=== PATIENT | male | born 1960 | race Caucasian/White ===

== ENCOUNTER → 2017-02-21 | Outpatient (CLI) | payer MEDICARE, OTHER ==
--- NOTE | 2017-02-21 14:36 | XR ---
EXAMINATION TYPE: XR chest 2V DATE OF EXAM: 02/21/2017 COMPARISON: 07/21/2016 TECHNIQUE: PA and lateral views submitted. HISTORY: Cough FINDINGS: Hyperinflation lungs noted. Correlate for COPD. Degenerative change of the spine seen. Heart size sta ble. No overt failure or pneumothorax. Vague density in the right midlung likely related soft tissue overlap. IMPRESSION: 1. Small focal area of density in the right mid to lower lung field likely related to soft tissue ove rlap rather than early infiltrate correlate clinically. 2. COPD
== END ==
LOC: RAD 14:04
PROVIDERS: ATTEND Internal Medicine
DX: J44.9 Chronic obstructive pulmonary disease, unspecified (principal)
CPT/HCPCS: 71020

== ENCOUNTER 2017-07-02 06:22 | Inpatient (IN) | payer MEDICARE, OTHER ==
--- NOTE | 2017-07-02 06:33 | ED ---
General Adult HPI - General Source: patient, RN notes reviewed, old records reviewed Mode of arrival: wheelchair Limitations: no limitations <Jw Morel - Last Filed: 07/02/17 06:34> <Jw Phelps - Last Filed: 07/02/17 08:10> - General Chief complaint: Recheck/Abnormal Lab/Rx Stated complaint: Incision problems Time Seen by Provider: 07/02/17 06:31 - History of Present Illness Initial comments: This is a 57-year-old male to the ER for evaluation of postop complication. Patient does have history of high blood pressure high cholesterol, patient had surgery by Dr. Hua and was released 2 days ago. Patient of bowel resection secondary to diverticulitis. Patient went to mild abdominal pain. No fevers. Patient denies a chest pain shortness of breath patient had progressed to normal diet normal bowel movements. Patient states wound issue happened overnight (Jw Morel) - Related Data Home Medications Medication Instructions Recorded Confirmed Albuterol Sulfate [Ventolin HFA] 2 puff INHALATION RT-Q4H PRN 03/05/14 06/24/17 Gabapentin [Neurontin] 100 mg PO BID 03/05/14 06/24/17 Omeprazole 40 mg PO DAILY 03/05/14 06/24/17 Lipase/Protease/Amylase [[place] 1 cap PO TID 07/12/14 06/24/17 24,000 Units Capsule] risperiDONE [RisperDAL] 2 mg PO BID 07/12/14 06/24/17 Atorvastatin Calcium [Lipitor] 10 mg PO DAILY 06/02/17 06/24/17 Furosemide [Lasix] 40 mg PO DAILY 06/02/17 06/24/17 Ibuprofen [Motrin] 800 mg PO TID PRN 06/02/17 06/24/17 Metoprolol Succinate (ER) [Toprol 25 mg PO DAILY 06/02/17 06/24/17 XL] Roflumilast [Daliresp] 500 mg PO DAILY 06/02/17 06/24/17 busPIRone HCL [Buspar] 7.5 mg PO BID 06/02/17 06/24/17 Theophylline Anhydrous [Dionisio-24] 200 mg PO DAILY 06/24/17 06/24/17 Previous Rx's Medication Instructions Recorded Escitalopram [Lexapro] 10 mg PO DAILY #30 tab 03/11/14 Potassium Chloride [Klor-Con 10] 20 meq PO DAILY #60 tablet.er 06/30/17 Allergies Allergy/AdvReac Type Severity Reaction Status Date / Time Penicillins Allergy Rash/Hives Verified 07/02/17 06:30 Review of Systems ROS Other: All systems not noted in ROS Statement are negative. <Jw Morel - Last Filed: 07/02/17 06:34> ROS Other: All systems not noted in ROS Statement are negative. <Jw Phelps - Last Filed: 07/02/17 08:10> ROS Statement: Those systems with pertinent positive or pertinent negative responses have been documented in the HPI. Past Medical History Past Medical History: Chest Pain / Angina, COPD, GERD/Reflux, Hyperlipidemia, Hypertension, Pneumonia, Sleep Apnea/CPAP/BIPAP Additional Past Medical History / Comment(s): Currently being tx for diverticulitis with home antibiotics, O2 at 3L/NC ATC, 2 leaky heart valves, chronic pancreatitis. Last Myocardial Infarction Date:: Denies having an [place] History of Any Multi-Drug Resistant Organisms: MRSA Date of last positivie culture/infection: summer MDRO Source:: right side of buttuck and right side of chest above nipple/ Past Surgical History: Heart Catheterization, Tonsillectomy Additional Past Surgical History / Comment(s): RT WRIST-repair of two tendons, cardiac cath-normal, colonoscopy-yrs ago, current L upper arm picc line. Past Anesthesia/Blood Transfusion Reactions: No Reported Reaction, Motion Sickness Past Psychological History: Anxiety, Depression Smoking Status: Current every day smoker - Past Family History Mother Family Medical History: Cancer, COPD Additional Family Medical History / Comment(s): Pt does not know what kind of cancer mother had. She is . Father Family Medical History: COPD Additional Family Medical History / Comment(s): Father is . <Jw Morel - Last Filed: 07/02/17 06:34> General Exam Limitations: no limitations General appearance: alert, in no apparent distress Head exam: Present: atraumatic, normocephalic, normal inspection Eye exam: Present: normal appearance, PERRL, EOMI. Absent: scleral icterus, conjunctival injection, periorbital swelling ENT exam: Present: normal exam, mucous membranes moist Neck exam: Present: normal inspection. Absent: tenderness, meningismus, lymphadenopathy Respiratory exam: Present: normal lung sounds bilaterally. Absent: respiratory distress, wheezes, rales, rhonchi, stridor Cardiovascular Exam: Present: regular rate, normal rhythm, normal heart sounds. Absent: systolic murmur, diastolic murmur, rubs, gallop, clicks GI/Abdominal exam: Present: soft, normal bowel sounds. Absent: distended, tenderness, guarding, rebound, rigid Extremities exam: Present: normal inspection, full ROM, normal capillary refill. Absent: tenderness, pedal edema, joint swelling, calf tenderness Back exam: Present: normal inspection Neurological exam: Present: alert, oriented X3, CN II-XII intact Psychiatric exam: Present: normal affect, normal mood Skin exam: Present: warm, dry, intact, normal color. Absent: rash <Jw Morel - Last Filed: 07/02/17 06:34> <Jw Phelps - Last Filed: 07/02/17 08:10> - General Exam Comments Initial Comments: Incision is covered, clean, there is bowel protruding through significant wound dehiscence anterior midline (Jw Morel) Course <Jw Morel - Last Filed: 07/02/17 06:34> <Jw Phleps - Last Filed: 07/02/17 08:10> Vital Signs 07/02/17 07/02/17 07/02/17 06:26 06:30 07:25 Temperature 98.2 F Pulse Rate 121 H 100 91 Respiratory 24 20 18 Rate Blood Pressure 141/102 172/94 148/80 O2 Sat by Pulse 98 100 100 Oximetry - Reevaluation(s) Reevaluation #1: 07/02/17 06:32 Dr. Hua pagecipriano regarding significant wound dehiscence, bowel protruding ( Jw Morel) Medical Decision Making - Lab Data Result diagrams: 07/02/17 07:17 07/02/17 07:17 <Jw Phelps - Last Filed: 07/02/17 08:10> - Lab Data Lab Results 07/02/17 07/02/17 Range/Units 07:17 07:17 WBC 14.2 H (3.8-10.6) k/uL RBC 4.06 L (4.30-5.90) m/uL Hgb 11.3 L (13.0-17.5) gm/dL Hct 37.3 L (39.0-53.0) % MCV 91.9 (80.0-100.0) fL MCH 27.8 (25.0-35.0) pg MCHC 30.2 L (31.0-37.0) g/dL RDW 15.0 (11.5-15.5) % Plt Count 269 (150-450) k/uL Neutrophils % 91 % Lymphocytes % 4 % Monocytes % 3 % Eosinophils % 2 % Basophils % 0 % Neutrophils # 12.9 H (1.3-7.7) k/uL Lymphocytes # 0.6 L (1.0-4.8) k/uL Monocytes # 0.4 (0-1.0) k/uL Eosinophils # 0.3 (0-0.7) k/uL Basophils # 0.0 (0-0.2) k/uL Sodium 141 (137-145) mmol/L Potassium 3.6 (3.5-5.1) mmol/L Chloride 100 (98-107) mmol/L Carbon Dioxide 33 H (22-30) mmol/L Anion Gap 8 mmol/L BUN 13 (9-20) mg/dL Creatinine 0.49 L (0.66-1.25) mg/dL Est GFR (MDRD) Af Amer >60 (>60 ml/min/1.73 sqM) Est GFR (MDRD) Non-Af >60 (>60 ml/min/1.73 sqM) Glucose 128 H (74-99) mg/dL Calcium 8.9 (8.4-10.2) mg/dL Total Bilirubin 0.5 (0.2-1.3) mg/dL AST 16 L (17-59) U/L ALT 35 (21-72) U/L Alkaline Phosphatase 70 (38-126) U/L Total Protein 5.7 L (6.3-8.2) g/dL Albumin 3.3 L (3.5-5.0) g/dL Amylase <30 L (30-110) U/L Lipase 32 (23-300) U/L Disposition <Roskopp,Jw B - Last Filed: 07/02/17 06:34> Time of Disposition: 08:10 <Jw Phelps - Last Filed: 07/02/17 08:10> Clinical Impression: Dehiscence of surgical wound Disposition: ADMITTED IP TO THIS HOSP Referrals: Magi Kerr MD [Primary Care Provider] - 1-2 days
[2017-07-02] MEDS ORDERED: MORPHINE SULFATE 5 MG/ML SYRINGE IV STA (06:35)
[2017-07-02] MEDS ORDERED: SODIUM CHLORIDE 0.9% 1,000 ML IV STA (06:35)
[2017-07-02] MEDS ORDERED: PANTOPRAZOLE 40 MG/10 ML VIAL IVP STA (06:35)
[2017-07-02] MEDS ORDERED: ONDANSETRON 4 MG/2 ML VIAL IVP STA (06:35)
[2017-07-02] MEDS: SODIUM CHLORIDE 0.9% 1,000 ML IV STA ×2 (06:51→13:21)
[2017-07-02 07:33] LABS: Basophils % (A) 0 %; Eosinophils # (A) 0.3 k/uL (0-0.7); Eosinophils % (A) 2 %; HCT 37.3 % (39.0-53.0); HGB 11.3 gm/dL (13.0-17.5); Lymphocytes # (A) 0.6 k/uL (1.0-4.8); Lymphocytes % (A) 4 %; MCH 27.8 pg (25.0-35.0); MCHC 30.2 g/dL (31.0-37.0); MCV 91.9 fL (80.0-100.0); Mean Platelet Volume 7.5; Monocytes # (A) 0.4 k/uL (0-1.0); Monocytes % (A) 3 %; Neutrophils # (A) 12.9 k/uL (1.3-7.7); Neutrophils % (A) 91 %; Platelet Count 269 k/uL (150-450); RBC 4.06 m/uL (4.30-5.90); WBC 14.2 k/uL (3.8-10.6)
[2017-07-02] MEDS ORDERED: MORPHINE SULFATE 5 MG/ML SYRINGE IVP STA (07:44)
--- NOTE | 2017-07-02 07:44 | XR ---
EXAMINATION TYPE: XR abdomen acute w cxr , 4 VIEWS DATE OF EXAM ORDERED: 07/02/2017 HISTORY: Bowel evisceration. COMPARISON: None. FINDINGS: There is blunting of both CP angles. It would be difficult to exclude small effusions. The lungs are otherwise clear. Pleural spaces are clear. Within the abdomen, there are mildly dilated loops of small bowel throughout the upper abdomen. The c olon is relatively gasless. There are metallic skin sutures in place. No free air is seen. No unusual calcifications are identified. IMPRESSION: 1. DIFFICULT TO EXCLUDE SMALL, BILATERAL EFFUSIONS. 2. SMALL BOWEL ILEUS VERSUS EARLY OBSTRUCTION.
[2017-07-02 07:53] LABS: ALT 35 U/L (21-72); AST 16 U/L (17-59); Albumin 3.3 g/dL (3.5-5.0); Alkaline Phosphatase 70 U/L (38-126); Amylase <30 U/L (30-110); Anion Gap 8 mmol/L; Blood Urea Nitrogen 13 mg/dL (9-20); Calcium 8.9 mg/dL (8.4-10.2); Carbon Dioxide 33 mmol/L (22-30); Chloride 100 mmol/L (98-107); Glucose 128 mg/dL (74-99); Lipase 32 U/L (23-300); Potassium 3.6 mmol/L (3.5-5.1); Sodium 141 mmol/L (137-145); Total Bilirubin 0.5 mg/dL (0.2-1.3); Total Protein 5.7 g/dL (6.3-8.2)
[2017-07-02 08:57] LABS: Appearance,Urine Clear (Clear); Bacteria,Urine Rare /hpf; Bilirubin,Urine Negative (Negative); Blood,Urine Negative (Negative); Color,Urine Yellow; Glucose,Urine (UA) Negative (Negative); Ketones,Urine 1+ (Negative); Leukocyte Esterase,Urine Negative (Negative); Mucus,Urine Few /hpf; Nitrite,Urine Negative (Negative); Protein,Urine 1+ (Negative); RBC,Urine 4 /hpf (0-5); Specific Gravity,Urine 1.022 (1.001-1.035); Squamous Epithelial Cell,Urine <1 /hpf (0-4); WBC,Urine 1 /hpf (0-5)
[2017-07-02] MEDS ORDERED: CLINDAMYCIN 600 MG in DEXTROSE 5% IN WATER 50 ML IVPB STA ×2 (09:09)
--- NOTE | 2017-07-02 09:09 | P.GSHP ---
History of Present Illness H&P Date: 07/02/17 57-year-old male presents with complaint of tissue presenting from a recent surgical incision. The patient was discharged 2 days ago after having a sigmoid colectomy performed secondary to chronic diverticulitis. He states that since he has been home he was doing well. He was tolerating a diet. He states that overnight he did have a fall and had a coughing fit. He noticed that at this point tissue began to protrude from his incision site. He also complained of pain at his incision site. He denies any fevers, chills, chest pain or shortness of breath. He denies any vomiting but does complain of some nausea at this time. He has no additional complaints at this time. - Review of Systems All systems: negative Past Medical History Past Medical History: Chest Pain / Angina, COPD, GERD/Reflux, Hyperlipidemia, Hypertension, Pneumonia, Sleep Apnea/CPAP/BIPAP Additional Past Medical History / Comment(s): Currently being tx for diverticulitis with home antibiotics, O2 at 3L/NC ATC, 2 leaky heart valves, chronic pancreatitis. Last Myocardial Infarction Date:: Denies having an [place] History of Any Multi-Drug Resistant Organisms: MRSA Date of last positivie culture/infection: summer MDRO Source:: right side of buttuck and right side of chest above nipple/ Past Surgical History: Heart Catheterization, Tonsillectomy Additional Past Surgical History / Comment(s): RT WRIST-repair of two tendons, cardiac cath-normal, colonoscopy-yrs ago, current L upper arm picc line. Past Anesthesia/Blood Transfusion Reactions: No Reported Reaction, Motion Sickness Past Psychological History: Anxiety, Depression Smoking Status: Current every day smoker - Past Family History Mother Family Medical History: Cancer, COPD Additional Family Medical History / Comment(s): Pt does not know what kind of cancer mother had. She is . Father Family Medical History: COPD Additional Family Medical History / Comment(s): Father is . Medications and Allergies Home Medications Medication Instructions Recorded Confirmed Type Albuterol Sulfate [Ventolin HFA] 2 puff INHALATION RT-Q4H PRN 03/05/14 06/24/17 History Gabapentin [Neurontin] 100 mg PO BID 03/05/14 06/24/17 History Omeprazole 40 mg PO DAILY 03/05/14 06/24/17 History Escitalopram [Lexapro] 10 mg PO DAILY #30 tab 03/11/14 06/24/17 Rx Lipase/Protease/Amylase [Creon Dr 1 cap PO TID 07/12/14 06/24/17 History 24,000 Units Capsule] risperiDONE [RisperDAL] 2 mg PO BID 07/12/14 06/24/17 History Atorvastatin Calcium [Lipitor] 10 mg PO DAILY 06/02/17 06/24/17 History Furosemide [Lasix] 40 mg PO DAILY 06/02/17 06/24/17 History Ibuprofen [Motrin] 800 mg PO TID PRN 06/02/17 06/24/17 History Metoprolol Succinate (ER) [Toprol 25 mg PO DAILY 06/02/17 06/24/17 History XL] Roflumilast [Daliresp] 500 mg PO DAILY 06/02/17 06/24/17 History busPIRone HCL [Buspar] 7.5 mg PO BID 06/02/17 06/24/17 History Theophylline Anhydrous [Dionisio-24] 200 mg PO DAILY 06/24/17 06/24/17 History Potassium Chloride [Klor-Con 10] 20 meq PO DAILY #60 tablet.er 06/30/17 Rx Allergies Allergy/AdvReac Type Severity Reaction Status Date / Time Penicillins Allergy Rash/Hives Verified 07/02/17 06:30 Surgical - Exam Osteopathic Statement: *. No significant issues noted on an osteopathic structural exam other than those noted in the History and Physical/Consult. Vital Signs Temp Pulse Resp BP Pulse Ox 98.2 F 121 H 24 141/102 98 07/02/17 06:26 07/02/17 06:26 07/02/17 06:26 07/02/17 06:26 07/02/17 06:26 - General well developed, no distress - Eyes PERRL, normal ocular movement - ENT normal pinna, normal nares, normal mucosa - Neck no masses, no bruits, trachea midline, no lymphadectomy - Respiratory normal respiratory effort - Abdomen Soft, appropriate tenderness, mild distention, no rebound, no guarding, midline incision site with small bowel protruding, nadine are still in place - Psychiatric speech is normal Results - Labs 07/02/17 07:17 07/02/17 07:17 Abnormal Lab Results - Last 24 Hours (Table) 07/02/17 07/02/17 07/02/17 Range/Units 07:17 07:17 08:32 WBC 14.2 H (3.8-10.6) k/uL RBC 4.06 L (4.30-5.90) m/uL Hgb 11.3 L (13.0-17.5) gm/dL Hct 37.3 L (39.0-53.0) % MCHC 30.2 L (31.0-37.0) g/dL Neutrophils # 12.9 H (1.3-7.7) k/uL Lymphocytes # 0.6 L (1.0-4.8) k/uL Carbon Dioxide 33 H (22-30) mmol/L Creatinine 0.49 L (0.66-1.25) mg/dL Glucose 128 H (74-99) mg/dL AST 16 L (17-59) U/L Total Protein 5.7 L (6.3-8.2) g/dL Albumin 3.3 L (3.5-5.0) g/dL Amylase <30 L (30-110) U/L Urine Protein 1+ H (Negative) Urine Ketones 1+ H (Negative) Urine Bacteria Rare H (None) /hpf Urine Mucus Few H (None) /hpf Diabetes panel 07/02/17 Range/Units 07:17 Sodium 141 (137-145) mmol/L Potassium 3.6 (3.5-5.1) mmol/L Chloride 100 (98-107) mmol/L Carbon Dioxide 33 H (22-30) mmol/L BUN 13 (9-20) mg/dL Creatinine 0.49 L (0.66-1.25) mg/dL Glucose 128 H (74-99) mg/dL Calcium 8.9 (8.4-10.2) mg/dL AST 16 L (17-59) U/L ALT 35 (21-72) U/L Alkaline Phosphatase 70 (38-126) U/L Total Protein 5.7 L (6.3-8.2) g/dL Albumin 3.3 L (3.5-5.0) g/dL Calcium panel 07/02/17 Range/Units 07:17 Calcium 8.9 (8.4-10.2) mg/dL Albumin 3.3 L (3.5-5.0) g/dL Pituitary panel 07/02/17 Range/Units 07:17 Sodium 141 (137-145) mmol/L Potassium 3.6 (3.5-5.1) mmol/L Chloride 100 (98-107) mmol/L Carbon Dioxide 33 H (22-30) mmol/L BUN 13 (9-20) mg/dL Creatinine 0.49 L (0.66-1.25) mg/dL Glucose 128 H (74-99) mg/dL Calcium 8.9 (8.4-10.2) mg/dL Adrenal panel 07/02/17 Range/Units 07:17 Sodium 141 (137-145) mmol/L Potassium 3.6 (3.5-5.1) mmol/L Chloride 100 (98-107) mmol/L Carbon Dioxide 33 H (22-30) mmol/L BUN 13 (9-20) mg/dL Creatinine 0.49 L (0.66-1.25) mg/dL Glucose 128 H (74-99) mg/dL Calcium 8.9 (8.4-10.2) mg/dL Total Bilirubin 0.5 (0.2-1.3) mg/dL AST 16 L (17-59) U/L ALT 35 (21-72) U/L Alkaline Phosphatase 70 (38-126) U/L Total Protein 5.7 L (6.3-8.2) g/dL Albumin 3.3 L (3.5-5.0) g/dL Assessment and Plan (1) Dehiscence of surgical wound Current Visit: Yes Status: Acute Code(s): T81.31XA - DISRUPTION OF EXTERNAL OPERATION (SURGICAL) WOUND, NEC, INIT SNOMED Code(s): 395456840 (2) COPD (chronic obstructive pulmonary disease) Current Visit: No Status: Chronic Code(s): J44.9 - CHRONIC OBSTRUCTIVE PULMONARY DISEASE, UNSPECIFIED SNOMED Code(s): 78965302 Plan: 57-year-old male with wound dehiscence from recent laparotomy - IV fluid resuscitation - Will begin some antibiotic coverage - Plan to take to the OR for wound closure - Educated patient on smoking cessation - Further recommendations after operation
[2017-07-02] MEDS ORDERED: SODIUM CHLORIDE 0.9% 1,000 ML IV ONE (09:55)
[2017-07-02] MEDS ORDERED: CLINDAMYCIN 150 MG/ML 4 ML VIAL IVPB ONE (10:10)
[2017-07-02] MEDS ORDERED: LACTATED RINGERS 1,000 ML IV ONE ×3 (10:20→14:02)
[2017-07-02] MEDS ORDERED: NEOSTIGMINE 1 MG/ML 10 ML VIAL ONE (10:33)
[2017-07-02] MEDS ORDERED: GLYCOPYRROLATE 0.2 MG/ML 2 ML VIAL ONE (10:33)
[2017-07-02] MEDS ORDERED: MIDAZOLAM 2 MG/2 ML VIAL ONE (10:33)
[2017-07-02] MEDS ORDERED: fentaNYL (PF) 50 MCG/ML 2 ML AMP ONE (10:33)
[2017-07-02] MEDS ORDERED: PROPOFOL 10 MG/ML 20 ML VIAL IV ONE (10:33)
[2017-07-02] MEDS ORDERED: LIDOCAINE 1% INJ 10MG/ML (20 ML MDV) ONE (10:33)
[2017-07-02] MEDS ORDERED: SUCCINYLCHOLINE CHLORIDE 100 MG/5 ML SYR IV ONE (10:33)
[2017-07-02] MEDS ORDERED: HYDROmorphone (PF) 1 MG/ML ONE (10:33)
[2017-07-02] MEDS ORDERED: ROCURONIUM BROMIDE 10 MG/ML 10 ML VIAL IV ONE (10:33)
[2017-07-02] MEDS ORDERED: PHENYLEPHRINE-0.9% NACL SYG 1 MG/10 ML SYRINGE ONE (10:33)
--- NOTE | 2017-07-02 11:57 | P.OP ---
Date of Procedure: 07/02/17 Preoperative Diagnosis: Midline wound dehiscence Postoperative Diagnosis: Midline wound fascial dehiscence with small bowel herniation Procedure(s) Performed: Exploratory laparotomy Abdominal washout Abdominal wound closure Anesthesia: ALYSSA Surgeon: Maureen Sorensen Pathology: none sent Condition: stable Disposition: floor Indications for Procedure: 57-year-old gentleman presented to the emergency department 2 days after discharge. He did have a sigmoid colectomy prior to his recent discharge. He states that he had a recent fall and coughing episode in which he noticed tissue coming out of his incision site. He then presented to the emergency department. On workup the patient was found to have small bowel herniation through a wound dehiscence. The patient was taken to the operating room secondary to this. The risks, benefits and alternatives were explained to the patient prior to attending the operating suite. The patient did provide consent prior to attending the operating suite. Operative Findings: Midline fascial wound dehiscence with small bowel herniation Description of Procedure: The patient was brought into the operating suite placed in supine position on the operating table and sedation was provided by anesthesia. He then underwent endotracheal intubation. The patient was then prepped and draped in regular sterile fashion. Skin stapler remover was used to remove the skin nadine at the midline incision. Immediate small bowel herniation was noted. The previous midline fascial suture was noted to not be in place. These sutures were removed. The small bowel was examined and no obvious ischemia or viability concerns were noted. Warm irrigation was then placed within the abdomen and suctioned. The small bowel was run from the ligament of Treitz towards the cecum with no evidence of any pathologic issue. At this point an NG tube was placed by anesthesia due to some mild dilation of the small bowel. The fascial layer was then closed with a loop #1 PDS suture in running fashion. An additional V lock 2-0 suture was used to continue to reapproximate the fascia. The skin incision was then closed with skin nadine. Additional nylon sutures were placed in between skin nadine. An abdominal binder was also placed 1 sterile dressing was applied. The patient was awakened in the operating suite and taken to postanesthesia care unit in stable condition.
[2017-07-02] MEDS ORDERED: HYDROmorphone 1 MG/ML 1 ML SYRINGE IVP ONE ×2 (12:14→12:20)
[2017-07-02 13:58] VITALS: BMI 30.2
[2017-07-02] MEDS ORDERED: ONDANSETRON 4 MG/2 ML VIAL IVP PRN (14:02)
[2017-07-02] MEDS ORDERED: HYDROmorphone 1 MG/ML 1 ML SYRINGE IVP PRN (14:02)
[2017-07-02] MEDS ORDERED: NALOXONE 0.4 MG/ML 1 ML VIAL IV PRN (14:02)
[2017-07-02] MEDS: HYDROmorphone 2 MG/ML 1 ML SYRINGE IVP PRN ×2 (15:43→20:25)
[2017-07-02] MEDS: HEPARIN SODIUM,PORCINE 5,000 UNIT/ML 1 ML VIAL SQ SCH ×2 (15:44→23:51)
[2017-07-02] MEDS ORDERED: CLINDAMYCIN 600 MG in DEXTROSE 5% IN WATER 50 ML IVPB SCH ×2 (16:00)
[2017-07-02] MEDS ORDERED: LORazepam 2 MG/ML INJ IV PRN ×2 (17:06→18:23)
[2017-07-02] MEDS ORDERED: LORazepam 2 MG/ML INJ IV STA (18:24)
[2017-07-02] MEDS ORDERED: HALOPERIDOL LACTATE 5 MG/ML 1 ML VIAL IVP PRN (20:39)
--- NOTE | 2017-07-02 20:56 | XR ---
EXAMINATION TYPE: XR chest 1V DATE OF EXAM: 07/02/2017 CLINICAL HISTORY: NG tube placement TECHNIQUE: Single AP portable supine view of the chest is obtained. COMPARISON: Chest x-ray from earlier today. FINDINGS: Nasogastric tube tip projects below left hemidiaphragm. Lungs remain clear without pleural effusion or pneumothorax. Cardiac silhouette size is within normal limits. Osseous structures are in tact. IMPRESSION: New nasogastric tube satisfactory in position. No acute pulmonary process is evident curr ently.
[2017-07-02] MEDS ORDERED: VANCOMYCIN IV PER PHARMACY 1 EACH MISC MISCELLANE PRN (22:46)
[2017-07-02] MEDS ORDERED: VANCOMYCIN 1,500 MG in SODIUM CHLORIDE 0.9% 250 ML IVPB ONE (23:00)
[2017-07-02] MEDS: LORazepam 2 MG/ML INJ IV PRN (23:51)
[2017-07-03] MEDS: HYDROmorphone 2 MG/ML 1 ML SYRINGE IVP PRN ×2 (01:38→19:48)
[2017-07-03] MEDS ORDERED: SODIUM CHLORIDE 0.9% 500 ML IV ONE (01:43)
[2017-07-03] MEDS: LORazepam 2 MG/ML INJ IV PRN ×4 (03:26→19:53)
[2017-07-03] MEDS: LACTATED RINGERS 1,000 ML IV SCH ×3 (03:26→18:43)
[2017-07-03] MEDS ORDERED: HALOPERIDOL LACTATE 5 MG/ML 1 ML VIAL IM PRN (04:39)
[2017-07-03 05:06] LABS: Basophils % (A) 0 %; Eosinophils # (A) 0.2 k/uL (0-0.7); Eosinophils % (A) 1 %; HCT 33.8 % (39.0-53.0); HGB 10.2 gm/dL (13.0-17.5); Hypochromasia Marked; Lymphocytes # (A) 0.8 k/uL (1.0-4.8); Lymphocytes % (A) 5 %; MCH 28.6 pg (25.0-35.0); MCHC 30.2 g/dL (31.0-37.0); MCV 94.6 fL (80.0-100.0); Mean Platelet Volume 7.6; Monocytes # (A) 0.8 k/uL (0-1.0); Monocytes % (A) 5 %; Neutrophils # (A) 13.4 k/uL (1.3-7.7); Neutrophils % (A) 88 %; Platelet Count 315 k/uL (150-450); RBC 3.57 m/uL (4.30-5.90); RDW 15.1 % (11.5-15.5); WBC 15.3 k/uL (3.8-10.6)
[2017-07-03 05:17] LABS: ALT 38 U/L (21-72); AST 28 U/L (17-59); Albumin 2.9 g/dL (3.5-5.0); Alkaline Phosphatase 52 U/L (38-126); Anion Gap 9 mmol/L; Blood Urea Nitrogen 15 mg/dL (9-20); Calcium 8.2 mg/dL (8.4-10.2); Carbon Dioxide 26 mmol/L (22-30); Chloride 107 mmol/L (98-107); Glucose 122 mg/dL (74-99); Magnesium 1.3 mg/dL (1.6-2.3); Phosphorus 3.2 mg/dL (2.5-4.5); Sodium 142 mmol/L (137-145); Total Bilirubin 0.6 mg/dL (0.2-1.3); Total Protein 5.2 g/dL (6.3-8.2)
[2017-07-03] MEDS ORDERED: methylPREDNISolone SOD SUCCI 125 MG/2 ML VIAL IV STA (08:04)
[2017-07-03] MEDS ORDERED: HYDROmorphone 2 MG/ML 1 ML SYRINGE IVP STA (08:05)
[2017-07-03] MEDS ORDERED: IPRATROPIUM-ALBUTEROL 3 ML NEB INHALATION STA ×3 (08:07→08:12)
[2017-07-03] MEDS ORDERED: Magnesium Replacement Protocol 1 EACH MISC MISCELLANE PRN (08:11)
[2017-07-03] MEDS: MAGNESIUM SULFATE-D5W PMX 1 GM in DEXTROSE/WATER 1 100ML.BAG IVPB SCH ×3 (08:45→15:14)
[2017-07-03 09:14] LABS: Glucose,Whole Blood 167 mg/dL (75-99)
[2017-07-03] MEDS: HEPARIN SODIUM,PORCINE 5,000 UNIT/ML 1 ML VIAL SQ SCH ×2 (09:59→16:12)
[2017-07-03] MEDS: VANCOMYCIN 1,500 MG in SODIUM CHLORIDE 0.9% 250 ML IVPB SCH ×2 (10:00→16:12)
[2017-07-03] MEDS: PANTOPRAZOLE 40 MG/10 ML VIAL IV SCH (10:02)
--- NOTE | 2017-07-03 10:11 | P.PN ---
Subjective Progress Note Date: 07/03/17 Pt seen and examined at bedside. I was notified this AM that the pt was severely agitated and began breathing with raspy sounds and he began to desaturate. A rapid was called, treatment improved his saturation but his agitation remained. He is known to have a history of benzodiazepine abuse. Ativan resolved his agitation. He was then transferred to ICU. his NGT had scant output overnight. Currently, he is in ICU and not answering questions due to Ativan on board. He is on nasal cannula and saturating well in the high 90s. Objective - Vital Signs Vital signs: Vital Signs Temp 99.8 F H 07/03/17 07:00 Pulse 108 H 07/03/17 08:11 Resp 26 H 07/03/17 08:00 BP 163/87 07/03/17 07:00 Pulse Ox 99 07/03/17 08:06 Intake & Output 07/02/17 07/03/17 07/03/17 18:59 06:59 18:59 Intake Total 2300 1125 Output Total 5 350 Balance 2295 775 Weight 84.822 kg Intake: IV 2300 Sodium Chloride 0.9% 1, 400 000 ml @ 100 mls/hr IV . Q10H STA Rx#:[id number] Intake, IV Titration 1125 Amount Lactated Ringers 1,000 ml 375 @ 125 mls/hr IV .Q8H MANDA Rx#:[id number] Sodium Chloride 0.9% 500 500 ml @ 999 mls/hr IV .Q31M ONE Rx#:[id number] Vancomycin 1,500 mg In 250 Sodium Chloride 0.9% 250 ml @ 125 mls/hr IVPB Q8H MANDA Rx#:[id number] Output: Gastric Drainage 350 Urine 0 Estimated Blood Loss 5 Other: Voiding Method Urinal - Constitutional General appearance: Present: cooperative, no acute distress - EENT Eyes: Present: PERRLA ENT: Present: hearing grossly normal - Neck Neck: Present: normal ROM - Respiratory Details: no difficulty with respiration - Gastrointestinal Gastrointestinal Comment(s): soft, nontender, nondistended, no rebound, no guarding, incision site clean/dry/ intact with nadine and nylons in place, + bowel sounds - Labs CBC & Chem 7: 07/03/17 04:50 07/03/17 04:50 Labs: Abnormal Lab Results - Last 24 Hours (Table) 07/03/17 07/03/17 07/03/17 Range/Units 04:50 04:50 09:12 WBC 15.3 H (3.8-10.6) k/uL RBC 3.57 L (4.30-5.90) m/uL Hgb 10.2 L (13.0-17.5) gm/dL Hct 33.8 L (39.0-53.0) % MCHC 30.2 L (31.0-37.0) g/dL Neutrophils # 13.4 H (1.3-7.7) k/uL Lymphocytes # 0.8 L (1.0-4.8) k/uL Creatinine 0.50 L (0.66-1.25) mg/dL Glucose 122 H (74-99) mg/dL POC Glucose (mg/dL) 167 H (75-99) mg/dL Calcium 8.2 L (8.4-10.2) mg/dL Magnesium 1.3 L (1.6-2.3) mg/dL Total Protein 5.2 L (6.3-8.2) g/dL Albumin 2.9 L (3.5-5.0) g/dL Microbiology - Last 24 Hours (Table) 07/02/17 08:32 Urine Culture - Preliminary Urine,Voided Assessment and Plan (1) Dehiscence of surgical wound Current Visit: Yes Status: Acute Code(s): T81.31XA - DISRUPTION OF EXTERNAL OPERATION (SURGICAL) WOUND, NEC, INIT SNOMED Code(s): 148982872 (2) COPD (chronic obstructive pulmonary disease) Current Visit: No Status: Chronic Code(s): J44.9 - CHRONIC OBSTRUCTIVE PULMONARY DISEASE, UNSPECIFIED SNOMED Code(s): 80436789 Plan: 57-year-old male with wound dehiscence from recent laparotomy, s/p abdominal wound closure - ICU care for possible withdrawal symptoms - IV fluid resuscitation - Will begin some antibiotic coverage, await additional recommendations from ID - NGT currently in place, will discuss removal when pt more alert - Educated patient on smoking cessation
--- NOTE | 2017-07-03 10:30 | CONS ---
CONSULTATION DATE OF CONSULTATION: 07/02/2017. REASON FOR CONSULTATION: Antibiotics for the abdominal wound dehiscence. HISTORY OF PRESENT ILLNESS: The patient is a 57-year-old male who is status post recent sigmoid colectomy secondary to chronic diverticulitis. Patient discharged home in stable condition about 2 days ago. The patient apparently did have fall outside and did have a coughing fit. Subsequently he was noticed to have his incision opening up and tissue protruding from his incision. With these symptoms, the patient presented early this morning to the ER. The patient has been evaluated by the surgical team. The patient has been taken to the OR, where he was noticed to have a fascial layer dehiscence of wound with intestine protruding, but no evidence of any perforation. The patient is status post closure of the abdominal wound. The patient has been admitted to the surgical floor. Because of his antibiotic allergies to PENICILLIN, he has been started on clindamycin. ID was consulted for further recommendations regarding antibiotic therapy. At the time of my evaluation, the patient has been off of surgery and has been pleasantly confused, slightly incoherent and unable to provide any history, so hence most of the information has been obtained from thorough review of the chart. The patient since admission did not have any high-grade fever, remains to be afebrile. He did have elevated white count 14.2 with a and did have a UA checked, which was negative. Acute abdominal series difficult to exclude small bilateral pleural effusion and small bowel ileus versus early obstruction. Subsequently, chest x-ray nasogastric tube satisfactory in position. No acute pulmonary process. REVIEW OF SYSTEMS: Could not be reliably obtained. The positive points have been mentioned in the HPI. PAST MEDICAL HISTORY: Significant for recurrent sigmoid diverticulitis, COPD, hypertension, hyperlipidemia, pneumonia, sleep apnea. PAST SURGICAL HISTORY: Significant for a heart catheterization, tonsillectomy, sigmoid resection. SOCIAL HISTORY: The patient current an everyday smoker. No drinking or drug use. FAMILY HISTORY: Mother with history of cancer and COPD. Father history of COPD. ALLERGIES TO: PENICILLIN. MEDICATIONS: Include the patient currently on: 1. Clindamycin. 2. He is on [place]. 3. Haldol. 4. Heparin. 5. Dilaudid. 6. Ativan. 7. Narcan. 8. Zofran. EXAMINATION: Blood pressure is 120/69 with a pulse of 130, temperature of 98. He is 96% on 2 L nasal cannula. General description is a middle-aged male lying in bed in no distress. No tachypnea or accessory muscle for respiration use. HEENT examination is slight pallor. No scleral icterus. Oral mucosa membranes dry. Neck trachea central. No thyromegaly. Lungs unlabored breathing. Clear to auscultation anteriorly. Heart S1, S2. Regular rate and rhythm. No murmur ABDOMEN: Soft. Abdominal binder is currently on. EXTREMITIES: No edema of the feet. Skin examination: No rash or mass palpable. Neurological: Patient is awake, alert, and pleasantly confused. Orientation could not be determined. LABS: Hemoglobin is 11.8, white count 14.2, BUN of 13, creatinine 0.49. Electrolytes have been normal. Liver enzymes are normal. DIAGNOSTIC IMPRESSION AND PLAN: 1. Patient with abdomen incision dehiscence in a patient who is status post laparotomy with sigmoid resection for chronic diverticulitis. Currently with no evidence of any perforation of the small bowel. The likely organism need to cover responsible for interruption of the incision will be the gram-positive skin nury. 2. Patient does have a PENICILLIN ALLERGY that will limit number of antibiotics that could be safely used. PLAN: 1. Discontinue clindamycin. 2. We will start the patient on vancomycin pharmacy to dose target of 15. However we will need to watch his kidney function very closely to prevent any nephrotoxicity associated with vancomycin use 3. Depending upon his clinical response as well as cultures will adjust his medication further if needed. Thank you for this consultation. Will follow this patient along with you. MMODL / IJN: [id number] / [place]
--- NOTE | 2017-07-03 13:54 | P.CONS ---
History of Present Illness - Reason for Consult Consult date: 07/03/17 medical management - Chief Complaint abdominal pain - History of Present Illness this is a 57-year-old gentleman with very complex past medical history significant for recent sigmoid colectomy who was recently discharged from the hospital home and was doing fairly well but unfortunately had a fall at home and noted a protrusion of tissue from the incision sites. Who presented to the hospital and was found to have evidence of midline wound dehiscence. . Patient was seen by general surgery and was taken to the OR and underwent exploratory laparoscopy with abdominal washout and wound closure. Postoperatively, patient was getting very agitated. He was hallucinating and intended to get out of bed. He was putting on his IV. He is known to have dependence to high doses of benzodiazepine and opiates at home. He appears to have evidence of benzodiazepine withdrawal. He was also noted to have diffuse wheezing all over the chest and appeared hypoxic. Patient was treated with multiple doses of IV Ativan and haloperidol. He was transferred to the intensive care unit. He was given 1 dose of IV Solu-Medrol 125 mg. He is currently very lethargic and only responsive to painful stimuli in the intensive care unit. He remained hemodynamically stable. Review of Systems unable to review other systems given mental status change Past Medical History Past Medical History: Chest Pain / Angina, COPD, GERD/Reflux, Hyperlipidemia, Hypertension, Pneumonia, Sleep Apnea/CPAP/BIPAP Additional Past Medical History / Comment(s): O2 at 3L/NC at home, 2 leaky heart valves, chronic pancreatitis. Last Myocardial Infarction Date:: Denies having an [place] History of Any Multi-Drug Resistant Organisms: MRSA Year Discovered:: summer MDRO Source:: right side of buttuck and right side of chest above nipple Past Surgical History: Heart Catheterization, Tonsillectomy Additional Past Surgical History / Comment(s): RT WRIST-repair of two tendons, cardiac cath-normal, colonoscopy-yrs ago Past Anesthesia/Blood Transfusion Reactions: No Reported Reaction, Motion Sickness Past Psychological History: Anxiety, Depression Additional Psychological History / Comment(s): STARTED SMOKING AT AGE 5 SMOKED 2 PPD NOW 1 PPD, USED TO DRINK SOCIABLLY NONE IN LAST 10 YEARS. He lives at home with his [id number]. Smoking Status: Current every day smoker Past Alcohol Use History: None Reported Past Drug Use History: None Reported - Past Family History Mother Family Medical History: Cancer, COPD Additional Family Medical History / Comment(s): unaware of what kind of cancer Father Family Medical History: COPD Additional Family Medical History / Comment(s): Father is . Medications and Allergies Home Medications Medication Instructions Recorded Confirmed Type Albuterol Sulfate [Ventolin HFA] 2 puff INHALATION RT-Q4H PRN 03/05/14 07/02/17 History Gabapentin [Neurontin] 100 mg PO BID 03/05/14 07/02/17 History Omeprazole 40 mg PO DAILY 03/05/14 07/02/17 History Escitalopram [Lexapro] 10 mg PO DAILY #30 tab 03/11/14 07/02/17 Rx Lipase/Protease/Amylase [Creon Dr 1 cap PO TID 07/12/14 07/02/17 History 24,000 Units Capsule] risperiDONE [RisperDAL] 2 mg PO BID 07/12/14 07/02/17 History Atorvastatin Calcium [Lipitor] 10 mg PO DAILY 06/02/17 07/02/17 History Furosemide [Lasix] 40 mg PO DAILY 06/02/17 07/02/17 History Ibuprofen [Motrin] 800 mg PO TID PRN 06/02/17 07/02/17 History Metoprolol Succinate (ER) [Toprol 25 mg PO DAILY 06/02/17 07/02/17 History XL] Roflumilast [Daliresp] 500 mg PO DAILY 06/02/17 07/02/17 History busPIRone HCL [Buspar] 7.5 mg PO BID 06/02/17 07/02/17 History Theophylline Anhydrous [Dionisio-24] 200 mg PO DAILY 06/24/17 07/02/17 History Potassium Chloride [Klor-Con 10] 20 meq PO DAILY #60 tablet.er 06/30/17 Rx Allergies Allergy/AdvReac Type Severity Reaction Status Date / Time Penicillins Allergy Rash/Hives Verified 07/02/17 11:01 Physical Exam Vitals: Vital Signs Temp Pulse Pulse Pulse Resp BP BP 07/03/17 13:00 93 16 121/81 07/03/17 12:30 99.0 F 97 22 137/87 07/03/17 12:00 93 31 H 139/84 07/03/17 11:30 95 27 H 138/90 07/03/17 11:00 101 H 31 H 127/71 07/03/17 10:40 100.1 F H 106 H 24 117/76 07/03/17 10:30 106 H 24 117/76 07/03/17 10:20 109 H 21 141/82 07/03/17 10:00 109 H 34 H 150/87 07/03/17 09:30 24 07/03/17 09:24 103 F H 128 H 39 H 119/87 07/03/17 08:11 108 H 07/03/17 08:06 07/03/17 08:00 26 H 07/03/17 07:48 115 H 07/03/17 07:00 99.8 F H 132 H 26 H 163/87 07/03/17 04:17 133 H 179/89 07/03/17 02:34 98 F 131 H 24 07/02/17 23:24 97.9 F 110 H 19 07/02/17 14:45 113 H 07/02/17 14:30 113 H 07/02/17 14:15 112 H 07/02/17 14:00 114 H BP Pulse Ox 07/03/17 13:00 100 07/03/17 12:30 100 07/03/17 12:00 100 07/03/17 11:30 100 07/03/17 11:00 96 07/03/17 10:40 97 07/03/17 10:30 97 07/03/17 10:20 96 07/03/17 10:00 95 07/03/17 09:30 07/03/17 09:24 96 07/03/17 08:11 07/03/17 08:06 99 07/03/17 08:00 07/03/17 07:48 07/03/17 07:00 97 07/03/17 04:17 96 07/03/17 02:34 161/104 97 07/02/17 23:24 140/75 91 L 07/02/17 14:45 121/69 07/02/17 14:30 127/67 07/02/17 14:15 128/96 07/02/17 14:00 125/106 Intake and Output 07/02/17 07/03/17 07/03/17 22:59 06:59 14:59 Intake Total 1125 950 Output Total 0 350 225 Balance 0 775 725 Intake: IV 950 Lactated Ringers 1,000 ml 500 @ 125 mls/hr IV .Q8H [facility] Rx#:[id number] Magnesium Sulfate-D5w Pmx 200 1 gm In Dextrose/Water 1 100ml.bag @ 100 mls/hr IVPB Q1H [facility] Rx#: [id number] Vancomycin 1,500 mg In 250 Sodium Chloride 0.9% 250 ml @ 125 mls/hr IVPB Q8H [facility] Rx#:[id number] Intake, IV Titration 1125 Amount Lactated Ringers 1,000 ml 375 @ 125 mls/hr IV .Q8H [facility] Rx#:[id number] Sodium Chloride 0.9% 500 500 ml @ 999 mls/hr IV .Q31M ONE Rx#:[id number] Vancomycin 1,500 mg In 250 Sodium Chloride 0.9% 250 ml @ 125 mls/hr IVPB Q8H [facility] Rx#:[id number] Output: Gastric Drainage 350 Urine 0 225 Other: Voiding Method Urinal Urinal Indwelling Catheter General: The patient is obtunded and only responsive to pain stimuli. Eye: there is normal conjunctiva bilaterally. Neck: The neck is supple, there is no JVD. Cardiovascular: Normal S1-S2, no S3-S4, no murmurs. Respiratory: Lungs mild end expiratory wheeze Gastrointestinal: abdominal binder in place Musculoskeletal: There is no pedal edema. Skin: Skin is warm and dry Results CBC & Chem 7: 07/03/17 04:50 07/03/17 04:50 Labs: Abnormal Lab Results - Last 24 Hours (Table) 07/03/17 07/03/17 07/03/17 Range/Units 04:50 04:50 09:12 WBC 15.3 H (3.8-10.6) k/uL RBC 3.57 L (4.30-5.90) m/uL Hgb 10.2 L (13.0-17.5) gm/dL Hct 33.8 L (39.0-53.0) % MCHC 30.2 L (31.0-37.0) g/dL Neutrophils # 13.4 H (1.3-7.7) k/uL Lymphocytes # 0.8 L (1.0-4.8) k/uL Creatinine 0.50 L (0.66-1.25) mg/dL Glucose 122 H (74-99) mg/dL POC Glucose (mg/dL) 167 H (75-99) mg/dL Calcium 8.2 L (8.4-10.2) mg/dL Magnesium 1.3 L (1.6-2.3) mg/dL Total Protein 5.2 L (6.3-8.2) g/dL Albumin 2.9 L (3.5-5.0) g/dL Microbiology - Last 24 Hours (Table) 07/02/17 08:32 Urine Culture - Final Urine,Voided Assessment and Plan Assessment: 1. Midline wound dehiscence status post exploratory laparotomy with abdominal washout and abdominal wound closure. General surgery following closely. Patient has NG tube in place. 2. Recent sigmoid colectomy secondary to acute diverticulitis and abscess perforation 3. Postoperative delirium and agitation with evidence of benzodiazepine withdrawal, his condition improved with IV Ativan use. Patient is benzodiazepine dependent and take high doses of Xanax at home. 4. Acute COPD exacerbation, continue IV steroids and bronchodilators around the clock 5. Chronic hypoxic respiratory failure on home O2 6. Underlying bipolar disorder, all of his home medications were resumed. 7. Chronic pain syndrome dependent on high dose of opiates at home. Following with the pain clinic at Dr. Wilcox 8. Solitary 4 mm node of the left lung: Plan to repeat computed tomography scan within the next 3 months in September. Today, I reviewed his medication list and lab work results. Continue current regimen. Continue bronchodilators around the clock. Avoid use of IV Ativan unless really necessary. Repeat lab work in the morning. Continue postoperative care. Gen. surgery following closely. Thank you very much for the consultation. I will continue to follow up with you closely.
--- NOTE | 2017-07-03 14:23 | P.CNPUL ---
History of Present Illness Consult date: 07/03/17 Reason for consult: dyspnea, COPD History of present illness: 57-year-old male with known history of advanced COPD, chronic hypoxic respiratory failure, previous history of alcoholism and pancreatic insufficiency , hypertension and hyperlipidemia and chronic benzodiazepine and pain medication dependence, was also having complicated episodes of diverticulitis for which she was hospitalized for diverticular abscess approximately a month ago and the patient underwent a sigmoid colectomy. The patient presented yesterday to the emergency department with complaint of tissue presenting from a recent surgical incision. The patient had sigmoid colectomy performed secondary to chronic diverticulitis. He states that since he has been home he was doing well. He was tolerating a diet. He states that overnight he did have a fall and had a coughing fit. He noticed that at this point tissue began to protrude from his incision site. He also complained of pain at his incision site. He denies any fevers, chills, chest pain or shortness of breath. He denies any vomiting but does complain of some nausea at this time. He has no additional complaints at this time. Based on this, the patient was taken to the operating room and the patient underwent expiratory laparotomy, abdominal washout, abdominal wound closure and the patient had closure of the midline wound dehiscence. Postop, the patient was on the medical floor and earlier this morning he became very much agitated and confused. He also started having increased tachypnea and wheezing and he was found to be significantly shortness of breath. The A team activated. And the patient got moved to the intensive care unit. He is very much likely due to the patient was also withdrawing from opiates and benzodiazepines. The patient was given 1 mg of Ativan at around 4 AM in the morning another dose of Ativan prior to him coming to the ICU. He is currently on Dilaudid for pain control. His resting comfortably in bed. The breathing and the wheezing and shortness of breath subsided after the patient was adequately sedated with Ativan and he was given adequate pain control. The chest x-ray shows hyperinflation. There is no evidence of any airspace disease or pneumonias. The patient did have temperature of 103. Blood culture been sent and the patient was given a dose of vancomycin. No headache. No focal neurological deficit this point. No reported aspiration. He currently has an NG tube in place. Currently on 43 of oxygen by nasal cannula saturation wasn't 100% and he was weaned down to 2 L of oxygen by nasal cannula. Hemodynamically stable. Bolden catheter was inserted and the patient has an adequate urine output. Review of Systems ROS unobtainable: due to mental status Past Medical History Past Medical History: Chest Pain / Angina, COPD, GERD/Reflux, Hyperlipidemia, Hypertension, Pneumonia, Sleep Apnea/CPAP/BIPAP Additional Past Medical History / Comment(s): Severe COPD with an FEV1 of 23% of predicted with chronic hypoxic respiratory failure , 3liters per minute nasal cannula. History of alcoholism, history of chronic pancreatitis and pancreatic insufficiency, VIVEK, hypertension, hyperlipidemia, chronic diverticular disease/diverticulitis. The patient chronic pain and chronic anxiety maintained on high-dose benzodiazepines in the form of Xanax. He also has Last Myocardial Infarction Date:: Denies having an [place] History of Any Multi-Drug Resistant Organisms: MRSA Date of last positivie culture/infection: summer MDRO Source:: right side of buttuck and right side of chest above nipple Past Surgical History: Heart Catheterization, Tonsillectomy Additional Past Surgical History / Comment(s): Sigmoid colectomy, hand surgery involving the right hand and repair of tendons, cardiac catheterization that has been normal, colonoscopy, tonsillectomy Past Anesthesia/Blood Transfusion Reactions: No Reported Reaction, Motion Sickness Past Psychological History: Anxiety, Depression Additional Psychological History / Comment(s): STARTED SMOKING AT AGE 5 SMOKED 2 PPD NOW 1 PPD, USED TO DRINK SOCIABLLY NONE IN LAST 10 YEARS. He lives at home with his [id number]. Smoking Status: Current every day smoker Past Alcohol Use History: None Reported Past Drug Use History: None Reported - Past Family History Mother Family Medical History: Cancer, COPD Additional Family Medical History / Comment(s): unaware of what kind of cancer Father Family Medical History: COPD Additional Family Medical History / Comment(s): Father is . Medications and Allergies Home Medications Medication Instructions Recorded Confirmed Type Albuterol Sulfate [Ventolin HFA] 2 puff INHALATION RT-Q4H PRN 03/05/14 07/02/17 History Gabapentin [Neurontin] 100 mg PO BID 03/05/14 07/02/17 History Omeprazole 40 mg PO DAILY 03/05/14 07/02/17 History Escitalopram [Lexapro] 10 mg PO DAILY #30 tab 03/11/14 07/02/17 Rx Lipase/Protease/Amylase [Creon Dr 1 cap PO TID 07/12/14 07/02/17 History 24,000 Units Capsule] risperiDONE [RisperDAL] 2 mg PO BID 07/12/14 07/02/17 History Atorvastatin Calcium [Lipitor] 10 mg PO DAILY 06/02/17 07/02/17 History Furosemide [Lasix] 40 mg PO DAILY 06/02/17 07/02/17 History Ibuprofen [Motrin] 800 mg PO TID PRN 06/02/17 07/02/17 History Metoprolol Succinate (ER) [Toprol 25 mg PO DAILY 06/02/17 07/02/17 History XL] Roflumilast [Daliresp] 500 mg PO DAILY 06/02/17 07/02/17 History busPIRone HCL [Buspar] 7.5 mg PO BID 06/02/17 07/02/17 History Theophylline Anhydrous [Dionisio-24] 200 mg PO DAILY 06/24/17 07/02/17 History Potassium Chloride [Klor-Con 10] 20 meq PO DAILY #60 tablet.er 06/30/17 Rx Allergies Allergy/AdvReac Type Severity Reaction Status Date / Time Penicillins Allergy Rash/Hives Verified 07/02/17 11:01 Physical Exam Vitals: Vital Signs Temp Pulse Pulse Pulse Resp BP BP 07/03/17 13:00 93 16 121/81 07/03/17 12:30 99.0 F 97 22 137/87 07/03/17 12:00 93 31 H 139/84 07/03/17 11:30 95 27 H 138/90 07/03/17 11:00 101 H 31 H 127/71 07/03/17 10:40 100.1 F H 106 H 24 117/76 07/03/17 10:30 106 H 24 117/76 07/03/17 10:20 109 H 21 141/82 07/03/17 10:00 109 H 34 H 150/87 07/03/17 09:30 24 07/03/17 09:24 103 F H 128 H 39 H 119/87 07/03/17 08:11 108 H 07/03/17 08:06 07/03/17 08:00 26 H 07/03/17 07:48 115 H 07/03/17 07:00 99.8 F H 132 H 26 H 163/87 07/03/17 04:17 133 H 179/89 07/03/17 02:34 98 F 131 H 24 07/02/17 23:24 97.9 F 110 H 19 07/02/17 14:45 113 H 07/02/17 14:30 113 H 07/02/17 14:15 112 H BP Pulse Ox 07/03/17 13:00 100 07/03/17 12:30 100 07/03/17 12:00 100 07/03/17 11:30 100 07/03/17 11:00 96 07/03/17 10:40 97 07/03/17 10:30 97 07/03/17 10:20 96 07/03/17 10:00 95 07/03/17 09:30 07/03/17 09:24 96 07/03/17 08:11 07/03/17 08:06 99 07/03/17 08:00 07/03/17 07:48 07/03/17 07:00 97 07/03/17 04:17 96 07/03/17 02:34 161/104 97 07/02/17 23:24 140/75 91 L 07/02/17 14:45 121/69 07/02/17 14:30 127/67 07/02/17 14:15 128/96 Intake and Output 07/02/17 07/03/17 07/03/17 22:59 06:59 14:59 Intake Total 1125 950 Output Total 0 350 225 Balance 0 775 725 Intake: IV 950 Lactated Ringers 1,000 ml 500 @ 125 mls/hr IV .Q8H [facility] Rx#:[id number] Magnesium Sulfate-D5w Pmx 200 1 gm In Dextrose/Water 1 100ml.bag @ 100 mls/hr IVPB Q1H [facility] Rx#: [id number] Vancomycin 1,500 mg In 250 Sodium Chloride 0.9% 250 ml @ 125 mls/hr IVPB Q8H [facility] Rx#:[id number] Intake, IV Titration 1125 Amount Lactated Ringers 1,000 ml 375 @ 125 mls/hr IV .Q8H [facility] Rx#:[id number] Sodium Chloride 0.9% 500 500 ml @ 999 mls/hr IV .Q31M [facility] Rx#:[id number] Vancomycin 1,500 mg In 250 Sodium Chloride 0.9% 250 ml @ 125 mls/hr IVPB Q8H [facility] Rx#:[id number] Output: Gastric Drainage 350 Urine 0 225 Other: Voiding Method Urinal Urinal Indwelling Catheter - General well developed, no distress, the patient is was sedated at this point. NG tube is in place. - Eyes PERRL, normal ocular movement - ENT normal pinna, normal nares, normal mucosa - Neck no masses, no bruits, trachea midline, no lymphadectomy - Respiratory normal respiratory effort, diminished breath on the lung bases bilaterally along with some few scattered expiratory wheezes throughout the lung parikh. Cardiac exam revealed the PMI to be normally situated and sized. The rhythm was regular and no extrasystoles were noted during several minutes of auscultation. The first and second heart sounds were normal and physiologic splitting of the second heart sound was noted. There were no murmurs, rubs, clicks, or gallops. - Abdomen Soft, appropriate tenderness, mild distention, no rebound, no guarding, midline incision site is dry clean and intact at this point. - Psychiatric Cannot be obtained. Neurologically, the patient was moving all 4 extremities and his neurologic exam is nonfocal. Nevertheless, currently the patient under effect of Ativan. Examination of the skin revealed no evidence of significant rashes, suspicious appearing nevi or other concerning lesions. The anterior abdominal wound site is dry clean and intact at this point. Results - Laboratory Findings CBC and BMP: 07/03/17 04:50 07/03/17 04:50 Abnormal lab findings: Abnormal Labs 07/02/17 07/02/17 07/02/17 07:17 07:17 08:32 WBC 14.2 H RBC 4.06 L Hgb 11.3 L Hct 37.3 L MCHC 30.2 L Neutrophils # 12.9 H Lymphocytes # 0.6 L Carbon Dioxide 33 H Creatinine 0.49 L Glucose 128 H POC Glucose (mg/dL) Calcium Magnesium AST 16 L Total Protein 5.7 L Albumin 3.3 L Amylase <30 L Urine Protein 1+ H Urine Ketones 1+ H Urine Bacteria Rare H Urine Mucus Few H 07/03/17 07/03/17 07/03/17 04:50 04:50 09:12 WBC 15.3 H RBC 3.57 L Hgb 10.2 L Hct 33.8 L MCHC 30.2 L Neutrophils # 13.4 H Lymphocytes # 0.8 L Carbon Dioxide Creatinine 0.50 L Glucose 122 H POC Glucose (mg/dL) 167 H Calcium 8.2 L Magnesium 1.3 L AST Total Protein 5.2 L Albumin 2.9 L Amylase Urine Protein Urine Ketones Urine Bacteria Urine Mucus - Diagnostic Findings Chest x-ray: image reviewed Assessment and Plan Plan: Assessment 1 dehiscence of surgical wound. The patient underwent expiratory laparotomy and closure of the abdominal wounds. 2 altered mentation. Rule out delirium. Rule out withdrawal from benzodiazepines/narcotic agents. Neurologic exam is nonfocal 3 acute fever currently under investigation. Given empiric antibiotic coverage with vancomycin. Blood cultures of been sent. 4 chronic hypoxic respiratory failure 5 severe COPD with an FEV1 of 23% of predicted 6 chronic alcoholism and history of pancreatic insufficiency 7 chronic pain/generalized arthritis 8 chronic bipolar disorder 9 smoker Plan We'll monitor this patient's this process in the intensive care unit. Pain control with Dilaudid. Ativan for increased anxiety and agitation. Restart the patient on Risperdal and BuSpar and Lexapro which are part of his routine psychiatric medications. Empiric antibiotic coverage with vancomycin. IV fluids with normal saline at the rate of 1 25 mL an hour. Keep the NG tube in place. Monitor neuro status. Monitor abdominal wound. Surgeries on the case. We'll encourage use of incentive spirometer once the patient is more awake. We'll continue to follow and offer this patient routine postoperative care. Restart DuoNeb nebulized treatments around the clock. We'll continue to follow. Also offer this patient DVT and GI prophylaxis. The patient is on subcu heparin. The patient be also placed on IV Protonix.
[2017-07-03] MEDS: risperiDONE 2 MG TAB PO SCH ×2 (15:02→20:02)
[2017-07-03] MEDS: ESCITALOPRAM 10 MG TAB PO SCH (15:03)
[2017-07-03] MEDS: busPIRone HCl 5 MG TAB PO SCH ×2 (15:05→20:03)
[2017-07-03] MEDS: IPRATROPIUM-ALBUTEROL 3 ML NEB INHALATION SCH ×2 (15:58→19:58)
[2017-07-03] MEDS: GABAPENTIN 100 MG CAP PO SCH ×2 (18:39→20:02)
[2017-07-03] MEDS: HYDROcodone/APAP 5-325MG 1 EACH TAB PO PRN (19:53)
[2017-07-03] MEDS: methylPREDNISolone SOD SUCCI 40 MG/ML 1 ML VIAL IV SCH (20:03)
[2017-07-03] MEDS: METOPROLOL SUCCINATE (ER) 25 MG TAB.ER.24H PO SCH (23:41)
[2017-07-04] MEDS: HEPARIN SODIUM,PORCINE 5,000 UNIT/ML 1 ML VIAL SQ SCH ×4 (00:21→23:31)
[2017-07-04] MEDS: VANCOMYCIN 1,500 MG in SODIUM CHLORIDE 0.9% 250 ML IVPB SCH ×4 (00:22→23:31)
[2017-07-04] MEDS: HYDROmorphone 2 MG/ML 1 ML SYRINGE IVP PRN ×5 (01:39→23:31)
[2017-07-04] MEDS: HYDROcodone/APAP 5-325MG 1 EACH TAB PO PRN ×4 (02:18→21:38)
[2017-07-04] MEDS: LACTATED RINGERS 1,000 ML IV SCH ×2 (02:59→08:54)
[2017-07-04 05:40] LABS: Basophils % (A) 0 %; Eosinophils % (A) 0 %; HCT 30.9 % (39.0-53.0); HGB 9.6 gm/dL (13.0-17.5); Lymphocytes # (A) 0.4 k/uL (1.0-4.8); Lymphocytes % (A) 5 %; MCH 28.4 pg (25.0-35.0); MCHC 31.2 g/dL (31.0-37.0); Mean Platelet Volume 7.7; Monocytes # (A) 0.4 k/uL (0-1.0); Monocytes % (A) 5 %; Neutrophils # (A) 7.7 k/uL (1.3-7.7); Neutrophils % (A) 89 %; Platelet Count 258 k/uL (150-450); RBC 3.39 m/uL (4.30-5.90); RDW 15.3 % (11.5-15.5); WBC 8.6 k/uL (3.8-10.6)
[2017-07-04 06:02] LABS: ALT 35 U/L (21-72); AST 17 U/L (17-59); Albumin 2.6 g/dL (3.5-5.0); Alkaline Phosphatase 55 U/L (38-126); Anion Gap 7 mmol/L; Blood Urea Nitrogen 15 mg/dL (9-20); Calcium 8.5 mg/dL (8.4-10.2); Carbon Dioxide 30 mmol/L (22-30); Chloride 106 mmol/L (98-107); Glucose 115 mg/dL (74-99); Magnesium 2.4 mg/dL (1.6-2.3); Sodium 143 mmol/L (137-145); Total Bilirubin 0.3 mg/dL (0.2-1.3); Total Protein 4.8 g/dL (6.3-8.2)
[2017-07-04] MEDS: IPRATROPIUM-ALBUTEROL 3 ML NEB INHALATION SCH ×4 (06:04→19:15)
[2017-07-04] MEDS ORDERED: VANCOMYCIN TROUGH DUE 1 EACH MISC MISCELLANE ONE (07:00)
[2017-07-04] MEDS ORDERED: SODIUM CHLORIDE 0.9% 500 ML IV ONE (07:53)
[2017-07-04] MEDS: PANTOPRAZOLE 40 MG/10 ML VIAL IV SCH (08:31)
[2017-07-04] MEDS: GABAPENTIN 100 MG CAP PO SCH ×2 (08:32→20:31)
[2017-07-04] MEDS: methylPREDNISolone SOD SUCCI 40 MG/ML 1 ML VIAL IV SCH (08:32)
[2017-07-04] MEDS: ESCITALOPRAM 10 MG TAB PO SCH (08:32)
[2017-07-04] MEDS: busPIRone HCl 5 MG TAB PO SCH ×2 (08:32→20:31)
[2017-07-04] MEDS: risperiDONE 2 MG TAB PO SCH ×2 (08:33→21:38)
--- NOTE | 2017-07-04 09:43 | P.PN ---
Subjective Progress Note Date: 07/04/17 Principal diagnosis: Acute dehiscence of surgical wound 57-year-old male with known history of advanced COPD, chronic hypoxic respiratory failure, previous history of alcoholism and pancreatic insufficiency , hypertension and hyperlipidemia and chronic benzodiazepine and pain medication dependence, was also having complicated episodes of diverticulitis for which she was hospitalized for diverticular abscess approximately a month ago and the patient underwent a sigmoid colectomy. The patient presented yesterday to the emergency department with complaint of tissue presenting from a recent surgical incision. The patient had sigmoid colectomy performed secondary to chronic diverticulitis. He states that since he has been home he was doing well. He was tolerating a diet. He states that overnight he did have a fall and had a coughing fit. He noticed that at this point tissue began to protrude from his incision site. He also complained of pain at his incision site. He denies any fevers, chills, chest pain or shortness of breath. He denies any vomiting but does complain of some nausea at this time. He has no additional complaints at this time. Based on this, the patient was taken to the operating room and the patient underwent expiratory laparotomy, abdominal washout, abdominal wound closure and the patient had closure of the midline wound dehiscence. Postop, the patient was on the medical floor and earlier this morning he became very much agitated and confused. He also started having increased tachypnea and wheezing and he was found to be significantly shortness of breath. The A team activated. And the patient got moved to the intensive care unit. He is very much likely due to the patient was also withdrawing from opiates and benzodiazepines. The patient was given 1 mg of Ativan at around 4 AM in the morning another dose of Ativan prior to him coming to the ICU. He is currently on Dilaudid for pain control. His resting comfortably in bed. The breathing and the wheezing and shortness of breath subsided after the patient was adequately sedated with Ativan and he was given adequate pain control. The chest x-ray shows hyperinflation. There is no evidence of any airspace disease or pneumonias. The patient did have temperature of 103. Blood culture been sent and the patient was given a dose of vancomycin. No headache. No focal neurological deficit this point. No reported aspiration. He currently has an NG tube in place. Currently on 43 of oxygen by nasal cannula saturation wasn't 100% and he was weaned down to 2 L of oxygen by nasal cannula. Hemodynamically stable. Bolden catheter was inserted and the patient has an adequate urine output. Patient was reevaluated today on 07/04/2017, he seems to be doing better, hemodynamically stable, less agitated, back on multiple meds which she took at home, and is also on pain medication in the form of Dilaudid. He is back on his Ativan, and he remains hemodynamically stable. Patient does not seem to be in any distress, his only complaint seems to be related to some vague abdominal pain and discomfort. CBC showed improvement in his leukocytosis, his hemoglobin is 9.6 electrolytes and renal profile are normal. His last chest x- ray from 07/02/2017 showed no evidence of active disease. Objective - Vital Signs Vital signs: Vital Signs Temp 98.9 F 07/04/17 08:00 Pulse 90 07/04/17 08:00 Resp 19 07/04/17 08:00 BP 126/79 07/04/17 08:00 Pulse Ox 97 07/04/17 09:13 Intake & Output 07/03/17 07/04/17 07/04/17 18:59 06:59 18:59 Intake Total 1800 1725 975 Output Total 450 305 55 Balance 1350 1420 920 Weight 77.7 kg Intake: IV 1800 1725 975 0.9 NACL bolus 500 Lactated Ringers 1,000 ml 1000 1375 125 @ 125 mls/hr IV .Q8H MANDA Rx#:[id number] Magnesium Sulfate-D5w Pmx 200 1 gm In Dextrose/Water 1 100ml.bag @ 100 mls/hr IVPB Q1H MANDA Rx#: [id number] Vancomycin 1,500 mg In 500 250 250 Sodium Chloride 0.9% 250 ml @ 125 mls/hr IVPB Q8H MANDA Rx#:[id number] cefTAZidime 2 gm In 100 100 100 Sodium Chloride 0.9% 100 ml @ 100 mls/hr IVPB Q8HR MANDA Rx#:[id number] Output: Urine 450 305 55 Other: Voiding Method Indwelling Catheter Indwelling Catheter - Exam - General well developed, no distress, the patient is was sedated at this point. NG tube is in place. - Eyes PERRL, normal ocular movement - ENT normal pinna, normal nares, normal mucosa - Neck no masses, no bruits, trachea midline, no lymphadectomy - Respiratory normal respiratory effort, diminished breath on the lung bases bilaterally along with some few scattered expiratory wheezes throughout the lung parikh. Cardiac exam revealed the PMI to be normally situated and sized. The rhythm was regular and no extrasystoles were noted during several minutes of auscultation. The first and second heart sounds were normal and physiologic splitting of the second heart sound was noted. There were no murmurs, rubs, clicks, or gallops. - Abdomen Soft, appropriate tenderness, mild distention, no rebound, no guarding, midline incision site is dry clean and intact at this point. - Psychiatric Cannot be obtained. Neurologically, the patient was moving all 4 extremities and his neurologic exam is nonfocal. Nevertheless, currently the patient under effect of Ativan. Examination of the skin revealed no evidence of significant rashes, suspicious appearing nevi or other concerning lesions. The anterior abdominal wound site is dry clean and intact at this point. - Labs CBC & Chem 7: 07/04/17 05:29 07/04/17 05:29 Labs: Abnormal Lab Results - Last 24 Hours (Table) 07/04/17 07/04/17 Range/Units 05:29 05:29 RBC 3.39 L (4.30-5.90) m/uL Hgb 9.6 L (13.0-17.5) gm/dL Hct 30.9 L (39.0-53.0) % Lymphocytes # 0.4 L (1.0-4.8) k/uL Creatinine 0.50 L (0.66-1.25) mg/dL Glucose 115 H (74-99) mg/dL Magnesium 2.4 H (1.6-2.3) mg/dL Total Protein 4.8 L (6.3-8.2) g/dL Albumin 2.6 L (3.5-5.0) g/dL Microbiology - Last 24 Hours (Table) 07/02/17 08:32 Urine Culture - Final Urine,Voided Assessment and Plan Assessment: 1 dehiscence of surgical wound. The patient underwent expiratory laparotomy and closure of the abdominal wounds. 2 altered mentation. Rule out delirium. Rule out withdrawal from benzodiazepines/narcotic agents. Neurologic exam is nonfocal 3 acute fever currently under investigation. Given empiric antibiotic coverage with vancomycin. Blood cultures of been sent. 4 chronic hypoxic respiratory failure 5 severe COPD with an FEV1 of 23% of predicted 6 chronic alcoholism and history of pancreatic insufficiency 7 chronic pain/generalized arthritis 8 chronic bipolar disorder 9 smoker Recommendation: Continue present supportive care measures, continue pain control and anxiolytic agents, patient is back on his usual meds including Risperdal and BuSpar as well as Lexapro, patient remains on empiric antibiotics coverage, will arrange for the patient to be transferred out of the ICU to a monitor bed today. Time with Patient: Less than 30
--- NOTE | 2017-07-04 11:16 | PN ---
PROGRESS NOTE DATE OF SERVICE: 07/03/2016. REASON FOR FOLLOWUP: Abdominal wound dehiscence. INTERVAL HISTORY: The patient is afebrile. The patient did become restless with some respiratory distress, for which the patient has been transferred to the ICU. The patient remains to be restless and unable to provide any history. No nausea or vomiting has been noticed by nursing staff. He did not have any bowel movements so far. EXAMINATION: Blood pressure 158/91, pulse of 91, temperature 98.8, he is 100% on 2 L nasal cannula. GENERAL DESCRIPTION: A middle-aged male, lying in bed in no distress. RESPIRATORY: Unlabored breathing with decreased breath sounds at the base no wheeze. HEART: S1, S2 regular. ABDOMEN: Soft. Incision looks clean. EXTREMITIES: No edema of feet. LABS: Hemoglobin is 10.2, white count 15.3 with a BUN of 15, creatinine 0.50. UA has been negative. Chest x-ray with no pneumonia. DIAGNOSTIC IMPRESSION AND PLAN: Patient admitted to the hospital with abdominal wound dehiscence, status post repair of the same with no evidence of any perforation, now with mental status changes and distress, for which the patient is admitted to ICU. The patient is currently on Vanco and Fortaz will be added while waiting for the culture to finalize and condition to stabilize. Continue supportive care. MMODL / IJN: [id number] /
--- NOTE | 2017-07-04 11:20 | P.PN ---
Subjective Progress Note Date: 07/04/17 Principal diagnosis: Wound dehiscence The patient reports falling at home. He's not sure why he fell other than he was dizzy. When questioned he said he may have been overdoing it on the pain medication. He's having mainly back pain now. The incision is not bothering him much. No nausea or vomiting. He is hungry. Nurses report his confusion is improved. Objective - Vital Signs Vital signs: Vital Signs Temp 98.9 F 07/04/17 08:00 Pulse 85 07/04/17 11:07 Resp 11 L 07/04/17 10:00 BP 112/71 07/04/17 10:00 Pulse Ox 98 07/04/17 10:00 Intake & Output 07/03/17 07/04/17 07/04/17 18:59 06:59 18:59 Intake Total 1800 1725 1100 Output Total 450 305 85 Balance 1350 1420 1015 Weight 77.7 kg Intake: IV 1800 1725 1100 0.9 NACL bolus 500 Lactated Ringers 1,000 ml 1000 1375 250 @ 125 mls/hr IV .Q8H MANDA Rx#:[id number] Magnesium Sulfate-D5w Pmx 200 1 gm In Dextrose/Water 1 100ml.bag @ 100 mls/hr IVPB Q1H MANDA Rx#: [id number] Vancomycin 1,500 mg In 500 250 250 Sodium Chloride 0.9% 250 ml @ 125 mls/hr IVPB Q8H MANDA Rx#:[id number] cefTAZidime 2 gm In 100 100 100 Sodium Chloride 0.9% 100 ml @ 100 mls/hr IVPB Q8HR MANDA Rx#:[id number] Output: Urine 450 305 85 Other: Voiding Method Indwelling Catheter Indwelling Catheter Indwelling Catheter - Constitutional General appearance: Present: cooperative, no acute distress - Respiratory Respiratory: bilateral: CTA (Doing 1882-0774 mL's on his incentive spirometry) - Cardiovascular Rhythm: regular - Gastrointestinal General gastrointestinal: Present: normal bowel sounds, soft Localized gastrointestinal: surgical scar: diffuse (Healing without cellulitis or seroma) - Labs CBC & Chem 7: 07/04/17 05:29 07/04/17 05:29 Labs: Abnormal Lab Results - Last 24 Hours (Table) 07/04/17 07/04/17 Range/Units 05:29 05:29 RBC 3.39 L (4.30-5.90) m/uL Hgb 9.6 L (13.0-17.5) gm/dL Hct 30.9 L (39.0-53.0) % Lymphocytes # 0.4 L (1.0-4.8) k/uL Creatinine 0.50 L (0.66-1.25) mg/dL Glucose 115 H (74-99) mg/dL Magnesium 2.4 H (1.6-2.3) mg/dL Total Protein 4.8 L (6.3-8.2) g/dL Albumin 2.6 L (3.5-5.0) g/dL Microbiology - Last 24 Hours (Table) 07/02/17 08:32 Urine Culture - Final Urine,Voided Assessment and Plan (1) Confusion Current Visit: No Status: Acute Code(s): R41.0 - DISORIENTATION, UNSPECIFIED SNOMED Code(s): 543178528 Plan: Improving surgically. His infusion is improved from over the weekend. He saturating okay. Doing well on his incentive spirometry. In urine output. We will increase his diet. Monitor wound closely. Progressing slowly. Surgically stable for transfer to surgical floor.
--- NOTE | 2017-07-04 11:58 | P.PN ---
Subjective Progress Note Date: 07/04/17 Patient is doing a lot better today. His mentation is back to baseline. Objective - Vital Signs Vital signs: Vital Signs Temp 98.9 F 07/04/17 08:00 Pulse 93 07/04/17 11:19 Resp 11 L 07/04/17 10:00 BP 112/71 07/04/17 10:00 Pulse Ox 98 07/04/17 10:00 Intake & Output 07/03/17 07/04/17 07/04/17 18:59 06:59 18:59 Intake Total 1800 1725 1100 Output Total 450 305 85 Balance 1350 1420 1015 Weight 77.7 kg Intake: IV 1800 1725 1100 0.9 NACL bolus 500 Lactated Ringers 1,000 ml 1000 1375 250 @ 125 mls/hr IV .Q8H MANDA Rx#:[id number] Magnesium Sulfate-D5w Pmx 200 1 gm In Dextrose/Water 1 100ml.bag @ 100 mls/hr IVPB Q1H MANDA Rx#: [id number] Vancomycin 1,500 mg In 500 250 250 Sodium Chloride 0.9% 250 ml @ 125 mls/hr IVPB Q8H MANDA Rx#:[id number] cefTAZidime 2 gm In 100 100 100 Sodium Chloride 0.9% 100 ml @ 100 mls/hr IVPB Q8HR MANDA Rx#:[id number] Output: Urine 450 305 85 Other: Voiding Method Indwelling Catheter Indwelling Catheter Indwelling Catheter - Exam General: The patient is awake and alert, in no distress Eye: there is normal conjunctiva bilaterally. Neck: The neck is supple, there is no JVD. Cardiovascular: Normal S1-S2, no S3-S4, no murmurs. Respiratory: Lungs with mild end expiratory wheezing Gastrointestinal: Abdomen is soft, nontender Musculoskeletal: There is no pedal edema. Neurological:. Speech is normal. Skin: Skin is warm and dry - Labs CBC & Chem 7: 07/04/17 05:29 07/04/17 05:29 Labs: Abnormal Lab Results - Last 24 Hours (Table) 07/04/17 07/04/17 Range/Units 05:29 05:29 RBC 3.39 L (4.30-5.90) m/uL Hgb 9.6 L (13.0-17.5) gm/dL Hct 30.9 L (39.0-53.0) % Lymphocytes # 0.4 L (1.0-4.8) k/uL Creatinine 0.50 L (0.66-1.25) mg/dL Glucose 115 H (74-99) mg/dL Magnesium 2.4 H (1.6-2.3) mg/dL Total Protein 4.8 L (6.3-8.2) g/dL Albumin 2.6 L (3.5-5.0) g/dL Microbiology - Last 24 Hours (Table) 07/02/17 08:32 Urine Culture - Final Urine,Voided Assessment and Plan Assessment: 1. Midline wound dehiscence status post exploratory laparotomy with abdominal washout and abdominal wound closure. General surgery following closely. NG tube removed. Started on liquid diet. 2. Recent sigmoid colectomy secondary to acute diverticulitis and abscess perforation 3. Postoperative delirium and agitation with evidence of benzodiazepine withdrawal, his condition improved with IV Ativan use. Patient is benzodiazepine dependent and take high doses of Xanax at home. He is back to normal baseline. 4. Acute COPD exacerbation, bronchodilators around the clock. Change IV steroids to oral prednisone. 5. Chronic hypoxic respiratory failure on home O2 6. Underlying bipolar disorder, all of his home medications were resumed. 7. Chronic pain syndrome dependent on high dose of opiates at home. Following with the pain clinic at Dr. Wilcox 8. Solitary 4 mm node of the left lung: Plan to repeat computed tomography scan within the next 3 months in September. Today, I reviewed his medication list and lab work results. Continue current regimen. Continue bronchodilators around the clock. Repeat lab work in the morning. Continue postoperative care. Gen. surgery following closely. Transfer out of the intensive care unit to [facility] [place].
[2017-07-04] MEDS: METOPROLOL SUCCINATE (ER) 25 MG TAB.ER.24H PO SCH (12:12)
[2017-07-05] MEDS: ALPRAZolam 0.5 MG TAB PO PRN ×2 (00:31→12:45)
[2017-07-05] MEDS: LACTATED RINGERS 1,000 ML IV SCH ×4 (00:41→17:02)
[2017-07-05] MEDS: HYDROcodone/APAP 5-325MG 1 EACH TAB PO PRN ×2 (02:05→22:09)
--- NOTE | 2017-07-05 04:49 | PN ---
PROGRESS NOTE DATE OF SERVICE: 07/04/2017 REASON FOR FOLLOWUP: Postop fever. Patient with abdominal wound dehiscence. INTERVAL HISTORY: The patient is afebrile. He is more awake and alert today. He is breathing comfortably. Denies significant chest pain. Occasional cough. No abdominal pain , nausea or vomiting. PHYSICAL EXAMINATION: On examination, blood pressure 120/77 with a pulse of 88, temperature of 98.9. He is 97% on 3 L nasal cannula. General description is a middle-aged male lying in bed in no distress. RESPIRATORY SYSTEM: Unlabored breathing with decreased breath sounds in the bases. HEART: S1, S2. Regular rate and rhythm. ABDOMEN: Soft, no tenderness. EXTREMITIES: No edema feet. LABS: Hemoglobin 9.6, white count normalized to 8.6 with a BUN of 15, creatinine 0.50. DIAGNOSTIC IMPRESSION AND PLAN: Patient admitted to the hospital with abdominal wound dehiscence, status post operative repair of the same and no evidence of any perforation. Subsequently with mental status changes, respiratory distress and fever with question of possible aspiration pneumonitis. Repeat a chest x-ray tomorrow. His white count has responded to vancomycin and Fortaz that will be continued. Continue supportive care. MMODL / IJN: [id number] / MTDMaria De Jesus
[2017-07-05] MEDS: HYDROmorphone 2 MG/ML 1 ML SYRINGE IVP PRN ×5 (06:15→23:13)
[2017-07-05] MEDS: IPRATROPIUM-ALBUTEROL 3 ML NEB INHALATION SCH ×4 (07:27→19:09)
[2017-07-05] MEDS: predniSONE 20 MG TAB PO SCH (09:36)
[2017-07-05] MEDS: HEPARIN SODIUM,PORCINE 5,000 UNIT/ML 1 ML VIAL SQ SCH ×3 (09:36→23:08)
[2017-07-05] MEDS: ESCITALOPRAM 10 MG TAB PO SCH (09:36)
[2017-07-05] MEDS: GABAPENTIN 100 MG CAP PO SCH ×2 (09:36→22:04)
[2017-07-05] MEDS: busPIRone HCl 5 MG TAB PO SCH ×2 (09:37→22:04)
[2017-07-05] MEDS: risperiDONE 2 MG TAB PO SCH ×2 (09:38→22:04)
[2017-07-05] MEDS: METOPROLOL SUCCINATE (ER) 25 MG TAB.ER.24H PO SCH (09:38)
[2017-07-05] MEDS: PANTOPRAZOLE 40 MG/10 ML VIAL IV SCH (09:39)
--- NOTE | 2017-07-05 09:57 | CDI ---
Documentation Clarification Form Date: 07/05/1757 CDS: Alicia Hendrickson RN, CCDS Admit Date: 07/02/17 Patient Name: Mychal Kimball ATTENTION: The Clinical Documentation Specialists (CDI) and [facility] Coding Staff appreciate your assistance in clarifying documentation. Please respond to the clarification below the line at the bottom and electronically sign. The CDI & [facility] Coding staff will review the response and follow-up if needed. Please note: Queries are made part of the Legal Health Record. If you have any questions, please contact the author of this message via ITS. Dr. Kerr Post-operative delirium was documented in the Medical Consult and Progress Notes. Patient history/risk factors: Dependence on high dose opiates and benzodiazepines at home, ETOH, Home O2, COPD , chronic pancreatic insufficiency, Clinical Indicators: 07/04 Medical Progress note: "His mentation is back to baseline. Postoperative delirium and agitation with evidence of benzodiazepine withdrawal, his condition improved with IV Ativan use." Labs: WBC 14.2/15.3/8.6, Hgb 11.3/10.2/9.6, Neutrophils 12.9/13.4/7.7 Treatment: Iv Ativan and Haldol Increased O2 and monitoring with transfer to ICU In your professional opinion, please clarify the etiology of the altered mental status, if known. Encephalopathy (specify Type and Underlying Medical Illness: Toxic, Metabolic, Anoxic) Dementia (if know, specify Type and if with/without Behavioral Disturbance) Other condition (please specify) Unable to determine Please continue to document in your progress notes and discharge summary in order to capture severity of illness and risk of mortality. Include clinical findings that support your diagnosis. MTDD
[2017-07-05 09:58] LABS: ALT 27 U/L (21-72); AST 14 U/L (17-59); Albumin 2.6 g/dL (3.5-5.0); Alkaline Phosphatase 48 U/L (38-126); Anion Gap 8 mmol/L; Blood Urea Nitrogen 14 mg/dL (9-20); Calcium 8.6 mg/dL (8.4-10.2); Carbon Dioxide 27 mmol/L (22-30); Chloride 105 mmol/L (98-107); Glucose 120 mg/dL (74-99); Phosphorus 2.7 mg/dL (2.5-4.5); Sodium 140 mmol/L (137-145); Total Bilirubin 0.2 mg/dL (0.2-1.3); Total Protein 4.8 g/dL (6.3-8.2)
[2017-07-05 10:10] LABS: Basophils % (A) 0 %; Eosinophils # (A) 0.1 k/uL (0-0.7); Eosinophils % (A) 1 %; HCT 30.1 % (39.0-53.0); HGB 9.8 gm/dL (13.0-17.5); Lymphocytes # (A) 1.3 k/uL (1.0-4.8); Lymphocytes % (A) 17 %; MCH 28.8 pg (25.0-35.0); MCHC 32.6 g/dL (31.0-37.0); MCV 88.5 fL (80.0-100.0); Mean Platelet Volume 8.5; Monocytes # (A) 0.5 k/uL (0-1.0); Monocytes % (A) 7 %; Neutrophils # (A) 5.5 k/uL (1.3-7.7); Neutrophils % (A) 74 %; Platelet Count 239 k/uL (150-450); RDW 14.3 % (11.5-15.5); WBC 7.4 k/uL (3.8-10.6)
--- NOTE | 2017-07-05 10:11 | CDI ---
Last Revision, May 2017 Documentation Clarification Form Date: 07/05/2017 10:03:00 AM From: Alicia Hendrickson RN, CCDS Admit Date: 07/02/2017 8:10:00 AM Patient Name: Mychal Kimball Visit Number: [id number] ATTENTION: The Clinical Documentation Specialists (CDI) and [facility] Coding Staff appreciate your assistance in clarifying documentation. Please respond to the clarification below the line at the bottom and electronically sign. The CDI & [facility] Coding staff will review the response and follow-up if needed. Please note: Queries are made part of the Legal Health Record. If you have any questions, please contact the author of this message via ITS. Dr. Bren Hua A diagnosis of anemia lacks specificity to accurately reflect your patients severity of condition and clarification is needed. History/Risk Factors: COPD, O2 dependence, s/p sigmoid resection [employer], ETOH, Clinical indicators: 07/04 Medical Progress Note: Midline wound dehiscence status post exploratory laparotomy with abdominal washout and abdominal wound closure. General surgery following." Hemoglobin: 11.3/10.2/9.6 Hematocrit: 37.3/33.8/30.9 Treatment: Monitoring labs IVF bolus In order to capture the severity of condition, please clarify the type of anemia and etiology if known: Acute blood loss anemia Acute on chronic blood loss anemia Chronic blood loss anemia Iron deficiency anemia Drug induced anemia Anemia due to malignancy Nutritional anemia Unable to determine Other, please specify In order to accurately reflect this patients severity of illness, please clarify if the post-operative diagnosis is: An expected post-procedural or post-surgical condition; Integral to the procedure; Inherent to the procedure; An unexpected post-procedural or post-surgical condition related to surgical care; Other, please specify Unable to determine Please continue to document in your progress notes and discharge summary in order to capture severity of illness and risk of mortality. Include clinical findings that support your diagnosis. Anemia of chronic disease MTDD
[2017-07-05] MEDS: VANCOMYCIN 1,500 MG in SODIUM CHLORIDE 0.9% 250 ML IVPB SCH ×2 (10:52→17:00)
--- NOTE | 2017-07-05 12:13 | P.PN ---
Subjective Progress Note Date: 07/05/17 Principal diagnosis: Acute dehiscence of surgical wound 57-year-old male with known history of advanced COPD, chronic hypoxic respiratory failure, previous history of alcoholism and pancreatic insufficiency , hypertension and hyperlipidemia and chronic benzodiazepine and pain medication dependence, was also having complicated episodes of diverticulitis for which she was hospitalized for diverticular abscess approximately a month ago and the patient underwent a sigmoid colectomy. The patient presented yesterday to the emergency department with complaint of tissue presenting from a recent surgical incision. The patient had sigmoid colectomy performed secondary to chronic diverticulitis. He states that since he has been home he was doing well. He was tolerating a diet. He states that overnight he did have a fall and had a coughing fit. He noticed that at this point tissue began to protrude from his incision site. He also complained of pain at his incision site. He denies any fevers, chills, chest pain or shortness of breath. He denies any vomiting but does complain of some nausea at this time. He has no additional complaints at this time. Based on this, the patient was taken to the operating room and the patient underwent expiratory laparotomy, abdominal washout, abdominal wound closure and the patient had closure of the midline wound dehiscence. Postop, the patient was on the medical floor and earlier this morning he became very much agitated and confused. He also started having increased tachypnea and wheezing and he was found to be significantly shortness of breath. The A team activated. And the patient got moved to the intensive care unit. He is very much likely due to the patient was also withdrawing from opiates and benzodiazepines. The patient was given 1 mg of Ativan at around 4 AM in the morning another dose of Ativan prior to him coming to the ICU. He is currently on Dilaudid for pain control. His resting comfortably in bed. The breathing and the wheezing and shortness of breath subsided after the patient was adequately sedated with Ativan and he was given adequate pain control. The chest x-ray shows hyperinflation. There is no evidence of any airspace disease or pneumonias. The patient did have temperature of 103. Blood culture been sent and the patient was given a dose of vancomycin. No headache. No focal neurological deficit this point. No reported aspiration. He currently has an NG tube in place. Currently on 43 of oxygen by nasal cannula saturation wasn't 100% and he was weaned down to 2 L of oxygen by nasal cannula. Hemodynamically stable. Bolden catheter was inserted and the patient has an adequate urine output. Patient was reevaluated today on 07/04/2017, he seems to be doing better, hemodynamically stable, less agitated, back on multiple meds which she took at home, and is also on pain medication in the form of Dilaudid. He is back on his Ativan, and he remains hemodynamically stable. Patient does not seem to be in any distress, his only complaint seems to be related to some vague abdominal pain and discomfort. CBC showed improvement in his leukocytosis, his hemoglobin is 9.6 electrolytes and renal profile are normal. His last chest x- ray from 07/02/2017 showed no evidence of active disease. On 07/05/2017 patient seen in follow-up on medical surgical floor. Doing well from pulmonary perspective, denies any worsening dyspnea, on 3 L per nasal cannula with O2 sat 93%. Needs encouragement with his incentive spirometer, but able to achieve [phone] on the today. Lung sounds are positive for faint expiratory wheezes over left lower base, clear on the right. There is some mild swelling in the bilateral lower extremities present. Abdominal incision is clean dry and intact, well approximated, sutures and nadine are intact, incisions, with a surgical dressing. Vital signs are stable, patient is afebrile. He is alert and oriented 3. No signs of delirium noted. Urine culture showed no growth. Patient is tolerating clear liquid diet, denies any nausea or vomiting. Has not been up out of bed yet. Objective - Vital Signs Vital signs: Vital Signs Temp 96.8 F L 07/05/17 07:00 Pulse 61 07/05/17 11:36 Resp 16 07/05/17 11:36 BP 117/79 07/05/17 07:00 Pulse Ox 93 L 07/05/17 07:27 Intake & Output 07/04/17 07/05/17 07/05/17 18:59 06:59 18:59 Intake Total 2075 445 Output Total 220 850 Balance 1855 -850 445 Weight 77.7 kg Intake: IV 2074 0.9 NACL bolus 500 Lactated Ringers 1,000 ml 875 @ 125 mls/hr IV .Q8H [facility] Rx#:[id number] Vancomycin 1,500 mg In 500 Sodium Chloride 0.9% 250 ml @ 125 mls/hr IVPB Q8H [facility] Rx#:[id number] cefTAZidime 2 gm In 200 Sodium Chloride 0.9% 100 ml @ 100 mls/hr IVPB Q8HR [facility] Rx#:[id number] Oral 445 Output: Urine 220 850 Other: Voiding Method Indwelling Catheter Indwelling Catheter - Exam - General well developed, no distress, the patient is was sedated at this point. NG tube is in place. - Eyes PERRL, normal ocular movement - ENT normal pinna, normal nares, normal mucosa - Neck no masses, no bruits, trachea midline, no lymphadectomy - Respiratory normal respiratory effort, diminished breath on the lung bases bilaterally, faint expiratory wheezing noted over left lower base, clear on the right. Cardiac exam revealed the PMI to be normally situated and sized. The rhythm was regular and no extrasystoles were noted during several minutes of auscultation. The first and second heart sounds were normal and physiologic splitting of the second heart sound was noted. There were no murmurs, rubs, clicks, or gallops. - Abdomen Soft, appropriate tenderness, mild distention, no rebound, no guarding, midline incision site is dry clean and intact at this point. Nadine and sutures are intact. - Psychiatric Patient denies anxiety. Alert oriented 3, no signs of delirium Neurologically, the patient was moving all 4 extremities and his neurologic exam is nonfocal. No signs of delirium, alert oriented 3, pleasant and cooperative. Examination of the skin revealed no evidence of significant rashes, suspicious appearing nevi or other concerning lesions. The anterior abdominal wound site is dry clean and intact at this point. - Labs CBC & Chem 7: 07/05/17 08:21 07/05/17 08:21 Labs: Abnormal Lab Results - Last 24 Hours (Table) 07/05/17 07/05/17 Range/Units 08:21 08:21 RBC 3.40 L (4.30-5.90) m/uL Hgb 9.8 L (13.0-17.5) gm/dL Hct 30.1 L (39.0-53.0) % Creatinine 0.53 L (0.66-1.25) mg/dL Glucose 120 H (74-99) mg/dL AST 14 L (17-59) U/L Total Protein 4.8 L (6.3-8.2) g/dL Albumin 2.6 L (3.5-5.0) g/dL Assessment and Plan Plan: Assessment: 1 dehiscence of surgical wound. The patient underwent expiratory laparotomy and closure of the abdominal wound, postop day 3 2 altered mentation. Rule out delirium. Rule out withdrawal from benzodiazepines/narcotic agents. Recovered, patient is currently alert, oriented 3, no signs of delirium. 3 acute fever currently under investigation. Given empiric antibiotic coverage with ceftazidime, vancomycin. Blood cultures of been sent and remain pending, urine culture shows no growth. 4 chronic hypoxic respiratory failure 5 severe COPD with an FEV1 of 23% of predicted 6 chronic alcoholism and history of pancreatic insufficiency 7 chronic pain/generalized arthritis 8 chronic bipolar disorder 9 smoker Recommendation: Patient is doing well, stable from pulmonary standpoint. Continue pulmonary toileting, encourage incentive spirometry use, continue with pain control, abdominal binder. Increase activity as tolerated. No further confusion, patient's mentation is back to baseline, he is currently awake, alert, oriented 3. No signs of delirium. Patient is back on his usual meds including Risperdal and BuSpar as well as Lexapro, patient remains on empiric antibiotics coverage. Continue DuoNeb nebulized treatments. No further febrile episodes, blood cultures remain pending, urine culture shows no growth. I performed a history & physical examination of the patient and discussed their management with my nurse practitioner, [place] Monique. I reviewed the nurse practitioner's note and agree with the documented findings and plan of care. Lung sounds are positive for faint expiratory wheezes over left lower base, clear on the right. The findings and the impression was discussed with the patient. I attest to the documentation by the nurse practitioner. Time with Patient: Less than 30
--- NOTE | 2017-07-05 13:13 | P.PN ---
Subjective Progress Note Date: 07/05/17 Patient is doing well today. He is tolerating liquid diet with no difficulty. He was up with physical therapy earlier. Objective - Vital Signs Vital signs: Vital Signs Temp 96.8 F L 07/05/17 07:00 Pulse 61 07/05/17 11:36 Resp 16 07/05/17 11:36 BP 117/79 07/05/17 07:00 Pulse Ox 93 L 07/05/17 07:27 Intake & Output 07/04/17 07/05/17 07/05/17 18:59 06:59 18:59 Intake Total 2075 445 Output Total 220 850 Balance 1855 -850 445 Weight 77.7 kg Intake: IV 2075 0.9 NACL bolus 500 Lactated Ringers 1,000 ml 875 @ 125 mls/hr IV .Q8H [facility] Rx#:[id number] Vancomycin 1,500 mg In 500 Sodium Chloride 0.9% 250 ml @ 125 mls/hr IVPB Q8H [facility] Rx#:[id number] cefTAZidime 2 gm In 200 Sodium Chloride 0.9% 100 ml @ 100 mls/hr IVPB Q8HR [facility] Rx#:[id number] Oral 445 Output: Urine 220 850 Other: Voiding Method Indwelling Catheter Indwelling Catheter - Exam General: The patient is awake and alert, in no distress Eye: there is normal conjunctiva bilaterally. Neck: The neck is supple, there is no JVD. Cardiovascular: Normal S1-S2, no S3-S4, no murmurs. Respiratory: Lungs with mild end expiratory wheezing Gastrointestinal: Abdomen is soft, nontender Musculoskeletal: There is no pedal edema. Neurological:. Speech is normal. Skin: Skin is warm and dry - Labs CBC & Chem 7: 07/05/17 08:21 07/05/17 08:21 Labs: Abnormal Lab Results - Last 24 Hours (Table) 07/05/17 07/05/17 Range/Units 08:21 08:21 RBC 3.40 L (4.30-5.90) m/uL Hgb 9.8 L (13.0-17.5) gm/dL Hct 30.1 L (39.0-53.0) % Creatinine 0.53 L (0.66-1.25) mg/dL Glucose 120 H (74-99) mg/dL AST 14 L (17-59) U/L Total Protein 4.8 L (6.3-8.2) g/dL Albumin 2.6 L (3.5-5.0) g/dL Assessment and Plan Assessment: 1. Midline wound dehiscence status post exploratory laparotomy with abdominal washout and abdominal wound closure. General surgery following closely. NG tube removed. Started on liquid diet. 2. Recent sigmoid colectomy secondary to acute diverticulitis and abscess perforation 3. Postoperative delirium and agitation with evidence of benzodiazepine withdrawal, his condition improved with IV Ativan use. Patient is benzodiazepine dependent and take high doses of Xanax at home. He is back to normal baseline. 4. Acute COPD exacerbation, bronchodilators around the clock. oral prednisone. 5. Chronic hypoxic respiratory failure on home O2 6. Underlying bipolar disorder, all of his home medications were resumed. 7. Chronic pain syndrome dependent on high dose of opiates at home. Following with the pain clinic at Dr. Wilcox 8. Solitary 4 mm node of the left lung: Plan to repeat computed tomography scan within the next 3 months in September. Today, I reviewed his medication list and lab work results. Continue current regimen. Continue bronchodilators around the clock. Repeat lab work in the morning. Continue postoperative care. Gen. surgery following closely. Continue PT/OT. Consult social work for placement to [facility] for rehab. Discussed with general surgery advancing his diet.
--- NOTE | 2017-07-05 13:39 | P.PN ---
Subjective Progress Note Date: 07/05/17 Principal diagnosis: Wound dehiscence The patient was seen on rounds earlier. He was leaning physical therapy at that time. I encouraged him to get up with them as it will help him get over his pain more quickly, decreased pulmonary complications, help return of bowel function. Point he was willing to get up. No nausea. Objective - Vital Signs Vital signs: Vital Signs Temp 96.8 F L 07/05/17 07:00 Pulse 61 07/05/17 11:36 Resp 16 07/05/17 11:36 BP 117/79 07/05/17 07:00 Pulse Ox 93 L 07/05/17 07:27 Intake & Output 07/04/17 07/05/17 07/05/17 18:59 06:59 18:59 Intake Total 2075 445 Output Total 220 850 Balance 1855 -850 445 Weight 77.7 kg Intake: IV 2075 0.9 NACL bolus 500 Lactated Ringers 1,000 ml 875 @ 125 mls/hr IV .Q8H [facility] Rx#:[id number] Vancomycin 1,500 mg In 500 Sodium Chloride 0.9% 250 ml @ 125 mls/hr IVPB Q8H [facility] Rx#:[id number] cefTAZidime 2 gm In 200 Sodium Chloride 0.9% 100 ml @ 100 mls/hr IVPB Q8HR [facility] Rx#:[id number] Oral 445 Output: Urine 220 850 Other: Voiding Method Indwelling Catheter Indwelling Catheter - Constitutional General appearance: Present: cooperative, no acute distress - Respiratory Respiratory: bilateral: CTA, diminished (Mildly at the bases) - Gastrointestinal General gastrointestinal: Present: normal bowel sounds, soft Localized gastrointestinal: surgical scar: diffuse (Dressings intact and dry) - Labs CBC & Chem 7: 07/05/17 08:21 07/05/17 08:21 Labs: Abnormal Lab Results - Last 24 Hours (Table) 07/05/17 07/05/17 Range/Units 08:21 08:21 RBC 3.40 L (4.30-5.90) m/uL Hgb 9.8 L (13.0-17.5) gm/dL Hct 30.1 L (39.0-53.0) % Creatinine 0.53 L (0.66-1.25) mg/dL Glucose 120 H (74-99) mg/dL AST 14 L (17-59) U/L Total Protein 4.8 L (6.3-8.2) g/dL Albumin 2.6 L (3.5-5.0) g/dL Assessment and Plan (1) Confusion Current Visit: No Status: Acute Code(s): R41.0 - DISORIENTATION, UNSPECIFIED SNOMED Code(s): 818471061 (2) Dehiscence of surgical wound Current Visit: Yes Status: Acute Code(s): T81.31XA - DISRUPTION OF EXTERNAL OPERATION (SURGICAL) WOUND, NEC, INIT SNOMED Code(s): 960128254 Plan: Encourage activity and incentive spirometry. Slowly advance the diet. We will remove his catheter. He's progressing slowly. He is currently on antibiotics for a fever. No definitive source is identified.
--- NOTE | 2017-07-05 14:56 | PN ---
PROGRESS NOTE DATE OF SERVICE: 07/05/2017. REASON FOR FOLLOWUP: Abdominal wound dehiscence and postop fever. INTERVAL HISTORY: The patient is afebrile. He is breathing comfortably. Denies having any chest pain. No cough. No pain. No nausea, vomiting or diarrhea. EXAMINATION: Blood pressure 117/79 with a pulse of 63, temperature 96.8. He is 94% on room air. General description is a middle aged male, lying in bed in no distress. Respiratory system is unlabored breathing. Clear to auscultation anteriorly. Heart S1, S2. Regular rate and rhythm. Abdomen soft. No tenderness. Extremities no edema of feet. LABS: Hemoglobin 9.8, white count 7.4 with a BUN of 14, creatinine 0.53. Urine has been negative. DIAGNOSTIC IMPRESSION AND PLAN: Patient with abdominal wall dehiscence with no evidence of any perforated bowel and also with a component of a fever postop. fever responding to the Fortaz and vancomycin will be continued for now. Waiting for his oral intake to improve and hopefully finish therapy with oral antibiotics. Continue supportive care. MMODL / IJN: [id number] / MTDD
--- NOTE | 2017-07-05 15:06 | XR ---
EXAMINATION TYPE: XR chest 2V DATE OF EXAM: 07/05/2017 COMPARISON: Prior chest x-ray 07/02/2017 HISTORY: Pneumonia TECHNIQUE: Frontal and lateral views of the chest are obtained. FINDINGS: Prominent lung volumes are compatible with underlying COPD. There is blunting of the poste rior costophrenic angle noted on the lateral exam, right costophrenic angle on the frontal. Heart is mildly enlarged as compared to previous exam. No evident pneumothorax. There is increased density at the lung base on the right. Pulmonary vascularity and alejandrina not significant changed. NG tube has been removed. IMPRESSION: Correlate for possible pneumonia, parapneumonic effusion.
[2017-07-06] MEDS: VANCOMYCIN 1,500 MG in SODIUM CHLORIDE 0.9% 250 ML IVPB SCH ×3 (00:23→23:29)
[2017-07-06] MEDS: HYDROcodone/APAP 5-325MG 1 EACH TAB PO PRN ×2 (02:39→06:45)
[2017-07-06] MEDS: LACTATED RINGERS 1,000 ML IV SCH ×3 (03:58→15:28)
[2017-07-06] MEDS ORDERED: VANCOMYCIN TROUGH DUE 1 EACH MISC MISCELLANE ONE (07:00)
[2017-07-06] MEDS: HEPARIN SODIUM,PORCINE 5,000 UNIT/ML 1 ML VIAL SQ SCH ×3 (08:16→23:26)
[2017-07-06] MEDS: busPIRone HCl 5 MG TAB PO SCH ×2 (08:16→21:30)
[2017-07-06] MEDS: risperiDONE 2 MG TAB PO SCH ×2 (08:16→21:29)
[2017-07-06] MEDS: GABAPENTIN 100 MG CAP PO SCH ×2 (08:16→21:29)
[2017-07-06] MEDS: predniSONE 20 MG TAB PO SCH (08:17)
[2017-07-06] MEDS: IPRATROPIUM-ALBUTEROL 3 ML NEB INHALATION SCH ×4 (08:17→19:52)
[2017-07-06] MEDS: ESCITALOPRAM 10 MG TAB PO SCH (08:17)
[2017-07-06] MEDS: METOPROLOL SUCCINATE (ER) 25 MG TAB.ER.24H PO SCH (08:18)
[2017-07-06] MEDS: PANTOPRAZOLE 40 MG/10 ML VIAL IV SCH (08:18)
[2017-07-06 08:29] LABS: Basophils % (A) 0 %; Eosinophils # (A) 0.1 k/uL (0-0.7); Eosinophils % (A) 2 %; HCT 32.5 % (39.0-53.0); HGB 10.1 gm/dL (13.0-17.5); Lymphocytes # (A) 1.4 k/uL (1.0-4.8); Lymphocytes % (A) 22 %; MCH 28.6 pg (25.0-35.0); MCV 92.4 fL (80.0-100.0); Monocytes # (A) 0.5 k/uL (0-1.0); Monocytes % (A) 7 %; Neutrophils # (A) 4.3 k/uL (1.3-7.7); Neutrophils % (A) 68 %; Platelet Count 280 k/uL (150-450); RBC 3.52 m/uL (4.30-5.90); RDW 14.2 % (11.5-15.5); WBC 6.4 k/uL (3.8-10.6)
[2017-07-06] MEDS: HYDROmorphone 2 MG/ML 1 ML SYRINGE IVP PRN (08:38)
[2017-07-06 08:40] LABS: ALT 29 U/L (21-72); AST 11 U/L (17-59); Albumin 2.6 g/dL (3.5-5.0); Alkaline Phosphatase 53 U/L (38-126); Anion Gap 5 mmol/L; Blood Urea Nitrogen 7 mg/dL (9-20); Calcium 8.8 mg/dL (8.4-10.2); Carbon Dioxide 34 mmol/L (22-30); Chloride 103 mmol/L (98-107); Glucose 77 mg/dL (74-99); Potassium 3.6 mmol/L (3.5-5.1); Sodium 142 mmol/L (137-145); Total Bilirubin 0.2 mg/dL (0.2-1.3); Total Protein 4.7 g/dL (6.3-8.2)
[2017-07-06] MEDS ORDERED: MAGNESIUM HYDROXIDE 2,400 MG/10 ML CUP PO PRN (11:23)
[2017-07-06] MEDS: HYDROcodone/APAP 10-325MG 1 EACH TAB PO PRN ×2 (11:47→18:22)
--- NOTE | 2017-07-06 12:20 | P.PN ---
Subjective Progress Note Date: 07/06/17 Patient is doing fairly well. No events overnight. Objective - Vital Signs Vital signs: Vital Signs Temp 97.7 F 07/06/17 07:00 Pulse 68 07/06/17 11:39 Resp 18 07/06/17 07:00 BP 147/88 07/06/17 07:00 Pulse Ox 93 L 07/06/17 07:00 Intake & Output 07/05/17 07/06/17 07/06/17 18:59 06:59 18:59 Intake Total 925 Output Total 650 500 700 Balance 275 -500 -700 Intake: Oral 925 Output: Urine 650 500 700 Other: Voiding Method Urinal # Voids 1 1 - Exam General: The patient is awake and alert, in no distress Eye: there is normal conjunctiva bilaterally. Neck: The neck is supple, there is no JVD. Cardiovascular: Normal S1-S2, no S3-S4, no murmurs. Respiratory: Lungs with mild end expiratory wheezing Gastrointestinal: Abdomen is soft, nontender. Abdominal binder in place Musculoskeletal: There is no pedal edema. Neurological:. Speech is normal. Skin: Skin is warm and dry - Labs CBC & Chem 7: 07/06/17 07:51 07/06/17 07:51 Labs: Abnormal Lab Results - Last 24 Hours (Table) 07/06/17 07/06/17 Range/Units 07:51 07:51 RBC 3.52 L (4.30-5.90) m/uL Hgb 10.1 L (13.0-17.5) gm/dL Hct 32.5 L (39.0-53.0) % Carbon Dioxide 34 H (22-30) mmol/L BUN 7 L (9-20) mg/dL Creatinine 0.62 L (0.66-1.25) mg/dL AST 11 L (17-59) U/L Total Protein 4.7 L (6.3-8.2) g/dL Albumin 2.6 L (3.5-5.0) g/dL Assessment and Plan Assessment: 1. Midline wound dehiscence status post exploratory laparotomy with abdominal washout and abdominal wound closure. General surgery following closely. Patient tolerating diet with no difficulty 2. Recent sigmoid colectomy secondary to acute diverticulitis and abscess perforation 3. Postoperative delirium and agitation with evidence of benzodiazepine withdrawal and toxo metabolic encephalopathy, now resolved. his condition improved with IV Ativan use. Patient is benzodiazepine dependent and take high doses of Xanax at home. He is back to normal baseline. 4. Acute COPD exacerbation, bronchodilators around the clock. oral prednisone. 5. Chronic hypoxic respiratory failure on home O2 6. Underlying bipolar disorder, all of his home medications were resumed. 7. Chronic pain syndrome dependent on high dose of opiates at home. Following with the pain clinic at Dr. Wilcox 8. Solitary 4 mm node of the left lung: Plan to repeat computed tomography scan within the next 3 months in September. Today, I reviewed his medication list and lab work results. Continue current regimen. Continue bronchodilators around the clock. Repeat lab work in the morning. Continue postoperative care. Gen. surgery following closely. Continue PT/OT. Consult social work for placement to [facility] for rehab. Discussed with general surgery advancing his diet. Discharge planning
--- NOTE | 2017-07-06 13:06 | P.PN ---
Subjective Progress Note Date: 07/06/17 Principal diagnosis: Acute dehiscence of surgical wound 57-year-old male with known history of advanced COPD, chronic hypoxic respiratory failure, previous history of alcoholism and pancreatic insufficiency , hypertension and hyperlipidemia and chronic benzodiazepine and pain medication dependence, was also having complicated episodes of diverticulitis for which she was hospitalized for diverticular abscess approximately a month ago and the patient underwent a sigmoid colectomy. The patient presented yesterday to the emergency department with complaint of tissue presenting from a recent surgical incision. The patient had sigmoid colectomy performed secondary to chronic diverticulitis. He states that since he has been home he was doing well. He was tolerating a diet. He states that overnight he did have a fall and had a coughing fit. He noticed that at this point tissue began to protrude from his incision site. He also complained of pain at his incision site. He denies any fevers, chills, chest pain or shortness of breath. He denies any vomiting but does complain of some nausea at this time. He has no additional complaints at this time. Based on this, the patient was taken to the operating room and the patient underwent expiratory laparotomy, abdominal washout, abdominal wound closure and the patient had closure of the midline wound dehiscence. Postop, the patient was on the medical floor and earlier this morning he became very much agitated and confused. He also started having increased tachypnea and wheezing and he was found to be significantly shortness of breath. The A team activated. And the patient got moved to the intensive care unit. He is very much likely due to the patient was also withdrawing from opiates and benzodiazepines. The patient was given 1 mg of Ativan at around 4 AM in the morning another dose of Ativan prior to him coming to the ICU. He is currently on Dilaudid for pain control. His resting comfortably in bed. The breathing and the wheezing and shortness of breath subsided after the patient was adequately sedated with Ativan and he was given adequate pain control. The chest x-ray shows hyperinflation. There is no evidence of any airspace disease or pneumonias. The patient did have temperature of 103. Blood culture been sent and the patient was given a dose of vancomycin. No headache. No focal neurological deficit this point. No reported aspiration. He currently has an NG tube in place. Currently on 43 of oxygen by nasal cannula saturation wasn't 100% and he was weaned down to 2 L of oxygen by nasal cannula. Hemodynamically stable. Bolden catheter was inserted and the patient has an adequate urine output. Patient was reevaluated today on 07/04/2017, he seems to be doing better, hemodynamically stable, less agitated, back on multiple meds which she took at home, and is also on pain medication in the form of Dilaudid. He is back on his Ativan, and he remains hemodynamically stable. Patient does not seem to be in any distress, his only complaint seems to be related to some vague abdominal pain and discomfort. CBC showed improvement in his leukocytosis, his hemoglobin is 9.6 electrolytes and renal profile are normal. His last chest x- ray from 07/02/2017 showed no evidence of active disease. On 07/05/2017 patient seen in follow-up on medical surgical floor. Doing well from pulmonary perspective, denies any worsening dyspnea, on 3 L per nasal cannula with O2 sat 93%. Needs encouragement with his incentive spirometer, but able to achieve [phone] on the today. Lung sounds are positive for faint expiratory wheezes over left lower base, clear on the right. There is some mild swelling in the bilateral lower extremities present. Abdominal incision is clean dry and intact, well approximated, sutures and nadine are intact, incisions, with a surgical dressing. Vital signs are stable, patient is afebrile. He is alert and oriented 3. No signs of delirium noted. Urine culture showed no growth. Patient is tolerating clear liquid diet, denies any nausea or vomiting. Has not been up out of bed yet. On 07/06/2017 patient is doing well, denies any respiratory complaints, denies any worsening dyspnea, continues on 3 L per nasal cannula, with O2 sat at 93%. Compliant with his incentive spirometer, able to achieve [phone] on the today. Lung sounds are generally diminished, no rhonchi no wheezes were noted. Is complaining of some incisional pain, mid abdominal surgical incision is clean dry and intact, nadine and sutures are intact. Patient was switched to a regular diet, tolerating it well, no bm yet. Chest x-ray from 07/05/2017 has been reviewed, shows blunting of the right posterior costophrenic angle, and increased density at the right lower lobe, consistent with parapneumonic effusion. But clinically patient is afebrile, there is no evidence of leukocytosis and today's labs, WBC within normal limit of 6.4, is no worsening dyspnea, chest congestion or increased sputum production. ID service is on, patient is currently on Fortaz and Vancomycin. Objective - Vital Signs Vital signs: Vital Signs Temp 97.7 F 07/06/17 07:00 Pulse 68 07/06/17 11:39 Resp 18 07/06/17 07:00 BP 147/88 07/06/17 07:00 Pulse Ox 93 L 07/06/17 07:00 Intake & Output 07/05/17 07/06/17 07/06/17 18:59 06:59 18:59 Intake Total 925 Output Total 650 500 700 Balance 275 -500 -700 Intake: Oral 925 Output: Urine 650 500 700 Other: Voiding Method Urinal # Voids 1 1 - Exam - General well developed, no distress, the patient is awake alert, pleasant and cooperative - Eyes PERRL, normal ocular movement - ENT normal pinna, normal nares, normal mucosa - Neck no masses, no bruits, trachea midline, no lymphadectomy - Respiratory normal respiratory effort, diminished breath on the lung bases bilaterally, no rhonchi, no wheezes Cardiac exam revealed the PMI to be normally situated and sized. The rhythm was regular and no extrasystoles were noted during several minutes of auscultation. The first and second heart sounds were normal and physiologic splitting of the second heart sound was noted. There were no murmurs, rubs, clicks, or gallops. - Abdomen Soft, appropriate tenderness, mild distention, no rebound, no guarding, midline incision site is dry clean and intact at this point. Nadine and sutures are intact. - Psychiatric Patient denies anxiety. Alert oriented 3, no signs of delirium Neurologically, the patient was moving all 4 extremities and his neurologic exam is nonfocal. No signs of delirium, alert oriented 3, pleasant and cooperative. Examination of the skin revealed no evidence of significant rashes, suspicious appearing nevi or other concerning lesions. The anterior abdominal wound site is dry clean and intact at this point. - Labs CBC & Chem 7: 07/06/17 07:51 07/06/17 07:51 Labs: Abnormal Lab Results - Last 24 Hours (Table) 07/06/17 07/06/17 Range/Units 07:51 07:51 RBC 3.52 L (4.30-5.90) m/uL Hgb 10.1 L (13.0-17.5) gm/dL Hct 32.5 L (39.0-53.0) % Carbon Dioxide 34 H (22-30) mmol/L BUN 7 L (9-20) mg/dL Creatinine 0.62 L (0.66-1.25) mg/dL AST 11 L (17-59) U/L Total Protein 4.7 L (6.3-8.2) g/dL Albumin 2.6 L (3.5-5.0) g/dL Assessment and Plan Plan: Assessment: 1 dehiscence of surgical wound. The patient underwent expiratory laparotomy and closure of the abdominal wound, postop day 4 2 altered mentation. Rule out delirium. Rule out withdrawal from benzodiazepines/narcotic agents. Recovered, patient is currently alert, oriented 3, no signs of delirium. 3 acute fever currently under investigation. Given empiric antibiotic coverage with ceftazidime, vancomycin. Blood cultures of been sent and remain pending, urine culture shows no growth. 4 chronic hypoxic respiratory failure 5 severe COPD with an FEV1 of 23% of predicted 6 chronic alcoholism and history of pancreatic insufficiency 7 chronic pain/generalized arthritis 8 chronic bipolar disorder 9 smoker Recommendation: Patient is doing well, progressing along well, no further episodes of delirium, confusion or altered mentation. Lung sounds are generally diminished, no rhonchi or wheezes auscultated. Compliant with his incentive spirometer, denies any chest congestion or increased sputum production. Continue with pulmonary toileting. Chest x-ray from 07/05/2017 was reviewed, there is increased density noted in the right lower lobe, and associated pleural effusion , lab work shows no evidence of leukocytosis, clinically patient continues to improve. Denies any worsening dyspnea, ID service has patient on Fortaz and vancomycin, continue with the rest of medical treatments. Increase patient's activity as tolerated. I performed a history & physical examination of the patient and discussed their management with my nurse practitioner, [place] Monique. I reviewed the nurse practitioner's note and agree with the documented findings and plan of care. Lung sounds are generally diminished, but no rhonchi, no wheezes. The findings and the impression was discussed with the patient. I attest to the documentation by the nurse practitioner. Time with Patient: Less than 30
[2017-07-06] MEDS: ALPRAZolam 0.5 MG TAB PO PRN (14:09)
[2017-07-06] MEDS ORDERED: IBUPROFEN 800 MG TAB PO PRN (16:19)
[2017-07-06] MEDS ORDERED: ALBUTEROL NEBULIZED 2.5 MG/3 ML INHALATION PRN (16:19)
--- NOTE | 2017-07-06 16:34 | P.DS ---
Providers Date of admission: 07/02/17 08:10 Expected date of discharge: 07/07/17 Attending physician: Bren Hua Consults: 07/02/17 14:02 Consult Physician Routine Consulting Provider: Magi Kerr Consult Reason/Comments: Pt known to you Do you want consulting provider notified?: Yes Consult Physician Routine Consulting Provider: Johnnie Gan Consult Reason/Comments: Abx, s/p dehiscence of wound Do you want consulting provider notified?: Yes 07/03/17 08:06 Consult Physician Urgent Consulting Provider: Talisha Cho Consult Reason/Comments: respiratory distress, agitation Do you want consulting provider notified?: Yes Primary care physician: Magi Kerr - Discharge Diagnosis(es) (1) Confusion Current Visit: No Status: Acute (2) Dehiscence of surgical wound Current Visit: Yes Status: Acute (3) O2 dependent Current Visit: Yes Status: Acute (4) Hyperlipidemia Current Visit: No Status: Acute (5) Hypertension Current Visit: No Status: Acute (6) Pneumonia Current Visit: No Status: Acute (7) Sleep apnea Current Visit: No Status: Acute (8) COPD (chronic obstructive pulmonary disease) Current Visit: No Status: Chronic Hospital Course: The patient is status post sigmoid resection for perforation with contained abscess. He was doing well and was discharged home. He fell at home which resulted in a full thickness wound dehisence. He came into the hosptial and was taken to the OR where the dehisence was repaired. Post operatively he had a fever, with presumed pulmonary source. He was increased on his diet and activity. Due to increase fall risk, it was felt he needed short term rehab before return home. Patient Condition at Discharge: Fair Plan - Discharge Summary Discharge Rx Participant: No New Discharge Prescriptions: New HYDROcodone/APAP 10-325MG [Isabella 10-325] 1 tab PO Q6H PRN #40 tab PRN Reason: Pain No Action Gabapentin [Neurontin] 100 mg PO BID Omeprazole 40 mg PO DAILY Albuterol Sulfate [Ventolin HFA] 2 puff INHALATION RT-Q4H PRN PRN Reason: Shortness Of Breath Escitalopram [Lexapro] 10 mg PO DAILY #30 tab risperiDONE [RisperDAL] 2 mg PO BID Lipase/Protease/Amylase [Creon Dr 24,000 Units Capsule] 1 cap PO TID Atorvastatin Calcium [Lipitor] 10 mg PO DAILY busPIRone HCL [Buspar] 7.5 mg PO BID Furosemide [Lasix] 40 mg PO DAILY Ibuprofen [Motrin] 800 mg PO TID PRN PRN Reason: Pain Metoprolol Succinate (ER) [Toprol XL] 25 mg PO DAILY Roflumilast [Daliresp] 500 mg PO DAILY Theophylline Anhydrous [Dionisio-24] 200 mg PO DAILY Potassium Chloride [Klor-Con 10] 20 meq PO DAILY #60 tablet.er Discharge Medication List Albuterol Sulfate [Ventolin HFA] 2 puff INHALATION RT-Q4H PRN 03/05/14 [History] Gabapentin [Neurontin] 100 mg PO BID 03/05/14 [History] Omeprazole 40 mg PO DAILY 03/05/14 [History] Escitalopram [Lexapro] 10 mg PO DAILY #30 tab 03/11/14 [Rx] Lipase/Protease/Amylase [Creon Dr 24,000 Units Capsule] 1 cap PO TID 07/12/14 [ History] risperiDONE [RisperDAL] 2 mg PO BID 07/12/14 [History] Atorvastatin Calcium [Lipitor] 10 mg PO DAILY 06/02/17 [History] Furosemide [Lasix] 40 mg PO DAILY 06/02/17 [History] Ibuprofen [Motrin] 800 mg PO TID PRN 06/02/17 [History] Metoprolol Succinate (ER) [Toprol XL] 25 mg PO DAILY 06/02/17 [History] Roflumilast [Daliresp] 500 mg PO DAILY 06/02/17 [History] busPIRone HCL [Buspar] 7.5 mg PO BID 06/02/17 [History] Theophylline Anhydrous [Dionisio-24] 200 mg PO DAILY 06/24/17 [History] Potassium Chloride [Klor-Con 10] 20 meq PO DAILY #60 tablet.er 06/30/17 [Rx] HYDROcodone/APAP 10-325MG [Isabella 10-325] 1 tab PO Q6H PRN #40 tab 07/06/17 [Rx] Follow up Appointment(s)/Referral(s): [facility], [NON-STAFF] - As Needed Magi Kerr MD [Primary Care Provider] - 1-2 days [facility], [NON-STAFF] - As Needed Bren Hua, [Doctor of Osteopathic Medicine] - 1 Week Activity/Diet/Wound Care/Special Instructions: You may shower. [place] diet for 1 week. Call if questions or concerns with incision. Discharge Disposition: DC/[facility] INTERMEDIATE CARE FAC
[2017-07-06] MEDS: LIPASE 5,000/PROTEASE 17,000/AMYLASE 27,0000 PO SCH (21:30)
--- NOTE | 2017-07-06 22:00 | PN ---
PROGRESS NOTE DATE OF SERVICE: 07/06/2017. REASON FOR FOLLOWUP: Possible pneumonia. INTERVAL HISTORY: The patient is afebrile, has been breathing comfortably. He did have some minimal cough, but not bringing up any sputum. No chest pain. No abdominal pain. No diarrhea. EXAMINATION: Blood pressure is 121/70 with a pulse of 67, temperature is 99.4. He is 97% on room air. General description is a middle-aged male up in the room in no distress. RESPIRATORY SYSTEM: Unlabored breathing with decreased breath sounds in the bases. HEART: S1, S2. Regular rate and rhythm. ABDOMEN: Soft. No tenderness. LABS: Hemoglobin is 10.1, white count 6.4 with a BUN of 7, creatinine 0.62. DIAGNOSTIC IMPRESSION AND PLAN: Patient with abdominal wound dehiscence with a postop fever with a question of possible aspiration pneumonitis. Overall improvement on ceftazidime and vancomycin. Plan is to finish therapy with oral Avelox 400 daily for another week. Continue supportive care. MMODL / IJN: [id number] /
[2017-07-07] MEDS: HYDROcodone/APAP 10-325MG 1 EACH TAB PO PRN ×3 (00:31→12:45)
[2017-07-07] MEDS: LACTATED RINGERS 1,000 ML IV SCH ×2 (05:03→12:45)
[2017-07-07] MEDS: ALPRAZolam 0.5 MG TAB PO PRN (06:13)
[2017-07-07] MEDS: HEPARIN SODIUM,PORCINE 5,000 UNIT/ML 1 ML VIAL SQ SCH (07:40)
[2017-07-07] MEDS: GABAPENTIN 100 MG CAP PO SCH (07:41)
[2017-07-07] MEDS: LIPASE 5,000/PROTEASE 17,000/AMYLASE 27,0000 PO SCH (07:41)
[2017-07-07] MEDS: busPIRone HCl 5 MG TAB PO SCH (07:41)
[2017-07-07] MEDS: METOPROLOL SUCCINATE (ER) 25 MG TAB.ER.24H PO SCH (07:41)
[2017-07-07] MEDS: ESCITALOPRAM 10 MG TAB PO SCH (07:41)
[2017-07-07] MEDS: predniSONE 20 MG TAB PO SCH (07:42)
[2017-07-07] MEDS: risperiDONE 2 MG TAB PO SCH (07:42)
[2017-07-07] MEDS: PANTOPRAZOLE 40 MG/10 ML VIAL IV SCH (07:42)
[2017-07-07 07:50] VITALS: BP 143/91; RESP 16; TEMP 98
[2017-07-07] MEDS: IPRATROPIUM-ALBUTEROL 3 ML NEB INHALATION SCH ×2 (07:53→11:12)
[2017-07-07] MEDS ORDERED: METOPROLOL SUCCINATE (ER) 25 MG TAB.ER.24H PO SCH (09:00)
[2017-07-07] MEDS ORDERED: NON-FORMULARY DRUG (Omeprazole [Omeprazole] 40 MG) PO SCH (09:00)
[2017-07-07] MEDS ORDERED: ATORVASTATIN 10 MG TAB PO SCH (09:00)
[2017-07-07] MEDS ORDERED: POTASSIUM CHLORIDE ER 20 MEQ TAB.ER PO SCH (09:00)
[2017-07-07] MEDS ORDERED: FUROSEMIDE 40 MG TAB PO SCH (09:00)
[2017-07-07] MEDS ORDERED: ROFLUMILAST 500 MG PO SCH (09:00)
[2017-07-07] MEDS ORDERED: THEOPHYLLINE 24 HOUR 200 MG CAP.ER.24H PO SCH (09:00)
[2017-07-07 09:27] LABS: Basophils % (A) 0 %; Eosinophils # (A) 0.1 k/uL (0-0.7); Eosinophils % (A) 2 %; HCT 33.9 % (39.0-53.0); HGB 10.3 gm/dL (13.0-17.5); Lymphocytes # (A) 1.2 k/uL (1.0-4.8); Lymphocytes % (A) 19 %; MCHC 30.5 g/dL (31.0-37.0); MCV 91.6 fL (80.0-100.0); Mean Platelet Volume 7.2; Monocytes # (A) 0.3 k/uL (0-1.0); Monocytes % (A) 5 %; Neutrophils # (A) 4.5 k/uL (1.3-7.7); Neutrophils % (A) 73 %; Platelet Count 279 k/uL (150-450); RBC 3.69 m/uL (4.30-5.90); RDW 14.1 % (11.5-15.5); WBC 6.2 k/uL (3.8-10.6)
[2017-07-07 09:55] LABS: ALT 30 U/L (21-72); AST 13 U/L (17-59); Albumin 2.6 g/dL (3.5-5.0); Alkaline Phosphatase 58 U/L (38-126); Anion Gap 7 mmol/L; Blood Urea Nitrogen 5 mg/dL (9-20); Calcium 8.5 mg/dL (8.4-10.2); Carbon Dioxide 33 mmol/L (22-30); Chloride 103 mmol/L (98-107); Glucose 95 mg/dL (74-99); Phosphorus 3.2 mg/dL (2.5-4.5); Potassium 3.2 mmol/L (3.5-5.1); Sodium 143 mmol/L (137-145); Total Bilirubin 0.1 mg/dL (0.2-1.3); Total Protein 4.6 g/dL (6.3-8.2)
--- NOTE | 2017-07-07 10:20 | P.PN ---
Subjective Progress Note Date: 07/07/17 Principal diagnosis: Acute dehiscence of surgical wound 57-year-old male with known history of advanced COPD, chronic hypoxic respiratory failure, previous history of alcoholism and pancreatic insufficiency , hypertension and hyperlipidemia and chronic benzodiazepine and pain medication dependence, was also having complicated episodes of diverticulitis for which she was hospitalized for diverticular abscess approximately a month ago and the patient underwent a sigmoid colectomy. The patient presented yesterday to the emergency department with complaint of tissue presenting from a recent surgical incision. The patient had sigmoid colectomy performed secondary to chronic diverticulitis. He states that since he has been home he was doing well. He was tolerating a diet. He states that overnight he did have a fall and had a coughing fit. He noticed that at this point tissue began to protrude from his incision site. He also complained of pain at his incision site. He denies any fevers, chills, chest pain or shortness of breath. He denies any vomiting but does complain of some nausea at this time. He has no additional complaints at this time. Based on this, the patient was taken to the operating room and the patient underwent expiratory laparotomy, abdominal washout, abdominal wound closure and the patient had closure of the midline wound dehiscence. Postop, the patient was on the medical floor and earlier this morning he became very much agitated and confused. He also started having increased tachypnea and wheezing and he was found to be significantly shortness of breath. The A team activated. And the patient got moved to the intensive care unit. He is very much likely due to the patient was also withdrawing from opiates and benzodiazepines. The patient was given 1 mg of Ativan at around 4 AM in the morning another dose of Ativan prior to him coming to the ICU. He is currently on Dilaudid for pain control. His resting comfortably in bed. The breathing and the wheezing and shortness of breath subsided after the patient was adequately sedated with Ativan and he was given adequate pain control. The chest x-ray shows hyperinflation. There is no evidence of any airspace disease or pneumonias. The patient did have temperature of 103. Blood culture been sent and the patient was given a dose of vancomycin. No headache. No focal neurological deficit this point. No reported aspiration. He currently has an NG tube in place. Currently on 43 of oxygen by nasal cannula saturation wasn't 100% and he was weaned down to 2 L of oxygen by nasal cannula. Hemodynamically stable. Bolden catheter was inserted and the patient has an adequate urine output. Patient was reevaluated today on 07/04/2017, he seems to be doing better, hemodynamically stable, less agitated, back on multiple meds which she took at home, and is also on pain medication in the form of Dilaudid. He is back on his Ativan, and he remains hemodynamically stable. Patient does not seem to be in any distress, his only complaint seems to be related to some vague abdominal pain and discomfort. CBC showed improvement in his leukocytosis, his hemoglobin is 9.6 electrolytes and renal profile are normal. His last chest x- ray from 07/02/2017 showed no evidence of active disease. On 07/05/2017 patient seen in follow-up on medical surgical floor. Doing well from pulmonary perspective, denies any worsening dyspnea, on 3 L per nasal cannula with O2 sat 93%. Needs encouragement with his incentive spirometer, but able to achieve [phone] on the today. Lung sounds are positive for faint expiratory wheezes over left lower base, clear on the right. There is some mild swelling in the bilateral lower extremities present. Abdominal incision is clean dry and intact, well approximated, sutures and nadine are intact, incisions, with a surgical dressing. Vital signs are stable, patient is afebrile. He is alert and oriented 3. No signs of delirium noted. Urine culture showed no growth. Patient is tolerating clear liquid diet, denies any nausea or vomiting. Has not been up out of bed yet. On 07/06/2017 patient is doing well, denies any respiratory complaints, denies any worsening dyspnea, continues on 3 L per nasal cannula, with O2 sat at 93%. Compliant with his incentive spirometer, able to achieve [id number] on the today. Lung sounds are generally diminished, no rhonchi no wheezes were noted. Is complaining of some incisional pain, mid abdominal surgical incision is clean dry and intact, nadine and sutures are intact. Patient was switched to a regular diet, tolerating it well, no bm yet. Chest x-ray from 07/05/2017 has been reviewed, shows blunting of the right posterior costophrenic angle, and increased density at the right lower lobe, consistent with parapneumonic effusion. But clinically patient is afebrile, there is no evidence of leukocytosis and today's labs, WBC within normal limit of 6.4, is no worsening dyspnea, chest congestion or increased sputum production. ID service is on, patient is currently on Fortaz and Vancomycin. On 12/05/2017 patient is doing well, tolerating regular diet, had 2 bowel movements yesterday. Lung sounds show equal air entry bilaterally, with a few rhonchi. Patient is compliant with his incentive spirometer, his effort is improving, able to achieve 2000 on the today. Still has the congestive cough, with no sputum production. Chest x-ray from 07/05/2017 is more consistent with atelectasis and a small right pleural effusion. Abdomen is slightly tender, patient is receiving pain medications. Abdominal binder is on, mid abdominal incision is clean dry and intact, nadine and sutures are intact. Abiotic's per ID service. Anticipate discharge to [facility] rehab today,patient is cleared from pulmonary standpoint. Objective - Vital Signs Vital signs: Vital Signs Temp 98.0 F 07/07/17 07:00 Pulse 68 07/07/17 08:04 Resp 16 07/07/17 07:00 BP 143/91 07/07/17 07:00 Pulse Ox 98 07/07/17 07:00 Intake & Output 07/06/17 07/07/17 07/07/17 18:59 06:59 18:59 Output Total 700 450 600 Balance -700 -450 -600 Output: Urine 700 450 600 Other: Voiding Method Urinal # Voids 2 1 # Bowel Movements 1 2 - Exam - General well developed, no distress, the patient is awake alert, pleasant and cooperative - Eyes PERRL, normal ocular movement - ENT normal pinna, normal nares, normal mucosa - Neck no masses, no bruits, trachea midline, no lymphadectomy - Respiratory normal respiratory effort, diminished breath on the lung bases bilaterally, no rhonchi, no wheezes Cardiac exam revealed the PMI to be normally situated and sized. The rhythm was regular and no extrasystoles were noted during several minutes of auscultation. The first and second heart sounds were normal and physiologic splitting of the second heart sound was noted. There were no murmurs, rubs, clicks, or gallops. - Abdomen Soft, appropriate tenderness, mild distention, no rebound, no guarding, midline incision site is dry clean and intact at this point. Nadine and sutures are intact. - Psychiatric Patient denies anxiety. Alert oriented 3, no signs of delirium Neurologically, the patient was moving all 4 extremities and his neurologic exam is nonfocal. No signs of delirium, alert oriented 3, pleasant and cooperative. Examination of the skin revealed no evidence of significant rashes, suspicious appearing nevi or other concerning lesions. The anterior abdominal wound site is dry clean and intact at this point. - Labs CBC & Chem 7: 07/07/17 08:55 07/07/17 08:55 Labs: Abnormal Lab Results - Last 24 Hours (Table) 07/07/17 07/07/17 Range/Units 08:55 08:55 RBC 3.69 L (4.30-5.90) m/uL Hgb 10.3 L (13.0-17.5) gm/dL Hct 33.9 L (39.0-53.0) % MCHC 30.5 L (31.0-37.0) g/dL Potassium 3.2 L (3.5-5.1) mmol/L Carbon Dioxide 33 H (22-30) mmol/L BUN 5 L (9-20) mg/dL Creatinine 0.63 L (0.66-1.25) mg/dL Total Bilirubin 0.1 L (0.2-1.3) mg/dL AST 13 L (17-59) U/L Total Protein 4.6 L (6.3-8.2) g/dL Albumin 2.6 L (3.5-5.0) g/dL Assessment and Plan Plan: Assessment: 1 dehiscence of surgical wound. The patient underwent expiratory laparotomy and closure of the abdominal wound, postop day 4 2 altered mentation. Rule out delirium. Rule out withdrawal from benzodiazepines/narcotic agents. Recovered, patient is currently alert, oriented 3, no signs of delirium. 3 acute fever currently under investigation. Given empiric antibiotic coverage with ceftazidime, vancomycin. Blood cultures of been sent and remain pending, urine culture shows no growth. 4 chronic hypoxic respiratory failure 5 severe COPD with an FEV1 of 23% of predicted 6 chronic alcoholism and history of pancreatic insufficiency 7 chronic pain/generalized arthritis 8 chronic bipolar disorder 9 smoker Recommendation: Patient is doing well, compliant with his incentive spirometer, denies any worsening dyspnea, still has mildly congested cough, no sputum production. Tolerating regular diet, no other specific complaints other than some incisional tenderness. Vital signs are stable, antibiotics per ID service. From pulmonary standpoint patient is stable for discharge to [facility] rehab today. Follow-up with Dr. Cho in the office in 7-10 days. I performed a history & physical examination of the patient and discussed their management with my nurse practitioner, [place] Monique. I reviewed the nurse practitioner's note and agree with the documented findings and plan of care. Lung sounds are generally diminished, but no rhonchi, no wheezes. The findings and the impression was discussed with the patient. I attest to the documentation by the nurse practitioner. Time with Patient: Less than 30
[2017-07-07 11:14] VITALS: PULSE 70
[2017-07-07] MEDS: VANCOMYCIN 1,500 MG in SODIUM CHLORIDE 0.9% 250 ML IVPB SCH (12:47)
--- NOTE | 2017-07-07 14:49 | PN ---
PROGRESS NOTE DATE OF SERVICE: 07/07/2017. REASON FOR FOLLOWUP: Possible aspiration pneumonia. INTERVAL HISTORY: The patient is afebrile, has been breathing comfortably. Denies significant chest pain. Occasional cough. No abdominal pain. No nausea, vomiting and no diarrhea. EXAMINATION: Blood pressure 143/91 with a pulse of 72. Temperature 98. He is 98% on 2 L nasal cannula. General description is a middle-aged male lying in bed in no distress. Respiratory system: Unlabored breathing. Clear to auscultation anteriorly. HEART: S1, S2. Regular rate and rhythm. Abdomen soft. No tenderness. LABS: Hemoglobin 10.2, white count 6.2 with a BUN of 5, creatinine 0.63. DIAGNOSTIC IMPRESSION AND PLAN: Patient with a fever and elevated white count, possible aspiration pneumonia. Overall improvement on the Fortaz and vanco. Plan to finish therapy with oral Avelox 400 daily for 7 days. Continue supportive care. MMODL / IJN: [id number] /
== END 2017-07-07 15:16 | DRG 907 ==
LOC: EC 06:22 → 3SUR 08:10 → ICU 07-03 09:09 → 6ICU 07-03 09:18 → 4MS4W 07-05 00:17
PROVIDERS: ADMIT Surgery; ATTEND Surgery
PROC: 3E1M38Z Irrigation of Peritoneal Cavity using Irrigating Substance, Percutaneous Approach (ICD-10-PCS; 2017-07-02)
PROC: 0D9670Z Drainage of Stomach with Drainage Device, Via Natural or Artificial Opening (ICD-10-PCS; 2017-07-02)
PROC: 0WQF0ZZ Repair Abdominal Wall, Open Approach (ICD-10-PCS; principal; 2017-07-02 09:30)
DX: T81.32XA Disruption of internal operation (surgical) wound, not elsewhere classified, initial encounter (principal); G92 Toxic encephalopathy; J69.0 Pneumonitis due to inhalation of food and vomit; J96.11 Chronic respiratory failure with hypoxia; K86.1 Other chronic pancreatitis; J44.0 Chronic obstructive pulmonary disease with (acute) lower respiratory infection; F05 Delirium due to known physiological condition; J44.1 Chronic obstructive pulmonary disease with (acute) exacerbation; K86.89 Other specified diseases of pancreas; Z99.81 Dependence on supplemental oxygen; T42.4X5A Adverse effect of benzodiazepines, initial encounter; T40.605A Adverse effect of unspecified narcotics, initial encounter; D63.8 Anemia in other chronic diseases classified elsewhere; E78.5 Hyperlipidemia, unspecified; K21.9 Gastro-esophageal reflux disease without esophagitis; M13.0 Polyarthritis, unspecified; F10.21 Alcohol dependence, in remission; E78.00 Pure hypercholesterolemia, unspecified; F41.9 Anxiety disorder, unspecified; I10 Essential (primary) hypertension; G47.33 Obstructive sleep apnea (adult) (pediatric); G89.4 Chronic pain syndrome; F31.9 Bipolar disorder, unspecified; R91.1 Solitary pulmonary nodule; F17.200 Nicotine dependence, unspecified, uncomplicated; Z79.899 Other long term (current) drug therapy; Z88.0 Allergy status to penicillin; Z91.81 History of falling; Z90.49 Acquired absence of other specified parts of digestive tract; Z86.14 Personal history of Methicillin resistant Staphylococcus aureus infection; W19.XXXA Unspecified fall, initial encounter; Y92.009 Unspecified place in unspecified non-institutional (private) residence as the place of occurrence of the external cause; Y92.230 Patient room in hospital as the place of occurrence of the external cause
CPT/HCPCS: 36415; 71045; 71046; 74022; 80053; 80202; 81001; 82150; 83605; 83690; 83735; 84100; 85025; 87086; 94640; 94760; 96361; 96374; 96375; 96376; 99285

== ENCOUNTER 2018-02-09 09:43 | Observation (INO) | payer MEDICARE, OTHER ==
[2018-02-09] MEDS ORDERED: methylPREDNISolone SOD SUCCI 125 MG/2 ML VIAL IV STA (10:01)
[2018-02-09] MEDS ORDERED: IPRATROPIUM-ALBUTEROL 3 ML NEB INHALATION STA (10:01)
[2018-02-09] MEDS ORDERED: MORPHINE SULFATE 2 MG/ML SYRINGE IVP STA (10:02)
--- NOTE | 2018-02-09 10:04 | ED ---
General Adult HPI - General Chief complaint: Shortness of Breath Stated complaint: Diff Breathing Time Seen by Provider: 02/09/18 09:51 Source: patient, RN notes reviewed Mode of arrival: wheelchair Limitations: no limitations - History of Present Illness Initial comments: Patient is a pleasant 57-year-old male presenting to the emergency Department with complaints of difficulty in breathing. Onset of symptoms was a couple of days ago. Symptoms have progressively worsened. Symptoms are much worse with exertion. Patient does have cough with occasional noncolored sputum. No chest pain. No leg pain or leg swelling. No fevers. - Related Data Home Medications Medication Instructions Recorded Confirmed Gabapentin [Neurontin] 100 mg PO BID 03/05/14 02/09/18 Omeprazole 40 mg PO DAILY 03/05/14 02/09/18 Lipase/Protease/Amylase [Creon Dr 1 cap PO TID 07/12/14 02/09/18 24,000 Units Capsule] risperiDONE [RisperDAL] 2 mg PO BID 07/12/14 02/09/18 Atorvastatin Calcium [Lipitor] 10 mg PO DAILY 06/02/17 02/09/18 Furosemide [Lasix] 40 mg PO DAILY 06/02/17 02/09/18 Ibuprofen [Motrin] 800 mg PO TID PRN 06/02/17 02/09/18 Metoprolol Succinate (ER) [Toprol 25 mg PO DAILY 06/02/17 02/09/18 XL] Roflumilast [Daliresp] 500 mg PO DAILY 06/02/17 02/09/18 busPIRone HCL [Buspar] 7.5 mg PO BID 06/02/17 02/09/18 ALPRAZolam [Xanax] 2 mg PO QID PRN 02/09/18 02/09/18 Albuterol Inhaler [Ventolin Hfa 2 puff INHALATION RT-Q4H PRN 02/09/18 02/09/18 Inhaler] Loratadine [Claritin] 10 mg PO DAILY 02/09/18 02/09/18 Potassium Chloride [Klor-Con 10] 10 meq PO BID 02/09/18 02/09/18 SUMAtriptan SUCCINATE [Imitrex] 100 mg PO DAILY PRN 02/09/18 02/09/18 Tiotropium [place] [Spiriva] 1 cap INHALATION RT-DAILY 02/09/18 02/09/18 Umeclidinium [place] [Incruse 2 puff INHALATION RT-BID 02/09/18 02/09/18 Ellipta] Zolpidem [Ambien] 5 mg PO HS 02/09/18 02/09/18 Previous Rx's Medication Instructions Recorded Ipratropium-Albuterol Nebulize 3 ml INHALATION RT-QID PRN #30 07/07/17 [Duoneb 0.5 mg-3 mg/3 ml Soln] ampul.neb Allergies Allergy/AdvReac Type Severity Reaction Status Date / Time Penicillins Allergy Rash/Hives Verified 02/09/18 10:39 Review of Systems ROS Statement: Those systems with pertinent positive or pertinent negative responses have been documented in the HPI. ROS Other: All systems not noted in ROS Statement are negative. Constitutional: Denies: fever Eyes: Denies: eye pain ENT: Denies: ear pain Respiratory: Reports: cough, dyspnea Cardiovascular: Denies: chest pain Endocrine: Reports: fatigue Gastrointestinal: Denies: abdominal pain Genitourinary: Denies: dysuria Musculoskeletal: Denies: back pain Skin: Denies: rash Neurological: Denies: weakness Past Medical History Past Medical History: Chest Pain / Angina, COPD, GERD/Reflux, Hyperlipidemia, Hypertension, Pneumonia, Sleep Apnea/CPAP/BIPAP Additional Past Medical History / Comment(s): Severe COPD with an FEV1 of 23% of predicted with chronic hypoxic respiratory failure , 3liters per minute nasal cannula. History of alcoholism, history of chronic pancreatitis and pancreatic insufficiency, VIVEK, hypertension, hyperlipidemia, chronic diverticular disease/diverticulitis. The patient chronic pain and chronic anxiety maintained on high-dose benzodiazepines in the form of Xanax. He also has Last Myocardial Infarction Date:: Denies having an [place] History of Any Multi-Drug Resistant Organisms: MRSA Date of last positivie culture/infection: summer MDRO Source:: right side of buttuck and right side of chest above nipple Past Surgical History: Heart Catheterization, Tonsillectomy Additional Past Surgical History / Comment(s): Sigmoid colectomy, hand surgery involving the right hand and repair of tendons, cardiac catheterization that has been normal, colonoscopy, tonsillectomy Past Anesthesia/Blood Transfusion Reactions: No Reported Reaction, Motion Sickness Past Psychological History: Anxiety, Depression Smoking Status: Current every day smoker Past Alcohol Use History: None Reported Past Drug Use History: None Reported - Past Family History Mother Family Medical History: Cancer, COPD Additional Family Medical History / Comment(s): unaware of what kind of cancer Father Family Medical History: COPD Additional Family Medical History / Comment(s): Father is . General Exam Limitations: no limitations General appearance: alert, in no apparent distress Head exam: Present: atraumatic Eye exam: Present: normal appearance, PERRL ENT exam: Present: normal oropharynx Neck exam: Present: normal inspection Respiratory exam: Present: wheezes, decreased breath sounds Cardiovascular Exam: Present: regular rate, normal rhythm GI/Abdominal exam: Present: soft. Absent: tenderness Extremities exam: Present: normal inspection. Absent: pedal edema, calf tenderness Back exam: Present: normal inspection Neurological exam: Present: alert Psychiatric exam: Present: normal affect, normal mood Skin exam: Present: normal color Course Vital Signs 02/09/18 02/09/18 02/09/18 09:46 10:43 10:52 Temperature 98 F Pulse Rate 84 85 84 Respiratory 22 Rate Blood Pressure 113/75 O2 Sat by Pulse 97 Oximetry - Reevaluation(s) Reevaluation #1: 02/09/18 10:03 Patient requests pain medication for his chronic back pain that he normally takes OxyContin for. EKG Findings - EKG Comments: EKG Findings:: Normal sinus rhythm 88. VT 144. QRS 74. QT 394. QTC 476. Normal axis. Normal QRS. No acute ST change. Medical Decision Making - Medical Decision Making Patient reevaluated without much improvement. Patient updated on results and plan. Case discussed in detail with Dr. Sampson, who will admit his patient. - Lab Data Result diagrams: 02/09/18 10:14 02/09/18 10:14 Lab Results 02/09/18 02/09/18 Range/Units 10:14 10:14 WBC 8.4 (3.8-10.6) k/uL RBC 4.47 (4.30-5.90) m/uL Hgb 12.9 L (13.0-17.5) gm/dL Hct 39.3 (39.0-53.0) % MCV 87.8 (80.0-100.0) fL MCH 28.8 (25.0-35.0) pg MCHC 32.7 (31.0-37.0) g/dL RDW 14.8 (11.5-15.5) % Plt Count 225 (150-450) k/uL Neutrophils % 62 % Lymphocytes % 26 % Monocytes % 5 % Eosinophils % 5 % Basophils % 0 % Neutrophils # 5.2 (1.3-7.7) k/uL Lymphocytes # 2.2 (1.0-4.8) k/uL Monocytes # 0.4 (0-1.0) k/uL Eosinophils # 0.5 (0-0.7) k/uL Basophils # 0.0 (0-0.2) k/uL Sodium 141 (137-145) mmol/L Potassium 4.9 (3.5-5.1) mmol/L Chloride 106 (98-107) mmol/L Carbon Dioxide 29 (22-30) mmol/L Anion Gap 6 mmol/L BUN 11 (9-20) mg/dL Creatinine 0.64 L (0.66-1.25) mg/dL Est GFR (CKD-EPI)AfAm >90 (>60 ml/min/1.73 sqM) Est GFR (CKD-EPI)NonAf >90 (>60 ml/min/1.73 sqM) Glucose 93 (74-99) mg/dL Calcium 9.0 (8.4-10.2) mg/dL Total Bilirubin 0.7 (0.2-1.3) mg/dL AST 25 (17-59) U/L ALT 18 L (21-72) U/L Alkaline Phosphatase 57 (38-126) U/L Total Protein 6.4 (6.3-8.2) g/dL Albumin 3.8 (3.5-5.0) g/dL - Radiology Data Radiology results: image reviewed (Chest x-ray shows faint density that may be superimposed structures rather than early infiltrate or nodule.) Disposition Clinical Impression: COPD (chronic obstructive pulmonary disease) Disposition: ADMITTED IP TO THIS HOSP Is patient prescribed a controlled substance at d/c from ED?: No Referrals: Shellie Sampson MD [Primary Care Provider] - 1-2 days Decision Time: 11:24
[2018-02-09 10:28] LABS: Basophils % (A) 0 %; Eosinophils # (A) 0.5 k/uL (0-0.7); Eosinophils % (A) 5 %; HCT 39.3 % (39.0-53.0); HGB 12.9 gm/dL (13.0-17.5); Lymphocytes # (A) 2.2 k/uL (1.0-4.8); Lymphocytes % (A) 26 %; MCH 28.8 pg (25.0-35.0); MCHC 32.7 g/dL (31.0-37.0); MCV 87.8 fL (80.0-100.0); Mean Platelet Volume 7.3; Monocytes # (A) 0.4 k/uL (0-1.0); Monocytes % (A) 5 %; Neutrophils # (A) 5.2 k/uL (1.3-7.7); Neutrophils % (A) 62 %; Platelet Count 225 k/uL (150-450); RBC 4.47 m/uL (4.30-5.90); RDW 14.8 % (11.5-15.5); WBC 8.4 k/uL (3.8-10.6)
[2018-02-09 10:41] LABS: Anion Gap 6 mmol/L; Carbon Dioxide 29 mmol/L (22-30); Chloride 106 mmol/L (98-107); Glucose 93 mg/dL (74-99); Sodium 141 mmol/L (137-145); Total Bilirubin 0.7 mg/dL (0.2-1.3)
[2018-02-09 10:43] LABS: Blood Urea Nitrogen 11 mg/dL (9-20); Potassium 4.9 mmol/L (3.5-5.1)
[2018-02-09 10:44] LABS: ALT 18 U/L (21-72); AST 25 U/L (17-59); Albumin 3.8 g/dL (3.5-5.0); Alkaline Phosphatase 57 U/L (38-126); Total Protein 6.4 g/dL (6.3-8.2)
--- NOTE | 2018-02-09 11:06 | XR ---
EXAMINATION TYPE: XR chest 2V DATE OF EXAM: 02/09/2018 COMPARISON: 07/05/2017 TECHNIQUE: PA and lateral views submitted. HISTORY: Shortness of breath FINDINGS: The lungs are clear and there is no pneumothorax, pleural effusion, or focal pneumonia. Diffuse hyp erinflation suggestive of COPD. Vague density overlying the mid right lung could be related to soft t issue overlap. Degenerative change of the spine noted. No overt failure. IMPRESSION: 1. COPD. Vague density overlying the right midlung may be related to superimposed structures rather t buckner early infiltrate or pulmonary nodule. Correlate clinically. Short-term follow-up CT scan could be obtained.
[2018-02-09] MEDS ORDERED: IPRATROPIUM-ALBUTEROL 3 ML NEB INHALATION PRN (11:25)
[2018-02-09 12:59] LABS: Glucose,Whole Blood 105 mg/dL (75-99)
[2018-02-09] MEDS ORDERED: SUMAtriptan SUCCINATE 50 MG TAB PO PRN (13:03)
[2018-02-09] MEDS ORDERED: ALPRAZOLAM 2 MG PO PRN (13:03)
[2018-02-09] MEDS ORDERED: IBUPROFEN 800 MG TAB PO PRN (13:03)
--- NOTE | 2018-02-09 13:47 | P.HPIM ---
History of Present Illness H&P Date: 02/09/18 Chief Complaint: Worsening shortness of breath This is a 57-year-old male with a known history of COPD, chronic hypoxic respiratory failure on 3 L of oxygen at home, chronic pain syndrome, chronic pancreatitis, nicotine dependence, obstructive sleep apnea, hypertension, hyperlipidemia and bipolar. Patient presents to the emergency room with complaints of shortness of breath and productive cough with clear sputum for the past 3-4 days. He's having difficulty with ambulating due to shortness of breath. Chest x-ray shows COPD and a vague density overlying the right mid lung and this may be related to superimposed structures rather than early in filtrate or pulmonary nodule per radiologist's. Pulmonary service has been consulted. Patient is been placed on IV Solu-Medrol and bronchodilators. He is asking to be restarted on his pain medication. His home medications have been reconciled. EKG showing a normal sinus rhythm. Patient denies any fevers chills or sweats. Denies any nausea vomiting bowel movement changes or urinary symptoms. Review of Systems Please refer to HPI otherwise unremarkable Past Medical History Past Medical History: Chest Pain / Angina, COPD, GERD/Reflux, Hyperlipidemia, Hypertension, Pneumonia, Sleep Apnea/CPAP/BIPAP Additional Past Medical History / Comment(s): Severe COPD with an FEV1 of 23% of predicted with chronic hypoxic respiratory failure , 3liters per minute nasal cannula. History of alcoholism, history of chronic pancreatitis and pancreatic insufficiency, VIVEK, hypertension, hyperlipidemia, chronic diverticular disease/diverticulitis. The patient chronic pain and chronic anxiety maintained on high-dose benzodiazepines in the form of Xanax. He also has Last Myocardial Infarction Date:: Denies having an [place] History of Any Multi-Drug Resistant Organisms: MRSA Date of last positivie culture/infection: summer MDRO Source:: right side of buttuck and right side of chest above nipple Past Surgical History: Heart Catheterization, Tonsillectomy Additional Past Surgical History / Comment(s): Sigmoid colectomy, hand surgery involving the right hand and repair of tendons, cardiac catheterization that has been normal, colonoscopy, tonsillectomy Past Anesthesia/Blood Transfusion Reactions: No Reported Reaction, Motion Sickness Past Psychological History: Anxiety, Depression Smoking Status: Current every day smoker Past Alcohol Use History: None Reported Past Drug Use History: None Reported - Past Family History Mother Family Medical History: Cancer, COPD Additional Family Medical History / Comment(s): unaware of what kind of cancer Father Family Medical History: COPD Additional Family Medical History / Comment(s): Father is . Medications and Allergies Home Medications Medication Instructions Recorded Confirmed Type Gabapentin [Neurontin] 300 mg PO Q8HR 03/05/14 02/09/18 History Omeprazole 40 mg PO DAILY 03/05/14 02/09/18 History Lipase/Protease/Amylase [Creon Dr 1 cap PO TID 07/12/14 02/09/18 History 24,000 Units Capsule] risperiDONE [RisperDAL] 2 mg PO BID 07/12/14 02/09/18 History Atorvastatin Calcium [Lipitor] 10 mg PO DAILY 06/02/17 02/09/18 History Furosemide [Lasix] 40 mg PO DAILY 06/02/17 02/09/18 History Ibuprofen [Motrin] 800 mg PO TID PRN 06/02/17 02/09/18 History Metoprolol Succinate (ER) [Toprol 25 mg PO DAILY 06/02/17 02/09/18 History XL] Roflumilast [Daliresp] 500 mg PO DAILY 06/02/17 02/09/18 History busPIRone HCL [Buspar] 7.5 mg PO BID 06/02/17 02/09/18 History Ipratropium-Albuterol Nebulize 3 ml INHALATION RT-QID PRN #30 07/07/17 02/09/18 Rx [Duoneb 0.5 mg-3 mg/3 ml Soln] ampul.neb ALPRAZolam [Xanax] 1 mg PO Q8H PRN 02/09/18 02/09/18 History Albuterol Inhaler [Ventolin Hfa 2 puff INHALATION RT-Q4H PRN 02/09/18 02/09/18 History Inhaler] Loratadine [Claritin] 10 mg PO DAILY 02/09/18 02/09/18 History Morphine Sulfate [Morphabond ER] 15 mg PO Q12H 02/09/18 02/09/18 History Potassium Chloride [Klor-Con 10] 10 meq PO BID 02/09/18 02/09/18 History SUMAtriptan SUCCINATE [Imitrex] 100 mg PO DAILY PRN 02/09/18 02/09/18 History Tiotropium [place] [Spiriva] 1 cap INHALATION RT-DAILY 02/09/18 02/09/18 History Umeclidinium [place] [Incruse 2 puff INHALATION RT-BID 02/09/18 02/09/18 History Ellipta] Zolpidem [Ambien] 5 mg PO HS 02/09/18 02/09/18 History oxyCODONE-APAP 10-325MG [Percocet 1 tab PO Q8HR PRN 02/09/18 02/09/18 History 10-325 mg] Allergies Allergy/AdvReac Type Severity Reaction Status Date / Time Penicillins Allergy Rash/Hives Verified 02/09/18 10:39 Physical Exam Vitals: Vital Signs Temp Pulse Pulse Resp BP BP Pulse Ox 02/09/18 13:00 97.7 F 84 18 114/80 99 02/09/18 12:07 97.9 F 85 20 123/74 98 02/09/18 10:52 84 02/09/18 10:43 85 02/09/18 09:46 98 F 84 22 113/75 97 Intake and Output 02/08/18 02/09/18 02/09/18 22:59 06:59 14:59 Other: Weight 81.193 kg Head normocephalic Neck supple Lungs coarse breath sounds and wheezing bilaterally Heart regular rate and rhythm S1-S2, no rub or gallop Abdomen is soft nontender nondistended positive bowel sounds no hepatosplenomegaly Extremities no edema Neuro alert and orientated to 3 Results CBC & Chem 7: 02/09/18 10:14 02/09/18 10:14 Labs: Abnormal Lab Results - Last 24 Hours (Table) 02/09/18 02/09/18 02/09/18 Range/Units 10:14 10:14 12:54 Hgb 12.9 L (13.0-17.5) gm/dL Creatinine 0.64 L (0.66-1.25) mg/dL POC Glucose (mg/dL) 105 H (75-99) mg/dL ALT 18 L (21-72) U/L Assessment and Plan Assessment: 1. Acute COPD exacerbation: Patient started on IV Solu-Medrol in the emergency room and DuoNeb updrafts 4 times a day and as needed. Pulmonary service consulted. 2. Acute tracheobronchitis: Check sputum culture. We'll start Cleocin 600 mg IV every 8 hours. Patient has a penicillin ALLERGY. Levaquin interacts with the Risperdal. 3. Chronic hypoxic respiratory failure, home O2 dependent on 3 L 4. Nicotine dependence: Discussed most smoking cessation greater than 3 minutes. Patient refusing nicotine patch 5. History of alcohol dependence. Patient reports last alcohol beverage over 20 years ago 6. Essential hypertension: BP stable resume blood pressure medications 7. Hyperlipidemia resume statin 8. History of bipolar 9. Chronic pain syndrome: Patient follows up with pain clinic. Resume oral morphine, Percocet and Neurontin 10. History of diverticulitis with abscess perforation status post sigmoid colectomy in June 2017 11. Vague density overlying the right midlung noted on chest x-ray. Patient will be evaluated by pulmonary service GI prophylaxis Protonix and DVT prophylaxis Lovenox Time with Patient: Greater than 30 (Greater than 60% of the total time spent in counseling and coordination of care.I performed an examination of the patient and discussed their management with the physician Mixer Lever Operator. I have reviewed the Physician Mixer Lever Operator's notes and agree with the documented findings and plan of care)
[2018-02-09] MEDS: MORPHINE SULFATE ER 15 MG TABLET PO SCH ×2 (14:17→20:45)
[2018-02-09] MEDS: IPRATROPIUM-ALBUTEROL 3 ML NEB INHALATION SCH ×3 (14:20→19:54)
[2018-02-09] MEDS: oxyCODONE-APAP 10-325MG 1 EACH TAB PO PRN (15:39)
[2018-02-09] MEDS: GABAPENTIN 300 MG CAP PO SCH ×2 (15:39→20:45)
[2018-02-09] MEDS: CLINDAMYCIN 600 MG in DEXTROSE 5% IN WATER 50 ML IVPB SCH ×2 (15:40)
[2018-02-09] MEDS ORDERED: LIPASE PO SCH (16:00)
[2018-02-09] MEDS ORDERED: AMYLASE PO SCH (16:00)
[2018-02-09] MEDS ORDERED: PROTEASE PO SCH (16:00)
[2018-02-09 17:31] LABS: Glucose,Whole Blood 258 mg/dL (75-99)
[2018-02-09] MEDS: methylPREDNISolone SOD SUCCI 125 MG/2 ML VIAL IV SCH (18:17)
[2018-02-09] MEDS: INSULIN ASPART 100 UNIT/ML 1 ML 10 ML VIAL SQ SCH ×2 (18:17→21:10)
[2018-02-09] MEDS ORDERED: UMECLIDINIUM BROMIDE INHALATION SCH (20:00)
[2018-02-09 20:21] LABS: Hemoglobin A1C 5.8 % (4.0-6.0)
[2018-02-09] MEDS: ZOLPIDEM 5 MG TAB PO SCH (20:45)
[2018-02-09 21:00] LABS: Glucose,Whole Blood 223 mg/dL (75-99)
[2018-02-09] MEDS ORDERED: GABAPENTIN 100 MG CAP PO SCH (21:00)
[2018-02-09] MEDS: busPIRone HCl 5 MG TAB PO SCH (21:09)
[2018-02-09] MEDS: POTASSIUM CHLORIDE ER 10 MEQ TAB.ER.PRT PO SCH (21:09)
[2018-02-09] MEDS: risperiDONE 2 MG TAB PO SCH (21:09)
[2018-02-09] MEDS: ALPRAZolam 1 MG TAB PO PRN (21:15)
[2018-02-10] MEDS: CLINDAMYCIN 600 MG in DEXTROSE 5% IN WATER 50 ML IVPB SCH ×8 (00:10→23:01)
[2018-02-10] MEDS: methylPREDNISolone SOD SUCCI 125 MG/2 ML VIAL IV SCH ×5 (00:10→23:00)
[2018-02-10] MEDS: oxyCODONE-APAP 10-325MG 1 EACH TAB PO PRN ×3 (04:19→20:25)
[2018-02-10] MEDS: ALPRAZolam 1 MG TAB PO PRN ×2 (06:11→21:29)
[2018-02-10 07:01] LABS: Glucose,Whole Blood 143 mg/dL (75-99)
[2018-02-10] MEDS: busPIRone HCl 5 MG TAB PO SCH ×2 (07:54→20:20)
[2018-02-10] MEDS: ENOXAPARIN 40 MG/0.4 ML SYRINGE SQ SCH (07:54)
[2018-02-10] MEDS: GABAPENTIN 300 MG CAP PO SCH ×3 (07:54→20:21)
[2018-02-10] MEDS: risperiDONE 2 MG TAB PO SCH ×2 (07:54→20:21)
[2018-02-10] MEDS: METOPROLOL SUCCINATE (ER) 25 MG TAB.ER.24H PO SCH (07:54)
[2018-02-10] MEDS: ATORVASTATIN 10 MG TAB PO SCH (07:54)
[2018-02-10] MEDS: FUROSEMIDE 40 MG TAB PO SCH (07:54)
[2018-02-10] MEDS: PANTOPRAZOLE 40 MG TABLET PO SCH (07:54)
[2018-02-10] MEDS: INSULIN ASPART 100 UNIT/ML 1 ML 10 ML VIAL SQ SCH ×4 (07:54→21:28)
[2018-02-10] MEDS: POTASSIUM CHLORIDE ER 10 MEQ TAB.ER.PRT PO SCH ×2 (07:55→20:21)
[2018-02-10] MEDS: IPRATROPIUM-ALBUTEROL 3 ML NEB INHALATION SCH ×4 (07:59→21:11)
[2018-02-10] MEDS: IPRATROPIUM 0.5 MG/2.5 ML NEBU INHALATION SCH ×4 (07:59→21:11)
[2018-02-10] MEDS: MORPHINE SULFATE ER 15 MG TABLET PO SCH ×2 (08:04→20:24)
[2018-02-10] MEDS: LORATADINE 10 MG TAB PO SCH (08:09)
[2018-02-10] MEDS: ROFLUMILAST 500 MG PO SCH (09:43)
[2018-02-10 12:57] LABS: Glucose,Whole Blood 163 mg/dL (75-99)
--- NOTE | 2018-02-10 13:50 | P.CNPUL ---
History of Present Illness Consult date: 02/10/18 Reason for consult: dyspnea, cough, COPD, hypoxemia, abnormal CXR/CT Chief complaint: Shortness of breath History of present illness: Pulmonary consultation dated 02/10/2018 This is a 57-year-old male well-known to our service. He came to the emergency department on February 09 complaining of difficulty breathing. His been going on for a couple days and getting a bit worse. The patient also complains of cough and occasional phlegm production. The phlegm is typically white or clear. No fever or chills. No nausea vomiting or diarrhea. No chest pain or chest pressure. 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 The patient continues to smoke. He has nicotine stained fingernails. He states he is down to one pack a day and his product that. He has a history of angina, COPD, GERD, hyperlipidemia, hypertension, pneumonia, and sleep apnea. The patient states that he feels well and would like to be discharged home. That's up to the primary service. She'll be discharged home, he should go home on a short course of antibiotics and prednisone with a burst and taper 40 mg a day for 4 days, 30 mg a day for 4 days, 20 mg a day for 40s, and 10 mg a day for 4 days then stop. Review of Systems 14 point review of system is positive for shortness of breath chest tightness wheezing cough chest congestion and phlegm production. No fever or chills. No chest pain or chest discomfort. No nausea vomiting or diarrhea. Past Medical History Past Medical History: Chest Pain / Angina, COPD, GERD/Reflux, Hyperlipidemia, Hypertension, Pneumonia, Sleep Apnea/CPAP/BIPAP Additional Past Medical History / Comment(s): Severe COPD with an FEV1 of 23% of predicted with chronic hypoxic respiratory failure , 3liters per minute nasal cannula. History of alcoholism, history of chronic pancreatitis and pancreatic insufficiency, VIVEK, hypertension, hyperlipidemia, chronic diverticular disease/diverticulitis. The patient chronic pain and chronic anxiety maintained on high-dose benzodiazepines in the form of Xanax. He also has Last Myocardial Infarction Date:: Denies having an [place] History of Any Multi-Drug Resistant Organisms: MRSA Date of last positivie culture/infection: summer MDRO Source:: right side of buttuck and right side of chest above nipple Past Surgical History: Heart Catheterization, Tonsillectomy Additional Past Surgical History / Comment(s): Sigmoid colectomy, hand surgery involving the right hand and repair of tendons, cardiac catheterization that has been normal, colonoscopy, tonsillectomy Past Anesthesia/Blood Transfusion Reactions: No Reported Reaction, Motion Sickness Smoking Status: Current every day smoker - Past Family History Mother Family Medical History: Cancer, COPD Additional Family Medical History / Comment(s): unaware of what kind of cancer Father Family Medical History: COPD Additional Family Medical History / Comment(s): Father is . Medications and Allergies Home Medications Medication Instructions Recorded Confirmed Type Gabapentin [Neurontin] 300 mg PO Q8HR 03/05/14 02/09/18 History Omeprazole 40 mg PO DAILY 03/05/14 02/09/18 History Lipase/Protease/Amylase [Creon Dr 1 cap PO TID 07/12/14 02/09/18 History 24,000 Units Capsule] risperiDONE [RisperDAL] 2 mg PO BID 07/12/14 02/09/18 History Atorvastatin Calcium [Lipitor] 10 mg PO DAILY 06/02/17 02/09/18 History Furosemide [Lasix] 40 mg PO DAILY 06/02/17 02/09/18 History Ibuprofen [Motrin] 800 mg PO TID PRN 06/02/17 02/09/18 History Metoprolol Succinate (ER) [Toprol 25 mg PO DAILY 06/02/17 02/09/18 History XL] Roflumilast [Daliresp] 500 mg PO DAILY 06/02/17 02/09/18 History busPIRone HCL [Buspar] 7.5 mg PO BID 06/02/17 02/09/18 History Ipratropium-Albuterol Nebulize 3 ml INHALATION RT-QID PRN #30 07/07/17 02/09/18 Rx [Duoneb 0.5 mg-3 mg/3 ml Soln] ampul.neb ALPRAZolam [Xanax] 1 mg PO Q8H PRN 02/09/18 02/09/18 History Albuterol Inhaler [Ventolin Hfa 2 puff INHALATION RT-Q4H PRN 02/09/18 02/09/18 History Inhaler] Loratadine [Claritin] 10 mg PO DAILY 02/09/18 02/09/18 History Morphine Sulfate [Morphabond ER] 15 mg PO Q12H 02/09/18 02/09/18 History Potassium Chloride [Klor-Con 10] 10 meq PO BID 02/09/18 02/09/18 History SUMAtriptan SUCCINATE [Imitrex] 100 mg PO DAILY PRN 02/09/18 02/09/18 History Tiotropium [place] [Spiriva] 1 cap INHALATION RT-DAILY 02/09/18 02/09/18 History Umeclidinium [place] [Incruse 2 puff INHALATION RT-BID 02/09/18 02/09/18 History Ellipta] Zolpidem [Ambien] 5 mg PO HS 02/09/18 02/09/18 History oxyCODONE-APAP 10-325MG [Percocet 1 tab PO Q8HR PRN 02/09/18 02/09/18 History 10-325 mg] Allergies Allergy/AdvReac Type Severity Reaction Status Date / Time Penicillins Allergy Rash/Hives Verified 02/09/18 10:39 Physical Exam Osteopathic Statement: *. No significant issues noted on an osteopathic structural exam other than those noted in the History and Physical/Consult. Vitals: Vital Signs Temp Pulse Pulse Resp BP Pulse Ox 02/10/18 11:48 80 02/10/18 11:34 80 02/10/18 08:10 84 02/10/18 07:59 84 02/10/18 07:54 16 02/10/18 06:09 96.5 F L 69 16 142/92 95 02/09/18 22:39 96.9 F L 89 16 147/80 98 02/09/18 20:04 86 02/09/18 19:56 85 02/09/18 16:35 86 02/09/18 16:26 86 02/09/18 16:00 18 02/09/18 15:00 98.3 F 90 18 122/80 99 Intake and Output 02/09/18 02/10/18 02/10/18 22:59 06:59 14:59 Output Total 600 400 Balance -600 -400 Output: Urine 600 400 Other: Voiding Method Toilet Toilet # Voids 1 1 No acute distress, oriented 3. Nasal O2 in place. No evidence of respiratory distress. HEENT examination is grossly unremarkable. Mucous membranes are moist. No oral lesions. Neck supple. Full range of motion. No adenopathy thyromegaly or neck vein distention. Cardiovascular examination reveals regular rhythm rate. S1-S2 normal. No S3 or S4. No discernible murmur noted. Lungs reveal diminished breath sounds throughout. Slight prolongation. A few scattered high-pitched wheezes are noted. Breath sounds are equal bilaterally. No crackles. Abdomen soft bowel sounds are heard. No masses or tenderness. Extremities are intact. No cyanosis clubbing or edema. Skin is without rash or lesion. Neurologic examination is brief but nonfocal. Results - Laboratory Findings CBC and BMP: 02/09/18 10:14 02/09/18 10:14 Abnormal lab findings: Abnormal Labs 02/09/18 02/09/18 02/09/18 10:14 10:14 12:54 Hgb 12.9 L Creatinine 0.64 L POC Glucose (mg/dL) 105 H ALT 18 L 02/09/18 02/09/18 02/10/18 17:29 20:58 06:56 Hgb Creatinine POC Glucose (mg/dL) 258 H 223 H 143 H ALT 02/10/18 12:45 Hgb Creatinine POC Glucose (mg/dL) 163 H ALT - Diagnostic Findings Chest x-ray: report reviewed (Labs, x-rays and medications are reviewed.), image reviewed Assessment and Plan Assessment: Assessment COPD exacerbation complicated by purulent tracheobronchitis History of angina pectoris History of GERD Hyperlipidemia by history History of hypertension Previous history of pneumonia Obstructive sleep apnea syndrome, on CPAP History of chronic alcohol abuse with chronic pancreatitis and pancreatic exocrine insufficiency History of diverticular disease History of chronic anxiety Plan: Plan dated 02/10/2018 The patient is doing very well. The patient feels almost back to baseline. He still has some shortness of breath chest tightness wheezing and cough. I did point out to the nurse practitioner worse along with Dr. Sampson are that the patient could be considered for discharge. The patient would need be need to go home a short course of antibiotics and a prednisone burst and taper beginning with 40 mg a day for 4 days and tapering by 10 mg every fourth day. Time with Patient: Greater than 30
--- NOTE | 2018-02-10 13:50 | P.PN ---
Subjective Progress Note Date: 02/10/18 This is a 57-year-old male with a known history of COPD, chronic hypoxic respiratory failure on 3 L of oxygen at home, chronic pain syndrome, chronic pancreatitis, nicotine dependence, obstructive sleep apnea, hypertension, hyperlipidemia and bipolar. Patient presents to the emergency room with complaints of shortness of breath and productive cough with clear sputum for the past 3-4 days. He's having difficulty with ambulating due to shortness of breath. Chest x-ray shows COPD and a vague density overlying the right mid lung and this may be related to superimposed structures rather than early in filtrate or pulmonary nodule per radiologist's. Pulmonary service has been consulted. Patient is been placed on IV Solu-Medrol and bronchodilators. He is asking to be restarted on his pain medication. His home medications have been reconciled. EKG showing a normal sinus rhythm. Patient denies any fevers chills or sweats. Denies any nausea vomiting bowel movement changes or urinary symptoms. 02/10/2018 patient still having some wheezing and coarse breath sounds. Reports improvement in his shortness of breath and cough. Patient seen by pulmonary service and patient is cleared for discharge from their standpoint. However, patient evaluated again this afternoon with Dr. Sampson and patient is hesitant about being discharged home today and would like to stay 1 more day for IV steroids. Patient denies any chest pain any nausea vomiting denies any bowel movement changes or urinary symptoms. Objective - Vital Signs Vital signs: Vital Signs Temp 96.5 F L 02/10/18 06:09 Pulse 80 02/10/18 11:48 Resp 16 02/10/18 07:54 BP 142/92 02/10/18 06:09 Pulse Ox 95 02/10/18 06:09 Intake & Output 02/09/18 02/10/18 02/10/18 18:59 06:59 18:59 Output Total 400 600 400 Balance -400 -600 -400 Weight 81.193 kg Output: Urine 400 600 400 Other: Voiding Method Toilet Toilet Toilet # Voids 1 1 1 - Exam Head normocephalic Neck supple Lungs coarse breath sounds and wheezing noted bilaterally Heart regular rate and rhythm S1-S2, no rub or gallop Abdomen is soft nontender nondistended positive bowel sounds no hepatosplenomegaly Extremities no edema Neuro alert and orientated to 3 - Labs CBC & Chem 7: 02/09/18 10:14 02/09/18 10:14 Labs: Abnormal Lab Results - Last 24 Hours (Table) 02/09/18 02/09/18 02/10/18 Range/Units 17:29 20:58 06:56 POC Glucose (mg/dL) 258 H 223 H 143 H (75-99) mg/dL 02/10/18 Range/Units 12:45 POC Glucose (mg/dL) 163 H (75-99) mg/dL Assessment and Plan Assessment: 1. Acute COPD exacerbation: Patient started on IV Solu-Medrol in the emergency room and DuoNeb updrafts 4 times a day and as needed. Patient seen by pulmonary service. Discussed case with pulmonary service they are recommending a prednisone taper and antibiotics at discharge. Pulmonary recommended prednisone taper of 40 mg daily for 4 days, 30 mg daily for 4 days, 20 mg daily for 4 days and 10 mg daily for 4 days 2. Acute tracheobronchitis: Check sputum culture. We'll start Cleocin 600 mg IV every 8 hours. Patient has a penicillin ALLERGY. Levaquin interacts with the Risperdal. 3. Chronic hypoxic respiratory failure, home O2 dependent on 3 L 4. Nicotine dependence: Discussed most smoking cessation greater than 3 minutes. Patient refusing nicotine patch 5. History of alcohol dependence. Patient reports last alcohol beverage over 20 years ago 6. Essential hypertension: BP stable resume blood pressure medications 7. Hyperlipidemia resume statin 8. History of bipolar 9. Chronic pain syndrome: Patient follows up with pain clinic. Resume oral morphine, Percocet and Neurontin 10. History of diverticulitis with abscess perforation status post sigmoid colectomy in June 2017 11. Vague density overlying the right midlung noted on chest x-ray. Patient will be evaluated by pulmonary service GI prophylaxis Protonix and DVT prophylaxis Lovenox Anticipate discharge home tomorrow
[2018-02-10 17:10] LABS: Glucose,Whole Blood 192 mg/dL (75-99)
[2018-02-10 21:24] LABS: Glucose,Whole Blood 137 mg/dL (75-99)
[2018-02-10] MEDS: ZOLPIDEM 5 MG TAB PO SCH (23:00)
[2018-02-11 00:17] VITALS: RESP 24
[2018-02-11] MEDS: oxyCODONE-APAP 10-325MG 1 EACH TAB PO PRN ×2 (03:35→10:59)
[2018-02-11] MEDS: methylPREDNISolone SOD SUCCI 125 MG/2 ML VIAL IV SCH ×2 (05:57→12:20)
[2018-02-11 06:17] LABS: Basophils % (A) 0 %; Eosinophils # (A) 0.1 k/uL (0-0.7); Eosinophils % (A) 0 %; HCT 39.8 % (39.0-53.0); HGB 12.9 gm/dL (13.0-17.5); Lymphocytes # (A) 0.6 k/uL (1.0-4.8); Lymphocytes % (A) 4 %; MCH 28.7 pg (25.0-35.0); MCHC 32.6 g/dL (31.0-37.0); MCV 88.1 fL (80.0-100.0); Mean Platelet Volume 6.7; Monocytes # (A) 0.4 k/uL (0-1.0); Monocytes % (A) 3 %; Neutrophils # (A) 13.6 k/uL (1.3-7.7); Neutrophils % (A) 93 %; Platelet Count 245 k/uL (150-450); RBC 4.51 m/uL (4.30-5.90); RDW 14.7 % (11.5-15.5); WBC 14.7 k/uL (3.8-10.6)
[2018-02-11 06:30] VITALS: BP 134/94; TEMP 98.2
[2018-02-11 06:34] LABS: Albumin 3.5 g/dL (3.5-5.0); Glucose 129 mg/dL (74-99); Total Protein 5.9 g/dL (6.3-8.2)
[2018-02-11 06:35] LABS: ALT 23 U/L (21-72); AST 12 U/L (17-59); Alkaline Phosphatase 57 U/L (38-126); Anion Gap 2 mmol/L; Blood Urea Nitrogen 17 mg/dL (9-20); Calcium 9.4 mg/dL (8.4-10.2); Carbon Dioxide 33 mmol/L (22-30); Chloride 102 mmol/L (98-107); Potassium 4.7 mmol/L (3.5-5.1); Sodium 137 mmol/L (137-145); Total Bilirubin 0.2 mg/dL (0.2-1.3)
[2018-02-11 07:06] LABS: Glucose,Whole Blood 123 mg/dL (75-99)
[2018-02-11] MEDS: INSULIN ASPART 100 UNIT/ML 1 ML 10 ML VIAL SQ SCH ×2 (07:40→13:10)
[2018-02-11] MEDS: IPRATROPIUM-ALBUTEROL 3 ML NEB INHALATION SCH ×3 (07:41→15:55)
[2018-02-11] MEDS: POTASSIUM CHLORIDE ER 10 MEQ TAB.ER.PRT PO SCH (07:43)
[2018-02-11] MEDS: risperiDONE 2 MG TAB PO SCH (07:43)
[2018-02-11] MEDS: MORPHINE SULFATE ER 15 MG TABLET PO SCH (07:43)
[2018-02-11] MEDS: ENOXAPARIN 40 MG/0.4 ML SYRINGE SQ SCH (07:43)
[2018-02-11] MEDS: PANTOPRAZOLE 40 MG TABLET PO SCH (07:44)
[2018-02-11] MEDS: METOPROLOL SUCCINATE (ER) 25 MG TAB.ER.24H PO SCH (07:44)
[2018-02-11] MEDS: FUROSEMIDE 40 MG TAB PO SCH (07:44)
[2018-02-11] MEDS: ATORVASTATIN 10 MG TAB PO SCH (07:44)
[2018-02-11] MEDS: busPIRone HCl 5 MG TAB PO SCH (07:44)
[2018-02-11] MEDS: GABAPENTIN 300 MG CAP PO SCH (07:44)
[2018-02-11] MEDS: LORATADINE 10 MG TAB PO SCH (07:44)
[2018-02-11] MEDS: CLINDAMYCIN 600 MG in DEXTROSE 5% IN WATER 50 ML IVPB SCH ×2 (07:45)
[2018-02-11] MEDS: ROFLUMILAST 500 MG PO SCH (08:40)
[2018-02-11] MEDS: IPRATROPIUM 0.5 MG/2.5 ML NEBU INHALATION SCH ×3 (09:15→15:55)
--- NOTE | 2018-02-11 10:54 | P.DS ---
Providers Date of admission: 02/09/18 11:25 Expected date of discharge: 02/11/18 Attending physician: Shellie Sampson Consults: 02/09/18 11:25 Consult Physician Routine Consulting Provider: Talisha Cho Consult Reason/Comments: dyspnea Do you want consulting provider notified?: Yes Primary care physician: Shellie Sampson [facility] Course: Diagnoses on discharge: 1. Acute COPD exacerbation: Patient started on IV Solu-Medrol in the emergency room and DuoNeb updrafts 4 times a day and as needed. Patient seen by pulmonary service. Discussed case with pulmonary service they are recommending a prednisone taper and antibiotics at discharge. Pulmonary recommended prednisone taper of 40 mg daily for 4 days, 30 mg daily for 4 days, 20 mg daily for 4 days and 10 mg daily for 4 days 2. Acute tracheobronchitis: Check sputum culture. We'll start Cleocin 600 mg IV every 8 hours. Patient has a penicillin ALLERGY. Levaquin interacts with the Risperdal. 3. Chronic hypoxic respiratory failure, home O2 dependent on 3 L 4. Nicotine dependence: Discussed most smoking cessation greater than 3 minutes. Patient refusing nicotine patch 5. History of alcohol dependence. Patient reports last alcohol beverage over 20 years ago 6. Essential hypertension: BP stable resume blood pressure medications 7. Hyperlipidemia resume statin 8. History of bipolar 9. Chronic pain syndrome: Patient follows up with pain clinic. Resume oral morphine, Percocet and Neurontin 10. History of diverticulitis with abscess perforation status post sigmoid colectomy in June 2017 11. Vague density overlying the right midlung noted on chest x-ray. Patient will be evaluated by pulmonary service Hospital course : This is a 57-year-old male with a known history of COPD, chronic hypoxic respiratory failure on 3 L of oxygen at home, chronic pain syndrome, chronic pancreatitis, nicotine dependence, obstructive sleep apnea, hypertension, hyperlipidemia and bipolar. Patient presents to the emergency room with complaints of shortness of breath and productive cough with clear sputum for the past 3-4 days. He's having difficulty with ambulating due to shortness of breath. Chest x-ray shows COPD and a vague density overlying the right mid lung and this may be related to superimposed structures rather than early in filtrate or pulmonary nodule per radiologist's. Pulmonary service has been consulted. Patient is been placed on IV Solu-Medrol and bronchodilators. He is asking to be restarted on his pain medication. His home medications have been reconciled. EKG showing a normal sinus rhythm. Patient denies any fevers chills or sweats. Denies any nausea vomiting bowel movement changes or urinary symptoms. 02/10/2018 patient still having some wheezing and coarse breath sounds. Reports improvement in his shortness of breath and cough. Patient seen by pulmonary service and patient is cleared for discharge from their standpoint. However, patient evaluated again this afternoon with Dr. Sampson and patient is hesitant about being discharged home today and would like to stay 1 more day for IV steroids. Patient denies any chest pain any nausea vomiting denies any bowel movement changes or urinary symptoms. On 02/11/2018 patient is feeling better he is alert and oriented 3 in no apparent distress his shortness of breath and wheezing has improved cough has improved he was evaluated by pulmonary and was cleared for discharge he will go home on a prednisone taper 40 mg daily and on antibiotic Cleocin 150 mg 4 times daily for 7 days he will follow-up with his glass or mirror inspector Dr. Cho within one week, he will also follow with me in the office within 1 week Patient Condition at Discharge: Serious Plan - Discharge Summary Discharge Rx Participant: Yes New Discharge Prescriptions: New Clindamycin HCl [Cleocin] 150 mg PO Q6H #28 cap predniSONE 10 mg PO DIRECTED #40 tab Continue Gabapentin [Neurontin] 300 mg PO Q8HR Omeprazole 40 mg PO DAILY risperiDONE [RisperDAL] 2 mg PO BID Lipase/Protease/Amylase [[place] Peoples 24,000 Units Capsule] 1 cap PO TID Atorvastatin Calcium [Lipitor] 10 mg PO DAILY busPIRone HCL [Buspar] 7.5 mg PO BID Furosemide [Lasix] 40 mg PO DAILY Ibuprofen [Motrin] 800 mg PO TID PRN PRN Reason: Pain Metoprolol Succinate (ER) [Toprol XL] 25 mg PO DAILY Roflumilast [Daliresp] 500 mg PO DAILY Ipratropium-Albuterol Nebulize [Duoneb 0.5 mg-3 mg/3 ml Soln] 3 ml INHALATION RT-QID PRN #30 ampul.neb PRN Reason: Shortness Of Breath Or Wheezing Albuterol Inhaler [Ventolin Hfa Inhaler] 2 puff INHALATION RT-Q4H PRN PRN Reason: Shortness Of Breath SUMAtriptan SUCCINATE [Imitrex] 100 mg PO DAILY PRN PRN Reason: Migraine Headache Tiotropium [place] [Spiriva] 1 cap INHALATION RT-DAILY Potassium Chloride [Klor-Con 10] 10 meq PO BID Zolpidem [Ambien] 5 mg PO HS Loratadine [Claritin] 10 mg PO DAILY ALPRAZolam [Xanax] 1 mg PO Q8H PRN PRN Reason: Anxiety oxyCODONE-APAP 10-325MG [Percocet 10-325 mg] 1 tab PO Q8HR PRN PRN Reason: Pain Morphine Sulfate [Morphabond ER] 15 mg PO Q12H Discontinued Umeclidinium [place] [Incruse Ellipta] 2 puff INHALATION RT-BID Discharge Medication List Gabapentin [Neurontin] 300 mg PO Q8HR 03/05/14 [History] Omeprazole 40 mg PO DAILY 03/05/14 [History] Lipase/Protease/Amylase [Shell [place]oples 24,000 Units Capsule] 1 cap PO TID 07/12/14 [ History] risperiDONE [RisperDAL] 2 mg PO BID 07/12/14 [History] Atorvastatin Calcium [Lipitor] 10 mg PO DAILY 06/02/17 [History] Furosemide [Lasix] 40 mg PO DAILY 06/02/17 [History] Ibuprofen [Motrin] 800 mg PO TID PRN 06/02/17 [History] Metoprolol Succinate (ER) [Toprol XL] 25 mg PO DAILY 06/02/17 [History] Roflumilast [Daliresp] 500 mg PO DAILY 06/02/17 [History] busPIRone HCL [Buspar] 7.5 mg PO BID 06/02/17 [History] Ipratropium-Albuterol Nebulize [Duoneb 0.5 mg-3 mg/3 ml Soln] 3 ml INHALATION RT -QID PRN #30 ampul.neb 07/07/17 [Rx] ALPRAZolam [Xanax] 1 mg PO Q8H PRN 02/09/18 [History] Albuterol Inhaler [Ventolin Hfa Inhaler] 2 puff INHALATION RT-Q4H PRN 02/09/18 [ History] Loratadine [Claritin] 10 mg PO DAILY 02/09/18 [History] Morphine Sulfate [Morphabond ER] 15 mg PO Q12H 02/09/18 [History] Potassium Chloride [Klor-Con 10] 10 meq PO BID 02/09/18 [History] SUMAtriptan SUCCINATE [Imitrex] 100 mg PO DAILY PRN 02/09/18 [History] Tiotropium [place] [Spiriva] 1 cap INHALATION RT-DAILY 02/09/18 [History] Zolpidem [Ambien] 5 mg PO HS 02/09/18 [History] oxyCODONE-APAP 10-325MG [Percocet 10-325 mg] 1 tab PO Q8HR PRN 02/09/18 [History ] Clindamycin HCl [Cleocin] 150 mg PO Q6H #28 cap 02/11/18 [Rx] predniSONE 10 mg PO DIRECTED #40 tab 02/11/18 [Rx] Follow up Appointment(s)/Referral(s): Shellie Sampson MD [Primary Care Provider] - 1 Week Talisha Cho MD [STAFF PHYSICIAN] - 1 Week Patient Instructions/Handouts: COPD (Chronic Obstructive Pulmonary Disease) (DC )
--- NOTE | 2018-02-11 11:15 | P.PN ---
Subjective Progress Note Date: 02/11/18 Principal diagnosis: COPD exacerbation Progress note dated 02/11/2018 This is a 57-year-old male with a history of COPD and COPD exacerbation. Mychal is actually doing quite well and possibly could be discharged home. That will be up to his primary doctor. Anyway, he's feeling much less short of breath. The patient continues to smoke about a pack a day and we counseled him about the importance of smoking cessation. He was really not just, he likely will continue to smoke. He sees my partner at the pulmonary office here in [facility] for his lung disease. The patient's typical complaints include shortness of breath chest tightness wheezing and cough. Chest was consistent with COPD. Lab data include a white count of 14.7, hemoglobin 12.9, and a normal platelet count. Sodium potassium and chloride were all normal. Bicarbonate concentration was 33. BUN and creatinine were normal. Microbiology was negative. Objective - Vital Signs Vital signs: Vital Signs Temp 98.2 F 02/11/18 06:30 Pulse 86 02/11/18 07:54 Resp 24 02/11/18 06:30 BP 134/94 02/11/18 06:30 Pulse Ox 98 02/11/18 06:30 Intake & Output 02/10/18 02/11/18 02/11/18 18:59 06:59 18:59 Intake Total 200 Output Total 1000 1250 Balance -800 -1250 Intake: Oral 200 Output: Urine 1000 1250 Other: Voiding Method Urinal Urinal # Voids 1 # Bowel Movements 0 1 - Exam No acute distress, oriented 3. HEENT examination is grossly unremarkable. Mucous membranes are moist. No oral lesions. Neck supple. Full range of motion. No adenopathy thyromegaly or neck vein distention. Cardiovascular examination reveals regular rhythm rate. S1-S2 normal. No S3 or S4. No discernible murmur noted. Lungs reveal diminished breath sounds throughout. The patient does have by lateral expiratory wheezes. A few scattered rhonchi noted. Wheezes are high- pitched. There is prolongation on forced maneuver. No crackles appreciated. Abdomen soft bowel sounds are heard. No masses or tenderness. Extremities are intact. No cyanosis clubbing or edema. Skin is without rash or lesion. Neurologic examination is brief but nonfocal. - Labs CBC & Chem 7: 02/11/18 06:04 02/11/18 06:04 Labs: Abnormal Lab Results - Last 24 Hours (Table) 02/10/18 02/10/18 02/10/18 Range/Units 12:45 17:09 21:22 WBC (3.8-10.6) k/uL Hgb (13.0-17.5) gm/dL Neutrophils # (1.3-7.7) k/uL Lymphocytes # (1.0-4.8) k/uL Carbon Dioxide (22-30) mmol/L Glucose (74-99) mg/dL POC Glucose (mg/dL) 163 H 192 H 137 H (75-99) mg/dL AST (17-59) U/L Total Protein (6.3-8.2) g/dL 02/11/18 02/11/18 02/11/18 Range/Units 06:04 06:04 07:00 WBC 14.7 H (3.8-10.6) k/uL Hgb 12.9 L (13.0-17.5) gm/dL Neutrophils # 13.6 H (1.3-7.7) k/uL Lymphocytes # 0.6 L (1.0-4.8) k/uL Carbon Dioxide 33 H (22-30) mmol/L Glucose 129 H (74-99) mg/dL POC Glucose (mg/dL) 123 H (75-99) mg/dL AST 12 L (17-59) U/L Total Protein 5.9 L (6.3-8.2) g/dL Microbiology - Last 24 Hours (Table) 02/10/18 11:45 Gram Stain - Preliminary Sputum Assessment and Plan Assessment: Assessment COPD exacerbation complicated by purulent tracheobronchitis History of angina pectoris History of GERD Hyperlipidemia by history History of hypertension Previous history of pneumonia Obstructive sleep apnea syndrome, on CPAP History of chronic alcohol abuse with chronic pancreatitis and pancreatic exocrine insufficiency History of diverticular disease History of chronic anxiety Plan: Plan dated 02/10/2018 The patient is doing very well. The patient feels almost back to baseline. He still has some shortness of breath chest tightness wheezing and cough. I did point out to the nurse practitioner worse along with Dr. Sampson are that the patient could be considered for discharge. The patient would need be need to go home a short course of antibiotics and a prednisone burst and taper beginning with 40 mg a day for 4 days and tapering by 10 mg every fourth day. Plan dated 02/11/2018 The patient feels pretty much back to baseline. He will be up to his primary care physician to discharge him. We do recommend a short course of oral antibiotics. This can be given over 5 days or so. In addition, we recommend a prednisone taper beginning with 40 mg a day for 4 days, 30 mg a day for 4 days, 20 mg a day for 4 days, and then 10 mg a day for 4 days at which point after the fourth day, the patient should stop prednisone. He should follow with my partner in the office. He should also see his primary caregiver. We counseled him about the importance of smoking cessation. I don't suspect he'll quit smoking. Time with Patient: Less than 30
[2018-02-11 11:48] VITALS: PULSE 90
[2018-02-11 12:26] LABS: Glucose,Whole Blood 114 mg/dL (75-99)
[2018-02-11] MEDS: ALPRAZolam 1 MG TAB PO PRN (13:18)
== END 2018-02-11 16:33 | disposition home or self-care (01) ==
LOC: EC 09:43 → 4MS4W 11:25 → INTOOBSV 11:25 → 4MS4W 11:52
PROVIDERS: ADMIT Internal Medicine; ATTEND Internal Medicine
DX: J44.1 Chronic obstructive pulmonary disease with (acute) exacerbation (principal); J20.9 Acute bronchitis, unspecified; J44.0 Chronic obstructive pulmonary disease with (acute) lower respiratory infection; Z88.0 Allergy status to penicillin; Z99.81 Dependence on supplemental oxygen; J96.11 Chronic respiratory failure with hypoxia; F17.210 Nicotine dependence, cigarettes, uncomplicated; I10 Essential (primary) hypertension; E78.5 Hyperlipidemia, unspecified; G89.4 Chronic pain syndrome; Z90.49 Acquired absence of other specified parts of digestive tract; K57.80 Diverticulitis of intestine, part unspecified, with perforation and abscess without bleeding; R91.8 Other nonspecific abnormal finding of lung field; K86.1 Other chronic pancreatitis; G47.33 Obstructive sleep apnea (adult) (pediatric); F31.9 Bipolar disorder, unspecified; K21.9 Gastro-esophageal reflux disease without esophagitis; I20.9 Angina pectoris, unspecified; M54.9 Dorsalgia, unspecified; Z87.01 Personal history of pneumonia (recurrent); Z99.89 Dependence on other enabling machines and devices; F41.9 Anxiety disorder, unspecified; Z86.14 Personal history of Methicillin resistant Staphylococcus aureus infection; Z80.9 Family history of malignant neoplasm, unspecified; Z79.899 Other long term (current) drug therapy; Z79.891 Long term (current) use of opiate analgesic; K86.89 Other specified diseases of pancreas
CPT/HCPCS: 99285 ×2; 96375 ×3; 96376 ×3; 96365; 96366 ×2; 96372 ×2; 36415; 94640 ×6; 97162; 80053 ×2; 85025 ×2; 87070; 87205; 83036; 71046; G0378 ×3; J2930 ×3; J1650 ×2; J2270

== ENCOUNTER 2018-02-17 11:10 | Inpatient (IN) | payer MEDICARE, OTHER ==
[2018-02-17] MEDS ORDERED: ALBUTEROL NEBULIZED 2.5 MG/3 ML INHALATION PRN (16:17)
[2018-02-17] MEDS ORDERED: CLINDAMYCIN 150 MG CAP PO SCH (16:30)
--- NOTE | 2018-02-17 16:34 | P.HPIM ---
History of Present Illness H&P Date: 02/17/18 Mychal Kimball is a 57-year-old male who was recently admitted to [facility] was acute exacerbation of chronic obstructive pulmonary disease patient improved and was discharged home on a course of oral antibiotic and oral steroids on 02/11/2018. He returns to the office today complaining of severe shortness of breath, he admits that he has been smoking at home, patient was readmitted to [facility] medical floor, he was started on IV steroids, IV antibiotic, pulmonary consultation was requested, patient was restarted on his home medications, sputum for culture and Gram stain was ordered. Past Medical History Past Medical History: Chest Pain / Angina, COPD, GERD/Reflux, Hyperlipidemia, Hypertension, Pneumonia, Sleep Apnea/CPAP/BIPAP Additional Past Medical History / Comment(s): Pt recently admitted to [facility] on with acute exacerbation of COPD, acute tracheobronchitis, vague density overlying R mid lung to be followed up upon. Other hx: Severe COPD, chronic hypoxic respiratory failure , 3liters per minute nasal cannula ATC, VIVEK without device, history of alcoholism-no drinking for 18 yrs, history of chronic pancreatitis and pancreatic insufficiency, chronic diverticular disease/ diverticulitis, chronic pain in back and abdomin. Last Myocardial Infarction Date:: Denies having an NC History of Any Multi-Drug Resistant Organisms: MRSA Date of last positivie culture/infection: summer MDRO Source:: right side of buttuck and right side of chest above nipple Past Surgical History: Bowel Resection, Heart Catheterization, Orthopedic Surgery, Tonsillectomy Additional Past Surgical History / Comment(s): Sigmoid colectomy, right hand surgery for repair of tendons, cardiac catheterization that has been normal, colonoscopy Past Anesthesia/Blood Transfusion Reactions: No Reported Reaction, Motion Sickness Smoking Status: Current every day smoker - Past Family History Mother Family Medical History: Cancer, COPD Additional Family Medical History / Comment(s): unaware of what kind of cancer Father Family Medical History: COPD Additional Family Medical History / Comment(s): Father is . Medications and Allergies Home Medications Medication Instructions Recorded Confirmed Type Gabapentin [Neurontin] 300 mg PO Q8HR 03/05/14 02/17/18 History Omeprazole 40 mg PO DAILY 03/05/14 02/17/18 History Lipase/Protease/Amylase [Creon Dr 1 cap PO TID 07/12/14 02/17/18 History 24,000 Units Capsule] risperiDONE [RisperDAL] 2 mg PO BID 07/12/14 02/17/18 History Atorvastatin Calcium [Lipitor] 10 mg PO DAILY 06/02/17 02/17/18 History Furosemide [Lasix] 40 mg PO DAILY 06/02/17 02/17/18 History Ibuprofen [Motrin] 800 mg PO TID PRN 06/02/17 02/17/18 History Metoprolol Succinate (ER) [Toprol 25 mg PO DAILY 06/02/17 02/17/18 History XL] Roflumilast [Daliresp] 500 mg PO DAILY 06/02/17 02/17/18 History busPIRone HCL [Buspar] 7.5 mg PO BID 06/02/17 02/17/18 History Ipratropium-Albuterol Nebulize 3 ml INHALATION RT-QID PRN #30 07/07/17 02/17/18 Rx [Duoneb 0.5 mg-3 mg/3 ml Soln] ampul.neb ALPRAZolam [Xanax] 1 mg PO Q8H PRN 02/09/18 02/17/18 History Albuterol Inhaler [Ventolin Hfa 2 puff INHALATION RT-Q4H PRN 02/09/18 02/17/18 History Inhaler] Loratadine [Claritin] 10 mg PO DAILY 02/09/18 02/17/18 History Morphine Sulfate [Morphabond ER] 15 mg PO Q12H 02/09/18 02/17/18 History Potassium Chloride [Klor-Con 10] 10 meq PO BID 02/09/18 02/17/18 History SUMAtriptan SUCCINATE [Imitrex] 100 mg PO DAILY PRN 02/09/18 02/17/18 History Tiotropium [place] [Spiriva] 1 cap INHALATION RT-DAILY 02/09/18 02/17/18 History Zolpidem [Ambien] 5 mg PO HS 02/09/18 02/17/18 History oxyCODONE-APAP 10-325MG [Percocet 1 tab PO Q8HR PRN 02/09/18 02/17/18 History 10-325 mg] Clindamycin HCl [Cleocin] 150 mg PO Q6H #28 cap 02/11/18 02/17/18 Rx predniSONE See Taper PO DAILY 02/17/18 02/17/18 History Allergies Allergy/AdvReac Type Severity Reaction Status Date / Time Penicillins Allergy Rash/Hives Verified 02/17/18 14:58 Physical Exam Vitals: Vital Signs Temp Pulse Resp BP Pulse Ox 02/17/18 13:45 98.5 F 90 20 125/76 99 Intake and Output 02/17/18 02/17/18 02/17/18 06:59 14:59 22:59 Other: Weight 76 kg In general patient is alert and oriented in mild respiratory distress HEENT head normocephalic and atraumatic Neck is supple no JVD no goiter no lymphadenopathy Chest exam reveals distant lung sounds no crackles no wheezing with poor air movement bilaterally Cardiac exam reveals regular heart sounds no gallops no murmurs Abdomen is soft nontender no organomegaly with normal bowel sounds Extremity exam reveals no edema no cyanosis or clubbing Thrombosis Risk Factor Assmnt - Choose All That Apply Any of the Below Risk Factors Present?: Yes Each Factor Represents 1 point: Abnormal pulmonary function (COPD), Age 41-60 years, Serious lung disease incl. pneumonia (< 1month) Other Risk Factors: No Other congenital or acquired thrombophilia - If yes, enter type in comment: No Thrombosis Risk Factor Assessment Total Risk Factor Score: 3 Thrombosis Risk Factor Assessment Level: Moderate Risk Assessment and Plan Plan: #1 acute exacerbation of chronic obstructive pulmonary disease, patient has known history of chronic hypoxic respiratory failure, maintained on O2 3 L nasal cannula at home. #2 acute purulent bronchitis will recheck chest x-ray to rule out pneumonia #3 underlying history of obstructive sleep apnea #4 underlying history of hypertension #5 underlying history of hyperlipidemia. #6 history of alcohol dependence, in the past #7 tobacco abuse patient continues to smoke he was counseled in length today counseling more than 10 minutes regarding smoking cessation. At this time plan is to admit to medical floor and initiate IV antibiotic and IV steroids Recheck labs and chest x-ray Consult pulmonary for follow-up Prognosis is guarded due to severity of lung disease and patient continuing to smoke
[2018-02-17 16:57] LABS: Basophils % (A) 0 %; Eosinophils # (A) 0.2 k/uL (0-0.7); Eosinophils % (A) 2 %; HCT 41.2 % (39.0-53.0); HGB 13.2 gm/dL (13.0-17.5); Lymphocytes # (A) 2.1 k/uL (1.0-4.8); Lymphocytes % (A) 20 %; MCH 28.7 pg (25.0-35.0); MCHC 31.9 g/dL (31.0-37.0); Mean Platelet Volume 6.9; Monocytes # (A) 0.8 k/uL (0-1.0); Monocytes % (A) 7 %; Neutrophils # (A) 7.6 k/uL (1.3-7.7); Neutrophils % (A) 70 %; Platelet Count 186 k/uL (150-450); RBC 4.58 m/uL (4.30-5.90); RDW 14.9 % (11.5-15.5); WBC 10.8 k/uL (3.8-10.6)
[2018-02-17] MEDS: MORPHINE SULFATE ER 15 MG TABLET PO SCH (17:02)
[2018-02-17] MEDS: DALIRESP PO SCH (17:03)
--- NOTE | 2018-02-17 17:10 | XR ---
EXAMINATION TYPE: XR chest 2V DATE OF EXAM: 02/17/2018 COMPARISON: 02/09/2018 HISTORY: Short of breath TECHNIQUE: Frontal and lateral views of the chest are obtained. FINDINGS: Heart is normal. There is pulmonary hyperinflation and flattening of the diaphragm. There are no hilar masses. Mediastinum is within normal limits. Bony thorax is intact. IMPRESSION: No active cardiopulmonary disease. COPD. Normal heart. No change.
[2018-02-17 17:14] LABS: ALT 30 U/L (21-72); AST 14 U/L (17-59); Albumin 3.6 g/dL (3.5-5.0); Alkaline Phosphatase 58 U/L (38-126); Anion Gap 3 mmol/L; Blood Urea Nitrogen 16 mg/dL (9-20); Calcium 8.8 mg/dL (8.4-10.2); Carbon Dioxide 34 mmol/L (22-30); Chloride 100 mmol/L (98-107); Glucose 94 mg/dL (74-99); Potassium 4.7 mmol/L (3.5-5.1); Sodium 137 mmol/L (137-145); Total Bilirubin 0.3 mg/dL (0.2-1.3)
[2018-02-17] MEDS: LIPASE 5,000/PROTEASE 17,000/AMYLASE 24,000 PO SCH (18:35)
[2018-02-17] MEDS: oxyCODONE-APAP 10-325MG 1 EACH TAB PO PRN (18:35)
[2018-02-17] MEDS: methylPREDNISolone SOD SUCCI 125 MG/2 ML VIAL IV SCH (19:04)
[2018-02-17] MEDS: CLINDAMYCIN 300 MG in DEXTROSE 5% IN WATER 50 ML IVPB SCH ×2 (19:05)
[2018-02-17] MEDS: risperiDONE 2 MG TAB PO SCH (20:22)
[2018-02-17] MEDS: ZOLPIDEM 5 MG TAB PO SCH (20:22)
[2018-02-17] MEDS: POTASSIUM CHLORIDE ER 10 MEQ TAB.ER.PRT PO SCH (20:22)
[2018-02-17] MEDS: busPIRone HCl 5 MG TAB PO SCH (20:23)
[2018-02-17] MEDS: ALPRAZolam 1 MG TAB PO PRN (20:26)
[2018-02-18] MEDS: methylPREDNISolone SOD SUCCI 125 MG/2 ML VIAL IV SCH ×5 (01:00→23:35)
[2018-02-18] MEDS: CLINDAMYCIN 300 MG in DEXTROSE 5% IN WATER 50 ML IVPB SCH ×8 (01:00→23:29)
[2018-02-18] MEDS: GABAPENTIN 300 MG CAP PO SCH ×3 (01:00→15:25)
[2018-02-18] MEDS: oxyCODONE-APAP 10-325MG 1 EACH TAB PO PRN ×3 (02:09→18:10)
[2018-02-18] MEDS: MORPHINE SULFATE ER 15 MG TABLET PO SCH ×2 (05:42→17:42)
[2018-02-18 07:42] LABS: Glucose,Whole Blood 130 mg/dL (75-99)
[2018-02-18] MEDS: LIPASE 5,000/PROTEASE 17,000/AMYLASE 24,000 PO SCH ×3 (07:53→17:42)
[2018-02-18] MEDS: PANTOPRAZOLE 40 MG TABLET PO SCH (07:53)
[2018-02-18] MEDS: ATORVASTATIN 10 MG TAB PO SCH (07:54)
[2018-02-18] MEDS: busPIRone HCl 5 MG TAB PO SCH ×2 (07:54→20:40)
[2018-02-18] MEDS: LORATADINE 10 MG TAB PO SCH (07:55)
[2018-02-18] MEDS: FUROSEMIDE 40 MG TAB PO SCH (07:55)
[2018-02-18] MEDS: POTASSIUM CHLORIDE ER 10 MEQ TAB.ER.PRT PO SCH ×2 (07:55→20:40)
[2018-02-18] MEDS: METOPROLOL SUCCINATE (ER) 25 MG TAB.ER.24H PO SCH (07:55)
[2018-02-18] MEDS: risperiDONE 2 MG TAB PO SCH ×2 (07:56→20:40)
[2018-02-18] MEDS: IPRATROPIUM-ALBUTEROL 3 ML NEB INHALATION PRN ×3 (08:00→20:24)
[2018-02-18 08:02] LABS: Basophils % (A) 0 %; Eosinophils % (A) 0 %; HCT 41.1 % (39.0-53.0); HGB 13.5 gm/dL (13.0-17.5); Lymphocytes # (A) 0.6 k/uL (1.0-4.8); Lymphocytes % (A) 7 %; MCH 29.6 pg (25.0-35.0); MCHC 32.8 g/dL (31.0-37.0); MCV 90.2 fL (80.0-100.0); Mean Platelet Volume 6.8; Monocytes # (A) 0.1 k/uL (0-1.0); Monocytes % (A) 2 %; Neutrophils # (A) 8.2 k/uL (1.3-7.7); Neutrophils % (A) 91 %; Platelet Count 196 k/uL (150-450); RBC 4.55 m/uL (4.30-5.90); RDW 14.8 % (11.5-15.5)
[2018-02-18] MEDS: ALPRAZolam 1 MG TAB PO PRN ×2 (08:05→20:46)
[2018-02-18 08:13] LABS: ALT 30 U/L (21-72); AST 12 U/L (17-59); Albumin 3.5 g/dL (3.5-5.0); Alkaline Phosphatase 53 U/L (38-126); Anion Gap 5 mmol/L; Blood Urea Nitrogen 15 mg/dL (9-20); Calcium 9.2 mg/dL (8.4-10.2); Carbon Dioxide 31 mmol/L (22-30); Chloride 101 mmol/L (98-107); Glucose 121 mg/dL (74-99); Sodium 137 mmol/L (137-145); Total Bilirubin 0.3 mg/dL (0.2-1.3); Total Protein 5.9 g/dL (6.3-8.2)
[2018-02-18] MEDS: DALIRESP PO SCH (10:06)
[2018-02-18 12:15] LABS: Glucose,Whole Blood 116 mg/dL (75-99)
--- NOTE | 2018-02-18 14:01 | P.PN ---
Subjective Progress Note Date: 02/18/18 Mychal Kimball is a 57-year-old male who was recently admitted to [facility] was acute exacerbation of chronic obstructive pulmonary disease patient improved and was discharged home on a course of oral antibiotic and oral steroids on 02/11/2018. He returns to the office today complaining of severe shortness of breath, he admits that he has been smoking at home, patient was readmitted to [facility] medical floor, he was started on IV steroids, IV antibiotic, pulmonary consultation was requested, patient was restarted on his home medications, sputum for culture and Gram stain was ordered. On 02/18/2018 patient is alert and oriented 3 he is complaining of cough with yellow zaynab phlegm production, he is complaining of shortness of breath with any activity, otherwise he denies any complaints there is no fever or chills no headache no dizziness no chest pain no shortness of breath no nausea or vomiting no abdominal pain no diarrhea and no urinary symptoms. Objective - Vital Signs Vital signs: Vital Signs Temp 98.6 F 02/18/18 05:45 Pulse 82 02/18/18 12:33 Resp 20 02/18/18 05:45 BP 137/93 02/18/18 05:45 Pulse Ox 98 02/18/18 05:45 Intake & Output 02/17/18 02/18/18 02/18/18 18:59 06:59 18:59 Intake Total 600 100 Output Total 425 Balance 600 -325 Weight 76 kg 76 kg Intake: Oral 600 100 Output: Urine 425 Other: # Voids 1 1 - Exam In general patient is alert and oriented HEENT head normocephalic and atraumatic Neck is supple no JVD no goiter no lymphadenopathy Chest exam reveals distant lung sounds no crackles no wheezing with poor air movement bilaterally Cardiac exam reveals regular heart sounds no gallops no murmurs Abdomen is soft nontender no organomegaly with normal bowel sounds Extremity exam reveals no edema no cyanosis or clubbing - Labs CBC & Chem 7: 02/18/18 07:33 02/18/18 07:33 Labs: Abnormal Lab Results - Last 24 Hours (Table) 02/17/18 02/17/18 02/18/18 Range/Units 16:38 16:38 07:33 WBC 10.8 H (3.8-10.6) k/uL Neutrophils # 8.2 H (1.3-7.7) k/uL Lymphocytes # 0.6 L (1.0-4.8) k/uL Carbon Dioxide 34 H (22-30) mmol/L Creatinine (0.66-1.25) mg/dL Glucose (74-99) mg/dL POC Glucose (mg/dL) (75-99) mg/dL AST 14 L (17-59) U/L Total Protein 6.0 L (6.3-8.2) g/dL 02/18/18 02/18/18 02/18/18 Range/Units 07:33 07:39 12:13 WBC (3.8-10.6) k/uL Neutrophils # (1.3-7.7) k/uL Lymphocytes # (1.0-4.8) k/uL Carbon Dioxide 31 H (22-30) mmol/L Creatinine 0.58 L (0.66-1.25) mg/dL Glucose 121 H (74-99) mg/dL POC Glucose (mg/dL) 130 H 116 H (75-99) mg/dL AST 12 L (17-59) U/L Total Protein 5.9 L (6.3-8.2) g/dL Assessment and Plan Plan: #1 acute exacerbation of chronic obstructive pulmonary disease, patient has known history of chronic hypoxic respiratory failure, maintained on O2 3 L nasal cannula at home. #2 acute purulent bronchitis will recheck chest x-ray to rule out pneumonia #3 underlying history of obstructive sleep apnea #4 underlying history of hypertension #5 underlying history of hyperlipidemia. #6 history of alcohol dependence, in the past #7 tobacco abuse patient continues to smoke he was counseled in length today counseling more than 10 minutes regarding smoking cessation. At this time plan is to admit to medical floor and initiate IV antibiotic and IV steroids, Patient had some improvement since yesterday Recheck labs and chest x-ray Consult pulmonary for follow-up Prognosis is guarded due to severity of lung disease and patient continuing to smoke
--- NOTE | 2018-02-18 14:19 | P.CNPUL ---
History of Present Illness Consult date: 02/18/18 Requesting physician: Shellie Sampson Reason for consult: dyspnea Chief complaint: Shortness of breath History of present illness: This is a very pleasant 57-year-old gentleman with a known history of advanced oxygen-dependent chronic obstructive pulmonary disease with chronic hypoxic respiratory failure, previous history of alcoholism and pancreatic insufficiency , hypertension, hyperlipidemia, pain medication dependence. He also has chronic and ongoing tobacco dependence. His FEV1 value is 23% of predicted. He also has a history of diverticulitis with subsequent sigmoid colectomy. He has had multiple COPD exacerbations and admissions for the same. He is seen today in consultation on the regular medical floor. He is currently awake and alert in no acute distress. He is currently maintaining good O2 saturations in the high 90s on 3 L/m per nasal cannula. He's been afebrile. Hemodynamically stable. No leukocytosis. Chest x-ray shows no acute cardio pulmonary process. He has been initiated on bronchodilators, IV Solu-Medrol, antibiotics in the form of clindamycin. Review of Systems 14 point review of system was conducted. All negative other than as mentioned in HPI. Past Medical History Past Medical History: Chest Pain / Angina, COPD, GERD/Reflux, Hyperlipidemia, Hypertension, Pneumonia, Sleep Apnea/CPAP/BIPAP Additional Past Medical History / Comment(s): Pt recently admitted to [facility] on with acute exacerbation of COPD, acute tracheobronchitis, vague density overlying R mid lung to be followed up upon. Other hx: Severe COPD, chronic hypoxic respiratory failure , 3liters per minute nasal cannula ATC, VIVEK without device, history of alcoholism-no drinking for 18 yrs, history of chronic pancreatitis and pancreatic insufficiency, chronic diverticular disease/ diverticulitis, chronic pain in back and abdomin. Last Myocardial Infarction Date:: Denies having an OR History of Any Multi-Drug Resistant Organisms: MRSA Date of last positivie culture/infection: summer MDRO Source:: right side of buttuck and right side of chest above nipple Past Surgical History: Bowel Resection, Heart Catheterization, Orthopedic Surgery, Tonsillectomy Additional Past Surgical History / Comment(s): Sigmoid colectomy, right hand surgery for repair of tendons, cardiac catheterization that has been normal, colonoscopy Past Anesthesia/Blood Transfusion Reactions: No Reported Reaction, Motion Sickness Smoking Status: Current every day smoker - Past Family History Mother Family Medical History: Cancer, COPD Additional Family Medical History / Comment(s): unaware of what kind of cancer Father Family Medical History: COPD Additional Family Medical History / Comment(s): Father is . Medications and Allergies Home Medications Medication Instructions Recorded Confirmed Type Gabapentin [Neurontin] 300 mg PO Q8HR 03/05/14 02/17/18 History Omeprazole 40 mg PO DAILY 03/05/14 02/17/18 History Lipase/Protease/Amylase [Creon Dr 1 cap PO TID 07/12/14 02/17/18 History 24,000 Units Capsule] risperiDONE [RisperDAL] 2 mg PO BID 07/12/14 02/17/18 History Atorvastatin Calcium [Lipitor] 10 mg PO DAILY 06/02/17 02/17/18 History Furosemide [Lasix] 40 mg PO DAILY 06/02/17 02/17/18 History Ibuprofen [Motrin] 800 mg PO TID PRN 06/02/17 02/17/18 History Metoprolol Succinate (ER) [Toprol 25 mg PO DAILY 06/02/17 02/17/18 History XL] Roflumilast [Daliresp] 500 mg PO DAILY 06/02/17 02/17/18 History busPIRone HCL [Buspar] 7.5 mg PO BID 06/02/17 02/17/18 History Ipratropium-Albuterol Nebulize 3 ml INHALATION RT-QID PRN #30 07/07/17 02/17/18 Rx [Duoneb 0.5 mg-3 mg/3 ml Soln] ampul.neb ALPRAZolam [Xanax] 1 mg PO Q8H PRN 02/09/18 02/17/18 History Albuterol Inhaler [Ventolin Hfa 2 puff INHALATION RT-Q4H PRN 02/09/18 02/17/18 History Inhaler] Loratadine [Claritin] 10 mg PO DAILY 02/09/18 02/17/18 History Morphine Sulfate [Morphabond ER] 15 mg PO Q12H 02/09/18 02/17/18 History Potassium Chloride [Klor-Con 10] 10 meq PO BID 02/09/18 02/17/18 History SUMAtriptan SUCCINATE [Imitrex] 100 mg PO DAILY PRN 02/09/18 02/17/18 History Tiotropium [place] [Spiriva] 1 cap INHALATION RT-DAILY 02/09/18 02/17/18 History Zolpidem [Ambien] 5 mg PO HS 02/09/18 02/17/18 History oxyCODONE-APAP 10-325MG [Percocet 1 tab PO Q8HR PRN 02/09/18 02/17/18 History 10-325 mg] Clindamycin HCl [Cleocin] 150 mg PO Q6H #28 cap 02/11/18 02/17/18 Rx predniSONE See Taper PO DAILY 02/17/18 02/17/18 History Allergies Allergy/AdvReac Type Severity Reaction Status Date / Time Penicillins Allergy Rash/Hives Verified 02/17/18 14:58 Physical Exam Vitals: Vital Signs Temp Pulse Pulse Resp BP Pulse Ox 02/18/18 12:33 82 02/18/18 12:20 82 02/18/18 08:11 80 02/18/18 08:00 80 02/18/18 05:45 98.6 F 75 20 137/93 98 02/17/18 23:00 96.8 F L 80 21 146/92 99 Intake and Output 02/17/18 02/18/18 02/18/18 22:59 06:59 14:59 Intake Total 600 100 Output Total 425 Balance 175 100 Intake: Oral 600 100 Output: Urine 425 Other: # Voids 1 1 Weight 76 kg - Constitutional General appearance: morbidly obese - EENT Eyes: EOMI, PERRLA ENT: hearing grossly normal Ears: bilateral: normal - Neck Neck: normal ROM Carotids: bilateral: upstroke normal Thyroid: bilateral: normal size - Respiratory Respiratory: bilateral: diminished, wheezing - Cardiovascular Rhythm: regular Heart sounds: normal: S1, S2 - Gastrointestinal General gastrointestinal: normal bowel sounds - Integumentary Integumentary: normal turgor - Neurologic Neurologic: CNII-XII intact - Musculoskeletal Musculoskeletal: gait normal - Psychiatric Psychiatric: A&O x's 3, appropriate affect, intact judgment & insight Results - Laboratory Findings CBC and BMP: 02/18/18 07:33 02/18/18 07:33 Abnormal lab findings: Abnormal Labs 02/17/18 02/17/18 02/18/18 16:38 16:38 07:33 WBC 10.8 H Neutrophils # 8.2 H Lymphocytes # 0.6 L Carbon Dioxide 34 H Creatinine Glucose POC Glucose (mg/dL) AST 14 L Total Protein 6.0 L 02/18/18 02/18/18 02/18/18 07:33 07:39 12:13 WBC Neutrophils # Lymphocytes # Carbon Dioxide 31 H Creatinine 0.58 L Glucose 121 H POC Glucose (mg/dL) 130 H 116 H AST 12 L Total Protein 5.9 L - Diagnostic Findings Chest x-ray: image reviewed Assessment and Plan Assessment: Impression: #1 Acute on chronic hypoxic respiratory failure secondary to an acute exacerbation of chronic obstructive pulmonary disease. FEV1 value 23% of predicted. #2 Chronic and ongoing tobacco dependence. #3 History of chronic alcoholism with pancreatic insufficiency. #4 Chronic pain syndrome. #5 Bipolar disorder. #6 Hypertension. #7 Hyperlipidemia. #8 History of chronic diverticular disease status post colectomy. Please #9 Chronic anxiety. Plan: The patient was seen and evaluated by Dr. Cho. Chest x-ray and labs were reviewed. We'll go ahead and treat him for his COPD exacerbation. Continue IV Solu-Medrol, continue bronchodilators and daliresp. Emperic antibiotics. We will increase his activity as tolerated and continue to follow. The patient is again educated regarding the importance of complete smoking cessation. A NicoDerm patch will be applied. I, the cosigning physician, performed a history & physical examination of the patient. Lung sounds with bilateral wheeze, few scattered rhonchi, diminished. Maintaining good O2 saturations in the 90s on 3 L/m per nasal cannula. I discussed the assessment and plan of care with my nurse practitioner, Paula Demarco. I attest to the above note as dictated by her. Time with Patient: Greater than 30
[2018-02-18 17:17] LABS: Glucose,Whole Blood 222 mg/dL (75-99)
[2018-02-18] MEDS: IPRATROPIUM 0.5 MG/2.5 ML NEBU INHALATION SCH (20:42)
[2018-02-18] MEDS: ZOLPIDEM 5 MG TAB PO SCH (20:46)
[2018-02-18 20:49] LABS: Glucose,Whole Blood 122 mg/dL (75-99)
[2018-02-19] MEDS: GABAPENTIN 300 MG CAP PO SCH ×4 (00:05→23:40)
[2018-02-19] MEDS: oxyCODONE-APAP 10-325MG 1 EACH TAB PO PRN ×3 (04:41→18:55)
[2018-02-19] MEDS: methylPREDNISolone SOD SUCCI 125 MG/2 ML VIAL IV SCH ×4 (05:32→23:40)
[2018-02-19] MEDS: MORPHINE SULFATE ER 15 MG TABLET PO SCH ×2 (05:32→17:18)
[2018-02-19] MEDS: IPRATROPIUM-ALBUTEROL 3 ML NEB INHALATION SCH ×4 (07:20→19:50)
[2018-02-19 07:27] LABS: Glucose,Whole Blood 129 mg/dL (75-99)
[2018-02-19] MEDS: CLINDAMYCIN 300 MG in DEXTROSE 5% IN WATER 50 ML IVPB SCH ×6 (08:06→23:40)
[2018-02-19] MEDS: LIPASE 5,000/PROTEASE 17,000/AMYLASE 24,000 PO SCH ×3 (08:06→16:24)
[2018-02-19] MEDS: PANTOPRAZOLE 40 MG TABLET PO SCH (08:06)
[2018-02-19] MEDS: ATORVASTATIN 10 MG TAB PO SCH (08:07)
[2018-02-19] MEDS: busPIRone HCl 5 MG TAB PO SCH ×2 (08:07→20:31)
[2018-02-19] MEDS: METOPROLOL SUCCINATE (ER) 25 MG TAB.ER.24H PO SCH (08:08)
[2018-02-19] MEDS: LORATADINE 10 MG TAB PO SCH (08:08)
[2018-02-19] MEDS: FUROSEMIDE 40 MG TAB PO SCH (08:08)
[2018-02-19] MEDS: NICOTINE 14MG/24HR PATCH TRANSDERM SCH (08:08)
[2018-02-19] MEDS: risperiDONE 2 MG TAB PO SCH ×2 (08:09→20:31)
[2018-02-19] MEDS: DALIRESP PO SCH (08:09)
[2018-02-19] MEDS: POTASSIUM CHLORIDE ER 10 MEQ TAB.ER.PRT PO SCH ×2 (08:09→20:31)
[2018-02-19] MEDS: ALPRAZolam 1 MG TAB PO PRN ×2 (08:11→20:31)
[2018-02-19 11:35] LABS: Glucose,Whole Blood 164 mg/dL (75-99)
--- NOTE | 2018-02-19 12:06 | P.PN ---
Subjective Progress Note Date: 02/19/18 On today's evaluation of 02/19/2018, this patient is feeling better and is less short of breath. No cough. In production. No chest pain. Remains somewhat bronchus spastic and wheezy. Remainder IV Solu-Medrol. Remains on DuoNeb nebulized treatments around the clock. Percocet for pain control. No other significant events overnight. Objective - Vital Signs Vital signs: Vital Signs Temp 97.4 F L 02/19/18 05:45 Pulse 82 02/19/18 11:19 Resp 20 02/19/18 05:45 BP 117/75 02/19/18 05:45 Pulse Ox 97 02/19/18 05:45 Intake & Output 02/18/18 02/19/18 02/19/18 18:59 06:59 18:59 Intake Total 500 Balance 500 Intake: Oral 500 Other: # Voids 4 2 - Exam - Constitutional General appearance: morbidly obese - EENT Eyes: EOMI, PERRLA ENT: hearing grossly normal Ears: bilateral: normal - Neck Neck: normal ROM Carotids: bilateral: upstroke normal Thyroid: bilateral: normal size - Respiratory Respiratory: bilateral: diminished, wheezing - Cardiovascular Rhythm: regular Heart sounds: normal: S1, S2 - Gastrointestinal General gastrointestinal: normal bowel sounds - Integumentary Integumentary: normal turgor - Neurologic Neurologic: CNII-XII intact - Musculoskeletal Musculoskeletal: gait normal - Psychiatric Psychiatric: A&O x's 3, appropriate affect, intact judgment & insight Results - Labs CBC & Chem 7: 02/18/18 07:33 02/18/18 07:33 Labs: Abnormal Lab Results - Last 24 Hours (Table) 02/18/18 02/18/18 02/18/18 Range/Units 12:13 17:13 20:36 POC Glucose (mg/dL) 116 H 222 H 122 H (75-99) mg/dL 02/19/18 02/19/18 Range/Units 07:22 11:33 POC Glucose (mg/dL) 129 H 164 H (75-99) mg/dL Assessment and Plan Plan: Impression: #1 Acute on chronic hypoxic respiratory failure secondary to an acute exacerbation of chronic obstructive pulmonary disease. FEV1 value 23% of predicted. Clinically improving on today's evaluation #2 Chronic and ongoing tobacco dependence. #3 History of chronic alcoholism with pancreatic insufficiency. #4 Chronic pain syndrome. #5 Bipolar disorder. #6 Hypertension. #7 Hyperlipidemia. #8 History of chronic diverticular disease status post colectomy. Please #9 Chronic anxiety. Plan Continue same treatment. Possible discharge in the next 24-48 hours as the patient improves. Smoking cessation counseling was done.
--- NOTE | 2018-02-19 15:42 | P.PN ---
Subjective Progress Note Date: 02/19/18 Mychal Kimball is a 57-year-old male who was recently admitted to [facility] was acute exacerbation of chronic obstructive pulmonary disease patient improved and was discharged home on a course of oral antibiotic and oral steroids on 02/11/2018. He returns to the office today complaining of severe shortness of breath, he admits that he has been smoking at home, patient was readmitted to [facility] medical floor, he was started on IV steroids, IV antibiotic, pulmonary consultation was requested, patient was restarted on his home medications, sputum for culture and Gram stain was ordered. On 02/18/2018 patient is alert and oriented 3 he is complaining of cough with yellow zaynab phlegm production, he is complaining of shortness of breath with any activity, otherwise he denies any complaints there is no fever or chills no headache no dizziness no chest pain no shortness of breath no nausea or vomiting no abdominal pain no diarrhea and no urinary symptoms. On 02/19/2018 patient is alert and oriented in no apparent distress he is still having shortness of breath with any activity otherwise he denies any complaints at this time there is no chest pain no dizziness no nausea or vomiting no abdominal pain no diarrhea and no urinary symptoms Objective - Vital Signs Vital signs: Vital Signs Temp 98.9 F 02/19/18 15:00 Pulse 83 02/19/18 15:00 Resp 16 02/19/18 15:00 BP 120/82 02/19/18 15:00 Pulse Ox 95 02/19/18 15:00 Intake & Output 02/18/18 02/19/18 02/19/18 18:59 06:59 18:59 Intake Total 500 Balance 500 Intake: Oral 500 Other: # Voids 4 2 5 - Exam In general patient is alert and oriented HEENT head normocephalic and atraumatic Neck is supple no JVD no goiter no lymphadenopathy Chest exam reveals distant lung sounds no crackles there is mild wheezing with poor air movement bilaterally Cardiac exam reveals regular heart sounds no gallops no murmurs Abdomen is soft nontender no organomegaly with normal bowel sounds Extremity exam reveals no edema no cyanosis or clubbing - Labs CBC & Chem 7: 02/18/18 07:33 02/18/18 07:33 Labs: Abnormal Lab Results - Last 24 Hours (Table) 02/18/18 02/18/18 02/19/18 Range/Units 17:13 20:36 07:22 POC Glucose (mg/dL) 222 H 122 H 129 H (75-99) mg/dL 02/19/18 Range/Units 11:33 POC Glucose (mg/dL) 164 H (75-99) mg/dL Assessment and Plan Plan: #1 acute exacerbation of chronic obstructive pulmonary disease, patient has known history of chronic hypoxic respiratory failure, maintained on O2 3 L nasal cannula at home. #2 acute purulent bronchitis will recheck chest x-ray to rule out pneumonia #3 underlying history of obstructive sleep apnea #4 underlying history of hypertension #5 underlying history of hyperlipidemia. #6 history of alcohol dependence, in the past #7 tobacco abuse patient continues to smoke he was counseled in length today counseling more than 10 minutes regarding smoking cessation. At this time plan is to admit to medical floor and initiate IV antibiotic and IV steroids, Patient had some improvement since yesterday Recheck labs and chest x-ray Consult pulmonary for follow-up Prognosis is guarded due to severity of lung disease and patient continuing to smoke
[2018-02-19 17:21] LABS: Glucose,Whole Blood 240 mg/dL (75-99)
[2018-02-19] MEDS: ZOLPIDEM 5 MG TAB PO SCH (20:30)
[2018-02-19 20:34] LABS: Glucose,Whole Blood 152 mg/dL (75-99)
[2018-02-20] MEDS: oxyCODONE-APAP 10-325MG 1 EACH TAB PO PRN ×4 (00:48→20:47)
[2018-02-20] MEDS: MORPHINE SULFATE ER 15 MG TABLET PO SCH ×2 (05:37→17:27)
[2018-02-20] MEDS: methylPREDNISolone SOD SUCCI 125 MG/2 ML VIAL IV SCH ×3 (05:38→17:27)
[2018-02-20 07:21] LABS: Glucose,Whole Blood 124 mg/dL (75-99)
[2018-02-20] MEDS: LIPASE 5,000/PROTEASE 17,000/AMYLASE 24,000 PO SCH ×3 (07:21→17:26)
[2018-02-20] MEDS: POTASSIUM CHLORIDE ER 10 MEQ TAB.ER.PRT PO SCH ×2 (07:22→20:46)
[2018-02-20] MEDS: NICOTINE 14MG/24HR PATCH TRANSDERM SCH (07:22)
[2018-02-20] MEDS: DALIRESP PO SCH (07:23)
[2018-02-20] MEDS: METOPROLOL SUCCINATE (ER) 25 MG TAB.ER.24H PO SCH (07:23)
[2018-02-20] MEDS: busPIRone HCl 5 MG TAB PO SCH ×2 (07:23→21:37)
[2018-02-20] MEDS: ATORVASTATIN 10 MG TAB PO SCH (07:24)
[2018-02-20] MEDS: risperiDONE 2 MG TAB PO SCH ×2 (07:24→20:47)
[2018-02-20] MEDS: FUROSEMIDE 40 MG TAB PO SCH (07:24)
[2018-02-20] MEDS: LORATADINE 10 MG TAB PO SCH (07:24)
[2018-02-20] MEDS: PANTOPRAZOLE 40 MG TABLET PO SCH (07:25)
[2018-02-20] MEDS: CLINDAMYCIN 300 MG in DEXTROSE 5% IN WATER 50 ML IVPB SCH ×4 (07:25→15:49)
[2018-02-20 07:45] LABS: Basophils % (A) 0 %; Eosinophils % (A) 0 %; HCT 39.5 % (39.0-53.0); HGB 12.7 gm/dL (13.0-17.5); Lymphocytes # (A) 0.5 k/uL (1.0-4.8); Lymphocytes % (A) 5 %; MCH 28.8 pg (25.0-35.0); MCHC 32.2 g/dL (31.0-37.0); MCV 89.4 fL (80.0-100.0); Mean Platelet Volume 6.8; Monocytes # (A) 0.4 k/uL (0-1.0); Monocytes % (A) 4 %; Neutrophils # (A) 9.8 k/uL (1.3-7.7); Neutrophils % (A) 91 %; Platelet Count 202 k/uL (150-450); RBC 4.42 m/uL (4.30-5.90); RDW 14.9 % (11.5-15.5); WBC 10.8 k/uL (3.8-10.6)
[2018-02-20] MEDS: GABAPENTIN 300 MG CAP PO SCH ×2 (07:58→15:50)
[2018-02-20 08:00] LABS: ALT 31 U/L (21-72); AST 12 U/L (17-59); Albumin 3.5 g/dL (3.5-5.0); Alkaline Phosphatase 47 U/L (38-126); Anion Gap 6 mmol/L; Blood Urea Nitrogen 22 mg/dL (9-20); Carbon Dioxide 34 mmol/L (22-30); Chloride 95 mmol/L (98-107); Glucose 111 mg/dL (74-99); Potassium 4.9 mmol/L (3.5-5.1); Sodium 135 mmol/L (137-145); Total Bilirubin 0.4 mg/dL (0.2-1.3); Total Protein 5.8 g/dL (6.3-8.2)
[2018-02-20] MEDS: IPRATROPIUM-ALBUTEROL 3 ML NEB INHALATION SCH ×4 (08:29→20:25)
--- NOTE | 2018-02-20 11:58 | P.PN ---
Subjective Progress Note Date: 02/20/18 Mychal Kimball is a 57-year-old male who was recently admitted to [facility] was acute exacerbation of chronic obstructive pulmonary disease patient improved and was discharged home on a course of oral antibiotic and oral steroids on 02/11/2018. He returns to the office today complaining of severe shortness of breath, he admits that he has been smoking at home, patient was readmitted to [facility] medical floor, he was started on IV steroids, IV antibiotic, pulmonary consultation was requested, patient was restarted on his home medications, sputum for culture and Gram stain was ordered. On 02/18/2018 patient is alert and oriented 3 he is complaining of cough with yellow zaynab phlegm production, he is complaining of shortness of breath with any activity, otherwise he denies any complaints there is no fever or chills no headache no dizziness no chest pain no shortness of breath no nausea or vomiting no abdominal pain no diarrhea and no urinary symptoms. On 02/19/2018 patient is alert and oriented in no apparent distress he is still having shortness of breath with any activity otherwise he denies any complaints at this time there is no chest pain no dizziness no nausea or vomiting no abdominal pain no diarrhea and no urinary symptoms On 02/20/2018 patient is alert and oriented 3. Patient is currently resting comfortably in bed on 3 L nasal cannula. Patient remains on IV steroids and clindamycin for antibiotic. Pulmonary services are following. Patient denies chest pain or shortness of breath. Patient denies nausea vomiting or diarrhea. Denies any urinary burning or frequency Objective - Vital Signs Vital signs: Vital Signs Temp 97.4 F L 02/20/18 06:20 Pulse 80 02/20/18 11:35 Resp 16 02/20/18 06:20 BP 135/84 02/20/18 06:20 Pulse Ox 97 02/20/18 08:31 Intake & Output 02/19/18 02/20/18 02/20/18 18:59 06:59 18:59 Intake Total 50 Output Total 1450 600 Balance -1450 -550 Weight 76 kg Intake: Intake, IV Titration 50 Amount Clindamycin 300 mg In 50 Dextrose 5% in Water 50 ml @ 100 mls/hr IVPB Q8HR [facility] Rx#:[id number] Output: Urine 1450 600 Other: # Voids 5 # Bowel Movements 1 - Exam Head normocephalic Neck supple Lungs diminished lung sounds with expiratory wheezing Heart regular rate and rhythm S1-S2, no rub or gallop Abdomen is soft nontender nondistended positive bowel sounds no hepatosplenomegaly Extremities no edema Neuro alert and orientated to 3 - Labs CBC & Chem 7: 02/20/18 07:10 02/20/18 07:10 Labs: Abnormal Lab Results - Last 24 Hours (Table) 02/19/18 02/19/18 02/20/18 Range/Units 17:15 20:31 07:10 WBC 10.8 H (3.8-10.6) k/uL Hgb 12.7 L (13.0-17.5) gm/dL Neutrophils # 9.8 H (1.3-7.7) k/uL Lymphocytes # 0.5 L (1.0-4.8) k/uL Sodium (137-145) mmol/L Chloride (98-107) mmol/L Carbon Dioxide (22-30) mmol/L BUN (9-20) mg/dL Glucose (74-99) mg/dL POC Glucose (mg/dL) 240 H 152 H (75-99) mg/dL AST (17-59) U/L Total Protein (6.3-8.2) g/dL 02/20/18 02/20/18 Range/Units 07:10 07:16 WBC (3.8-10.6) k/uL Hgb (13.0-17.5) gm/dL Neutrophils # (1.3-7.7) k/uL Lymphocytes # (1.0-4.8) k/uL Sodium 135 L (137-145) mmol/L Chloride 95 L (98-107) mmol/L Carbon Dioxide 34 H (22-30) mmol/L BUN 22 H (9-20) mg/dL Glucose 111 H (74-99) mg/dL POC Glucose (mg/dL) 124 H (75-99) mg/dL AST 12 L (17-59) U/L Total Protein 5.8 L (6.3-8.2) g/dL Assessment and Plan Assessment: #1 acute exacerbation of chronic obstructive pulmonary disease, patient has known history of chronic hypoxic respiratory failure, maintained on O2 3 L nasal cannula at home. Patient remains on IV Solu-Medrol. Patient is currently on 3 L nasal cannula. #2 acute purulent bronchitis will recheck chest x-ray to rule out pneumonia. Chest x-ray shows no active pulmonary disease. COPD. Normal heart. No change. Pulmonary services are following. Patient remains on clindamycin IV antibiotic #3 underlying history of obstructive sleep apnea #4 underlying history of hypertension #5 underlying history of hyperlipidemia. #6 history of alcohol dependence, in the past #7 tobacco abuse patient continues to smoke he was counseled in length today counseling more than 10 minutes regarding smoking cessation. GI prophylaxis Protonix. DVT prophylaxis Lovenox I performed an examination of the patient and discussed their management with the Nurse Practitioner. I have reviewed the Nurse Practitioner's notes and agree with the documented findings and plan of care
[2018-02-20 12:10] LABS: Glucose,Whole Blood 123 mg/dL (75-99)
--- NOTE | 2018-02-20 12:42 | P.PN ---
Subjective Progress Note Date: 02/20/18 Principal diagnosis: Acute exacerbation of chronic obstructive pulmonary disease This is a very pleasant 57-year-old gentleman with a known history of advanced oxygen-dependent chronic obstructive pulmonary disease with chronic hypoxic respiratory failure, previous history of alcoholism and pancreatic insufficiency , hypertension, hyperlipidemia, pain medication dependence. He also has chronic and ongoing tobacco dependence. His FEV1 value is 23% of predicted. He also has a history of diverticulitis with subsequent sigmoid colectomy. He has had multiple COPD exacerbations and admissions for the same. He is seen today in consultation on the regular medical floor. He is currently awake and alert in no acute distress. He is currently maintaining good O2 saturations in the high 90s on 3 L/m per nasal cannula. He's been afebrile. Hemodynamically stable. No leukocytosis. Chest x-ray shows no acute cardio pulmonary process. He has been initiated on bronchodilators, IV Solu-Medrol, antibiotics in the form of clindamycin. On today's evaluation of 02/19/2018, this patient is feeling better and is less short of breath. No cough. In production. No chest pain. Remains somewhat bronchus spastic and wheezy. Remainder IV Solu-Medrol. Remains on DuoNeb nebulized treatments around the clock. Percocet for pain control. No other significant events overnight. The patient is seen again today 02/20/2018 in follow-up on the regular medical floor. He is currently awake and alert in no acute distress. He is breathing easier today as compared to yesterday but still not back to his baseline. He is quite dyspneic on minimal exertion. He is maintaining O2 saturations in the 90s on 3 L/m per nasal cannula. His been afebrile. Hemodynamically stable. Count 10.8. Hemoglobin 12.7. Bicarb 34. Creatinine 0.73. Objective - Vital Signs Vital signs: Vital Signs Temp 97.4 F L 02/20/18 06:20 Pulse 80 02/20/18 11:35 Resp 16 02/20/18 06:20 BP 135/84 02/20/18 06:20 Pulse Ox 97 02/20/18 08:31 Intake & Output 02/19/18 02/20/18 02/20/18 18:59 06:59 18:59 Intake Total 50 Output Total 1450 1725 Balance -1450 -1675 Weight 76 kg Intake: Intake, IV Titration 50 Amount Clindamycin 300 mg In 50 Dextrose 5% in Water 50 ml @ 100 mls/hr IVPB Q8HR [facility] Rx#:[id number] Output: Urine 1450 1725 Other: # Voids 5 # Bowel Movements 1 - Exam GENERAL EXAM: Alert, active, comfortable in no apparent distress. HEAD: Normocephalic. EYES: Normal reaction of pupils, equal size. NOSE: Clear with pink turbinates. THROAT: Crowding of the posterior pharynx. No erythema or exudates. NECK: No masses, no JVD. CHEST: No chest wall deformity. LUNGS: Equal air entry with end expiratory wheeze. Diminished CVS: S1 and S2 normal with no audible murmur, regular rhythm. ABDOMEN: No hepatosplenomegaly, normal bowel sounds, no guarding or rigidity. SPINE: A full scoliosis. SKIN: No rashes CENTRAL NERVOUS SYSTEM: No focal deficits, tone is normal in all 4 extremities. EXTREMITIES: There is no peripheral edema. No clubbing, no cyanosis. Peripheral pulses are intact. - Labs CBC & Chem 7: 02/20/18 07:10 02/20/18 07:10 Labs: Abnormal Lab Results - Last 24 Hours (Table) 02/19/18 02/19/18 02/20/18 Range/Units 17:15 20:31 07:10 WBC 10.8 H (3.8-10.6) k/uL Hgb 12.7 L (13.0-17.5) gm/dL Neutrophils # 9.8 H (1.3-7.7) k/uL Lymphocytes # 0.5 L (1.0-4.8) k/uL Sodium (137-145) mmol/L Chloride (98-107) mmol/L Carbon Dioxide (22-30) mmol/L BUN (9-20) mg/dL Glucose (74-99) mg/dL POC Glucose (mg/dL) 240 H 152 H (75-99) mg/dL AST (17-59) U/L Total Protein (6.3-8.2) g/dL 02/20/18 02/20/18 02/20/18 Range/Units 07:10 07:16 12:05 WBC (3.8-10.6) k/uL Hgb (13.0-17.5) gm/dL Neutrophils # (1.3-7.7) k/uL Lymphocytes # (1.0-4.8) k/uL Sodium 135 L (137-145) mmol/L Chloride 95 L (98-107) mmol/L Carbon Dioxide 34 H (22-30) mmol/L BUN 22 H (9-20) mg/dL Glucose 111 H (74-99) mg/dL POC Glucose (mg/dL) 124 H 123 H (75-99) mg/dL AST 12 L (17-59) U/L Total Protein 5.8 L (6.3-8.2) g/dL Assessment and Plan Assessment: Impression: #1 Acute on chronic hypoxic respiratory failure secondary to an acute exacerbation of chronic obstructive pulmonary disease. FEV1 value 23% of predicted. #2 Chronic and ongoing tobacco dependence. #3 History of chronic alcoholism with pancreatic insufficiency. #4 Chronic pain syndrome. #5 Bipolar disorder. #6 Hypertension. #7 Hyperlipidemia. #8 History of chronic diverticular disease status post colectomy. Please #9 Chronic anxiety. Plan: The patient was seen and evaluated by Dr. Houser. He is improved but still not quite back to his baseline. We'll continue with his current treatment plan. We will increase his activity as tolerated and continue to follow. The patient is again educated regarding the importance of complete smoking cessation. I, the cosigning physician, performed a history & physical examination of the patient. Lung sounds with bilateral wheeze, few scattered rhonchi, diminished. Maintaining good O2 saturations in the 90s on 3 L/m per nasal cannula. I discussed the assessment and plan of care with my nurse practitioner, Paula Demarco. I attest to the above note as dictated by her.
[2018-02-20 17:13] LABS: Glucose,Whole Blood 154 mg/dL (75-99)
[2018-02-20] MEDS: ALPRAZolam 1 MG TAB PO PRN (20:47)
[2018-02-20] MEDS: ZOLPIDEM 5 MG TAB PO SCH (20:47)
[2018-02-20 21:05] LABS: Glucose,Whole Blood 141 mg/dL (75-99)
[2018-02-21] MEDS: CLINDAMYCIN 300 MG in DEXTROSE 5% IN WATER 50 ML IVPB SCH ×6 (01:00→16:12)
[2018-02-21] MEDS: GABAPENTIN 300 MG CAP PO SCH ×3 (01:00→16:10)
[2018-02-21] MEDS: methylPREDNISolone SOD SUCCI 125 MG/2 ML VIAL IV SCH ×3 (01:00→12:23)
[2018-02-21] MEDS: oxyCODONE-APAP 10-325MG 1 EACH TAB PO PRN ×3 (03:20→16:10)
[2018-02-21] MEDS: MORPHINE SULFATE ER 15 MG TABLET PO SCH (06:21)
[2018-02-21 07:16] LABS: Glucose,Whole Blood 107 mg/dL (75-99)
[2018-02-21] MEDS: LIPASE 5,000/PROTEASE 17,000/AMYLASE 24,000 PO SCH ×2 (08:20→12:23)
[2018-02-21] MEDS: METOPROLOL SUCCINATE (ER) 25 MG TAB.ER.24H PO SCH (08:20)
[2018-02-21] MEDS: LORATADINE 10 MG TAB PO SCH (08:20)
[2018-02-21] MEDS: PANTOPRAZOLE 40 MG TABLET PO SCH (08:21)
[2018-02-21] MEDS: FUROSEMIDE 40 MG TAB PO SCH (08:21)
[2018-02-21] MEDS: NICOTINE 14MG/24HR PATCH TRANSDERM SCH (08:21)
[2018-02-21] MEDS: POTASSIUM CHLORIDE ER 10 MEQ TAB.ER.PRT PO SCH (08:21)
[2018-02-21] MEDS: risperiDONE 2 MG TAB PO SCH (08:22)
[2018-02-21] MEDS: DALIRESP PO SCH (08:22)
[2018-02-21] MEDS: ATORVASTATIN 10 MG TAB PO SCH (08:22)
[2018-02-21] MEDS: IPRATROPIUM-ALBUTEROL 3 ML NEB INHALATION SCH ×3 (08:27→15:45)
[2018-02-21] MEDS: ALPRAZolam 1 MG TAB PO PRN (08:28)
[2018-02-21 08:50] LABS: ALT 28 U/L (21-72); AST 20 U/L (17-59); Albumin 3.6 g/dL (3.5-5.0); Alkaline Phosphatase 45 U/L (38-126); Anion Gap 7 mmol/L; Blood Urea Nitrogen 26 mg/dL (9-20); Calcium 8.9 mg/dL (8.4-10.2); Carbon Dioxide 31 mmol/L (22-30); Chloride 98 mmol/L (98-107); Glucose 144 mg/dL (74-99); Sodium 136 mmol/L (137-145); Total Bilirubin 0.5 mg/dL (0.2-1.3); Total Protein 5.8 g/dL (6.3-8.2)
[2018-02-21] MEDS ORDERED: ENOXAPARIN 40 MG/0.4 ML SYRINGE SQ SCH (09:00)
[2018-02-21] MEDS: busPIRone HCl 5 MG TAB PO SCH (09:25)
[2018-02-21 09:43] LABS: Basophils % (A) 0 %; Eosinophils # (A) 0.1 k/uL (0-0.7); Eosinophils % (A) 1 %; HCT 42.8 % (39.0-53.0); Lymphocytes # (A) 0.5 k/uL (1.0-4.8); Lymphocytes % (A) 4 %; MCH 27.9 pg (25.0-35.0); MCHC 30.5 g/dL (31.0-37.0); MCV 91.5 fL (80.0-100.0); Mean Platelet Volume 6.6; Monocytes # (A) 0.3 k/uL (0-1.0); Monocytes % (A) 3 %; Neutrophils # (A) 9.8 k/uL (1.3-7.7); Neutrophils % (A) 92 %; Platelet Count 202 k/uL (150-450); RBC 4.68 m/uL (4.30-5.90); RDW 15.2 % (11.5-15.5); WBC 10.7 k/uL (3.8-10.6)
--- NOTE | 2018-02-21 11:40 | P.PN ---
Subjective Progress Note Date: 02/21/18 Principal diagnosis: Acute exacerbation of chronic obstructive pulmonary disease This is a very pleasant 57-year-old gentleman with a known history of advanced oxygen-dependent chronic obstructive pulmonary disease with chronic hypoxic respiratory failure, previous history of alcoholism and pancreatic insufficiency , hypertension, hyperlipidemia, pain medication dependence. He also has chronic and ongoing tobacco dependence. His FEV1 value is 23% of predicted. He also has a history of diverticulitis with subsequent sigmoid colectomy. He has had multiple COPD exacerbations and admissions for the same. He is seen today in consultation on the regular medical floor. He is currently awake and alert in no acute distress. He is currently maintaining good O2 saturations in the high 90s on 3 L/m per nasal cannula. He's been afebrile. Hemodynamically stable. No leukocytosis. Chest x-ray shows no acute cardio pulmonary process. He has been initiated on bronchodilators, IV Solu-Medrol, antibiotics in the form of clindamycin. On today's evaluation of 02/19/2018, this patient is feeling better and is less short of breath. No cough. In production. No chest pain. Remains somewhat bronchus spastic and wheezy. Remainder IV Solu-Medrol. Remains on DuoNeb nebulized treatments around the clock. Percocet for pain control. No other significant events overnight. The patient is seen again today 02/20/2018 in follow-up on the regular medical floor. He is currently awake and alert in no acute distress. He is breathing easier today as compared to yesterday but still not back to his baseline. He is quite dyspneic on minimal exertion. He is maintaining O2 saturations in the 90s on 3 L/m per nasal cannula. His been afebrile. Hemodynamically stable. Count 10.8. Hemoglobin 12.7. Bicarb 34. Creatinine 0.73. The patient is seen again today 02/21/2018 in follow-up on the regular medical floor. He is awake and alert in no acute distress. He is nearly back to his baseline. He is anxious to go home. He denies any worsening shortness of breath, cough or congestion. No chills or night sweats. White count 10.7. Objective - Vital Signs Vital signs: Vital Signs Temp 97.5 F L 02/21/18 05:54 Pulse 78 02/21/18 09:03 Resp 22 02/21/18 08:27 BP 136/83 02/21/18 05:54 Pulse Ox 96 02/21/18 08:27 Intake & Output 02/20/18 02/21/18 02/21/18 18:59 06:59 18:59 Intake Total 100 920 650 Output Total 2324 1999 2249 Balance -3115 -7236 -6464 Weight 76 kg Intake: Intake, IV Titration 100 50 Amount Clindamycin 300 mg In 100 50 Dextrose 5% in Water 50 ml @ 100 mls/hr IVPB Q8HR [facility] Rx#:[id number] Oral 920 600 Output: Urine 2324 1999 2249 Other: Voiding Method Toilet Toilet Urinal Urinal # Voids 5 # Bowel Movements 1 - Exam GENERAL EXAM: Alert, active, comfortable in no apparent distress. HEAD: Normocephalic. EYES: Normal reaction of pupils, equal size. NOSE: Clear with pink turbinates. THROAT: Crowding of the posterior pharynx. No erythema or exudates. NECK: No masses, no JVD. CHEST: No chest wall deformity. LUNGS: Equal air entry with end expiratory wheeze. Diminished CVS: S1 and S2 normal with no audible murmur, regular rhythm. ABDOMEN: No hepatosplenomegaly, normal bowel sounds, no guarding or rigidity. SPINE: A full scoliosis. SKIN: No rashes CENTRAL NERVOUS SYSTEM: No focal deficits, tone is normal in all 4 extremities. EXTREMITIES: There is no peripheral edema. No clubbing, no cyanosis. Peripheral pulses are intact. - Labs CBC & Chem 7: 02/21/18 09:35 02/21/18 08:10 Labs: Abnormal Lab Results - Last 24 Hours (Table) 02/20/18 02/20/18 02/20/18 Range/Units 12:05 17:09 21:03 WBC (3.8-10.6) k/uL MCHC (31.0-37.0) g/dL Neutrophils # (1.3-7.7) k/uL Lymphocytes # (1.0-4.8) k/uL Sodium (137-145) mmol/L Carbon Dioxide (22-30) mmol/L BUN (9-20) mg/dL Glucose (74-99) mg/dL POC Glucose (mg/dL) 123 H 154 H 141 H (75-99) mg/dL Total Protein (6.3-8.2) g/dL 02/21/18 02/21/18 02/21/18 Range/Units 07:00 08:10 09:35 WBC 10.7 H (3.8-10.6) k/uL MCHC 30.5 L (31.0-37.0) g/dL Neutrophils # 9.8 H (1.3-7.7) k/uL Lymphocytes # 0.5 L (1.0-4.8) k/uL Sodium 136 L (137-145) mmol/L Carbon Dioxide 31 H (22-30) mmol/L BUN 26 H (9-20) mg/dL Glucose 144 H (74-99) mg/dL POC Glucose (mg/dL) 107 H (75-99) mg/dL Total Protein 5.8 L (6.3-8.2) g/dL Assessment and Plan Assessment: Impression: #1 Acute on chronic hypoxic respiratory failure secondary to an acute exacerbation of chronic obstructive pulmonary disease. FEV1 value 23% of predicted. #2 Chronic and ongoing tobacco dependence. #3 History of chronic alcoholism with pancreatic insufficiency. #4 Chronic pain syndrome. #5 Bipolar disorder. #6 Hypertension. #7 Hyperlipidemia. #8 History of chronic diverticular disease status post colectomy. Please #9 Chronic anxiety. Plan: The patient was seen and evaluated by Dr. Houser. The patient is cleared for discharge from the pulmonary standpoint. Complete her course of antibiotics. Complete a prednisone burst and taper. Follow-up with Dr. Cho in our office as scheduled. The patient is again educated regarding the importance of complete smoking cessation. I, the cosigning physician, performed a history & physical examination of the patient. Lung sounds with bilateral wheeze, diminished. Maintaining good O2 saturations in the 90s on 3 L/m per nasal cannula. I discussed the assessment and plan of care with my nurse practitioner, Paula Demarco. I attest to the above note as dictated by her.
[2018-02-21 12:33] LABS: Glucose,Whole Blood 130 mg/dL (75-99)
--- NOTE | 2018-02-21 14:44 | P.DS ---
Providers Date of admission: 02/17/18 13:18 Expected date of discharge: 02/21/18 Attending physician: Shellie Sampson Consults: 02/17/18 16:20 Consult Physician Routine Consulting Provider: Talisha Cho Consult Reason/Comments: COPD, Dyspnea Do you want consulting provider notified?: Yes Primary care physician: Shellie Mammoth Hospital Course: Discharge diagnosis #1 acute exacerbation of chronic obstructive pulmonary disease, patient has known history of chronic hypoxic respiratory failure, maintained on O2 3 L nasal cannula at home. Patient remains on IV Solu-Medrol. Patient is currently on 3 L nasal cannula. Patient is back to baseline. Patient does wear 3 L of oxygen at home. Patient has been cleared for discharge from pulmonary standpoint. Patient will be sent home on taper steroid. Patient to follow-up outpatient with pulmonary and primary care provider #2 acute purulent bronchitis will recheck chest x-ray to rule out pneumonia. Chest x-ray shows no active pulmonary disease. COPD. Normal heart. No change. Pulmonary services are following. Patient remains on clindamycin IV antibiotic. Patient will be discharged home on Cleocin by mouth antibiotic. #3 underlying history of obstructive sleep apnea #4 underlying history of hypertension #5 underlying history of hyperlipidemia. #6 history of alcohol dependence, in the past #7 tobacco abuse patient continues to smoke he was counseled in length today counseling more than 10 minutes regarding smoking cessation. Patient will be discharged home on nicotine patch. Patient again educated in diastole about the importance of smoking cessation Hospital course Mychal Kimball is a 57-year-old male who was recently admitted to [facility] was acute exacerbation of chronic obstructive pulmonary disease patient improved and was discharged home on a course of oral antibiotic and oral steroids on 02/11/2018. He returns to the office today complaining of severe shortness of breath, he admits that he has been smoking at home, patient was readmitted to [facility] medical floor, he was started on IV steroids, IV antibiotic, pulmonary consultation was requested, patient was restarted on his home medications, sputum for culture and Gram stain was ordered. On 02/18/2018 patient is alert and oriented 3 he is complaining of cough with yellow zaynab phlegm production, he is complaining of shortness of breath with any activity, otherwise he denies any complaints there is no fever or chills no headache no dizziness no chest pain no shortness of breath no nausea or vomiting no abdominal pain no diarrhea and no urinary symptoms. On 02/19/2018 patient is alert and oriented in no apparent distress he is still having shortness of breath with any activity otherwise he denies any complaints at this time there is no chest pain no dizziness no nausea or vomiting no abdominal pain no diarrhea and no urinary symptoms On 02/20/2018 patient is alert and oriented 3. Patient is currently resting comfortably in bed on 3 L nasal cannula. Patient remains on IV steroids and clindamycin for antibiotic. Pulmonary services are following. Patient denies chest pain or shortness of breath. Patient denies nausea vomiting or diarrhea. Denies any urinary burning or frequency On 02/21/2018 patient has been cleared for discharge from pulmonary standpoint. patient feels ready to go home. Patient to follow-up outpatient with Dr. Loaiza and and primary care provider Dr. Sampson. At this time patient denies chest pain. Denies nausea vomiting or diarrhea. Denies any urinary burning. Ibuprofen discontinued due to slightly elevated bun level. To Followed outpatient by primary care provider I performed an examination of the patient and discussed their management with the Nurse Practitioner. I have reviewed the Nurse Practitioner's notes and agree with the documented findings and plan of care Patient Condition at Discharge: Stable Plan - Discharge Summary Discharge Rx Participant: No New Discharge Prescriptions: New Clindamycin HCl [Cleocin] 150 mg PO TID 3 Days #9 cap Nicotine 14Mg/24Hr Patch [Habitrol] 1 patch TRANSDERM DAILY #30 patch predniSONE 10 mg PO DIRECTED #30 tab Continue Gabapentin [Neurontin] 300 mg PO Q8HR Omeprazole 40 mg PO DAILY risperiDONE [RisperDAL] 2 mg PO BID Lipase/Protease/Amylase [[place] 24,000 Units Capsule] 1 cap PO TID Atorvastatin Calcium [Lipitor] 10 mg PO DAILY busPIRone HCL [Buspar] 7.5 mg PO BID Furosemide [Lasix] 40 mg PO DAILY Metoprolol Succinate (ER) [Toprol XL] 25 mg PO DAILY Roflumilast [Daliresp] 500 mg PO DAILY Ipratropium-Albuterol Nebulize [Duoneb 0.5 mg-3 mg/3 ml Soln] 3 ml INHALATION RT-QID PRN #30 ampul.neb PRN Reason: Shortness Of Breath Or Wheezing Albuterol Inhaler [Ventolin Hfa Inhaler] 2 puff INHALATION RT-Q4H PRN PRN Reason: Shortness Of Breath SUMAtriptan SUCCINATE [Imitrex] 100 mg PO DAILY PRN PRN Reason: Migraine Headache Tiotropium [place] [Spiriva] 1 cap INHALATION RT-DAILY Potassium Chloride [Klor-Con 10] 10 meq PO BID Zolpidem [Ambien] 5 mg PO HS Loratadine [Claritin] 10 mg PO DAILY ALPRAZolam [Xanax] 1 mg PO Q8H PRN PRN Reason: Anxiety oxyCODONE-APAP 10-325MG [Percocet 10-325 mg] 1 tab PO Q8HR PRN PRN Reason: Pain Morphine Sulfate [Morphabond ER] 15 mg PO Q12H Discontinued Ibuprofen [Motrin] 800 mg PO TID PRN PRN Reason: Pain Clindamycin HCl [Cleocin] 150 mg PO Q6H #28 cap predniSONE See Taper PO DAILY Discharge Medication List Gabapentin [Neurontin] 300 mg PO Q8HR 03/05/14 [History] Omeprazole 40 mg PO DAILY 03/05/14 [History] Lipase/Protease/Amylase [Shell Dr 24,000 Units Capsule] 1 cap PO TID 07/12/14 [ History] risperiDONE [RisperDAL] 2 mg PO BID 07/12/14 [History] Atorvastatin Calcium [Lipitor] 10 mg PO DAILY 06/02/17 [History] Furosemide [Lasix] 40 mg PO DAILY 06/02/17 [History] Metoprolol Succinate (ER) [Toprol XL] 25 mg PO DAILY 06/02/17 [History] Roflumilast [Daliresp] 500 mg PO DAILY 06/02/17 [History] busPIRone HCL [Buspar] 7.5 mg PO BID 06/02/17 [History] Ipratropium-Albuterol Nebulize [Duoneb 0.5 mg-3 mg/3 ml Soln] 3 ml INHALATION RT -QID PRN #30 ampul.neb 07/07/17 [Rx] ALPRAZolam [Xanax] 1 mg PO Q8H PRN 02/09/18 [History] Albuterol Inhaler [Ventolin Hfa Inhaler] 2 puff INHALATION RT-Q4H PRN 02/09/18 [ History] Loratadine [Claritin] 10 mg PO DAILY 02/09/18 [History] Morphine Sulfate [Morphabond ER] 15 mg PO Q12H 02/09/18 [History] Potassium Chloride [Klor-Con 10] 10 meq PO BID 02/09/18 [History] SUMAtriptan SUCCINATE [Imitrex] 100 mg PO DAILY PRN 02/09/18 [History] Tiotropium [place] [Spiriva] 1 cap INHALATION RT-DAILY 02/09/18 [History] Zolpidem [Ambien] 5 mg PO HS 02/09/18 [History] oxyCODONE-APAP 10-325MG [Percocet 10-325 mg] 1 tab PO Q8HR PRN 02/09/18 [History ] Clindamycin HCl [Cleocin] 150 mg PO TID 3 Days #9 cap 02/21/18 [Rx] Nicotine 14Mg/24Hr Patch [Habitrol] 1 patch TRANSDERM DAILY #30 patch 02/21/18 [ Rx] predniSONE 10 mg PO DIRECTED #30 tab 02/21/18 [Rx] Follow up Appointment(s)/Referral(s): Talisha Cho MD [STAFF PHYSICIAN] - 1 Week Shellie Sampson MD [Primary Care Provider] - 3 Days Patient Instructions/Handouts: COPD (Chronic Obstructive Pulmonary Disease) (DC ) Activity/Diet/Wound Care/Special Instructions: Activity as tolerated diet consistent carb Discharge Disposition: HOME SELF-CARE
[2018-02-21 15:54] VITALS: BP 137/83; RESP 17; TEMP 97.8
[2018-02-21 16:53] VITALS: PULSE 78
[2018-02-21 17:14] LABS: Glucose,Whole Blood 134 mg/dL (75-99)
== END 2018-02-21 17:27 | disposition home or self-care (01) | DRG 190 ==
LOC: 4MS4W 13:18
PROVIDERS: ADMIT Internal Medicine; ATTEND Internal Medicine
DX: J44.0 Chronic obstructive pulmonary disease with (acute) lower respiratory infection (principal); J96.21 Acute and chronic respiratory failure with hypoxia; J44.1 Chronic obstructive pulmonary disease with (acute) exacerbation; E78.5 Hyperlipidemia, unspecified; Z71.6 Tobacco abuse counseling; F17.210 Nicotine dependence, cigarettes, uncomplicated; F31.9 Bipolar disorder, unspecified; F41.9 Anxiety disorder, unspecified; G47.33 Obstructive sleep apnea (adult) (pediatric); G89.4 Chronic pain syndrome; I10 Essential (primary) hypertension; J20.9 Acute bronchitis, unspecified; K21.9 Gastro-esophageal reflux disease without esophagitis; Z82.5 Family history of asthma and other chronic lower respiratory diseases; Z90.49 Acquired absence of other specified parts of digestive tract; Z99.81 Dependence on supplemental oxygen; Z80.9 Family history of malignant neoplasm, unspecified; F10.21 Alcohol dependence, in remission; Z87.01 Personal history of pneumonia (recurrent); R10.9 Unspecified abdominal pain; M54.9 Dorsalgia, unspecified; Z79.899 Other long term (current) drug therapy
CPT/HCPCS: 71046; 80053; 83880; 85025; 87070; 87205; 94640; 94760

== ENCOUNTER 2018-03-18 13:46 | Inpatient (IN) | payer MEDICARE, OTHER ==
[2018-03-18] MEDS ORDERED: ALBUTEROL NEBULIZED 2.5 MG/3 ML INHALATION STA (13:55)
[2018-03-18] MEDS ORDERED: methylPREDNISolone SOD SUCCI 125 MG/2 ML VIAL IV STA (13:55)
[2018-03-18] MEDS ORDERED: IPRATROPIUM 0.5 MG/2.5 ML NEBU INHALATION STA (13:55)
[2018-03-18] MEDS ORDERED: MORPHINE SULFATE 4 MG/ML SYRINGE IVP STA (13:57)
--- NOTE | 2018-03-18 13:58 | ED ---
General Adult HPI - General Chief complaint: Shortness of Breath Stated complaint: ABIMBOLA/COPD Time Seen by Provider: 03/18/18 13:50 Source: patient, family, RN notes reviewed, old records reviewed Mode of arrival: wheelchair Limitations: no limitations - History of Present Illness Initial comments: 57-year-old male presenting for evaluation of cough and dyspnea. Patient's symptoms have been progressive over the past several days. He is a current smoker, smoking 3 packs of cigarettes daily and he has been admitted to this institution recently with COPD exacerbation. Denies fever or chill. Denies chest pain. Denies abdominal pain or nausea and vomiting. He has been taking his albuterol at home with minimal relief. - Related Data Home Medications Medication Instructions Recorded Confirmed Gabapentin [Neurontin] 100 mg PO BID 03/05/14 03/18/18 Omeprazole 40 mg PO DAILY 03/05/14 03/18/18 Lipase/Protease/Amylase [Creon Dr 1 cap PO TID 07/12/14 03/18/18 24,000 Units Capsule] risperiDONE [RisperDAL] 2 mg PO BID 07/12/14 03/18/18 Atorvastatin Calcium [Lipitor] 10 mg PO DAILY 06/02/17 03/18/18 Furosemide [Lasix] 40 mg PO DAILY 06/02/17 03/18/18 Metoprolol Succinate (ER) [Toprol 25 mg PO DAILY 06/02/17 03/18/18 XL] Roflumilast [Daliresp] 500 mg PO DAILY 06/02/17 03/18/18 busPIRone HCL [Buspar] 7.5 mg PO BID 06/02/17 03/18/18 Albuterol Inhaler [Ventolin Hfa 2 puff INHALATION RT-Q4H PRN 02/09/18 03/18/18 Inhaler] Loratadine [Claritin] 10 mg PO DAILY 02/09/18 03/18/18 Potassium Chloride [Klor-Con 10] 10 meq PO BID 02/09/18 03/18/18 SUMAtriptan SUCCINATE [Imitrex] 100 mg PO DAILY PRN 02/09/18 03/18/18 Zolpidem [Ambien] 5 mg PO HS 02/09/18 03/18/18 oxyCODONE-APAP 10-325MG [Percocet 1 tab PO Q8HR PRN 02/09/18 03/18/18 10-325 mg] Fluticasone/Salmeterol [Advair 1 inhalation PO RT-BID 03/18/18 03/18/18 250-50 Diskus] Ibuprofen 800 mg PO TID PRN 03/18/18 03/18/18 Nortriptyline HCl 10 mg PO DAILY 03/18/18 03/18/18 Previous Rx's Medication Instructions Recorded Ipratropium-Albuterol Nebulize 3 ml INHALATION RT-QID PRN #30 07/07/17 [Duoneb 0.5 mg-3 mg/3 ml Soln] ampul.neb Escitalopram [Lexapro] 10 mg PO DAILY #30 tab 02/28/18 Allergies Allergy/AdvReac Type Severity Reaction Status Date / Time Penicillins Allergy Rash/Hives Verified 03/18/18 13:50 Review of Systems ROS Statement: Those systems with pertinent positive or pertinent negative responses have been documented in the HPI. ROS Other: All systems not noted in ROS Statement are negative. Past Medical History Past Medical History: Chest Pain / Angina, COPD, GERD/Reflux, Hyperlipidemia, Hypertension, Pneumonia Additional Past Medical History / Comment(s): Pt recently admitted to [facility] on with acute exacerbation of COPD, acute tracheobronchitis, vague density overlying R mid lung to be followed up upon. Other hx: Severe COPD, chronic hypoxic respiratory failure , 3L oxygen at home, VIVEK without device, history of alcoholism-no drinking for 18 yrs, history of chronic pancreatitis and pancreatic insufficiency, chronic diverticular disease/diverticulitis, chronic pain in back and abdomin. Last Myocardial Infarction Date:: Denies having an NV History of Any Multi-Drug Resistant Organisms: MRSA Date of last positivie culture/infection: summer MDRO Source:: right side of buttuck and right side of chest above nipple Past Surgical History: Bowel Resection, Heart Catheterization, Orthopedic Surgery, Tonsillectomy Additional Past Surgical History / Comment(s): Sigmoid colectomy, right hand surgery for repair of tendons, cardiac catheterization that has been normal, colonoscopy Past Anesthesia/Blood Transfusion Reactions: No Reported Reaction Past Psychological History: Anxiety, Depression Smoking Status: Current every day smoker Past Alcohol Use History: None Reported Past Drug Use History: None Reported, Prescription Drug Abuse - Past Family History Mother Family Medical History: Cancer, COPD Additional Family Medical History / Comment(s): unaware of what kind of cancer Father Family Medical History: COPD Additional Family Medical History / Comment(s): Father is . General Exam Limitations: no limitations General appearance: alert, in distress Head exam: Present: atraumatic, normocephalic Eye exam: Present: normal appearance, PERRL ENT exam: Present: normal exam Neck exam: Present: normal inspection. Absent: tenderness, meningismus Respiratory exam: Present: respiratory distress, wheezes, accessory muscle use, decreased breath sounds, prolonged expiratory Cardiovascular Exam: Present: normal rhythm, tachycardia GI/Abdominal exam: Present: soft. Absent: distended, tenderness Extremities exam: Present: normal inspection, normal capillary refill. Absent: pedal edema, calf tenderness Neurological exam: Present: alert, oriented X3, CN II-XII intact. Absent: motor sensory deficit Skin exam: Present: warm, dry, intact. Absent: cyanosis, diaphoretic Course Vital Signs 03/18/18 03/18/18 03/18/18 13:48 14:08 14:13 Temperature 97.6 F Pulse Rate 107 H 125 H Respiratory 20 28 H Rate Blood Pressure 133/86 O2 Sat by Pulse 94 L Oximetry 03/18/18 03/18/18 03/18/18 14:16 14:29 15:43 Temperature 98.4 F Pulse Rate 107 H 103 H 104 H Respiratory 26 H 20 Rate Blood Pressure 143/83 136/82 O2 Sat by Pulse 100 99 Oximetry 03/18/18 15:51 Temperature Pulse Rate 108 H Respiratory 18 Rate Blood Pressure 139/81 O2 Sat by Pulse 95 Oximetry EKG Findings - EKG Comments: EKG Findings:: EKG: Sinus tachycardia, rate of 103, TX interval 136, QRS duration 74, QTC 448, no ST segment changes Medical Decision Making - Medical Decision Making 57-year-old male presenting with severe respiratory distress. History and exam consistent with COPD exacerbation. X-ray obtained, negative for focal pneumonia. Laboratory studies reveal normal white blood cell count, stable hemoglobin, CO2 is 33 consistent with chronic CO2 retention, normal troponin and BNP. On reevaluation after 7.5 mg of albuterol, Atrovent, and Solu-Medrol, patient is in persistent moderate respiratory distress. He will be admitted for further treatment of COPD exacerbation, pulmonology placed on consult. - Lab Data Result diagrams: 03/18/18 14:10 03/18/18 14:10 Lab Results 03/18/18 03/18/18 03/18/18 Range/Units 14:10 14:10 14:10 WBC 8.9 (3.8-10.6) k/uL RBC 4.32 (4.30-5.90) m/uL Hgb 12.7 L (13.0-17.5) gm/dL Hct 40.9 (39.0-53.0) % MCV 94.7 (80.0-100.0) fL MCH 29.3 (25.0-35.0) pg MCHC 31.0 (31.0-37.0) g/dL RDW 15.9 H (11.5-15.5) % Plt Count 250 (150-450) k/uL Neutrophils % 58 % Lymphocytes % 31 % Monocytes % 6 % Eosinophils % 2 % Basophils % 0 % Neutrophils # 5.2 (1.3-7.7) k/uL Lymphocytes # 2.8 (1.0-4.8) k/uL Monocytes # 0.5 (0-1.0) k/uL Eosinophils # 0.2 (0-0.7) k/uL Basophils # 0.0 (0-0.2) k/uL PT (9.0-12.0) sec INR (<1.2) APTT (22.0-30.0) sec Sodium 140 (137-145) mmol/L Potassium 4.1 (3.5-5.1) mmol/L Chloride 101 (98-107) mmol/L Carbon Dioxide 33 H (22-30) mmol/L Anion Gap 6 mmol/L BUN 7 L (9-20) mg/dL Creatinine 0.63 L (0.66-1.25) mg/dL Est GFR (CKD-EPI)AfAm >90 (>60 ml/min/1.73 sqM) Est GFR (CKD-EPI)NonAf >90 (>60 ml/min/1.73 sqM) Glucose 87 (74-99) mg/dL Plasma Lactic Acid Aleksandr (0.7-2.0) mmol/L Calcium 8.9 (8.4-10.2) mg/dL Magnesium 1.8 (1.6-2.3) mg/dL Total Bilirubin 0.3 (0.2-1.3) mg/dL AST 15 L (17-59) U/L ALT 33 (21-72) U/L Alkaline Phosphatase 63 (38-126) U/L Total Creatine Kinase 55 (55-170) U/L CK-MB (CK-2) 3.4 H (0.0-2.4) ng/mL CK-MB (CK-2) Rel Index 6.2 Troponin I <0.012 (0.000-0.034) ng/mL NT-Pro-B Natriuret Pep pg/mL Total Protein 5.9 L (6.3-8.2) g/dL Albumin 3.6 (3.5-5.0) g/dL 03/18/18 03/18/18 03/18/18 Range/Units 14:10 14:10 14:10 WBC (3.8-10.6) k/uL RBC (4.30-5.90) m/uL Hgb (13.0-17.5) gm/dL Hct (39.0-53.0) % MCV (80.0-100.0) fL MCH (25.0-35.0) pg MCHC (31.0-37.0) g/dL RDW (11.5-15.5) % Plt Count (150-450) k/uL Neutrophils % % Lymphocytes % % Monocytes % % Eosinophils % % Basophils % % Neutrophils # (1.3-7.7) k/uL Lymphocytes # (1.0-4.8) k/uL Monocytes # (0-1.0) k/uL Eosinophils # (0-0.7) k/uL Basophils # (0-0.2) k/uL PT 9.3 (9.0-12.0) sec INR 0.9 (<1.2) APTT 19.9 L (22.0-30.0) sec Sodium (137-145) mmol/L Potassium (3.5-5.1) mmol/L Chloride (98-107) mmol/L Carbon Dioxide (22-30) mmol/L Anion Gap mmol/L BUN (9-20) mg/dL Creatinine (0.66-1.25) mg/dL Est GFR (CKD-EPI)AfAm (>60 ml/min/1.73 sqM) Est GFR (CKD-EPI)NonAf (>60 ml/min/1.73 sqM) Glucose (74-99) mg/dL Plasma Lactic Acid Aleksandr 1.4 (0.7-2.0) mmol/L Calcium (8.4-10.2) mg/dL Magnesium (1.6-2.3) mg/dL Total Bilirubin (0.2-1.3) mg/dL AST (17-59) U/L ALT (21-72) U/L Alkaline Phosphatase (38-126) U/L Total Creatine Kinase (55-170) U/L CK-MB (CK-2) (0.0-2.4) ng/mL CK-MB (CK-2) Rel Index Troponin I (0.000-0.034) ng/mL NT-Pro-B Natriuret Pep 90 pg/mL Total Protein (6.3-8.2) g/dL Albumin (3.5-5.0) g/dL Disposition Clinical Impression: Acute exacerbation of chronic obstructive airways disease Disposition: ADMITTED IP TO THIS HOSP Condition: Stable Is patient prescribed a controlled substance at d/c from ED?: No Referrals: Shellie Sampson MD [Primary Care Provider] - 1-2 days Decision to Admit Reason: Admit from EC Decision Date: 03/18/18 Decision Time: 16:03
[2018-03-18 14:29] LABS: Basophils % (A) 0 %; Eosinophils # (A) 0.2 k/uL (0-0.7); Eosinophils % (A) 2 %; HCT 40.9 % (39.0-53.0); HGB 12.7 gm/dL (13.0-17.5); Lymphocytes # (A) 2.8 k/uL (1.0-4.8); Lymphocytes % (A) 31 %; MCH 29.3 pg (25.0-35.0); MCV 94.7 fL (80.0-100.0); Mean Platelet Volume 6.7; Monocytes # (A) 0.5 k/uL (0-1.0); Monocytes % (A) 6 %; Neutrophils # (A) 5.2 k/uL (1.3-7.7); Neutrophils % (A) 58 %; Platelet Count 250 k/uL (150-450); RBC 4.32 m/uL (4.30-5.90); RDW 15.9 % (11.5-15.5); WBC 8.9 k/uL (3.8-10.6)
[2018-03-18 14:42] LABS: ALT 33 U/L (21-72); AST 15 U/L (17-59); Albumin 3.6 g/dL (3.5-5.0); Alkaline Phosphatase 63 U/L (38-126); Anion Gap 6 mmol/L; Blood Urea Nitrogen 7 mg/dL (9-20); Calcium 8.9 mg/dL (8.4-10.2); Carbon Dioxide 33 mmol/L (22-30); Chloride 101 mmol/L (98-107); Creatine Kinase 55 U/L (55-170); Glucose 87 mg/dL (74-99); Magnesium 1.8 mg/dL (1.6-2.3); Potassium 4.1 mmol/L (3.5-5.1); Sodium 140 mmol/L (137-145); Total Bilirubin 0.3 mg/dL (0.2-1.3); Total Protein 5.9 g/dL (6.3-8.2)
[2018-03-18 14:44] LABS: INR 0.9 (<1.2); Prothrombin Time 9.3 sec (9.0-12.0)
--- NOTE | 2018-03-18 14:47 | XR ---
EXAMINATION TYPE: XR chest 2V DATE OF EXAM: 03/18/2018 COMPARISON: NONE HISTORY: Dyspnea TECHNIQUE: Frontal and lateral views of the chest are obtained. FINDINGS: There is no focal air space opacity, pleural effusion, or pneumothorax seen. The cardiac silhouette size is within normal limits. The lungs are hyperinflated with flattening of the hemidiap hragms suggesting COPD. The osseous structures are intact. IMPRESSION: 1. No acute cardiopulmonary process. 2. Findings suggestive of COPD.
[2018-03-18 14:56] LABS: Creatine Kinase MB 3.4 ng/mL (0.0-2.4); Troponin I <0.012 ng/mL (0.000-0.034)
[2018-03-18 15:00] LABS: Partial Thromboplastin Time 19.9 sec (22.0-30.0)
[2018-03-18] MEDS: IPRATROPIUM-ALBUTEROL 3 ML NEB INHALATION SCH ×2 (16:40→19:46)
[2018-03-18 16:59] VITALS: BMI 28.8
[2018-03-18 16:59] LABS: Glucose,Whole Blood 115 mg/dL (75-99)
[2018-03-18] MEDS ORDERED: IPRATROPIUM-ALBUTEROL 3 ML NEB INHALATION PRN (17:42)
[2018-03-18] MEDS ORDERED: SUMAtriptan SUCCINATE 50 MG TAB PO PRN (17:42)
[2018-03-18] MEDS ORDERED: ALBUTEROL INHALER 60 PUFF/8 GM INHALER INHALATION PRN (17:42)
[2018-03-18] MEDS: INSULIN ASPART 100 UNIT/ML 1 ML 10 ML VIAL SQ SCH ×2 (18:05→21:45)
[2018-03-18] MEDS: methylPREDNISolone SOD SUCCI 125 MG/2 ML VIAL IV SCH ×2 (18:09→23:02)
[2018-03-18] MEDS: oxyCODONE-APAP 10-325MG 1 EACH TAB PO PRN (18:13)
[2018-03-18] MEDS: SYMBICORT 80-4.5 MCG INHALER INHALATION SCH (19:47)
[2018-03-18] MEDS: ZOLPIDEM 5 MG TAB PO SCH (20:31)
[2018-03-18] MEDS: DOXYCYCLINE 50 MG CAP PO SCH (20:31)
[2018-03-18] MEDS: GABAPENTIN 100 MG CAP PO SCH (20:32)
[2018-03-18] MEDS: POTASSIUM CHLORIDE ER 10 MEQ TAB.ER.PRT PO SCH (20:32)
[2018-03-18] MEDS: LIPASE 5,000/PROTEASE 17,000/AMYLASE 24,000 PO SCH (20:32)
[2018-03-18] MEDS: busPIRone HCl 5 MG TAB PO SCH (20:32)
[2018-03-18] MEDS: risperiDONE 2 MG TAB PO SCH (20:32)
[2018-03-18 20:49] LABS: Glucose,Whole Blood 223 mg/dL (75-99)
[2018-03-18] MEDS: IBUPROFEN 800 MG TAB PO PRN (22:57)
[2018-03-19] MEDS: oxyCODONE-APAP 10-325MG 1 EACH TAB PO PRN ×3 (01:47→18:55)
[2018-03-19] MEDS: IPRATROPIUM-ALBUTEROL 3 ML NEB INHALATION PRN ×2 (02:49→23:37)
[2018-03-19] MEDS: methylPREDNISolone SOD SUCCI 125 MG/2 ML VIAL IV SCH ×4 (06:26→23:14)
[2018-03-19 07:44] LABS: Glucose,Whole Blood 130 mg/dL (75-99)
[2018-03-19] MEDS: IPRATROPIUM-ALBUTEROL 3 ML NEB INHALATION SCH ×4 (07:44→20:09)
[2018-03-19] MEDS: SYMBICORT 80-4.5 MCG INHALER INHALATION SCH ×2 (07:44→20:09)
[2018-03-19] MEDS: INSULIN ASPART 100 UNIT/ML 1 ML 10 ML VIAL SQ SCH ×4 (08:01→21:06)
[2018-03-19] MEDS: DOXYCYCLINE 50 MG CAP PO SCH ×2 (08:04→20:03)
[2018-03-19] MEDS: LIPASE 5,000/PROTEASE 17,000/AMYLASE 24,000 PO SCH ×3 (08:05→20:02)
[2018-03-19] MEDS: ESCITALOPRAM 10 MG TAB PO SCH (08:05)
[2018-03-19] MEDS: risperiDONE 2 MG TAB PO SCH ×2 (08:05→20:04)
[2018-03-19] MEDS: busPIRone HCl 5 MG TAB PO SCH ×2 (08:05→20:03)
[2018-03-19] MEDS: NORTRIPTYLINE 10 MG CAP PO SCH (08:05)
[2018-03-19] MEDS: GABAPENTIN 100 MG CAP PO SCH ×2 (08:06→20:04)
[2018-03-19] MEDS: PANTOPRAZOLE 40 MG TABLET PO SCH (08:06)
[2018-03-19] MEDS: FUROSEMIDE 40 MG TAB PO SCH (08:06)
[2018-03-19] MEDS: LORATADINE 10 MG TAB PO SCH (08:06)
[2018-03-19] MEDS: ATORVASTATIN 10 MG TAB PO SCH (08:06)
[2018-03-19] MEDS: METOPROLOL SUCCINATE (ER) 25 MG TAB.ER.24H PO SCH (08:06)
[2018-03-19] MEDS: POTASSIUM CHLORIDE ER 10 MEQ TAB.ER.PRT PO SCH ×2 (08:06→20:04)
[2018-03-19] MEDS: ROFLUMILAST 500 MG PO SCH (08:10)
[2018-03-19] MEDS: IBUPROFEN 800 MG TAB PO PRN (08:14)
[2018-03-19] MEDS ORDERED: LEVOFLOXACIN 500 MG TAB PO SCH (09:00)
--- NOTE | 2018-03-19 10:02 | P.HPIM ---
History of Present Illness H&P Date: 03/19/18 Mychal Kimball is a 57-year-old male who presented to [facility] emergency room with a chief complaint of worsening shortness of breath and cough. Patient's symptoms have been progressive over the past several days. He is a current smoker, smoking up to 3 packs of cigarettes daily. Patient states that he has been taking his updrafts and inhalers at home without any significant relief, he was admitted to [facility] earlier this February with similar symptoms he had COPD exacerbation. 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 On review of systems patient denies any fever or chills no headache or dizziness no chest pain no nausea or vomiting no abdominal pain no diarrhea and no urinary symptoms. He was evaluated in emergency room, his respiratory rate was up to 28 pulse ox 93% on 3 L nasal cannula, labs drawn in the ER when and remarkable, chest x-ray did not reveal any acute cardiopulmonary process. He was admitted to medical floor and started on IV Solu-Medrol, inhaled bronchodilators, and inhaled steroids, pulmonary consultation was requested. Past Medical History Past Medical History: Chest Pain / Angina, COPD, GERD/Reflux, Hyperlipidemia, Hypertension, Pneumonia Additional Past Medical History / Comment(s): tracheobronchitis, vague density overlying R mid lung to be followed up upon. Other hx: Severe COPD, chronic hypoxic respiratory failure , 3L oxygen at home, VIVEK without device, history of alcoholism-no drinking for 18 yrs, history of chronic pancreatitis and pancreatic insufficiency, chronic diverticular disease/diverticulitis, chronic pain in back and abdomin. Last Myocardial Infarction Date:: Denies having an [place] History of Any Multi-Drug Resistant Organisms: MRSA Date of last positivie culture/infection: summer MDRO Source:: right side of buttuck and right side of chest above nipple Past Surgical History: Bowel Resection, Heart Catheterization, Orthopedic Surgery, Tonsillectomy Additional Past Surgical History / Comment(s): Sigmoid colectomy, right hand surgery for repair of tendons, cardiac catheterization that has been normal, colonoscopy Past Anesthesia/Blood Transfusion Reactions: No Reported Reaction Past Psychological History: Anxiety, Depression Additional Psychological History / Comment(s): Pt resides with his brother. He is currently receiving care thru [facility]. He uses a wheelchair prn. He is on home oxygen at 3L/[place] ATC. He has a nebulizer. He does not drive. Family take him to [facility]. Smoking Status: Current every day smoker Past Alcohol Use History: None Reported Additional Past Alcohol Use History / Comment(s): STARTED SMOKING AT AGE 5 SMOKED 3PPD, USED TO DRINK HEAVILY BUT NONE IN LAST 18 YEARS. Past Drug Use History: Prescription Drug Abuse Additional Drug Use History / Comment(s): SMOKED MARIJUANA 20 YEARS AGO. - Past Family History Mother Family Medical History: Cancer, COPD Additional Family Medical History / Comment(s): unaware of what kind of cancer Father Family Medical History: COPD Additional Family Medical History / Comment(s): Father is . Medications and Allergies Home Medications Medication Instructions Recorded Confirmed Type Gabapentin [Neurontin] 100 mg PO BID 03/05/14 03/18/18 History Omeprazole 40 mg PO DAILY 03/05/14 03/18/18 History Lipase/Protease/Amylase [Creon Dr 1 cap PO TID 07/12/14 03/18/18 History 24,000 Units Capsule] risperiDONE [RisperDAL] 2 mg PO BID 07/12/14 03/18/18 History Atorvastatin Calcium [Lipitor] 10 mg PO DAILY 06/02/17 03/18/18 History Furosemide [Lasix] 40 mg PO DAILY 06/02/17 03/18/18 History Metoprolol Succinate (ER) [Toprol 25 mg PO DAILY 06/02/17 03/18/18 History XL] Roflumilast [Daliresp] 500 mg PO DAILY 06/02/17 03/18/18 History busPIRone HCL [Buspar] 7.5 mg PO BID 06/02/17 03/18/18 History Ipratropium-Albuterol Nebulize 3 ml INHALATION RT-QID PRN #30 07/07/17 03/18/18 Rx [Duoneb 0.5 mg-3 mg/3 ml Soln] ampul.neb Albuterol Inhaler [Ventolin Hfa 2 puff INHALATION RT-Q4H PRN 02/09/18 03/18/18 History Inhaler] Loratadine [Claritin] 10 mg PO DAILY 02/09/18 03/18/18 History Potassium Chloride [Klor-Con 10] 10 meq PO BID 02/09/18 03/18/18 History SUMAtriptan SUCCINATE [Imitrex] 100 mg PO DAILY PRN 02/09/18 03/18/18 History Zolpidem [Ambien] 5 mg PO HS 02/09/18 03/18/18 History oxyCODONE-APAP 10-325MG [Percocet 1 tab PO Q8HR PRN 02/09/18 03/18/18 History 10-325 mg] Escitalopram [Lexapro] 10 mg PO DAILY #30 tab 02/28/18 03/18/18 Rx Fluticasone/Salmeterol [Advair 1 inhalation PO RT-BID 03/18/18 03/18/18 History 250-50 Diskus] Ibuprofen 800 mg PO TID PRN 03/18/18 03/18/18 History Nortriptyline HCl 10 mg PO DAILY 03/18/18 03/18/18 History Allergies Allergy/AdvReac Type Severity Reaction Status Date / Time Penicillins Allergy Rash/Hives Verified 03/18/18 13:50 Physical Exam Vitals: Vital Signs Temp Pulse Pulse Resp BP BP BP 03/19/18 08:04 92 03/19/18 07:45 88 03/19/18 07:04 97.6 F 84 18 117/80 03/19/18 03:07 93 03/19/18 02:50 93 03/18/18 23:45 98.2 F 93 28 H 121/87 03/18/18 20:01 108 H 03/18/18 19:47 110 H 22 03/18/18 16:49 100 03/18/18 16:40 99 03/18/18 16:30 97.5 F L 107 H 20 128/79 03/18/18 15:51 108 H 18 139/81 03/18/18 15:43 98.4 F 104 H 20 136/82 03/18/18 14:29 103 H 03/18/18 14:16 107 H 26 H 143/83 03/18/18 14:13 28 H 03/18/18 14:08 125 H 03/18/18 13:48 97.6 F 107 H 20 133/86 Pulse Ox 03/19/18 08:04 03/19/18 07:45 03/19/18 07:04 99 03/19/18 03:07 03/19/18 02:50 03/18/18 23:45 93 L 03/18/18 20:01 03/18/18 19:47 03/18/18 16:49 03/18/18 16:40 98 03/18/18 16:30 97 03/18/18 15:51 95 03/18/18 15:43 99 03/18/18 14:29 03/18/18 14:16 100 03/18/18 14:13 03/18/18 14:08 03/18/18 13:48 94 L Intake and Output 03/18/18 03/19/18 03/19/18 22:59 06:59 14:59 Intake Total 600 100 Output Total 425 Balance 175 100 Intake: Oral 600 100 Output: Urine 425 Other: # Voids 1 1 Weight 81.2 kg Patient is alert and oriented 3 in mild respiratory distress, currently maintained on BiPAP HEENT without any acute abnormality Neck is supple no JVD no goiter no lymphadenopathy Chest exam reveals scattered crackles bilaterally with wheezing Cardiac exam reveals regular heart sounds S1 and S2 no gallops no murmurs Abdomen is soft nontender no organomegaly with normal bowel sounds Extremity exam reveals no edema no cyanosis or clubbing neurological examination reveals no gross focal deficit Results CBC & Chem 7: 03/18/18 14:10 03/18/18 14:10 Labs: Abnormal Lab Results - Last 24 Hours (Table) 03/18/18 03/18/18 03/18/18 Range/Units 14:10 14:10 14:10 Hgb 12.7 L (13.0-17.5) gm/dL RDW 15.9 H (11.5-15.5) % APTT (22.0-30.0) sec Carbon Dioxide 33 H (22-30) mmol/L BUN 7 L (9-20) mg/dL Creatinine 0.63 L (0.66-1.25) mg/dL POC Glucose (mg/dL) (75-99) mg/dL AST 15 L (17-59) U/L CK-MB (CK-2) 3.4 H (0.0-2.4) ng/mL Total Protein 5.9 L (6.3-8.2) g/dL 03/18/18 03/18/18 03/18/18 Range/Units 14:10 16:56 20:45 Hgb (13.0-17.5) gm/dL RDW (11.5-15.5) % APTT 19.9 L (22.0-30.0) sec Carbon Dioxide (22-30) mmol/L BUN (9-20) mg/dL Creatinine (0.66-1.25) mg/dL POC Glucose (mg/dL) 115 H 223 H (75-99) mg/dL AST (17-59) U/L CK-MB (CK-2) (0.0-2.4) ng/mL Total Protein (6.3-8.2) g/dL 03/19/18 Range/Units 07:10 Hgb (13.0-17.5) gm/dL RDW (11.5-15.5) % APTT (22.0-30.0) sec Carbon Dioxide (22-30) mmol/L BUN (9-20) mg/dL Creatinine (0.66-1.25) mg/dL POC Glucose (mg/dL) 130 H (75-99) mg/dL AST (17-59) U/L CK-MB (CK-2) (0.0-2.4) ng/mL Total Protein (6.3-8.2) g/dL Thrombosis Risk Factor Assmnt - Choose All That Apply Any of the Below Risk Factors Present?: Yes Each Factor Represents 1 point: Abnormal pulmonary function (COPD), Age 41-60 years, Obesity (BMI >25) Other Risk Factors: Yes Thrombosis Risk Factor Assessment Total Risk Factor Score: 3 Thrombosis Risk Factor Assessment Level: Moderate Risk Assessment and Plan Plan: #1 acute exacerbation of chronic obstructive pulmonary disease. #2 acute on chronic hypoxic and hypercapnic respiratory failure currently maintained on BiPAP #3 tobacco abuse #4 underlying history of hypertension #5 underlying history of hyperlipidemia #6 underlying history of migraine headache #7 underlying history of depression #8 underlying history of anxiety disorder At this time plan to continue with IV steroids, inhaled steroids, inhaled bronchodilators, and oral antibiotics, continue Daliresp Continue support with BiPAP and oxygen as needed Pulmonary consultation requested Patient was counseled in length in regard to smoking cessation counseling more than 10 minutes Prognosis is guarded due to severity of underlying COPD, and patient continuing to smoke
[2018-03-19 12:11] LABS: Glucose,Whole Blood 137 mg/dL (75-99)
--- NOTE | 2018-03-19 12:32 | P.CNPUL ---
History of Present Illness Consult date: 03/19/18 Requesting physician: Shellie Sampson Reason for consult: dyspnea, cough, COPD Chief complaint: Acute exacerbation of chronic obstructive pulmonary disease History of present illness: This is a 57-year-old white male with a known history of severe emphysema, with underlying FEV1 of less than 20% on home oxygen, chronic and ongoing nicotine abuse, GERD/reflux, hypertension, hyperlipidemia, previous episodes of pneumonia , multiple admissions for pulmonary infections, underlying obstructive sleep apnea without device, History of chronic pancreatitis and pancreatic insufficiency, chronic diverticular disease with history of sigmoid colectomy, chronic pain syndrome, anxiety, depression, was recently hospitalized beginning of January for acute exacerbation of COPD. He was discharged home on 2017. On 03/18/2018 at 1300 patient presented to the emergency department with his family, for evaluation of worsening shortness of breath, coughing which has been progressive over the past several days. Despite patient's very poor lung function, and recurrent hospitalizations for pulmonary infections he continues to smoke, he states he is down to 1 pack a day. Complaining of chest congestion , he is able to bring up some green and yellow phlegm. No fever or chills. Denied any nausea, vomiting, or diarrhea. He has been compliant with his nebulized meds and inhalers. Denied any chest pain or angina type symptoms. Chest x-ray showed no acute cardiopulmonary process. EKG showed sinus tachycardia with a rate of 103 BPM. Afebrile. Patient had been placed on BiPAP support overnight in view of respiratory distress, pressures 12 over 4 and 40%. Started on IV steroids, nebulized bronchodilators and empiric antibiotics in the form of doxycycline. Improving, still remains on BiPAP support this morning, tolerating it well. Review of Systems All systems: negative Constitutional: Reports chronic pain, Denies chills, Denies fever Eyes: denies blurred vision, denies pain Ears, nose, mouth and throat: Denies headache, Denies sore throat Cardiovascular: Denies chest pain, Denies shortness of breath Respiratory: Reports cough with sputum, Reports dyspnea, Reports home oxygen, Reports respiratory infections, Denies cough Gastrointestinal: Denies abdominal pain, Denies diarrhea, Denies nausea, Denies vomiting Musculoskeletal: Denies myalgias Integumentary: Denies pruritus, Denies rash Neurological: Denies numbness, Denies weakness Psychiatric: Denies anxiety, Denies depression Endocrine: Denies fatigue, Denies weight change Past Medical History Past Medical History: Chest Pain / Angina, COPD, GERD/Reflux, Hyperlipidemia, Hypertension, Pneumonia Additional Past Medical History / Comment(s): tracheobronchitis, vague density overlying R mid lung to be followed up upon. Other hx: Severe COPD, chronic hypoxic respiratory failure , 3L oxygen at home, VIVEK without device, history of alcoholism-no drinking for 18 yrs, history of chronic pancreatitis and pancreatic insufficiency, chronic diverticular disease/diverticulitis, chronic pain in back and abdomin. Last Myocardial Infarction Date:: Denies having an SC History of Any Multi-Drug Resistant Organisms: MRSA Date of last positivie culture/infection: summer MDRO Source:: right side of buttuck and right side of chest above nipple Past Surgical History: Bowel Resection, Heart Catheterization, Orthopedic Surgery, Tonsillectomy Additional Past Surgical History / Comment(s): Sigmoid colectomy, right hand surgery for repair of tendons, cardiac catheterization that has been normal, colonoscopy Past Anesthesia/Blood Transfusion Reactions: No Reported Reaction Past Psychological History: Anxiety, Depression Additional Psychological History / Comment(s): Pt resides with his brother. He is currently receiving care thru [facility]. He uses a wheelchair prn. He is on home oxygen at 3L/[place] ATC. He has a nebulizer. He does not drive. Family take him to app. Smoking Status: Current every day smoker Past Alcohol Use History: None Reported Additional Past Alcohol Use History / Comment(s): STARTED SMOKING AT AGE 5 SMOKED 3PPD, USED TO DRINK HEAVILY BUT NONE IN LAST 18 YEARS. Past Drug Use History: Prescription Drug Abuse Additional Drug Use History / Comment(s): SMOKED MARIJUANA 20 YEARS AGO. - Past Family History Mother Family Medical History: Cancer, COPD Additional Family Medical History / Comment(s): unaware of what kind of cancer Father Family Medical History: COPD Additional Family Medical History / Comment(s): Father is . Medications and Allergies Home Medications Medication Instructions Recorded Confirmed Type Gabapentin [Neurontin] 100 mg PO BID 03/05/14 03/18/18 History Omeprazole 40 mg PO DAILY 03/05/14 03/18/18 History Lipase/Protease/Amylase [Creon Dr 1 cap PO TID 07/12/14 03/18/18 History 24,000 Units Capsule] risperiDONE [RisperDAL] 2 mg PO BID 07/12/14 03/18/18 History Atorvastatin Calcium [Lipitor] 10 mg PO DAILY 06/02/17 03/18/18 History Furosemide [Lasix] 40 mg PO DAILY 06/02/17 03/18/18 History Metoprolol Succinate (ER) [Toprol 25 mg PO DAILY 06/02/17 03/18/18 History XL] Roflumilast [Daliresp] 500 mg PO DAILY 06/02/17 03/18/18 History busPIRone HCL [Buspar] 7.5 mg PO BID 06/02/17 03/18/18 History Ipratropium-Albuterol Nebulize 3 ml INHALATION RT-QID PRN #30 07/07/17 03/18/18 Rx [Duoneb 0.5 mg-3 mg/3 ml Soln] ampul.neb Albuterol Inhaler [Ventolin Hfa 2 puff INHALATION RT-Q4H PRN 02/09/18 03/18/18 History Inhaler] Loratadine [Claritin] 10 mg PO DAILY 02/09/18 03/18/18 History Potassium Chloride [Klor-Con 10] 10 meq PO BID 02/09/18 03/18/18 History SUMAtriptan SUCCINATE [Imitrex] 100 mg PO DAILY PRN 02/09/18 03/18/18 History Zolpidem [Ambien] 5 mg PO HS 02/09/18 03/18/18 History oxyCODONE-APAP 10-325MG [Percocet 1 tab PO Q8HR PRN 02/09/18 03/18/18 History 10-325 mg] Escitalopram [Lexapro] 10 mg PO DAILY #30 tab 02/28/18 03/18/18 Rx Fluticasone/Salmeterol [Advair 1 inhalation PO RT-BID 03/18/18 03/18/18 History 250-50 Diskus] Ibuprofen 800 mg PO TID PRN 03/18/18 03/18/18 History Nortriptyline HCl 10 mg PO DAILY 03/18/18 03/18/18 History Allergies Allergy/AdvReac Type Severity Reaction Status Date / Time Penicillins Allergy Rash/Hives Verified 09/22/18 13:50 Physical Exam Vitals: Vital Signs Temp Pulse Pulse Resp BP BP BP 03/19/18 11:53 92 03/19/18 11:37 92 03/19/18 08:04 92 03/19/18 07:45 88 03/19/18 07:04 97.6 F 84 18 117/80 03/19/18 03:07 93 03/19/18 02:50 93 03/18/18 23:45 98.2 F 93 28 H 121/87 03/18/18 20:01 108 H 03/18/18 19:47 110 H 22 03/18/18 16:49 100 03/18/18 16:40 99 03/18/18 16:30 97.5 F L 107 H 20 128/79 03/18/18 15:51 108 H 18 139/81 03/18/18 15:43 98.4 F 104 H 20 136/82 03/18/18 14:29 103 H 03/18/18 14:16 107 H 26 H 143/83 03/18/18 14:13 28 H 03/18/18 14:08 125 H 03/18/18 13:48 97.6 F 107 H 20 133/86 Pulse Ox 03/19/18 11:53 03/19/18 11:37 03/19/18 08:04 03/19/18 07:45 03/19/18 07:04 99 03/19/18 03:07 03/19/18 02:50 03/18/18 23:45 93 L 03/18/18 20:01 03/18/18 19:47 03/18/18 16:49 03/18/18 16:40 98 03/18/18 16:30 97 03/18/18 15:51 95 03/18/18 15:43 99 03/18/18 14:29 03/18/18 14:16 100 03/18/18 14:13 03/18/18 14:08 03/18/18 13:48 94 L Intake and Output 03/18/18 03/19/18 03/19/18 22:59 06:59 14:59 Intake Total 600 100 Output Total 425 750 Balance 175 100 -750 Intake: Oral 600 100 Output: Urine 425 750 Other: # Voids 1 1 Weight 81.2 kg GENERAL EXAM: Alert, pleasant, 57-year-old white male on BiPAP support, with pressures 12 and 4, and 40%, comfortable in no apparent distress. HEAD: Normocephalic/atraumatic. EYES: Normal reaction of pupils, equal size. Conjunctiva pink, sclera white. NOSE: Clear with pink turbinates. THROAT: No erythema or exudates. NECK: No masses, no JVD, no thyroid enlargement, no adenopathy. CHEST: No chest wall deformity. Symmetrical expansion. LUNGS: Equal air entry with diffuse wheezes and rhonchi CVS: Regular rate and rhythm, normal S1 and S2, no gallops, no murmurs, no rubs ABDOMEN: Soft, nontender. No hepatosplenomegaly, normal bowel sounds, no guarding or rigidity. EXTREMITIES: No clubbing, no edema, no cyanosis, 2+ pulses and upper and lower extremities. MUSCULOSKELETAL: Muscle strength and tone normal. SPINE: No scoliosis or deformity SKIN: No rashes CENTRAL NERVOUS SYSTEM: Alert and oriented -3. No focal deficits, tone is normal in all 4 extremities. PSYCHIATRIC: Alert and oriented -3. Appropriate affect. Intact judgment and insight. Results - Laboratory Findings CBC and BMP: 03/18/18 14:10 03/18/18 14:10 PT/INR, D-dimer PT 9.3 sec (9.0-12.0) 03/18/18 14:10 INR 0.9 (<1.2) 03/18/18 14:10 Abnormal lab findings: Abnormal Labs 03/18/18 03/18/18 03/18/18 14:10 14:10 14:10 Hgb 12.7 L RDW 15.9 H APTT Carbon Dioxide 33 H BUN 7 L Creatinine 0.63 L POC Glucose (mg/dL) AST 15 L CK-MB (CK-2) 3.4 H Total Protein 5.9 L 03/18/18 03/18/18 03/18/18 14:10 16:56 20:45 Hgb RDW APTT 19.9 L Carbon Dioxide BUN Creatinine POC Glucose (mg/dL) 115 H 223 H AST CK-MB (CK-2) Total Protein 03/19/18 03/19/18 07:10 11:53 Hgb RDW APTT Carbon Dioxide BUN Creatinine POC Glucose (mg/dL) 130 H 137 H AST CK-MB (CK-2) Total Protein - Diagnostic Findings Chest x-ray: report reviewed, image reviewed Additional studies: EKG reviewed Assessment and Plan Plan: Assessment: #1. Acute exacerbation of chronic obstructive pulmonary disease , complicated by tracheobronchitis #2. Severe end-stage COPD, GOLD stage IV, with chronic hypoxemic and hypercapnic respiratory failure, with FEV1 of less than 20% of predicted #3. Multiple, and recurrent admissions for pulmonary infections #4. Chronic and ongoing nicotine dependence, currently down to 1 pack a day #5. History of chronic alcoholism with pancreatic insufficiency #6. Chronic pain syndrome #7. Hypertension, hyperlipidemia #8. History of diverticular disease status post sigmoid colectomy #9. Anxiety and depression Plan: Continue IV steroids, empiric antibiotics, nebulized bronchodilators, Symbicort. BiPAP support, may give a trial of nasal cannula. Nicotine cessation again revisited, and strongly encouraged. We'll continue to follow I performed a history & physical examination of the patient and discussed their management with my nurse practitioner, [place] Monique. I reviewed the nurse practitioner's note and agree with the documented findings and plan of care. Lung sounds are positive for diffuse wheezes and rhonchi throughout the lung parikh. The findings and the impression was discussed with the patient. I attest to the documentation by the nurse practitioner. Time with Patient: Greater than 30
[2018-03-19 17:00] LABS: Glucose,Whole Blood 195 mg/dL (75-99)
[2018-03-19] MEDS: ZOLPIDEM 5 MG TAB PO SCH (20:02)
[2018-03-19] MEDS: ALPRAZolam 1 MG TAB PO PRN (20:06)
[2018-03-19 20:38] LABS: Glucose,Whole Blood 130 mg/dL (75-99)
[2018-03-20] MEDS: oxyCODONE-APAP 10-325MG 1 EACH TAB PO PRN ×3 (03:08→19:34)
[2018-03-20] MEDS: IPRATROPIUM-ALBUTEROL 3 ML NEB INHALATION PRN (03:52)
[2018-03-20] MEDS: methylPREDNISolone SOD SUCCI 125 MG/2 ML VIAL IV SCH ×3 (06:30→17:35)
[2018-03-20 07:49] LABS: Glucose,Whole Blood 107 mg/dL (75-99)
[2018-03-20] MEDS: INSULIN ASPART 100 UNIT/ML 1 ML 10 ML VIAL SQ SCH ×4 (07:54→21:27)
[2018-03-20] MEDS: POTASSIUM CHLORIDE ER 10 MEQ TAB.ER.PRT PO SCH ×2 (08:02→21:28)
[2018-03-20] MEDS: busPIRone HCl 5 MG TAB PO SCH ×2 (08:02→21:26)
[2018-03-20] MEDS: LORATADINE 10 MG TAB PO SCH (08:02)
[2018-03-20] MEDS: DOXYCYCLINE 50 MG CAP PO SCH ×2 (08:02→21:27)
[2018-03-20] MEDS: LIPASE 5,000/PROTEASE 17,000/AMYLASE 24,000 PO SCH ×3 (08:02→21:28)
[2018-03-20] MEDS: ROFLUMILAST 500 MG PO SCH (08:03)
[2018-03-20] MEDS: FUROSEMIDE 40 MG TAB PO SCH (08:03)
[2018-03-20] MEDS: NORTRIPTYLINE 10 MG CAP PO SCH (08:03)
[2018-03-20] MEDS: risperiDONE 2 MG TAB PO SCH ×2 (08:03→21:28)
[2018-03-20] MEDS: ESCITALOPRAM 10 MG TAB PO SCH (08:03)
[2018-03-20] MEDS: METOPROLOL SUCCINATE (ER) 25 MG TAB.ER.24H PO SCH (08:03)
[2018-03-20] MEDS: ATORVASTATIN 10 MG TAB PO SCH (08:03)
[2018-03-20] MEDS: GABAPENTIN 100 MG CAP PO SCH ×2 (08:03→21:27)
[2018-03-20] MEDS: PANTOPRAZOLE 40 MG TABLET PO SCH (08:03)
[2018-03-20] MEDS: ALPRAZolam 1 MG TAB PO PRN ×2 (08:09→16:24)
[2018-03-20] MEDS: IPRATROPIUM-ALBUTEROL 3 ML NEB INHALATION SCH ×4 (08:59→19:05)
[2018-03-20] MEDS: SYMBICORT 80-4.5 MCG INHALER INHALATION SCH ×2 (08:59→19:06)
[2018-03-20 10:11] LABS: ALT 21 U/L (21-72); AST 9 U/L (17-59); Albumin 3.2 g/dL (3.5-5.0); Alkaline Phosphatase 56 U/L (38-126); Anion Gap 3 mmol/L; Blood Urea Nitrogen 19 mg/dL (9-20); Calcium 9.1 mg/dL (8.4-10.2); Carbon Dioxide 34 mmol/L (22-30); Chloride 99 mmol/L (98-107); Glucose 171 mg/dL (74-99); Potassium 4.7 mmol/L (3.5-5.1); Sodium 136 mmol/L (137-145); Total Bilirubin 0.2 mg/dL (0.2-1.3); Total Protein 5.5 g/dL (6.3-8.2)
[2018-03-20 10:21] LABS: Basophils % (A) 0 %; Eosinophils % (A) 0 %; HCT 38.5 % (39.0-53.0); HGB 12.1 gm/dL (13.0-17.5); Lymphocytes # (A) 0.3 k/uL (1.0-4.8); Lymphocytes % (A) 4 %; MCH 29.1 pg (25.0-35.0); MCHC 31.5 g/dL (31.0-37.0); MCV 92.5 fL (80.0-100.0); Mean Platelet Volume 6.9; Monocytes # (A) 0.2 k/uL (0-1.0); Monocytes % (A) 2 %; Neutrophils # (A) 7.3 k/uL (1.3-7.7); Neutrophils % (A) 93 %; Platelet Count 272 k/uL (150-450); RBC 4.16 m/uL (4.30-5.90); RDW 15.6 % (11.5-15.5); WBC 7.9 k/uL (3.8-10.6)
--- NOTE | 2018-03-20 10:21 | P.PN ---
Subjective Progress Note Date: 03/20/18 Mychal Kimball is a 57-year-old male who presented to [facility] emergency room with a chief complaint of worsening shortness of breath and cough. Patient's symptoms have been progressive over the past several days. He is a current smoker, smoking up to 3 packs of cigarettes daily. Patient states that he has been taking his updrafts and inhalers at home without any significant relief, he was admitted to [facility] earlier this February with similar symptoms he had COPD exacerbation. He follows with his servicing manager Dr. 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 On review of systems patient denies any fever or chills no headache or dizziness no chest pain no nausea or vomiting no abdominal pain no diarrhea and no urinary symptoms. He was evaluated in emergency room, his respiratory rate was up to 28 pulse ox 93% on 3 L nasal cannula, labs drawn in the ER when and remarkable, chest x-ray did not reveal any acute cardiopulmonary process. He was admitted to medical floor and started on IV Solu-Medrol, inhaled bronchodilators, and inhaled steroids, pulmonary consultation was requested. On 03/20/2018 patient remains alert and oriented 3. Patient currently on 3 L nasal cannula. Patient remains on IV Solu-Medrol 60 mg every 6 hours. Pulmonary services are following. At This time patient denies chest pain. States some complaint of shortness breath. Patient denies nausea vomiting or diarrhea Objective - Vital Signs Vital signs: Vital Signs Temp 96.8 F L 03/20/18 07:00 Pulse 97 03/20/18 08:59 Resp 18 03/20/18 07:00 BP 131/81 03/20/18 07:00 Pulse Ox 98 03/20/18 07:00 Intake & Output 03/19/18 03/20/18 03/20/18 18:59 06:59 18:59 Output Total 1250 800 Balance -1250 -800 Output: Urine 1250 800 Other: # Voids 1 # Bowel Movements 0 - Exam Head normocephalic Neck supple Lungs diminished bilaterally with expiratory wheezes Heart regular rate and rhythm S1-S2, no rub or gallop Abdomen is soft nontender nondistended positive bowel sounds no hepatosplenomegaly Extremities no edema Neuro alert and orientated to 3 - Labs CBC & Chem 7: 03/18/18 14:10 09/24/18 09:02 Labs: Abnormal Lab Results - Last 24 Hours (Table) 03/19/18 03/19/18 03/19/18 Range/Units 11:53 16:44 20:37 Sodium (137-145) mmol/L Carbon Dioxide (22-30) mmol/L Glucose (74-99) mg/dL POC Glucose (mg/dL) 137 H 195 H 130 H (75-99) mg/dL AST (17-59) U/L Total Protein (6.3-8.2) g/dL Albumin (3.5-5.0) g/dL 03/20/18 03/20/18 Range/Units 07:37 09:02 Sodium 136 L (137-145) mmol/L Carbon Dioxide 34 H (22-30) mmol/L Glucose 171 H (74-99) mg/dL POC Glucose (mg/dL) 107 H (75-99) mg/dL AST 9 L (17-59) U/L Total Protein 5.5 L (6.3-8.2) g/dL Albumin 3.2 L (3.5-5.0) g/dL Microbiology - Last 24 Hours (Table) 03/18/18 14:10 Blood Culture - Preliminary Blood No Growth after 24 hours Assessment and Plan Assessment: #1 acute exacerbation of chronic obstructive pulmonary disease. Patient currently on IV Solu-Medrol 60 mg every 6 hours, inhaled steroids, inhaled bronchodilators and on doxycycline. Pulmonary service is following closely. Patient continuing BiPAP as needed and oxygen 3 L #2 acute on chronic hypoxic and hypercapnic respiratory failure currently maintained on BiPAP #3 tobacco abuse. Nicotine patch has been ordered #4 underlying history of hypertension #5 underlying history of hyperlipidemia #6 underlying history of migraine headache #7 underlying history of depression #8 underlying history of anxiety disorder GI prophylaxis Protonix, DVT prophylaxis heparin I performed an examination of the patient and discussed their management with the Nurse Practitioner. I have reviewed the Nurse Practitioner's notes and agree with the documented findings and plan of care
[2018-03-20 11:29] LABS: Glucose,Whole Blood 116 mg/dL (75-99)
--- NOTE | 2018-03-20 12:58 | P.PN ---
Subjective Progress Note Date: 03/20/18 Principal diagnosis: Acute exacerbation of chronic obstructive pulmonary disease This is a 57-year-old white male with a known history of severe emphysema, with underlying FEV1 of less than 20% on home oxygen, chronic and ongoing nicotine abuse, GERD/reflux, hypertension, hyperlipidemia, previous episodes of pneumonia , multiple admissions for pulmonary infections, underlying obstructive sleep apnea without device, History of chronic pancreatitis and pancreatic insufficiency, chronic diverticular disease with history of sigmoid colectomy, chronic pain syndrome, anxiety, depression, was recently hospitalized beginning of January for acute exacerbation of COPD. He was discharged home on 2017. On 03/18/2018 at 1300 patient presented to the emergency department with his family, for evaluation of worsening shortness of breath, coughing which has been progressive over the past several days. Despite patient's very poor lung function, and recurrent hospitalizations for pulmonary infections he continues to smoke, he states he is down to 1 pack a day. Complaining of chest congestion , he is able to bring up some green and yellow phlegm. No fever or chills. Denied any nausea, vomiting, or diarrhea. He has been compliant with his nebulized meds and inhalers. Denied any chest pain or angina type symptoms. Chest x-ray showed no acute cardiopulmonary process. EKG showed sinus tachycardia with a rate of 103 BPM. Afebrile. Patient had been placed on BiPAP support overnight in view of respiratory distress, pressures 12 over 4 and 40%. Started on IV steroids, nebulized bronchodilators and empiric antibiotics in the form of doxycycline. Improving, still remains on BiPAP support this morning, tolerating it well. On 03/20/2018 patient seen in follow-up on medical surgical floor. He'll nasal cannula this morning, had to wear the BiPAP last night. Breathing much easier today, lung sounds are still positive for diffuse wheezes, may be slightly better compared to yesterday's exam, vital signs are stable, patient is afebrile , currently on 3 L per nasal cannula with pulse ox is 98%. Today's chest x-ray have been noted, no leukocytosis, sodium is 136, CO2 is 34, the rest of the electrolytes and renal profile are unremarkable. He remains on doxycycline, nebulized bronchodilators and IV steroids, he is improving. Objective - Vital Signs Vital signs: Vital Signs Temp 96.8 F L 03/20/18 07:00 Pulse 97 03/20/18 08:59 Resp 18 03/20/18 07:00 BP 131/81 03/20/18 07:00 Pulse Ox 98 03/20/18 07:00 Intake & Output 03/19/18 03/20/18 03/20/18 18:59 06:59 18:59 Output Total 1250 800 Balance -1250 -800 Output: Urine 1250 800 Other: # Voids 1 # Bowel Movements 0 - Exam GENERAL EXAM: Alert, pleasant, 57-year-old white male on BiPAP support, with pressures 12 and 4, and 40%, comfortable in no apparent distress. HEAD: Normocephalic/atraumatic. EYES: Normal reaction of pupils, equal size. Conjunctiva pink, sclera white. NOSE: Clear with pink turbinates. THROAT: No erythema or exudates. NECK: No masses, no JVD, no thyroid enlargement, no adenopathy. CHEST: No chest wall deformity. Symmetrical expansion. LUNGS: Equal air entry with diffuse wheezes and rhonchi CVS: Regular rate and rhythm, normal S1 and S2, no gallops, no murmurs, no rubs ABDOMEN: Soft, nontender. No hepatosplenomegaly, normal bowel sounds, no guarding or rigidity. EXTREMITIES: No clubbing, no edema, no cyanosis, 2+ pulses and upper and lower extremities. MUSCULOSKELETAL: Muscle strength and tone normal. SPINE: No scoliosis or deformity SKIN: No rashes CENTRAL NERVOUS SYSTEM: Alert and oriented -3. No focal deficits, tone is normal in all 4 extremities. PSYCHIATRIC: Alert and oriented -3. Appropriate affect. Intact judgment and insight. - Labs CBC & Chem 7: 03/20/18 09:02 03/20/18 09:02 Labs: Abnormal Lab Results - Last 24 Hours (Table) 03/19/18 03/19/18 03/20/18 Range/Units 16:44 20:37 07:37 RBC (4.30-5.90) m/uL Hgb (13.0-17.5) gm/dL Hct (39.0-53.0) % RDW (11.5-15.5) % Lymphocytes # (1.0-4.8) k/uL Sodium (137-145) mmol/L Carbon Dioxide (22-30) mmol/L Glucose (74-99) mg/dL POC Glucose (mg/dL) 195 H 130 H 107 H (75-99) mg/dL AST (17-59) U/L Total Protein (6.3-8.2) g/dL Albumin (3.5-5.0) g/dL 03/20/18 03/20/18 03/20/18 Range/Units 09:02 09:02 11:20 RBC 4.16 L (4.30-5.90) m/uL Hgb 12.1 L (13.0-17.5) gm/dL Hct 38.5 L (39.0-53.0) % RDW 15.6 H (11.5-15.5) % Lymphocytes # 0.3 L (1.0-4.8) k/uL Sodium 136 L (137-145) mmol/L Carbon Dioxide 34 H (22-30) mmol/L Glucose 171 H (74-99) mg/dL POC Glucose (mg/dL) 116 H (75-99) mg/dL AST 9 L (17-59) U/L Total Protein 5.5 L (6.3-8.2) g/dL Albumin 3.2 L (3.5-5.0) g/dL Microbiology - Last 24 Hours (Table) 03/18/18 14:10 Blood Culture - Preliminary Blood No Growth after 24 hours Assessment and Plan Plan: Assessment: #1. Acute exacerbation of chronic obstructive pulmonary disease , complicated by tracheobronchitis #2. Severe end-stage COPD, GOLD stage IV, with chronic hypoxemic and hypercapnic respiratory failure, with FEV1 of less than 20% of predicted #3. Multiple, and recurrent admissions for pulmonary infections #4. Chronic and ongoing nicotine dependence, currently down to 1 pack a day #5. History of chronic alcoholism with pancreatic insufficiency #6. Chronic pain syndrome #7. Hypertension, hyperlipidemia #8. History of diverticular disease status post sigmoid colectomy #9. Anxiety and depression Plan: Continue current medical treatment, patient is off BiPAP support, tolerating nasal cannula well. Increase activity as tolerated, anticipate further improvement. Smoking cessation was again revisited and strongly encouraged. I performed a history & physical examination of the patient and discussed their management with my nurse practitioner, [place] Monique. I reviewed the nurse practitioner's note and agree with the documented findings and plan of care. Lung sounds are positive for diffuse wheezes and rhonchi throughout the lung parikh. The findings and the impression was discussed with the patient. I attest to the documentation by the nurse practitioner. Time with Patient: Less than 30
[2018-03-20 17:18] LABS: Glucose,Whole Blood 133 mg/dL (75-99)
[2018-03-20 20:44] LABS: Glucose,Whole Blood 244 mg/dL (75-99)
[2018-03-20] MEDS: HEPARIN SODIUM,PORCINE 5,000 UNIT/ML 1 ML VIAL SQ SCH (21:25)
[2018-03-20] MEDS: ZOLPIDEM 5 MG TAB PO SCH (21:28)
[2018-03-21] MEDS: methylPREDNISolone SOD SUCCI 125 MG/2 ML VIAL IV SCH ×4 (00:46→16:56)
[2018-03-21] MEDS: ALPRAZolam 1 MG TAB PO PRN ×3 (00:46→16:56)
[2018-03-21] MEDS: oxyCODONE-APAP 10-325MG 1 EACH TAB PO PRN ×3 (05:46→21:33)
[2018-03-21 07:26] LABS: Glucose,Whole Blood 162 mg/dL (75-99)
[2018-03-21] MEDS: IPRATROPIUM-ALBUTEROL 3 ML NEB INHALATION SCH ×4 (07:42→20:19)
[2018-03-21] MEDS: SYMBICORT 80-4.5 MCG INHALER INHALATION SCH ×2 (07:51→20:19)
[2018-03-21] MEDS: METOPROLOL SUCCINATE (ER) 25 MG TAB.ER.24H PO SCH (07:59)
[2018-03-21] MEDS: LIPASE 5,000/PROTEASE 17,000/AMYLASE 24,000 PO SCH ×3 (07:59→22:08)
[2018-03-21] MEDS: LORATADINE 10 MG TAB PO SCH (07:59)
[2018-03-21] MEDS: FUROSEMIDE 40 MG TAB PO SCH (08:00)
[2018-03-21] MEDS: POTASSIUM CHLORIDE ER 10 MEQ TAB.ER.PRT PO SCH ×2 (08:00→20:49)
[2018-03-21] MEDS: DOXYCYCLINE 50 MG CAP PO SCH ×2 (08:00→20:49)
[2018-03-21] MEDS: busPIRone HCl 5 MG TAB PO SCH ×2 (08:00→20:49)
[2018-03-21] MEDS: risperiDONE 2 MG TAB PO SCH ×2 (08:00→20:50)
[2018-03-21] MEDS: ESCITALOPRAM 10 MG TAB PO SCH (08:00)
[2018-03-21] MEDS: NORTRIPTYLINE 10 MG CAP PO SCH (08:00)
[2018-03-21] MEDS: GABAPENTIN 100 MG CAP PO SCH ×2 (08:00→20:49)
[2018-03-21] MEDS: PANTOPRAZOLE 40 MG TABLET PO SCH (08:01)
[2018-03-21] MEDS: INSULIN ASPART 100 UNIT/ML 1 ML 10 ML VIAL SQ SCH ×4 (08:01→21:33)
[2018-03-21] MEDS: ATORVASTATIN 10 MG TAB PO SCH (08:01)
[2018-03-21] MEDS: HEPARIN SODIUM,PORCINE 5,000 UNIT/ML 1 ML VIAL SQ SCH ×2 (08:01→20:50)
[2018-03-21 09:14] LABS: Basophils % (A) 0 %; Eosinophils % (A) 0 %; HCT 40.5 % (39.0-53.0); HGB 12.6 gm/dL (13.0-17.5); Lymphocytes # (A) 0.3 k/uL (1.0-4.8); Lymphocytes % (A) 4 %; MCH 28.9 pg (25.0-35.0); MCHC 31.2 g/dL (31.0-37.0); MCV 92.7 fL (80.0-100.0); Mean Platelet Volume 6.8; Monocytes # (A) 0.3 k/uL (0-1.0); Monocytes % (A) 3 %; Neutrophils # (A) 7.7 k/uL (1.3-7.7); Neutrophils % (A) 92 %; Platelet Count 251 k/uL (150-450); RBC 4.37 m/uL (4.30-5.90); RDW 15.3 % (11.5-15.5); WBC 8.3 k/uL (3.8-10.6)
[2018-03-21 09:22] LABS: Albumin 3.4 g/dL (3.5-5.0); Anion Gap 6 mmol/L; Blood Urea Nitrogen 24 mg/dL (9-20); Carbon Dioxide 29 mmol/L (22-30); Chloride 100 mmol/L (98-107); Glucose 154 mg/dL (74-99); Sodium 135 mmol/L (137-145); Total Bilirubin 0.4 mg/dL (0.2-1.3); Total Protein 5.7 g/dL (6.3-8.2)
[2018-03-21 09:27] LABS: ALT 24 U/L (21-72); AST 20 U/L (17-59); Alkaline Phosphatase 44 U/L (38-126); Potassium 4.9 mmol/L (3.5-5.1)
--- NOTE | 2018-03-21 10:35 | P.PN ---
Subjective Progress Note Date: 03/21/18 Mychal Kimball is a 57-year-old male who presented to [facility] emergency room with a chief complaint of worsening shortness of breath and cough. Patient's symptoms have been progressive over the past several days. He is a current smoker, smoking up to 3 packs of cigarettes daily. Patient states that he has been taking his updrafts and inhalers at home without any significant relief, he was admitted to [facility] earlier this February with similar symptoms he had COPD exacerbation. He follows with his valve inspector Dr. 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 On review of systems patient denies any fever or chills no headache or dizziness no chest pain no nausea or vomiting no abdominal pain no diarrhea and no urinary symptoms. He was evaluated in emergency room, his respiratory rate was up to 28 pulse ox 93% on 3 L nasal cannula, labs drawn in the ER when and remarkable, chest x-ray did not reveal any acute cardiopulmonary process. He was admitted to medical floor and started on IV Solu-Medrol, inhaled bronchodilators, and inhaled steroids, pulmonary consultation was requested. On 03/20/2018 patient remains alert and oriented 3. Patient currently on 3 L nasal cannula. Patient remains on IV Solu-Medrol 60 mg every 6 hours. Pulmonary services are following. At This time patient denies chest pain. States some complaint of shortness breath. Patient denies nausea vomiting or diarrhea On 03/21/2018 patient remains alert and oriented 3. Patient currently on 3 L nasal cannula in which she wears at home. Patient remains on IV steroids. This time patient complains that he still slightly short of breath. Patient denies chest pain. Patient denies nausea vomiting or diarrhea. Patient denies any urinary burning or frequency. Objective - Vital Signs Vital signs: Vital Signs Temp 96.9 F L 03/21/18 05:47 Pulse 88 03/21/18 07:52 Resp 22 03/21/18 07:42 BP 134/85 03/21/18 05:47 Pulse Ox 98 03/21/18 07:42 Intake & Output 03/20/18 03/21/18 03/21/18 18:59 06:59 18:59 Output Total 800 650 Balance -800 -650 Output: Urine 800 650 - Exam Head normocephalic Neck supple Lungs diminished bilaterally with expiratory wheezes Heart regular rate and rhythm S1-S2, no rub or gallop Abdomen is soft nontender nondistended positive bowel sounds no hepatosplenomegaly Extremities no edema Neuro alert and orientated to 3 - Labs CBC & Chem 7: 03/21/18 08:29 03/21/18 08:29 Labs: Abnormal Lab Results - Last 24 Hours (Table) 03/20/18 03/20/18 03/20/18 Range/Units 11:20 17:14 20:43 Hgb (13.0-17.5) gm/dL Lymphocytes # (1.0-4.8) k/uL Sodium (137-145) mmol/L BUN (9-20) mg/dL Creatinine (0.66-1.25) mg/dL Glucose (74-99) mg/dL POC Glucose (mg/dL) 116 H 133 H 244 H (75-99) mg/dL Total Protein (6.3-8.2) g/dL Albumin (3.5-5.0) g/dL 03/21/18 03/21/18 03/21/18 Range/Units 07:18 08:29 08:29 Hgb 12.6 L (13.0-17.5) gm/dL Lymphocytes # 0.3 L (1.0-4.8) k/uL Sodium 135 L (137-145) mmol/L BUN 24 H (9-20) mg/dL Creatinine 0.58 L (0.66-1.25) mg/dL Glucose 154 H (74-99) mg/dL POC Glucose (mg/dL) 162 H (75-99) mg/dL Total Protein 5.7 L (6.3-8.2) g/dL Albumin 3.4 L (3.5-5.0) g/dL Microbiology - Last 24 Hours (Table) 03/18/18 14:10 Blood Culture - Preliminary Blood No Growth after 48 hours Assessment and Plan Assessment: #1 acute exacerbation of chronic obstructive pulmonary disease. Patient currently on IV Solu-Medrol 60 mg every 6 hours, inhaled steroids, inhaled bronchodilators and on doxycycline. Pulmonary service is following closely. Patient continuing BiPAP as needed and oxygen 3 L. blood culture showing no growth. #2 acute on chronic hypoxic and hypercapnic respiratory failure currently maintained on BiPAP #3 tobacco abuse. Nicotine patch has been ordered #4 underlying history of hypertension #5 underlying history of hyperlipidemia #6 underlying history of migraine headache #7 underlying history of depression #8 underlying history of anxiety disorder GI prophylaxis Protonix, DVT prophylaxis heparin I performed an examination of the patient and discussed their management with the Nurse Practitioner. I have reviewed the Nurse Practitioner's notes and agree with the documented findings and plan of care
--- NOTE | 2018-03-21 11:13 | P.PN ---
Subjective Progress Note Date: 03/21/18 Principal diagnosis: Acute exacerbation of chronic obstructive pulmonary disease This is a 57-year-old white male with a known history of severe emphysema, with underlying FEV1 of less than 20% on home oxygen, chronic and ongoing nicotine abuse, GERD/reflux, hypertension, hyperlipidemia, previous episodes of pneumonia , multiple admissions for pulmonary infections, underlying obstructive sleep apnea without device, History of chronic pancreatitis and pancreatic insufficiency, chronic diverticular disease with history of sigmoid colectomy, chronic pain syndrome, anxiety, depression, was recently hospitalized beginning of January for acute exacerbation of COPD. He was discharged home on 2017. On 03/18/2018 at 1300 patient presented to the emergency department with his family, for evaluation of worsening shortness of breath, coughing which has been progressive over the past several days. Despite patient's very poor lung function, and recurrent hospitalizations for pulmonary infections he continues to smoke, he states he is down to 1 pack a day. Complaining of chest congestion , he is able to bring up some green and yellow phlegm. No fever or chills. Denied any nausea, vomiting, or diarrhea. He has been compliant with his nebulized meds and inhalers. Denied any chest pain or angina type symptoms. Chest x-ray showed no acute cardiopulmonary process. EKG showed sinus tachycardia with a rate of 103 BPM. Afebrile. Patient had been placed on BiPAP support overnight in view of respiratory distress, pressures 12 over 4 and 40%. Started on IV steroids, nebulized bronchodilators and empiric antibiotics in the form of doxycycline. Improving, still remains on BiPAP support this morning, tolerating it well. On 03/20/2018 patient seen in follow-up on medical surgical floor. He'll nasal cannula this morning, had to wear the BiPAP last night. Breathing much easier today, lung sounds are still positive for diffuse wheezes, may be slightly better compared to yesterday's exam, vital signs are stable, patient is afebrile , currently on 3 L per nasal cannula with pulse ox is 98%. Today's chest x-ray have been noted, no leukocytosis, sodium is 136, CO2 is 34, the rest of the electrolytes and renal profile are unremarkable. He remains on doxycycline, nebulized bronchodilators and IV steroids, he is improving. On 03/21/2018 patient is seen in follow-up on medical surgical floor. Breathing much easier, did wear his BiPAP last night, currently on liters per nasal cannula, was pulse ox is 98%, sounds are positive for diffuse wheezes, good air entry noted bilaterally, less rhonchorous. We will increase activity today, afebrile. Blood cultures remain negative, patient is on doxycycline, nebulized bronchodilators and IV steroids. Continues to improve. Objective - Vital Signs Vital signs: Vital Signs Temp 96.9 F L 03/21/18 05:47 Pulse 88 03/21/18 07:52 Resp 22 03/21/18 07:42 BP 134/85 03/21/18 05:47 Pulse Ox 98 03/21/18 07:42 Intake & Output 03/20/18 03/21/18 03/21/18 18:59 06:59 18:59 Output Total 800 650 Balance -800 -650 Output: Urine 800 650 - Exam GENERAL EXAM: Alert, pleasant, 57-year-old white male on 2 L per nasal cannula, in no acute distress HEAD: Normocephalic/atraumatic. EYES: Normal reaction of pupils, equal size. Conjunctiva pink, sclera white. NOSE: Clear with pink turbinates. THROAT: No erythema or exudates. NECK: No masses, no JVD, no thyroid enlargement, no adenopathy. CHEST: No chest wall deformity. Symmetrical expansion. LUNGS: Equal air entry with diffuse wheezes, less congested on today's exam. CVS: Regular rate and rhythm, normal S1 and S2, no gallops, no murmurs, no rubs ABDOMEN: Soft, nontender. No hepatosplenomegaly, normal bowel sounds, no guarding or rigidity. EXTREMITIES: No clubbing, no edema, no cyanosis, 2+ pulses and upper and lower extremities. MUSCULOSKELETAL: Muscle strength and tone normal. SPINE: No scoliosis or deformity SKIN: No rashes CENTRAL NERVOUS SYSTEM: Alert and oriented -3. No focal deficits, tone is normal in all 4 extremities. PSYCHIATRIC: Alert and oriented -3. Appropriate affect. Intact judgment and insight. - Labs CBC & Chem 7: 03/21/18 08:29 03/21/18 08:29 Labs: Abnormal Lab Results - Last 24 Hours (Table) 03/20/18 03/20/18 03/20/18 Range/Units 11:20 17:14 20:43 Hgb (13.0-17.5) gm/dL Lymphocytes # (1.0-4.8) k/uL Sodium (137-145) mmol/L BUN (9-20) mg/dL Creatinine (0.66-1.25) mg/dL Glucose (74-99) mg/dL POC Glucose (mg/dL) 116 H 133 H 244 H (75-99) mg/dL Total Protein (6.3-8.2) g/dL Albumin (3.5-5.0) g/dL 03/21/18 03/21/18 03/21/18 Range/Units 07:18 08:29 08:29 Hgb 12.6 L (13.0-17.5) gm/dL Lymphocytes # 0.3 L (1.0-4.8) k/uL Sodium 135 L (137-145) mmol/L BUN 24 H (9-20) mg/dL Creatinine 0.58 L (0.66-1.25) mg/dL Glucose 154 H (74-99) mg/dL POC Glucose (mg/dL) 162 H (75-99) mg/dL Total Protein 5.7 L (6.3-8.2) g/dL Albumin 3.4 L (3.5-5.0) g/dL Microbiology - Last 24 Hours (Table) 03/18/18 14:10 Blood Culture - Preliminary Blood No Growth after 48 hours Assessment and Plan Plan: Assessment: #1. Acute exacerbation of chronic obstructive pulmonary disease , complicated by tracheobronchitis #2. Severe end-stage COPD, GOLD stage IV, with chronic hypoxemic and hypercapnic respiratory failure, with FEV1 of less than 20% of predicted #3. Multiple, and recurrent admissions for pulmonary infections #4. Chronic and ongoing nicotine dependence, currently down to 1 pack a day #5. History of chronic alcoholism with pancreatic insufficiency #6. Chronic pain syndrome #7. Hypertension, hyperlipidemia #8. History of diverticular disease status post sigmoid colectomy #9. Anxiety and depression Plan: Continue current medical treatment, increase activity as tolerated, patient continues to improve. BiPAP support as needed, issues overnight, patient could be considered for discharge home in the next 24 hours provided he continues to improve. I performed a history & physical examination of the patient and discussed their management with my nurse practitioner, [place] Monique. I reviewed the nurse practitioner's note and agree with the documented findings and plan of care. Lung sounds are positive for diffuse wheezes and rhonchi throughout the lung parikh. The findings and the impression was discussed with the patient. I attest to the documentation by the nurse practitioner. Time with Patient: Less than 30
[2018-03-21] MEDS: ROFLUMILAST 500 MG PO SCH (11:56)
[2018-03-21] MEDS: NICOTINE 21MG/24HR PATCH TRANSDERM SCH (11:56)
[2018-03-21] MEDS: IBUPROFEN 800 MG TAB PO PRN ×2 (12:16→20:50)
[2018-03-21 12:44] LABS: Glucose,Whole Blood 180 mg/dL (75-99)
[2018-03-21 17:13] LABS: Glucose,Whole Blood 103 mg/dL (75-99)
[2018-03-21] MEDS: IPRATROPIUM-ALBUTEROL 3 ML NEB INHALATION PRN (20:38)
[2018-03-21 20:40] LABS: Glucose,Whole Blood 140 mg/dL (75-99)
[2018-03-21] MEDS: ZOLPIDEM 5 MG TAB PO SCH (20:50)
[2018-03-22] MEDS: methylPREDNISolone SOD SUCCI 125 MG/2 ML VIAL IV SCH ×5 (00:42→23:59)
[2018-03-22] MEDS: IPRATROPIUM-ALBUTEROL 3 ML NEB INHALATION PRN (03:20)
[2018-03-22] MEDS: oxyCODONE-APAP 10-325MG 1 EACH TAB PO PRN ×3 (04:55→21:44)
[2018-03-22] MEDS: ALPRAZolam 1 MG TAB PO PRN ×3 (04:55→21:44)
[2018-03-22 07:14] LABS: Glucose,Whole Blood 137 mg/dL (75-99)
[2018-03-22] MEDS: INSULIN ASPART 100 UNIT/ML 1 ML 10 ML VIAL SQ SCH ×4 (08:26→21:45)
[2018-03-22] MEDS: DOXYCYCLINE 50 MG CAP PO SCH ×2 (08:27→21:46)
[2018-03-22] MEDS: busPIRone HCl 5 MG TAB PO SCH ×2 (08:27→21:43)
[2018-03-22] MEDS: NICOTINE 21MG/24HR PATCH TRANSDERM SCH (08:28)
[2018-03-22] MEDS: GABAPENTIN 100 MG CAP PO SCH ×2 (08:28→21:45)
[2018-03-22] MEDS: METOPROLOL SUCCINATE (ER) 25 MG TAB.ER.24H PO SCH (08:28)
[2018-03-22] MEDS: HEPARIN SODIUM,PORCINE 5,000 UNIT/ML 1 ML VIAL SQ SCH ×2 (08:28→21:45)
[2018-03-22] MEDS: ESCITALOPRAM 10 MG TAB PO SCH (08:28)
[2018-03-22] MEDS: LORATADINE 10 MG TAB PO SCH (08:28)
[2018-03-22] MEDS: risperiDONE 2 MG TAB PO SCH ×2 (08:28→21:45)
[2018-03-22] MEDS: ATORVASTATIN 10 MG TAB PO SCH (08:28)
[2018-03-22] MEDS: NORTRIPTYLINE 10 MG CAP PO SCH (08:28)
[2018-03-22] MEDS: LIPASE 5,000/PROTEASE 17,000/AMYLASE 24,000 PO SCH ×3 (08:28→21:46)
[2018-03-22] MEDS: POTASSIUM CHLORIDE ER 10 MEQ TAB.ER.PRT PO SCH ×2 (08:28→21:45)
[2018-03-22] MEDS: PANTOPRAZOLE 40 MG TABLET PO SCH (08:29)
[2018-03-22] MEDS: FUROSEMIDE 40 MG TAB PO SCH (08:29)
[2018-03-22] MEDS: IPRATROPIUM-ALBUTEROL 3 ML NEB INHALATION SCH ×4 (08:46→20:16)
[2018-03-22] MEDS: SYMBICORT 80-4.5 MCG INHALER INHALATION SCH (08:51)
[2018-03-22] MEDS: ROFLUMILAST 500 MG PO SCH (09:06)
[2018-03-22 09:09] LABS: Basophils % (A) 0 %; Eosinophils # (A) 0.1 k/uL (0-0.7); Eosinophils % (A) 1 %; HCT 40.5 % (39.0-53.0); HGB 12.7 gm/dL (13.0-17.5); Lymphocytes # (A) 0.3 k/uL (1.0-4.8); Lymphocytes % (A) 4 %; MCH 29.2 pg (25.0-35.0); MCHC 31.4 g/dL (31.0-37.0); MCV 92.8 fL (80.0-100.0); Mean Platelet Volume 6.8; Monocytes # (A) 0.2 k/uL (0-1.0); Monocytes % (A) 3 %; Neutrophils # (A) 6.9 k/uL (1.3-7.7); Neutrophils % (A) 93 %; Platelet Count 258 k/uL (150-450); RBC 4.36 m/uL (4.30-5.90); RDW 15.2 % (11.5-15.5); WBC 7.4 k/uL (3.8-10.6)
[2018-03-22 09:30] LABS: ALT 25 U/L (21-72); AST 15 U/L (17-59); Albumin 3.2 g/dL (3.5-5.0); Alkaline Phosphatase 49 U/L (38-126); Anion Gap 6 mmol/L; Blood Urea Nitrogen 32 mg/dL (9-20); Calcium 8.2 mg/dL (8.4-10.2); Carbon Dioxide 33 mmol/L (22-30); Chloride 98 mmol/L (98-107); Glucose 222 mg/dL (74-99); Potassium 4.7 mmol/L (3.5-5.1); Sodium 137 mmol/L (137-145); Total Bilirubin 0.4 mg/dL (0.2-1.3); Total Protein 5.5 g/dL (6.3-8.2)
--- NOTE | 2018-03-22 11:31 | P.PN ---
Subjective Progress Note Date: 03/22/18 Principal diagnosis: Acute exacerbation of chronic obstructive pulmonary disease This is a 57-year-old white male with a known history of severe emphysema, with underlying FEV1 of less than 20% on home oxygen, chronic and ongoing nicotine abuse, GERD/reflux, hypertension, hyperlipidemia, previous episodes of pneumonia , multiple admissions for pulmonary infections, underlying obstructive sleep apnea without device, History of chronic pancreatitis and pancreatic insufficiency, chronic diverticular disease with history of sigmoid colectomy, chronic pain syndrome, anxiety, depression, was recently hospitalized beginning of January for acute exacerbation of COPD. He was discharged home on 2017. On 03/18/2018 at 1300 patient presented to the emergency department with his family, for evaluation of worsening shortness of breath, coughing which has been progressive over the past several days. Despite patient's very poor lung function, and recurrent hospitalizations for pulmonary infections he continues to smoke, he states he is down to 1 pack a day. Complaining of chest congestion , he is able to bring up some green and yellow phlegm. No fever or chills. Denied any nausea, vomiting, or diarrhea. He has been compliant with his nebulized meds and inhalers. Denied any chest pain or angina type symptoms. Chest x-ray showed no acute cardiopulmonary process. EKG showed sinus tachycardia with a rate of 103 BPM. Afebrile. Patient had been placed on BiPAP support overnight in view of respiratory distress, pressures 12 over 4 and 40%. Started on IV steroids, nebulized bronchodilators and empiric antibiotics in the form of doxycycline. Improving, still remains on BiPAP support this morning, tolerating it well. On 03/20/2018 patient seen in follow-up on medical surgical floor. He'll nasal cannula this morning, had to wear the BiPAP last night. Breathing much easier today, lung sounds are still positive for diffuse wheezes, may be slightly better compared to yesterday's exam, vital signs are stable, patient is afebrile , currently on 3 L per nasal cannula with pulse ox is 98%. Today's chest x-ray have been noted, no leukocytosis, sodium is 136, CO2 is 34, the rest of the electrolytes and renal profile are unremarkable. He remains on doxycycline, nebulized bronchodilators and IV steroids, he is improving. On 03/21/2018 patient is seen in follow-up on medical surgical floor. Breathing much easier, did wear his BiPAP last night, currently on liters per nasal cannula, was pulse ox is 98%, sounds are positive for diffuse wheezes, good air entry noted bilaterally, less rhonchorous. We will increase activity today, afebrile. Blood cultures remain negative, patient is on doxycycline, nebulized bronchodilators and IV steroids. Continues to improve. On 03/22/2018 patient seen in follow-up on medical surgical floor. This morning he had the episode of acute respiratory distress, had to be placed back on BiPAP support. Lung sounds tight and wheezy. Patient remains afebrile, dynamically stable. Cultures are negative. Stat chest x-ray was obtained, and showed no acute pulmonary process. he continues on empiric antibiotics, IV steroids, and nebulized bronchodilators. Objective - Vital Signs Vital signs: Vital Signs Temp 97.0 F L 03/22/18 06:16 Pulse 85 03/22/18 08:59 Resp 19 03/22/18 06:16 BP 142/89 03/22/18 06:16 Pulse Ox 96 03/22/18 06:16 Intake & Output 03/21/18 03/22/18 03/22/18 18:59 06:59 18:59 Intake Total 200 Output Total 300 900 Balance -300 -900 200 Intake: Oral 200 Output: Urine 300 900 Other: Voiding Method Urinal - Exam GENERAL EXAM: Alert, pleasant, 57-year-old white male on BiPAP support, and mild to moderate amount of dyspnea HEAD: Normocephalic/atraumatic. EYES: Normal reaction of pupils, equal size. Conjunctiva pink, sclera white. NOSE: Clear with pink turbinates. THROAT: No erythema or exudates. NECK: No masses, no JVD, no thyroid enlargement, no adenopathy. CHEST: No chest wall deformity. Symmetrical expansion. LUNGS: Equal air entry with diffuse wheezes CVS: Regular rate and rhythm, normal S1 and S2, no gallops, no murmurs, no rubs ABDOMEN: Soft, nontender. No hepatosplenomegaly, normal bowel sounds, no guarding or rigidity. EXTREMITIES: No clubbing, no edema, no cyanosis, 2+ pulses and upper and lower extremities. MUSCULOSKELETAL: Muscle strength and tone normal. SPINE: No scoliosis or deformity SKIN: No rashes CENTRAL NERVOUS SYSTEM: Alert and oriented -3. No focal deficits, tone is normal in all 4 extremities. PSYCHIATRIC: Alert and oriented -3. Appropriate affect. Intact judgment and insight. - Labs CBC & Chem 7: 03/22/18 08:42 03/22/18 08:42 Labs: Abnormal Lab Results - Last 24 Hours (Table) 03/21/18 03/21/18 03/21/18 Range/Units 12:42 17:10 20:38 Hgb (13.0-17.5) gm/dL Lymphocytes # (1.0-4.8) k/uL Carbon Dioxide (22-30) mmol/L BUN (9-20) mg/dL Glucose (74-99) mg/dL POC Glucose (mg/dL) 180 H 103 H 140 H (75-99) mg/dL Calcium (8.4-10.2) mg/dL AST (17-59) U/L Total Protein (6.3-8.2) g/dL Albumin (3.5-5.0) g/dL 03/22/18 03/22/18 03/22/18 Range/Units 07:11 08:42 08:42 Hgb 12.7 L (13.0-17.5) gm/dL Lymphocytes # 0.3 L (1.0-4.8) k/uL Carbon Dioxide 33 H (22-30) mmol/L BUN 32 H (9-20) mg/dL Glucose 222 H (74-99) mg/dL POC Glucose (mg/dL) 137 H (75-99) mg/dL Calcium 8.2 L (8.4-10.2) mg/dL AST 15 L (17-59) U/L Total Protein 5.5 L (6.3-8.2) g/dL Albumin 3.2 L (3.5-5.0) g/dL Microbiology - Last 24 Hours (Table) 03/18/18 14:10 Blood Culture - Preliminary Blood No Growth after 72 hours Assessment and Plan Plan: Assessment: #1. Acute exacerbation of chronic obstructive pulmonary disease , complicated by tracheobronchitis #2. Severe end-stage COPD, GOLD stage IV, with chronic hypoxemic and hypercapnic respiratory failure, with FEV1 of less than 20% of predicted #3. Multiple, and recurrent admissions for pulmonary infections #4. Chronic and ongoing nicotine dependence, currently down to 1 pack a day #5. History of chronic alcoholism with pancreatic insufficiency #6. Chronic pain syndrome #7. Hypertension, hyperlipidemia #8. History of diverticular disease status post sigmoid colectomy #9. Anxiety and depression Plan: Continue BiPAP support, continue current medical treatment, IV steroids, nebulized bronchodilators, and empiric antibiotics. Stat chest x-ray was obtained, and reviewed by Dr. Paniagua, and showed no acute pulmonary process. I performed a history & physical examination of the patient and discussed their management with my nurse practitioner, [place] Monique. I reviewed the nurse practitioner's note and agree with the documented findings and plan of care. Lung sounds are positive for diffuse wheezes and rhonchi throughout the lung parikh. The findings and the impression was discussed with the patient. I attest to the documentation by the nurse practitioner. Time with Patient: Less than 30
--- NOTE | 2018-03-22 11:56 | XR ---
EXAMINATION TYPE: XR chest 1V portable DATE OF EXAM: 03/22/2018 COMPARISON: Prior chest x-ray 03/18/2018 HISTORY: Shortness of breath TECHNIQUE: Single frontal view of the chest is obtained. FINDINGS: Lung volumes are prominent. There is no focal air space opacity, pleural effusion, or pneum othorax seen. The cardiac silhouette size is within normal limits. The osseous structures are inta ct. IMPRESSION: No acute process.
[2018-03-22 12:05] LABS: Glucose,Whole Blood 104 mg/dL (75-99)
--- NOTE | 2018-03-22 12:30 | P.PN ---
Subjective Progress Note Date: 03/22/18 Mychal Kimball is a 57-year-old male who presented to [facility] emergency room with a chief complaint of worsening shortness of breath and cough. Patient's symptoms have been progressive over the past several days. He is a current smoker, smoking up to 3 packs of cigarettes daily. Patient states that he has been taking his updrafts and inhalers at home without any significant relief, he was admitted to [facility] earlier this February with similar symptoms he had COPD exacerbation. 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 On review of systems patient denies any fever or chills no headache or dizziness no chest pain no nausea or vomiting no abdominal pain no diarrhea and no urinary symptoms. He was evaluated in emergency room, his respiratory rate was up to 28 pulse ox 93% on 3 L nasal cannula, labs drawn in the ER when and remarkable, chest x-ray did not reveal any acute cardiopulmonary process. He was admitted to medical floor and started on IV Solu-Medrol, inhaled bronchodilators, and inhaled steroids, pulmonary consultation was requested. On 03/20/2018 patient remains alert and oriented 3. Patient currently on 3 L nasal cannula. Patient remains on IV Solu-Medrol 60 mg every 6 hours. Pulmonary services are following. At This time patient denies chest pain. States some complaint of shortness breath. Patient denies nausea vomiting or diarrhea On 03/21/2018 patient remains alert and oriented 3. Patient currently on 3 L nasal cannula in which she wears at home. Patient remains on IV steroids. This time patient complains that he still slightly short of breath. Patient denies chest pain. Patient denies nausea vomiting or diarrhea. Patient denies any urinary burning or frequency. On 03/22/2018 patient is alert and oriented 3. Patient is complaining he is more short of breath and requiring to wear the BiPAP. Chest x-ray has been ordered. Patient denies any chest pain. Patient denies nausea vomiting or diarrhea. Patient denies any urinary burning or frequency. Objective - Vital Signs Vital signs: Vital Signs Temp 97.0 F L 03/22/18 06:16 Pulse 85 03/22/18 08:59 Resp 19 03/22/18 06:16 BP 142/89 03/22/18 06:16 Pulse Ox 96 03/22/18 06:16 Intake & Output 03/21/18 03/22/18 03/22/18 18:59 06:59 18:59 Intake Total 200 Output Total 300 900 Balance -300 -900 200 Intake: Oral 200 Output: Urine 300 900 Other: Voiding Method Urinal - Exam Head normocephalic Neck supple Lungs diminished bilaterally with expiratory wheezes Heart regular rate and rhythm S1-S2, no rub or gallop Abdomen is soft nontender nondistended positive bowel sounds no hepatosplenomegaly Extremities no edema Neuro alert and orientated to 3 - Labs CBC & Chem 7: 03/22/18 08:42 03/22/18 08:42 Labs: Abnormal Lab Results - Last 24 Hours (Table) 03/21/18 03/21/18 03/21/18 Range/Units 12:42 17:10 20:38 Hgb (13.0-17.5) gm/dL Lymphocytes # (1.0-4.8) k/uL Carbon Dioxide (22-30) mmol/L BUN (9-20) mg/dL Glucose (74-99) mg/dL POC Glucose (mg/dL) 180 H 103 H 140 H (75-99) mg/dL Calcium (8.4-10.2) mg/dL AST (17-59) U/L Total Protein (6.3-8.2) g/dL Albumin (3.5-5.0) g/dL 03/22/18 03/22/18 03/22/18 Range/Units 07:11 08:42 08:42 Hgb 12.7 L (13.0-17.5) gm/dL Lymphocytes # 0.3 L (1.0-4.8) k/uL Carbon Dioxide 33 H (22-30) mmol/L BUN 32 H (9-20) mg/dL Glucose 222 H (74-99) mg/dL POC Glucose (mg/dL) 137 H (75-99) mg/dL Calcium 8.2 L (8.4-10.2) mg/dL AST 15 L (17-59) U/L Total Protein 5.5 L (6.3-8.2) g/dL Albumin 3.2 L (3.5-5.0) g/dL 03/22/18 Range/Units 11:59 Hgb (13.0-17.5) gm/dL Lymphocytes # (1.0-4.8) k/uL Carbon Dioxide (22-30) mmol/L BUN (9-20) mg/dL Glucose (74-99) mg/dL POC Glucose (mg/dL) 104 H (75-99) mg/dL Calcium (8.4-10.2) mg/dL AST (17-59) U/L Total Protein (6.3-8.2) g/dL Albumin (3.5-5.0) g/dL Microbiology - Last 24 Hours (Table) 03/18/18 14:10 Blood Culture - Preliminary Blood No Growth after 72 hours Assessment and Plan Assessment: #1 acute exacerbation of chronic obstructive pulmonary disease. Patient currently on IV Solu-Medrol 60 mg every 6 hours, inhaled steroids, inhaled bronchodilators and on doxycycline. Pulmonary service is following closely. Patient continuing BiPAP as needed and oxygen 3 L. blood culture showing no growth. Patient had episode of acute respiratory distress this a.m. and was placed back on IPAP. Chest x-ray obtained in no acute process. Pulmonary services are following closely #2 acute on chronic hypoxic and hypercapnic respiratory failure currently maintained on BiPAP #3 tobacco abuse. Nicotine patch has been ordered #4 underlying history of hypertension #5 underlying history of hyperlipidemia #6 underlying history of migraine headache #7 underlying history of depression #8 underlying history of anxiety disorder GI prophylaxis Protonix, DVT prophylaxis heparin I performed an examination of the patient and discussed their management with the Nurse Practitioner. I have reviewed the Nurse Practitioner's notes and agree with the documented findings and plan of care
[2018-03-22 17:11] LABS: Glucose,Whole Blood 196 mg/dL (75-99)
[2018-03-22] MEDS: FORMOTEROL FUMARATE 20 MCG/2 ML NEBU INHALATION SCH (20:16)
[2018-03-22] MEDS: BUDESONIDE 1 MG/2 ML NEBU INHALATION SCH (20:16)
[2018-03-22 21:20] LABS: Glucose,Whole Blood 222 mg/dL (75-99)
[2018-03-22] MEDS: ZOLPIDEM 5 MG TAB PO SCH (21:50)
[2018-03-23 01:13] VITALS: RESP 20
[2018-03-23] MEDS: ALPRAZolam 1 MG TAB PO PRN ×3 (05:10→20:40)
[2018-03-23] MEDS: oxyCODONE-APAP 10-325MG 1 EACH TAB PO PRN ×3 (05:11→20:42)
[2018-03-23] MEDS: methylPREDNISolone SOD SUCCI 125 MG/2 ML VIAL IV SCH ×4 (05:11→23:20)
[2018-03-23 07:22] LABS: Glucose,Whole Blood 129 mg/dL (75-99)
[2018-03-23] MEDS: INSULIN ASPART 100 UNIT/ML 1 ML 10 ML VIAL SQ SCH ×4 (07:36→20:50)
[2018-03-23] MEDS: DOXYCYCLINE 50 MG CAP PO SCH (07:39)
[2018-03-23] MEDS: risperiDONE 2 MG TAB PO SCH ×2 (07:39→20:45)
[2018-03-23] MEDS: POTASSIUM CHLORIDE ER 10 MEQ TAB.ER.PRT PO SCH ×2 (07:39→20:44)
[2018-03-23] MEDS: NORTRIPTYLINE 10 MG CAP PO SCH (07:40)
[2018-03-23] MEDS: LIPASE 5,000/PROTEASE 17,000/AMYLASE 24,000 PO SCH ×3 (07:40→21:50)
[2018-03-23] MEDS: busPIRone HCl 5 MG TAB PO SCH ×2 (07:40→20:45)
[2018-03-23] MEDS: PANTOPRAZOLE 40 MG TABLET PO SCH (07:41)
[2018-03-23] MEDS: FUROSEMIDE 40 MG TAB PO SCH (07:41)
[2018-03-23] MEDS: GABAPENTIN 100 MG CAP PO SCH ×2 (07:41→20:40)
[2018-03-23] MEDS: ESCITALOPRAM 10 MG TAB PO SCH (07:41)
[2018-03-23] MEDS: NICOTINE 21MG/24HR PATCH TRANSDERM SCH (07:41)
[2018-03-23] MEDS: METOPROLOL SUCCINATE (ER) 25 MG TAB.ER.24H PO SCH (07:41)
[2018-03-23] MEDS: ATORVASTATIN 10 MG TAB PO SCH (07:41)
[2018-03-23] MEDS: HEPARIN SODIUM,PORCINE 5,000 UNIT/ML 1 ML VIAL SQ SCH ×2 (07:41→21:16)
[2018-03-23] MEDS: ROFLUMILAST 500 MG PO SCH (07:42)
[2018-03-23] MEDS: LORATADINE 10 MG TAB PO SCH (07:42)
[2018-03-23] MEDS: BUDESONIDE 1 MG/2 ML NEBU INHALATION SCH ×2 (07:43→19:56)
[2018-03-23] MEDS: FORMOTEROL FUMARATE 20 MCG/2 ML NEBU INHALATION SCH ×2 (07:44→19:56)
[2018-03-23] MEDS: IPRATROPIUM-ALBUTEROL 3 ML NEB INHALATION SCH ×4 (07:44→19:56)
[2018-03-23 08:18] LABS: Basophils % (A) 0 %; Eosinophils % (A) 0 %; HCT 40.9 % (39.0-53.0); Lymphocytes # (A) 0.5 k/uL (1.0-4.8); Lymphocytes % (A) 6 %; MCH 29.3 pg (25.0-35.0); MCHC 31.8 g/dL (31.0-37.0); MCV 92.3 fL (80.0-100.0); Mean Platelet Volume 6.7; Monocytes # (A) 0.4 k/uL (0-1.0); Monocytes % (A) 4 %; Neutrophils # (A) 7.3 k/uL (1.3-7.7); Neutrophils % (A) 89 %; Platelet Count 254 k/uL (150-450); RBC 4.43 m/uL (4.30-5.90); WBC 8.2 k/uL (3.8-10.6)
[2018-03-23 08:31] LABS: ALT 28 U/L (21-72); AST 15 U/L (17-59); Albumin 3.3 g/dL (3.5-5.0); Alkaline Phosphatase 52 U/L (38-126); Anion Gap 3 mmol/L; Blood Urea Nitrogen 30 mg/dL (9-20); Calcium 8.7 mg/dL (8.4-10.2); Carbon Dioxide 40 mmol/L (22-30); Chloride 96 mmol/L (98-107); Glucose 126 mg/dL (74-99); Sodium 139 mmol/L (137-145); Total Bilirubin 0.3 mg/dL (0.2-1.3); Total Protein 5.7 g/dL (6.3-8.2)
--- NOTE | 2018-03-23 10:45 | P.PN ---
Subjective Progress Note Date: 03/23/18 Principal diagnosis: Acute exacerbation of chronic obstructive pulmonary disease This is a 57-year-old white male with a known history of severe emphysema, with underlying FEV1 of less than 20% on home oxygen, chronic and ongoing nicotine abuse, GERD/reflux, hypertension, hyperlipidemia, previous episodes of pneumonia , multiple admissions for pulmonary infections, underlying obstructive sleep apnea without device, History of chronic pancreatitis and pancreatic insufficiency, chronic diverticular disease with history of sigmoid colectomy, chronic pain syndrome, anxiety, depression, was recently hospitalized beginning of January for acute exacerbation of COPD. He was discharged home on 2017. On 03/18/2018 at 1300 patient presented to the emergency department with his family, for evaluation of worsening shortness of breath, coughing which has been progressive over the past several days. Despite patient's very poor lung function, and recurrent hospitalizations for pulmonary infections he continues to smoke, he states he is down to 1 pack a day. Complaining of chest congestion , he is able to bring up some green and yellow phlegm. No fever or chills. Denied any nausea, vomiting, or diarrhea. He has been compliant with his nebulized meds and inhalers. Denied any chest pain or angina type symptoms. Chest x-ray showed no acute cardiopulmonary process. EKG showed sinus tachycardia with a rate of 103 BPM. Afebrile. Patient had been placed on BiPAP support overnight in view of respiratory distress, pressures 12 over 4 and 40%. Started on IV steroids, nebulized bronchodilators and empiric antibiotics in the form of doxycycline. Improving, still remains on BiPAP support this morning, tolerating it well. On 03/20/2018 patient seen in follow-up on medical surgical floor. He'll nasal cannula this morning, had to wear the BiPAP last night. Breathing much easier today, lung sounds are still positive for diffuse wheezes, may be slightly better compared to yesterday's exam, vital signs are stable, patient is afebrile , currently on 3 L per nasal cannula with pulse ox is 98%. Today's chest x-ray have been noted, no leukocytosis, sodium is 136, CO2 is 34, the rest of the electrolytes and renal profile are unremarkable. He remains on doxycycline, nebulized bronchodilators and IV steroids, he is improving. On 03/21/2018 patient is seen in follow-up on medical surgical floor. Breathing much easier, did wear his BiPAP last night, currently on liters per nasal cannula, was pulse ox is 98%, sounds are positive for diffuse wheezes, good air entry noted bilaterally, less rhonchorous. We will increase activity today, afebrile. Blood cultures remain negative, patient is on doxycycline, nebulized bronchodilators and IV steroids. Continues to improve. On 03/22/2018 patient seen in follow-up on medical surgical floor. This morning he had the episode of acute respiratory distress, had to be placed back on BiPAP support. Lung sounds tight and wheezy. Patient remains afebrile, dynamically stable. Cultures are negative. Stat chest x-ray was obtained, and showed no acute pulmonary process. he continues on empiric antibiotics, IV steroids, and nebulized bronchodilators. On 03/23/2018 patient is seen again in follow-up on medical surgical floor. Currently on nasal cannula, he did wear his BiPAP last night, lung sounds are positive for a few scattered wheezes, overall improved. Today's lab work showed WBC of 8.2, hemoglobin of 13, sodium is 139, potassium is 4.0, chloride is 96, CO2 is 40, BUN is 30, creatinine 0.73. He remains on IV steroids, antibiotics, nebulized bronchodilators. Possibility of a home BiPAP unit was discussed with the patient. Objective - Vital Signs Vital signs: Vital Signs Temp 97.9 F 03/23/18 07:00 Pulse 76 03/23/18 08:05 Resp 20 03/23/18 07:00 BP 144/98 03/23/18 07:00 Pulse Ox 100 03/23/18 07:00 Intake & Output 03/22/18 03/23/18 03/23/18 18:59 06:59 18:59 Intake Total 1100 1000 400 Output Total 1500 900 700 Balance -400 100 -300 Weight 81.2 kg 81.2 kg Intake: Oral 1100 1000 400 Output: Urine 1500 900 700 Other: Voiding Method Urinal Urinal Urinal # Voids 1 - Exam GENERAL EXAM: Alert, pleasant, 57-year-old white male on 3 L per nasal cannula, conversational dyspnea is present HEAD: Normocephalic/atraumatic. EYES: Normal reaction of pupils, equal size. Conjunctiva pink, sclera white. NOSE: Clear with pink turbinates. THROAT: No erythema or exudates. NECK: No masses, no JVD, no thyroid enlargement, no adenopathy. CHEST: No chest wall deformity. Symmetrical expansion. LUNGS: Equal air entry with diffuse wheezes CVS: Regular rate and rhythm, normal S1 and S2, no gallops, no murmurs, no rubs ABDOMEN: Soft, nontender. No hepatosplenomegaly, normal bowel sounds, no guarding or rigidity. EXTREMITIES: No clubbing, no edema, no cyanosis, 2+ pulses and upper and lower extremities. MUSCULOSKELETAL: Muscle strength and tone normal. SPINE: No scoliosis or deformity SKIN: No rashes CENTRAL NERVOUS SYSTEM: Alert and oriented -3. No focal deficits, tone is normal in all 4 extremities. PSYCHIATRIC: Alert and oriented -3. Appropriate affect. Intact judgment and insight. - Labs CBC & Chem 7: 03/23/18 07:28 03/23/18 07:28 Labs: Abnormal Lab Results - Last 24 Hours (Table) 03/22/18 03/22/18 03/22/18 Range/Units 11:59 17:06 21:01 Lymphocytes # (1.0-4.8) k/uL Chloride (98-107) mmol/L Carbon Dioxide (22-30) mmol/L BUN (9-20) mg/dL Glucose (74-99) mg/dL POC Glucose (mg/dL) 104 H 196 H 222 H (75-99) mg/dL AST (17-59) U/L Total Protein (6.3-8.2) g/dL Albumin (3.5-5.0) g/dL 03/23/18 03/23/18 03/23/18 Range/Units 07:07 07:28 07:28 Lymphocytes # 0.5 L (1.0-4.8) k/uL Chloride 96 L (98-107) mmol/L Carbon Dioxide 40 H (22-30) mmol/L BUN 30 H (9-20) mg/dL Glucose 126 H (74-99) mg/dL POC Glucose (mg/dL) 129 H (75-99) mg/dL AST 15 L (17-59) U/L Total Protein 5.7 L (6.3-8.2) g/dL Albumin 3.3 L (3.5-5.0) g/dL Microbiology - Last 24 Hours (Table) 03/18/18 14:10 Blood Culture - Preliminary Blood No Growth after 96 hours Assessment and Plan Plan: Assessment: #1. Acute exacerbation of chronic obstructive pulmonary disease , complicated by tracheobronchitis #2. Severe end-stage COPD, GOLD stage IV, with chronic hypoxemic and hypercapnic respiratory failure, with FEV1 of less than 20% of predicted #3. Multiple, and recurrent admissions for pulmonary infections #4. Chronic and ongoing nicotine dependence, currently down to 1 pack a day #5. History of chronic alcoholism with pancreatic insufficiency #6. Chronic pain syndrome #7. Hypertension, hyperlipidemia #8. History of diverticular disease status post sigmoid colectomy #9. Anxiety and depression Plan: Continue current medical treatment, will obtain a blood gas on home dose FiO2, to see if patient qualifies for home BiPAP. Continue all other current medical treatments. I performed a history & physical examination of the patient and discussed their management with my nurse practitioner, [place] Monique. I reviewed the nurse practitioner's note and agree with the documented findings and plan of care. Lung sounds are positive for diffuse wheezes and rhonchi throughout the lung parikh. The findings and the impression was discussed with the patient. I attest to the documentation by the nurse practitioner. Time with Patient: Less than 30
[2018-03-23 11:34] LABS: ABG Base Excess 17.6 mmol/L; ABG Oxygen Saturation 94.3 % (94-97); ABG PCO2 58 mmHg (35-45); ABG PH 7.47 (7.35-7.45); ABG PO2 64 mmHg (83-108); ABG TCO2 43 mmol/L (19-24)
[2018-03-23 12:33] LABS: Glucose,Whole Blood 123 mg/dL (75-99)
--- NOTE | 2018-03-23 15:35 | P.PN ---
Subjective Progress Note Date: 03/23/18 Mychal Kimball is a 57-year-old male who presented to [facility] emergency room with a chief complaint of worsening shortness of breath and cough. Patient's symptoms have been progressive over the past several days. He is a current smoker, smoking up to 3 packs of cigarettes daily. Patient states that he has been taking his updrafts and inhalers at home without any significant relief, he was admitted to [facility] earlier this February with similar symptoms he had COPD exacerbation. He follows with his administration internship Dr. 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 On review of systems patient denies any fever or chills no headache or dizziness no chest pain no nausea or vomiting no abdominal pain no diarrhea and no urinary symptoms. He was evaluated in emergency room, his respiratory rate was up to 28 pulse ox 93% on 3 L nasal cannula, labs drawn in the ER when and remarkable, chest x-ray did not reveal any acute cardiopulmonary process. He was admitted to medical floor and started on IV Solu-Medrol, inhaled bronchodilators, and inhaled steroids, pulmonary consultation was requested. On 03/20/2018 patient remains alert and oriented 3. Patient currently on 3 L nasal cannula. Patient remains on IV Solu-Medrol 60 mg every 6 hours. Pulmonary services are following. At This time patient denies chest pain. States some complaint of shortness breath. Patient denies nausea vomiting or diarrhea On 03/21/2018 patient remains alert and oriented 3. Patient currently on 3 L nasal cannula in which she wears at home. Patient remains on IV steroids. This time patient complains that he still slightly short of breath. Patient denies chest pain. Patient denies nausea vomiting or diarrhea. Patient denies any urinary burning or frequency. On 03/22/2018 patient is alert and oriented 3. Patient is complaining he is more short of breath and requiring to wear the BiPAP. Chest x-ray has been ordered. Patient denies any chest pain. Patient denies nausea vomiting or diarrhea. Patient denies any urinary burning or frequency. On 03/23/2018 patient states he is feeling improved today. Breathing is much improved patient is not currently on BiPAP. Patient still having the tentorium wheezes on auscultation. Pulmonary services has ordered blood gas for home BiPAP use. Patient remains on IV steroids at this time. Patient denies chest pain. Patient denies any urinary burning or frequency. Patient denies nausea vomiting or diarrhea Objective - Vital Signs Vital signs: Vital Signs Temp 98.0 F 03/23/18 14:20 Pulse 88 03/23/18 14:20 Resp 20 03/23/18 14:20 BP 150/95 03/23/18 14:20 Pulse Ox 95 03/23/18 14:20 Intake & Output 03/22/18 03/23/18 03/23/18 18:59 06:59 18:59 Intake Total 1100 1000 800 Output Total 0660 406 0495 Balance -400 100 -2100 Weight 81.2 kg 81.2 kg Intake: Oral 1100 1000 800 Output: Urine 4494 321 2849 Stool 0 Other: Voiding Method Urinal Urinal Urinal # Voids 1 - Exam Head normocephalic Neck supple Lungs diminished bilaterally with expiratory wheezes Heart regular rate and rhythm S1-S2, no rub or gallop Abdomen is soft nontender nondistended positive bowel sounds no hepatosplenomegaly Extremities no edema Neuro alert and orientated to 3 - Labs CBC & Chem 7: 03/23/18 07:28 03/23/18 07:28 Labs: Abnormal Lab Results - Last 24 Hours (Table) 03/22/18 03/22/18 03/23/18 Range/Units 17:06 21:01 07:07 Lymphocytes # (1.0-4.8) k/uL ABG pH (7.35-7.45) ABG pCO2 (35-45) mmHg ABG pO2 (83-108) mmHg ABG HCO3 (21-25) mmol/L ABG Total CO2 (19-24) mmol/L Chloride (98-107) mmol/L Carbon Dioxide (22-30) mmol/L BUN (9-20) mg/dL Glucose (74-99) mg/dL POC Glucose (mg/dL) 196 H 222 H 129 H (75-99) mg/dL AST (17-59) U/L Total Protein (6.3-8.2) g/dL Albumin (3.5-5.0) g/dL 03/23/18 03/23/18 03/23/18 Range/Units 07:28 07:28 11:24 Lymphocytes # 0.5 L (1.0-4.8) k/uL ABG pH 7.47 H (7.35-7.45) ABG pCO2 58 H (35-45) mmHg ABG pO2 64 L (83-108) mmHg ABG HCO3 41 H* (21-25) mmol/L ABG Total CO2 43 H (19-24) mmol/L Chloride 96 L (98-107) mmol/L Carbon Dioxide 40 H (22-30) mmol/L BUN 30 H (9-20) mg/dL Glucose 126 H (74-99) mg/dL POC Glucose (mg/dL) (75-99) mg/dL AST 15 L (17-59) U/L Total Protein 5.7 L (6.3-8.2) g/dL Albumin 3.3 L (3.5-5.0) g/dL 03/23/18 Range/Units 12:25 Lymphocytes # (1.0-4.8) k/uL ABG pH (7.35-7.45) ABG pCO2 (35-45) mmHg ABG pO2 (83-108) mmHg ABG HCO3 (21-25) mmol/L ABG Total CO2 (19-24) mmol/L Chloride (98-107) mmol/L Carbon Dioxide (22-30) mmol/L BUN (9-20) mg/dL Glucose (74-99) mg/dL POC Glucose (mg/dL) 123 H (75-99) mg/dL AST (17-59) U/L Total Protein (6.3-8.2) g/dL Albumin (3.5-5.0) g/dL Microbiology - Last 24 Hours (Table) 03/18/18 14:10 Blood Culture - Preliminary Blood No Growth after 96 hours Assessment and Plan Assessment: #1 acute exacerbation of chronic obstructive pulmonary disease. Patient currently on IV Solu-Medrol 60 mg every 6 hours, inhaled steroids, inhaled bronchodilators and on doxycycline. Pulmonary service is following closely. Patient continuing BiPAP as needed and oxygen 3 L. blood culture showing no growth. Patient had episode of acute respiratory distress this a.m. and was placed back on BIPAP. Chest x-ray obtained showing no acute process. Pulmonary services are following closely. #2 acute on chronic hypoxic and hypercapnic respiratory failure currently maintained on BiPAP #3 tobacco abuse. Nicotine patch has been ordered #4 underlying history of hypertension #5 underlying history of hyperlipidemia #6 underlying history of migraine headache #7 underlying history of depression #8 underlying history of anxiety disorder Per pulmonary services focusing but that on home dose of bicycle BiPAP. Anticipate discharge in the next 24-48 hours GI prophylaxis Protonix, DVT prophylaxis heparin I performed an examination of the patient and discussed their management with the Nurse Practitioner. I have reviewed the Nurse Practitioner's notes and agree with the documented findings and plan of care
[2018-03-23 17:29] LABS: Glucose,Whole Blood 126 mg/dL (75-99)
[2018-03-23 20:40] LABS: Glucose,Whole Blood 111 mg/dL (75-99)
[2018-03-23] MEDS: DOXYCYCLINE 100 MG CAP PO SCH (20:42)
[2018-03-23] MEDS: ZOLPIDEM 5 MG TAB PO SCH (21:12)
[2018-03-24] MEDS: ALPRAZolam 1 MG TAB PO PRN ×2 (05:00→12:54)
[2018-03-24] MEDS: oxyCODONE-APAP 10-325MG 1 EACH TAB PO PRN ×2 (05:01→12:54)
[2018-03-24] MEDS: methylPREDNISolone SOD SUCCI 125 MG/2 ML VIAL IV SCH ×2 (05:01→12:53)
[2018-03-24 07:02] LABS: Glucose,Whole Blood 125 mg/dL (75-99)
[2018-03-24] MEDS: BUDESONIDE 1 MG/2 ML NEBU INHALATION SCH (07:10)
[2018-03-24] MEDS: IPRATROPIUM-ALBUTEROL 3 ML NEB INHALATION SCH ×2 (07:10→11:14)
[2018-03-24] MEDS: FORMOTEROL FUMARATE 20 MCG/2 ML NEBU INHALATION SCH (07:11)
[2018-03-24] MEDS: INSULIN ASPART 100 UNIT/ML 1 ML 10 ML VIAL SQ SCH ×2 (07:40→12:53)
[2018-03-24] MEDS: PANTOPRAZOLE 40 MG TABLET PO SCH (07:50)
[2018-03-24] MEDS: ATORVASTATIN 10 MG TAB PO SCH (07:50)
[2018-03-24] MEDS: busPIRone HCl 5 MG TAB PO SCH (07:51)
[2018-03-24] MEDS: FUROSEMIDE 40 MG TAB PO SCH (07:52)
[2018-03-24] MEDS: ESCITALOPRAM 10 MG TAB PO SCH (07:52)
[2018-03-24] MEDS: LIPASE 5,000/PROTEASE 17,000/AMYLASE 24,000 PO SCH (07:53)
[2018-03-24] MEDS: METOPROLOL SUCCINATE (ER) 25 MG TAB.ER.24H PO SCH (07:53)
[2018-03-24] MEDS: GABAPENTIN 100 MG CAP PO SCH (07:53)
[2018-03-24] MEDS: HEPARIN SODIUM,PORCINE 5,000 UNIT/ML 1 ML VIAL SQ SCH (07:53)
[2018-03-24] MEDS: LORATADINE 10 MG TAB PO SCH (07:53)
[2018-03-24] MEDS: NORTRIPTYLINE 10 MG CAP PO SCH (07:54)
[2018-03-24] MEDS: POTASSIUM CHLORIDE ER 10 MEQ TAB.ER.PRT PO SCH (07:54)
[2018-03-24] MEDS: NICOTINE 21MG/24HR PATCH TRANSDERM SCH (07:54)
[2018-03-24] MEDS: risperiDONE 2 MG TAB PO SCH (07:54)
[2018-03-24] MEDS: ROFLUMILAST 500 MG PO SCH (07:55)
[2018-03-24 08:50] LABS: ALT 28 U/L (21-72); AST 23 U/L (17-59); Albumin 3.4 g/dL (3.5-5.0); Alkaline Phosphatase 44 U/L (38-126); Anion Gap 6 mmol/L; Blood Urea Nitrogen 29 mg/dL (9-20); Calcium 8.9 mg/dL (8.4-10.2); Carbon Dioxide 36 mmol/L (22-30); Chloride 96 mmol/L (98-107); Glucose 153 mg/dL (74-99); Sodium 138 mmol/L (137-145); Total Bilirubin 0.6 mg/dL (0.2-1.3); Total Protein 5.8 g/dL (6.3-8.2)
[2018-03-24 08:51] LABS: Potassium 4.7 mmol/L (3.5-5.1)
[2018-03-24 08:53] LABS: Basophils # (A) 0.1 k/uL (0-0.2); Basophils % (A) 1 %; Eosinophils # (A) 0.1 k/uL (0-0.7); Eosinophils % (A) 1 %; HCT 42.3 % (39.0-53.0); HGB 13.2 gm/dL (13.0-17.5); Lymphocytes # (A) 0.5 k/uL (1.0-4.8); Lymphocytes % (A) 5 %; MCH 28.9 pg (25.0-35.0); MCHC 31.3 g/dL (31.0-37.0); MCV 92.4 fL (80.0-100.0); Mean Platelet Volume 7.6; Monocytes # (A) 0.5 k/uL (0-1.0); Monocytes % (A) 4 %; Neutrophils % (A) 90 %; Platelet Count 198 k/uL (150-450); RBC 4.58 m/uL (4.30-5.90); WBC 11.1 k/uL (3.8-10.6)
[2018-03-24] MEDS ORDERED: DOXYCYCLINE 100 MG CAP PO SCH (09:00)
[2018-03-24] MEDS: DOXYCYCLINE 100 MG CAP PO SCH (09:18)
--- NOTE | 2018-03-24 12:23 | P.PN ---
Subjective Progress Note Date: 03/24/18 Principal diagnosis: Acute exacerbation of chronic obstructive pulmonary disease This is a 57-year-old white male with a known history of severe emphysema, with underlying FEV1 of less than 20% on home oxygen, chronic and ongoing nicotine abuse, GERD/reflux, hypertension, hyperlipidemia, previous episodes of pneumonia , multiple admissions for pulmonary infections, underlying obstructive sleep apnea without device, History of chronic pancreatitis and pancreatic insufficiency, chronic diverticular disease with history of sigmoid colectomy, chronic pain syndrome, anxiety, depression, was recently hospitalized beginning of January for acute exacerbation of COPD. He was discharged home on 2017. On 03/18/2018 at 1300 patient presented to the emergency department with his family, for evaluation of worsening shortness of breath, coughing which has been progressive over the past several days. Despite patient's very poor lung function, and recurrent hospitalizations for pulmonary infections he continues to smoke, he states he is down to 1 pack a day. Complaining of chest congestion , he is able to bring up some green and yellow phlegm. No fever or chills. Denied any nausea, vomiting, or diarrhea. He has been compliant with his nebulized meds and inhalers. Denied any chest pain or angina type symptoms. Chest x-ray showed no acute cardiopulmonary process. EKG showed sinus tachycardia with a rate of 103 BPM. Afebrile. Patient had been placed on BiPAP support overnight in view of respiratory distress, pressures 12 over 4 and 40%. Started on IV steroids, nebulized bronchodilators and empiric antibiotics in the form of doxycycline. Improving, still remains on BiPAP support this morning, tolerating it well. On 03/20/2018 patient seen in follow-up on medical surgical floor. He'll nasal cannula this morning, had to wear the BiPAP last night. Breathing much easier today, lung sounds are still positive for diffuse wheezes, may be slightly better compared to yesterday's exam, vital signs are stable, patient is afebrile , currently on 3 L per nasal cannula with pulse ox is 98%. Today's chest x-ray have been noted, no leukocytosis, sodium is 136, CO2 is 34, the rest of the electrolytes and renal profile are unremarkable. He remains on doxycycline, nebulized bronchodilators and IV steroids, he is improving. On 03/21/2018 patient is seen in follow-up on medical surgical floor. Breathing much easier, did wear his BiPAP last night, currently on liters per nasal cannula, was pulse ox is 98%, sounds are positive for diffuse wheezes, good air entry noted bilaterally, less rhonchorous. We will increase activity today, afebrile. Blood cultures remain negative, patient is on doxycycline, nebulized bronchodilators and IV steroids. Continues to improve. On 03/22/2018 patient seen in follow-up on medical surgical floor. This morning he had the episode of acute respiratory distress, had to be placed back on BiPAP support. Lung sounds tight and wheezy. Patient remains afebrile, dynamically stable. Cultures are negative. Stat chest x-ray was obtained, and showed no acute pulmonary process. he continues on empiric antibiotics, IV steroids, and nebulized bronchodilators. On 03/23/2018 patient is seen again in follow-up on medical surgical floor. Currently on nasal cannula, he did wear his BiPAP last night, lung sounds are positive for a few scattered wheezes, overall improved. Today's lab work showed WBC of 8.2, hemoglobin of 13, sodium is 139, potassium is 4.0, chloride is 96, CO2 is 40, BUN is 30, creatinine 0.73. He remains on IV steroids, antibiotics, nebulized bronchodilators. Possibility of a home BiPAP unit was discussed with the patient. The patient is seen again today 03/24/2018 in follow-up on the regular medical floor. He is awake and alert in no acute distress. He is currently sitting up in a chair at the bedside. He denies any worsening shortness of breath, cough or congestion. He is improved today as compared to yesterday. Nearly back to his baseline. Blood cultures reveal no growth. White count 11.1. Hemoglobin 13.2. Creatinine 0.64. Bicarb 36. Arterial blood gases on 32% FiO2 revealed a pO2 of 64, pCO2 of 58 and a pH of 7.47. He also underwent a overnight continuous pulse oximeter readings per respiratory therapy. Objective - Vital Signs Vital signs: Vital Signs Temp 97.5 F L 03/24/18 06:04 Pulse 87 03/24/18 11:24 Resp 20 03/24/18 06:04 BP 153/95 03/24/18 06:04 Pulse Ox 92 L 03/24/18 06:04 Intake & Output 0903/24/18 03/24/18 18:59 06:59 18:59 Intake Total 1200 700 Output Total 3400 500 1650 Balance -2200 200 -1650 Weight 81.2 kg 81.2 kg 81.2 kg Intake: Oral 1200 700 Output: Urine 3400 500 1650 Stool 0 0 Other: Voiding Method Urinal Urinal # Voids 1 0 4 # Bowel Movements 1 1 - Exam GENERAL EXAM: Alert, oriented, 57-year-old patient on 3 L per nasal cannula HEAD: Normocephalic/atraumatic. EYES: Normal reaction of pupils, equal size. Conjunctiva pink, sclera white. NOSE: Clear with pink turbinates. THROAT: No erythema or exudates. NECK: No masses, no JVD, no thyroid enlargement, no adenopathy. CHEST: No chest wall deformity. Symmetrical expansion. LUNGS: Equal air entry with diffuse wheezes CVS: Regular rate and rhythm, normal S1 and S2, no gallops, no murmurs, no rubs ABDOMEN: Soft, nontender. No hepatosplenomegaly, normal bowel sounds, no guarding or rigidity. EXTREMITIES: No clubbing, no edema, no cyanosis, 2+ pulses and upper and lower extremities. MUSCULOSKELETAL: Muscle strength and tone normal. SPINE: No scoliosis or deformity SKIN: No rashes CENTRAL NERVOUS SYSTEM: Alert and oriented -3. No focal deficits, tone is normal in all 4 extremities. PSYCHIATRIC: Alert and oriented -3. Appropriate affect. Intact judgment and insight. - Labs CBC & Chem 7: 03/24/18 08:04 03/24/18 08:04 Labs: Abnormal Lab Results - Last 24 Hours (Table) 03/23/18 03/23/18 03/23/18 Range/Units 12:25 17:12 20:27 WBC (3.8-10.6) k/uL Neutrophils # (1.3-7.7) k/uL Lymphocytes # (1.0-4.8) k/uL Chloride (98-107) mmol/L Carbon Dioxide (22-30) mmol/L BUN (9-20) mg/dL Creatinine (0.66-1.25) mg/dL Glucose (74-99) mg/dL POC Glucose (mg/dL) 123 H 126 H 111 H (75-99) mg/dL Total Protein (6.3-8.2) g/dL Albumin (3.5-5.0) g/dL 03/24/18 03/24/18 03/24/18 Range/Units 06:55 08:04 08:04 WBC 11.1 H (3.8-10.6) k/uL Neutrophils # 10.0 H (1.3-7.7) k/uL Lymphocytes # 0.5 L (1.0-4.8) k/uL Chloride 96 L (98-107) mmol/L Carbon Dioxide 36 H (22-30) mmol/L BUN 29 H (9-20) mg/dL Creatinine 0.64 L (0.66-1.25) mg/dL Glucose 153 H (74-99) mg/dL POC Glucose (mg/dL) 125 H (75-99) mg/dL Total Protein 5.8 L (6.3-8.2) g/dL Albumin 3.4 L (3.5-5.0) g/dL Microbiology - Last 24 Hours (Table) 03/18/18 14:10 Blood Culture - Preliminary Blood No Growth after 120 hours Assessment and Plan Assessment: Assessment: #1. Acute exacerbation of chronic obstructive pulmonary disease , complicated by tracheobronchitis #2. Severe end-stage COPD, GOLD stage IV, with chronic hypoxemic and hypercapnic respiratory failure, with FEV1 of less than 20% of predicted #3. Acute on chronic hypercapnic respiratory failure secondary to above requiring BiPAP support. #4. Chronic and ongoing nicotine dependence, currently down to 1 pack a day #5. History of chronic alcoholism with pancreatic insufficiency #6. Chronic pain syndrome #7. Hypertension, hyperlipidemia #8. History of diverticular disease status post sigmoid colectomy #9. Anxiety and depression. Plan: The patient was seen and evaluated by Dr. Paniagua. The patient does qualify for home BiPAP. We will utilize settings of IPAP of 12 over EPAP of 4 and 40% FiO2. He is being transferred to [facility] on the [place]. He will continue DuoNeb inhalations every 4 hours and when necessary, Pulmicort and Perforomist inhalations twice a day, prednisone burst and taper starting at 40 mg daily for 4 days, 30 mg daily for 4 days, 20 mg daily for 4 days, 10 mg daily for 4 days then stop. Complete her course of doxycycline. He could follow with Dr. Paniagua while there. Otherwise, he'll follow up with Dr. Cho in our office. I, the cosigning physician, performed a history & physical examination of the patient. Lungs sounds with faint end expiratory wheeze bilaterally, diminished. Maintaining good O2 saturations in the 90s on 3 L/m per nasal cannula. I discussed the assessment and plan of care with my nurse practitioner, Paula Demarco. I attest to the above note as dictated by her.
[2018-03-24 12:46] LABS: Glucose,Whole Blood 141 mg/dL (75-99)
--- NOTE | 2018-03-24 14:22 | P.DS ---
Providers Date of admission: 03/18/18 15:48 Expected date of discharge: 03/24/18 Attending physician: Shellie Sampson Consults: 03/18/18 15:48 Consult Physician Routine Consulting Provider: Talisha Cho Consult Reason/Comments: COPD Do you want consulting provider notified?: Yes Primary care physician: Shellie Camilla [facility] Course: Discharge summary #1 acute exacerbation of chronic obstructive pulmonary disease. Patient currently on IV Solu-Medrol 60 mg every 6 hours, inhaled steroids, inhaled bronchodilators and on doxycycline. Pulmonary service is following closely. Patient continuing BiPAP as needed and oxygen 3 L. blood culture showing no growth. Patient had episode of acute respiratory distress this a.m. and was placed back on BIPAP. Chest x-ray obtained showing no acute process. Pulmonary services are following closely. Patient has been cleared for discharge from pulmonary standpoint. discharged on prednisone, doxycycline and and breathing treatment. Patient to also to be discharged with BiPAP settings per pulmonary recommendation. Culture negative #2 acute on chronic hypoxic and hypercapnic respiratory failure currently maintained on BiPAP #3 tobacco abuse. Nicotine patch has been ordered #4 underlying history of hypertension #5 underlying history of hyperlipidemia #6 underlying history of migraine headache #7 underlying history of depression #8 underlying history of anxiety disorder Hospital course Mychal Kibmall is a 57-year-old male who presented to [facility] emergency room with a chief complaint of worsening shortness of breath and cough. Patient's symptoms have been progressive over the past several days. He is a current smoker, smoking up to 3 packs of cigarettes daily. Patient states that he has been taking his updrafts and inhalers at home without any significant relief, he was admitted to [facility] earlier this February with similar symptoms he had COPD exacerbation. 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 On review of systems patient denies any fever or chills no headache or dizziness no chest pain no nausea or vomiting no abdominal pain no diarrhea and no urinary symptoms. He was evaluated in emergency room, his respiratory rate was up to 28 pulse ox 93% on 3 L nasal cannula, labs drawn in the ER when and remarkable, chest x-ray did not reveal any acute cardiopulmonary process. He was admitted to medical floor and started on IV Solu-Medrol, inhaled bronchodilators, and inhaled steroids, pulmonary consultation was requested. On 03/20/2018 patient remains alert and oriented 3. Patient currently on 3 L nasal cannula. Patient remains on IV Solu-Medrol 60 mg every 6 hours. Pulmonary services are following. At This time patient denies chest pain. States some complaint of shortness breath. Patient denies nausea vomiting or diarrhea On 03/21/2018 patient remains alert and oriented 3. Patient currently on 3 L nasal cannula in which she wears at home. Patient remains on IV steroids. This time patient complains that he still slightly short of breath. Patient denies chest pain. Patient denies nausea vomiting or diarrhea. Patient denies any urinary burning or frequency. On 03/22/2018 patient is alert and oriented 3. Patient is complaining he is more short of breath and requiring to wear the BiPAP. Chest x-ray has been ordered. Patient denies any chest pain. Patient denies nausea vomiting or diarrhea. Patient denies any urinary burning or frequency. On 03/23/2018 patient states he is feeling improved today. Breathing is much improved patient is not currently on BiPAP. Patient still having the expiratory wheezes on auscultation. Pulmonary services has ordered blood gas for home BiPAP use. Patient remains on IV steroids at this time. Patient denies chest pain. Patient denies any urinary burning or frequency. Patient denies nausea vomiting or diarrhea On 03/24/2018 patient has been cleared for discharge from pulmonary standpoint. Breathing is improved. Patient will be discharged to [facility] for rehab. Patient will be going on nasal 3 L and BiPAP per pulmonary settings. Patient will finish course of doxycycline along with prednisone taper. Patient again educated on smoking cessation. At this time patient denies chest pain or shortness breath. Patient denies nausea vomiting or diarrhea. Patient denies any urinary symptoms. Patient to be followed by Dr. Camilla Woodruff Patient Condition at Discharge: Stable Plan - Discharge Summary Discharge Rx Participant: Yes New Discharge Prescriptions: New Budesonide [Pulmicort] 1 mg INHALATION RT-BID nebu Doxycycline [Vibramycin] 100 mg PO BID 7 Days #14 cap Nicotine 21Mg/24Hr Patch [Habitrol] 1 patch TRANSDERM DAILY patch predniSONE 10 mg PO DIRECTED #40 tab Continue Gabapentin [Neurontin] 100 mg PO BID Omeprazole 40 mg PO DAILY risperiDONE [RisperDAL] 2 mg PO BID Lipase/Protease/Amylase [Shell Peoples 24,000 Units Capsule] 1 cap PO TID Atorvastatin Calcium [Lipitor] 10 mg PO DAILY busPIRone HCL [Buspar] 7.5 mg PO BID Furosemide [Lasix] 40 mg PO DAILY Metoprolol Succinate (ER) [Toprol XL] 25 mg PO DAILY Roflumilast [Daliresp] 500 mg PO DAILY Ipratropium-Albuterol Nebulize [Duoneb 0.5 mg-3 mg/3 ml Soln] 3 ml INHALATION RT-QID PRN #30 ampul.neb PRN Reason: Shortness Of Breath Or Wheezing Albuterol Inhaler [Ventolin Hfa Inhaler] 2 puff INHALATION RT-Q4H PRN PRN Reason: Shortness Of Breath SUMAtriptan SUCCINATE [Imitrex] 100 mg PO DAILY PRN PRN Reason: Migraine Headache Potassium Chloride [Klor-Con 10] 10 meq PO BID Loratadine [Claritin] 10 mg PO DAILY Escitalopram [Lexapro] 10 mg PO DAILY #30 tab Fluticasone/Salmeterol [Advair 250-50 Diskus] 1 inhalation PO RT-BID Ibuprofen 800 mg PO TID PRN PRN Reason: Pain Nortriptyline HCl 10 mg PO DAILY oxyCODONE-APAP 10-325MG [Percocet 10-325 mg] 1 tab PO Q8HR PRN #9 PRN Reason: Pain Zolpidem [Ambien] 5 mg PO HS #3 tab Discharge Medication List Gabapentin [Neurontin] 100 mg PO BID 03/05/14 [History] Omeprazole 40 mg PO DAILY 03/05/14 [History] Lipase/Protease/Amylase [Shell Peoples 24,000 Units Capsule] 1 cap PO TID 07/12/14 [ History] risperiDONE [RisperDAL] 2 mg PO BID 07/12/14 [History] Atorvastatin Calcium [Lipitor] 10 mg PO DAILY 06/02/17 [History] Furosemide [Lasix] 40 mg PO DAILY 06/02/17 [History] Metoprolol Succinate (ER) [Toprol XL] 25 mg PO DAILY 06/02/17 [History] Roflumilast [Daliresp] 500 mg PO DAILY 06/02/17 [History] busPIRone HCL [Buspar] 7.5 mg PO BID 06/02/17 [History] Ipratropium-Albuterol Nebulize [Duoneb 0.5 mg-3 mg/3 ml Soln] 3 ml INHALATION RT -QID PRN #30 ampul.neb 07/07/17 [Rx] Albuterol Inhaler [Ventolin Hfa Inhaler] 2 puff INHALATION RT-Q4H PRN 02/09/18 [ History] Loratadine [Claritin] 10 mg PO DAILY 02/09/18 [History] Potassium Chloride [Klor-Con 10] 10 meq PO BID 02/09/18 [History] SUMAtriptan SUCCINATE [Imitrex] 100 mg PO DAILY PRN 02/09/18 [History] Escitalopram [Lexapro] 10 mg PO DAILY #30 tab 02/28/18 [Rx] Fluticasone/Salmeterol [Advair 250-50 Diskus] 1 inhalation PO RT-BID 03/18/18 [ History] Ibuprofen 800 mg PO TID PRN 03/18/18 [History] Nortriptyline HCl 10 mg PO DAILY 03/18/18 [History] Budesonide [Pulmicort] 1 mg INHALATION RT-BID nebu 03/24/18 [Rx] Doxycycline [Vibramycin] 100 mg PO BID 7 Days #14 cap 03/24/18 [Rx] Nicotine 21Mg/24Hr Patch [Habitrol] 1 patch TRANSDERM DAILY patch 03/24/18 [Rx] Zolpidem [Ambien] 5 mg PO HS #3 tab 03/24/18 [Rx] oxyCODONE-APAP 10-325MG [Percocet 10-325 mg] 1 tab PO Q8HR PRN #9 03/24/18 [Rx] predniSONE 10 mg PO DIRECTED #40 tab 03/24/18 [Rx] Follow up Appointment(s)/Referral(s): [facility], [NON-STAFF] - 1-2 Days Shellie Sampson MD [Primary Care Provider] - 1-2 days Patient Instructions/Handouts: COPD (Chronic Obstructive Pulmonary Disease) (DC ) Activity/Diet/Wound Care/Special Instructions: DC RX No smoking advised, literature given. Cardiac, low fat diet. Patient to be discharged with BiPAP per pulmonary recommendations. Patient to go to [facility] admitted to Dr. Sampson Discharge Disposition: TRANSFER TO SNF/F
[2018-03-24 15:13] VITALS: BP 136/89; PULSE 95; TEMP 97.8
[2018-03-27 07:58] LABS: ABG HCO3 41 mmol/L (21-25)
== END 2018-03-24 16:09 | DRG 190 ==
LOC: EC 13:46 → 4MS4W 15:48
PROVIDERS: ADMIT Internal Medicine; ATTEND Internal Medicine
PROC: 5A09457 Assistance with Respiratory Ventilation, 24-96 Consecutive Hours, Continuous Positive Airway Pressure (ICD-10-PCS; principal; 2018-03-19)
DX: J43.9 Emphysema, unspecified (principal); J96.21 Acute and chronic respiratory failure with hypoxia; J96.22 Acute and chronic respiratory failure with hypercapnia; K86.89 Other specified diseases of pancreas; J40 Bronchitis, not specified as acute or chronic; K21.9 Gastro-esophageal reflux disease without esophagitis; E78.5 Hyperlipidemia, unspecified; I10 Essential (primary) hypertension; G89.4 Chronic pain syndrome; G43.909 Migraine, unspecified, not intractable, without status migrainosus; G47.33 Obstructive sleep apnea (adult) (pediatric); F10.21 Alcohol dependence, in remission; F32.9 Major depressive disorder, single episode, unspecified; F41.9 Anxiety disorder, unspecified; F17.210 Nicotine dependence, cigarettes, uncomplicated; Z71.6 Tobacco abuse counseling; Z79.51 Long term (current) use of inhaled steroids; Z79.899 Other long term (current) drug therapy; Z86.14 Personal history of Methicillin resistant Staphylococcus aureus infection; Z87.01 Personal history of pneumonia (recurrent); Z87.19 Personal history of other diseases of the digestive system; Z90.49 Acquired absence of other specified parts of digestive tract; Z88.0 Allergy status to penicillin; Z82.5 Family history of asthma and other chronic lower respiratory diseases; Z80.9 Family history of malignant neoplasm, unspecified; Z99.81 Dependence on supplemental oxygen
CPT/HCPCS: 36415; 36600; 71045; 71046; 80053; 82550; 82553; 82805; 83036; 83605; 83735; 83880; 84484; 85025; 85610; 85730; 87040; 93005; 94640; 94660; 94760; 96374; 96375; 99285

== ENCOUNTER 2018-05-15 14:04 | Inpatient (IN) | payer MEDICARE, OTHER ==
[2018-05-15] MEDS ORDERED: KETOROLAC 60 MG/2 ML VIAL IVP STA (14:35)
[2018-05-15] MEDS ORDERED: IPRATROPIUM 0.5 MG/2.5 ML NEBU INHALATION STA (14:36)
[2018-05-15] MEDS ORDERED: ALBUTEROL NEBULIZED 2.5 MG/3 ML INHALATION STA (14:36)
[2018-05-15] MEDS ORDERED: methylPREDNISolone SOD SUCCI 125 MG/2 ML VIAL IV STA (14:36)
--- NOTE | 2018-05-15 14:47 | ED ---
General Adult HPI - General Chief complaint: Shortness of Breath Stated complaint: ABIMBOLA Time Seen by Provider: 05/15/18 14:15 Source: patient, RN notes reviewed Mode of arrival: EMS Limitations: no limitations - History of Present Illness Initial comments: This is a 58-year-old male who presents emergency department with past medical history significant for COPD and congestive heart failure. Patient states over the weekend he got worse and worse for the difficulty breathing. Patient states that he was at the point where he was so weak he couldn't even walk and he was incontinent of urine because couldn't get to the bathroom. Patient states he took 3 treatments at home without any improvement. EMS was called at this point time. Patient states she was having a cough over the weekend that was not productive. Patient denies any fever chills per patient states he did have a little bit of chest pain with shortness of breath. Patient denies any lightheadedness dizziness or near-syncopal episode. Patient denies any abdominal pain patient denies nausea or vomiting. Patient denies any diarrhea. Patient denies any recent injury or trauma. - Related Data Home Medications Medication Instructions Recorded Confirmed Gabapentin [Neurontin] 100 mg PO BID 03/05/14 05/15/18 Omeprazole 40 mg PO DAILY 03/05/14 05/15/18 Lipase/Protease/Amylase [Creon Dr 1 cap PO TID 07/12/14 05/15/18 24,000 Units Capsule] risperiDONE [RisperDAL] 2 mg PO BID 07/12/14 05/15/18 Atorvastatin Calcium [Lipitor] 10 mg PO DAILY 06/02/17 05/15/18 Furosemide [Lasix] 40 mg PO DAILY 06/02/17 05/15/18 Metoprolol Succinate (ER) [Toprol 25 mg PO DAILY 06/02/17 05/15/18 XL] Roflumilast [Daliresp] 500 mg PO DAILY 06/02/17 05/15/18 busPIRone HCL [Buspar] 7.5 mg PO BID 06/02/17 05/15/18 Albuterol Inhaler [Ventolin Hfa 2 puff INHALATION RT-Q4H PRN 02/09/18 05/15/18 Inhaler] Loratadine [Claritin] 10 mg PO DAILY 02/09/18 05/15/18 Potassium Chloride [Klor-Con 10] 10 meq PO BID 02/09/18 05/15/18 SUMAtriptan SUCCINATE [Imitrex] 100 mg PO DAILY PRN 02/09/18 05/15/18 ALPRAZolam [Xanax] 2 mg PO QID 05/15/18 05/15/18 Hydrocortisone Cream 1 applic TOPICAL DAILY 05/15/18 05/15/18 [Hydrocortisone 2.5% Cream] Ibuprofen [Motrin] 800 mg PO TID 05/15/18 05/15/18 Theophylline 24 Hour [Dionisio-24] 400 mg PO DAILY 05/15/18 05/15/18 Tiotropium 18 Mcg/Puff [Spiriva] 1 puff INHALATION RT-BID 05/15/18 05/15/18 Umeclidinium [place] [Incruse 2 puff INHALATION RT-BID 05/15/18 05/15/18 Ellipta] Previous Rx's Medication Instructions Recorded Escitalopram [Lexapro] 10 mg PO DAILY #30 tab 02/28/18 Zolpidem [Ambien] 5 mg PO HS #3 tab 03/24/18 Allergies Allergy/AdvReac Type Severity Reaction Status Date / Time Penicillins Allergy Rash/Hives Verified 05/15/18 15:07 Review of Systems ROS Statement: Those systems with pertinent positive or pertinent negative responses have been documented in the HPI. ROS Other: All systems not noted in ROS Statement are negative. Past Medical History Past Medical History: Chest Pain / Angina, COPD, GERD/Reflux, Hyperlipidemia, Hypertension, Pneumonia Additional Past Medical History / Comment(s): tracheobronchitis, vague density overlying R mid lung to be followed up upon. Other hx: Severe COPD, chronic hypoxic respiratory failure , 3L oxygen at home, VIVEK without device, history of alcoholism-no drinking for 18 yrs, history of chronic pancreatitis and pancreatic insufficiency, chronic diverticular disease/diverticulitis, chronic pain in back and abdomin. Last Myocardial Infarction Date:: Denies having an NH History of Any Multi-Drug Resistant Organisms: MRSA Date of last positivie culture/infection: summer MDRO Source:: right side of buttuck and right side of chest above nipple Past Surgical History: Bowel Resection, Heart Catheterization, Orthopedic Surgery, Tonsillectomy Additional Past Surgical History / Comment(s): Sigmoid colectomy, right hand surgery for repair of tendons, cardiac catheterization that has been normal, colonoscopy Past Anesthesia/Blood Transfusion Reactions: No Reported Reaction Past Psychological History: Anxiety, Depression Smoking Status: Current every day smoker Past Alcohol Use History: None Reported Past Drug Use History: Prescription Drug Abuse - Past Family History Mother Family Medical History: Cancer, COPD Additional Family Medical History / Comment(s): unaware of what kind of cancer Father Family Medical History: COPD Additional Family Medical History / Comment(s): Father is . General Exam - General Exam Comments Initial Comments: GENERAL: Patient is well-developed and well-nourished. Patient is nontoxic and well- hydrated and is in mild distress. Patient is on BiPAP at this time he states he is feeling better. ENT: Neck is soft and supple. No significant lymphadenopathy is noted. Oropharynx is clear. Moist mucous membranes. Neck has full range of motion without eliciting any pain. EYES: The sclera were anicteric and conjunctiva were pink and moist. Extraocular movements were intact and pupils were equal round and reactive to light. Eyelids were unremarkable. PULMONARY: Patient is diffusely very wheezing. CARDIOVASCULAR: There is a regular rate and rhythm without any murmurs gallops or rubs. ABDOMEN: Soft and nontender with normal bowel sounds. No palpable organomegaly was noted. There is no palpable pulsatile mass. SKIN: Skin is clear with no lesions or rashes and otherwise unremarkable. NEUROLOGIC: Patient is alert and oriented x3. Cranial nerves II through XII are grossly intact. Motor and sensory are also intact. Normal speech, volume and content. Symmetrical smile. MUSCULOSKELETAL: Normal extremities with adequate strength and full range of motion. Both legs are wrapped but that does not appear to be any edema LYMPHATICS: No significant lymphadenopathy is noted PSYCHIATRIC: Normal psychiatric evaluation. Normal interpersonal interactions appears functionally intact in deals appropriately with others. No signs of depression. No signs of anxiety. Limitations: no limitations Course Vital Signs 05/15/18 05/15/18 05/15/18 14:16 14:56 15:12 Temperature 98.2 F Pulse Rate 107 H 106 H 104 H Respiratory 24 Rate Blood Pressure 129/92 O2 Sat by Pulse 98 Oximetry Medical Decision Making - Medical Decision Making EKG shows sinus tachycardia at 105 bpm AR interval 232 QRS is 88 QT interval 380 QTC is 502. Patient's EKG shows no ST segment elevation or depression no T- wave abnormalities are noted. Chest x-ray shows no acute abnormality. Patient received multiple breathing treatments in the emergency department and steroids and so felt slightly improved the BiPAP was would help the patient most. I spoke with Dr. Sampson he agreed to admit the patient admitted the patient I wrote admitting orders. I continue breathing treatments steroids on the floor. I consult pulmonary. - Lab Data Result diagrams: 05/15/18 14:50 05/15/18 14:50 Lab Results 05/15/18 05/15/18 05/15/18 Range/Units 14:50 14:50 14:50 WBC 9.5 (3.8-10.6) k/uL RBC 4.54 (4.30-5.90) m/uL Hgb 13.0 (13.0-17.5) gm/dL Hct 40.9 (39.0-53.0) % MCV 89.9 (80.0-100.0) fL MCH 28.7 (25.0-35.0) pg MCHC 31.9 (31.0-37.0) g/dL RDW 14.7 (11.5-15.5) % Plt Count 287 (150-450) k/uL Neutrophils % 81 % Lymphocytes % 10 % Monocytes % 6 % Eosinophils % 2 % Basophils % 0 % Neutrophils # 7.6 (1.3-7.7) k/uL Lymphocytes # 1.0 (1.0-4.8) k/uL Monocytes # 0.6 (0-1.0) k/uL Eosinophils # 0.2 (0-0.7) k/uL Basophils # 0.0 (0-0.2) k/uL PT (9.0-12.0) sec INR (<1.2) APTT (22.0-30.0) sec D-Dimer (<0.60) mg/L FEU Sodium 139 (137-145) mmol/L Potassium 4.0 (3.5-5.1) mmol/L Chloride 99 (98-107) mmol/L Carbon Dioxide 33 H (22-30) mmol/L Anion Gap 7 mmol/L BUN 8 L (9-20) mg/dL Creatinine 0.65 L (0.66-1.25) mg/dL Est GFR (CKD-EPI)AfAm >90 (>60 ml/min/1.73 sqM) Est GFR (CKD-EPI)NonAf >90 (>60 ml/min/1.73 sqM) Glucose 109 H (74-99) mg/dL Calcium 9.5 (8.4-10.2) mg/dL Magnesium 1.8 (1.6-2.3) mg/dL Total Bilirubin 0.5 (0.2-1.3) mg/dL AST 23 (17-59) U/L ALT 19 L (21-72) U/L Alkaline Phosphatase 66 (38-126) U/L Total Creatine Kinase 154 (55-170) U/L CK-MB (CK-2) 2.8 H (0.0-2.4) ng/mL CK-MB (CK-2) Rel Index 1.8 Troponin I <0.012 (0.000-0.034) ng/mL NT-Pro-B Natriuret Pep pg/mL Total Protein 7.0 (6.3-8.2) g/dL Albumin 4.2 (3.5-5.0) g/dL 05/15/18 05/15/18 Range/Units 14:50 14:50 WBC (3.8-10.6) k/uL RBC (4.30-5.90) m/uL Hgb (13.0-17.5) gm/dL Hct (39.0-53.0) % MCV (80.0-100.0) fL MCH (25.0-35.0) pg MCHC (31.0-37.0) g/dL RDW (11.5-15.5) % Plt Count (150-450) k/uL Neutrophils % % Lymphocytes % % Monocytes % % Eosinophils % % Basophils % % Neutrophils # (1.3-7.7) k/uL Lymphocytes # (1.0-4.8) k/uL Monocytes # (0-1.0) k/uL Eosinophils # (0-0.7) k/uL Basophils # (0-0.2) k/uL PT 9.6 (9.0-12.0) sec INR 1.0 (<1.2) APTT 22.2 (22.0-30.0) sec D-Dimer 0.30 (<0.60) mg/L FEU Sodium (137-145) mmol/L Potassium (3.5-5.1) mmol/L Chloride (98-107) mmol/L Carbon Dioxide (22-30) mmol/L Anion Gap mmol/L BUN (9-20) mg/dL Creatinine (0.66-1.25) mg/dL Est GFR (CKD-EPI)AfAm (>60 ml/min/1.73 sqM) Est GFR (CKD-EPI)NonAf (>60 ml/min/1.73 sqM) Glucose (74-99) mg/dL Calcium (8.4-10.2) mg/dL Magnesium (1.6-2.3) mg/dL Total Bilirubin (0.2-1.3) mg/dL AST (17-59) U/L ALT (21-72) U/L Alkaline Phosphatase (38-126) U/L Total Creatine Kinase (55-170) U/L CK-MB (CK-2) (0.0-2.4) ng/mL CK-MB (CK-2) Rel Index Troponin I (0.000-0.034) ng/mL NT-Pro-B Natriuret Pep 81 pg/mL Total Protein (6.3-8.2) g/dL Albumin (3.5-5.0) g/dL Critical Care Time Critical Care Time: Yes Total Critical Care Time: 35 Disposition Clinical Impression: Acute exacerbation of chronic obstructive airways disease Disposition: ADMITTED IP TO THIS HOSP Referrals: Shellie Sampson MD [Primary Care Provider] - 1-2 days Time of Disposition: 16:21
[2018-05-15 15:34] LABS: ALT 19 U/L (21-72); AST 23 U/L (17-59); Albumin 4.2 g/dL (3.5-5.0); Alkaline Phosphatase 66 U/L (38-126); Anion Gap 7 mmol/L; Blood Urea Nitrogen 8 mg/dL (9-20); Calcium 9.5 mg/dL (8.4-10.2); Carbon Dioxide 33 mmol/L (22-30); Chloride 99 mmol/L (98-107); D-Dimer 0.3 mg/L FEU (<0.60); Glucose 109 mg/dL (74-99); Magnesium 1.8 mg/dL (1.6-2.3); Partial Thromboplastin Time 22.2 sec (22.0-30.0); Prothrombin Time 9.6 sec (9.0-12.0); Sodium 139 mmol/L (137-145); Total Bilirubin 0.5 mg/dL (0.2-1.3)
[2018-05-15 15:39] LABS: Basophils % (A) 0 %; Eosinophils # (A) 0.2 k/uL (0-0.7); Eosinophils % (A) 2 %; HCT 40.9 % (39.0-53.0); Lymphocytes % (A) 10 %; MCH 28.7 pg (25.0-35.0); MCHC 31.9 g/dL (31.0-37.0); MCV 89.9 fL (80.0-100.0); Mean Platelet Volume 6.7; Monocytes # (A) 0.6 k/uL (0-1.0); Monocytes % (A) 6 %; Neutrophils # (A) 7.6 k/uL (1.3-7.7); Neutrophils % (A) 81 %; Platelet Count 287 k/uL (150-450); RBC 4.54 m/uL (4.30-5.90); RDW 14.7 % (11.5-15.5); WBC 9.5 k/uL (3.8-10.6)
[2018-05-15 15:42] LABS: Creatine Kinase 154 U/L (55-170)
--- NOTE | 2018-05-15 15:45 | XR ---
EXAMINATION TYPE: XR chest 1V portable DATE OF EXAM: 05/15/2018 COMPARISON: Prior chest x-ray 03/22/2018 HISTORY: Difficulty breathing TECHNIQUE: Single frontal view of the chest is obtained. FINDINGS: There is no focal air space opacity, pleural effusion, or pneumothorax seen. The cardiac silhouette size is within normal limits. The osseous structures are intact. Prominent lung volumes suggest underlying COPD. IMPRESSION: No acute process.
[2018-05-15 15:55] LABS: Creatine Kinase MB 2.8 ng/mL (0.0-2.4); Troponin I <0.012 ng/mL (0.000-0.034)
[2018-05-15] MEDS ORDERED: HYDROmorphone 1 MG/ML 1 ML SYRINGE IVP STA (17:16)
[2018-05-15] MEDS ORDERED: IBUPROFEN 800 MG TAB PO PRN (23:18)
[2018-05-15] MEDS ORDERED: ZOLPIDEM 5 MG TAB PO PRN (23:18)
[2018-05-15] MEDS ORDERED: SUMAtriptan SUCCINATE 50 MG TAB PO PRN (23:18)
[2018-05-15 23:33] VITALS: BMI 30.6
[2018-05-15] MEDS: HYDROmorphone 1 MG/ML 1 ML SYRINGE IVP PRN (23:45)
[2018-05-16] MEDS: HYDROmorphone 1 MG/ML 1 ML SYRINGE IVP PRN ×5 (02:39→21:06)
[2018-05-16] MEDS: IPRATROPIUM 0.5 MG/2.5 ML NEBU INHALATION SCH ×4 (08:40→19:24)
[2018-05-16] MEDS: busPIRone HCl 5 MG TAB PO SCH ×2 (08:58→21:07)
[2018-05-16] MEDS: THEOPHYLLINE 24 HOUR 200 MG CAP.ER.24H PO SCH (08:59)
[2018-05-16] MEDS: METOPROLOL SUCCINATE (ER) 25 MG TAB.ER.24H PO SCH (09:00)
[2018-05-16] MEDS: PANTOPRAZOLE 40 MG TABLET PO SCH (09:00)
[2018-05-16] MEDS: ESCITALOPRAM 10 MG TAB PO SCH (09:00)
[2018-05-16] MEDS: ATORVASTATIN 10 MG TAB PO SCH (09:00)
[2018-05-16] MEDS: POTASSIUM CHLORIDE ER 10 MEQ TAB.ER.PRT PO SCH ×2 (09:00→21:07)
[2018-05-16] MEDS: FUROSEMIDE 40 MG TAB PO SCH (09:00)
[2018-05-16] MEDS: GABAPENTIN 100 MG CAP PO SCH ×2 (09:00→21:07)
[2018-05-16] MEDS: LORATADINE 10 MG TAB PO SCH (09:00)
--- NOTE | 2018-05-16 10:46 | P.HPIM ---
History of Present Illness H&P Date: 05/16/18 Chief Complaint: COPD exacerbation This is a 58-year-old male patient well-known to receive services who presented to the emergency room with increased shortness of breath. Patient presented with increased shortness of breath that has been progressively getting worse over the past 3 days. Patient says he cannot walk without getting shortness breath. Patient is oxygen dependent at home patient also currently a smoker. Patient states he has cut back on his cigarettes to 5 a day. She has a known past medical history of frequent hospital admissions for tracheobronchitis and COPD exacerbation. Patient is oxygen dependent at home with 3 L. Patient also with BiPAP when necessary at night. Additional medical history includes pancreatitis, heart cath, anxiety, chronic pain, depression and diverticulitis. X-ray completed showing no acute process. EKG completed showing sinus tachycardia. At this time patient states he feels slightly improved with his breathing. Patient is on steroids and updraft breathing treatments per pulmonary services. At this time patient denies chest pain. Patient denies nausea vomiting or diarrhea. Patient denies any urinary burning or frequency. Review of Systems Please refer to HPI otherwise unremarkable Past Medical History Past Medical History: Chest Pain / Angina, COPD, GERD/Reflux, Hyperlipidemia, Hypertension, Pneumonia Additional Past Medical History / Comment(s): tracheobronchitis, vague density overlying R mid lung to be followed up upon. Other hx: Severe COPD, chronic hypoxic respiratory failure , 3L oxygen at home, VIVEK without device, history of alcoholism-no drinking for 18 yrs, history of chronic pancreatitis and pancreatic insufficiency, chronic diverticular disease/diverticulitis, chronic pain in back and abdomin. Last Myocardial Infarction Date:: Denies having an HI History of Any Multi-Drug Resistant Organisms: MRSA Date of last positivie culture/infection: summer MDRO Source:: right side of buttuck and right side of chest above nipple Past Surgical History: Bowel Resection, Heart Catheterization, Orthopedic Surgery, Tonsillectomy Additional Past Surgical History / Comment(s): Sigmoid colectomy, right hand surgery for repair of tendons, cardiac catheterization that has been normal, colonoscopy Past Anesthesia/Blood Transfusion Reactions: No Reported Reaction Past Psychological History: Anxiety, Depression Additional Psychological History / Comment(s): Pt resides with his brother. He is currently receiving care thru [facility]. He uses a wheelchair prn. He is on home oxygen at 3L/[place] ATC. He has a nebulizer. He does not drive. Family take him to app. Smoking Status: Current every day smoker Past Alcohol Use History: None Reported Additional Past Alcohol Use History / Comment(s): STARTED SMOKING AT AGE 5 SMOKED 3PPD, USED TO DRINK HEAVILY BUT NONE IN LAST 18 YEARS. Past Drug Use History: Prescription Drug Abuse Additional Drug Use History / Comment(s): SMOKED MARIJUANA 20 YEARS AGO. - Past Family History Mother Family Medical History: Cancer, COPD Additional Family Medical History / Comment(s): unaware of what kind of cancer Father Family Medical History: COPD Additional Family Medical History / Comment(s): Father is . Medications and Allergies Home Medications Medication Instructions Recorded Confirmed Type Gabapentin [Neurontin] 100 mg PO BID 03/05/14 05/15/18 History Omeprazole 40 mg PO DAILY 03/05/14 05/15/18 History Lipase/Protease/Amylase [[place] Dr 1 cap PO TID 07/12/14 05/15/18 History 24,000 Units Capsule] risperiDONE [RisperDAL] 2 mg PO BID 07/12/14 05/15/18 History Atorvastatin Calcium [Lipitor] 10 mg PO DAILY 06/02/17 05/15/18 History Furosemide [Lasix] 40 mg PO DAILY 06/02/17 05/15/18 History Metoprolol Succinate (ER) [Toprol 25 mg PO DAILY 06/02/17 05/15/18 History XL] Roflumilast [Daliresp] 500 mg PO DAILY 06/02/17 05/15/18 History busPIRone HCL [Buspar] 7.5 mg PO BID 06/02/17 05/15/18 History Albuterol Inhaler [Ventolin Hfa 2 puff INHALATION RT-Q4H PRN 02/09/18 05/15/18 History Inhaler] Loratadine [Claritin] 10 mg PO DAILY 02/09/18 05/15/18 History Potassium Chloride [Klor-Con 10] 10 meq PO BID 02/09/18 05/15/18 History SUMAtriptan SUCCINATE [Imitrex] 100 mg PO DAILY PRN 02/09/18 05/15/18 History Escitalopram [Lexapro] 10 mg PO DAILY #30 tab 02/28/18 05/15/18 Rx Zolpidem [Ambien] 5 mg PO HS #3 tab 03/24/18 05/15/18 Rx ALPRAZolam [Xanax] 2 mg PO QID 05/15/18 05/15/18 History Hydrocortisone Cream 1 applic TOPICAL DAILY 05/15/18 05/15/18 History [Hydrocortisone 2.5% Cream] Ibuprofen [Motrin] 800 mg PO TID 05/15/18 05/15/18 History Theophylline 24 Hour [Dionisio-24] 400 mg PO DAILY 05/15/18 05/15/18 History Tiotropium 18 Mcg/Puff [Spiriva] 1 puff INHALATION RT-BID 05/15/18 05/15/18 History Umeclidinium [place] [Incruse 2 puff INHALATION RT-BID 05/15/18 05/15/18 History Ellipta] Allergies Allergy/AdvReac Type Severity Reaction Status Date / Time Penicillins Allergy Rash/Hives Verified 05/15/18 15:07 Physical Exam Vitals: Vital Signs Temp Pulse Pulse Resp BP BP Pulse Ox 05/16/18 09:08 96 05/16/18 08:42 100 05/16/18 04:00 98 F 95 21 151/90 98 05/16/18 00:00 98.0 F 98 21 154/96 97 05/15/18 19:51 94 18 127/97 97 05/15/18 19:19 18 05/15/18 18:30 92 21 130/99 99 05/15/18 18:00 98 20 143/111 98 05/15/18 17:30 101 H 16 99 05/15/18 17:00 113 H 18 100 05/15/18 16:53 98.5 F 105 H 24 160/108 98 05/15/18 16:30 107 H 15 100 05/15/18 16:00 100 19 100 05/15/18 15:30 105 H 17 100 05/15/18 15:12 104 H 05/15/18 15:00 107 H 19 127/81 100 05/15/18 14:56 106 H 05/15/18 14:30 106 H 17 129/92 99 05/15/18 14:16 98.2 F 107 H 24 129/92 98 05/15/18 14:13 97 Intake and Output 1105/16/18 05/16/18 22:59 06:59 14:59 Intake Total 240 Output Total 0 Balance 240 Intake: Oral 240 Output: Urine 0 Other: # Voids 250 Weight 86.1 kg 86 kg Head normocephalic Neck supple Lungs diminished bilaterally with expiratory wheezing Heart regular rate and rhythm S1-S2, no rub or gallop Abdomen is soft nontender nondistended positive bowel sounds no hepatosplenomegaly Extremities no edema Neuro alert and orientated to 3 Results CBC & Chem 7: 05/15/18 14:50 05/15/18 14:50 Labs: Abnormal Lab Results - Last 24 Hours (Table) 05/15/18 05/15/18 Range/Units 14:50 14:50 Carbon Dioxide 33 H (22-30) mmol/L BUN 8 L (9-20) mg/dL Creatinine 0.65 L (0.66-1.25) mg/dL Glucose 109 H (74-99) mg/dL ALT 19 L (21-72) U/L CK-MB (CK-2) 2.8 H (0.0-2.4) ng/mL Thrombosis Risk Factor Assmnt - Choose All That Apply Each Factor Represents 1 point: Age 41-60 years, Obesity (BMI >25), Swollen legs (current) Other Risk Factors: No Thrombosis Risk Factor Assessment Total Risk Factor Score: 3 Thrombosis Risk Factor Assessment Level: Moderate Risk Assessment and Plan Assessment: 1. Acute exacerbation of chronic obstructive pulmonary disease. Chest x-ray completed showing no acute process. Patient currently on Solu-Medrol and updraft breathing treatments. Dr. Gallagher per pulmonary services consulted 2. Acute on chronic hypoxic and hypercapnic or story failure currently maintained on BiPAP 3. History of essential hypertension 4. History of hyperlipidemia 5. History of migraine headache 6. History of depression 7. History of chronic back pain 8. nicotine dependence. Educated patient greater than 3 minutes on smoking cessation. Patient did state he is down to 5 cigarettes per day. Will order nicotine patch at this time DVT prophylaxis Lovenox. GI prophylaxis Protonix Time with Patient: Greater than 30 (Greater than 60% of the total time spent in counseling and coordination of care. I performed an examination of the patient and discussed their management with the Nurse Practitioner. I have reviewed the Nurse Practitioner's notes and agree with the documented findings and plan of care)
--- NOTE | 2018-05-16 12:42 | P.CNPUL ---
History of Present Illness Consult date: 05/16/18 Requesting physician: Shellie Sampson Reason for consult: dyspnea, COPD, hypoxemia Chief complaint: Dyspnea, low-grade fever, cough, congestion History of present illness: This is 58-year-old white male patient of Dr. Sampson, who is known to our service from his previous admissions for complications related to his advanced COPD, presented to the emergency department on 05/15/2018 at 1400 for evaluation of severe dyspnea, cough, low-grade fever, and production, wheezing. She was unable to walk even short distances related to his progressive dyspnea. He took 3 nebulized treatments [id number] without any improvement, then called the ambulance. He denies any sick contacts, denied any chest pain. Denied any nausea vomiting or diarrhea, denied any lightheadedness or dizziness. Patient is oxygen dependent at his baseline, usually on 5 L per nasal cannula. His baseline FEV1 is less than 20% predicted. Other medical history is positive for nicotine dependence, GERD/reflux, hypertension, hyperlipidemia, previous episodes of pneumonia, multiple admissions for pulmonary infections, underlying obstructive sleep apnea and patient is currently on AVAPS at home, history of chronic pancreatitis and pancreatic insufficiency, requiring diverticular disease status post sigmoid colectomy, chronic pain syndrome, anxiety, depression. Chest x-ray was completed showed no acute process. EKG showed sinus tachycardia. Labs did not show leukocytosis , WBC is 9.5, hemoglobin is 13.0, d-dimer was negative 0.30, electrolytes were unremarkable with the exception of CO2 which was at 33, patient has chronic hypercapnic respiratory failure related to his COPD and obstructive sleep apnea , BUN of 8, creatinine 0.65, LFTs were unremarkable, troponin was negative 1, proBNP was 81. Patient was started on IV Solu-Medrol, nebulized bronchodilators , he is on oral Lasix, he is on theophylline 400 mg daily. Patient did require BiPAP support overnight, currently on 2 L per nasal cannula, his bronchospastic and wheezy, but overall feeling slightly better. Review of Systems All systems: negative Constitutional: Denies chills, Denies fever Eyes: denies blurred vision, denies pain Ears, nose, mouth and throat: Denies headache, Denies sore throat Cardiovascular: Denies chest pain, Denies shortness of breath Respiratory: Reports congestion, Reports cough with sputum, Reports dyspnea, Reports home oxygen, Reports respiratory infections, Reports sleep apnea, Denies cough Gastrointestinal: Denies abdominal pain, Denies diarrhea, Denies nausea, Denies vomiting Musculoskeletal: Denies myalgias Integumentary: Denies pruritus, Denies rash Neurological: Denies numbness, Denies weakness Psychiatric: Denies anxiety, Denies depression Endocrine: Denies fatigue, Denies weight change Past Medical History Past Medical History: Chest Pain / Angina, COPD, GERD/Reflux, Hyperlipidemia, Hypertension, Pneumonia Additional Past Medical History / Comment(s): tracheobronchitis, vague density overlying R mid lung to be followed up upon. Other hx: Severe COPD, chronic hypoxic respiratory failure , 3L oxygen at home, VIVEK without device, history of alcoholism-no drinking for 18 yrs, history of chronic pancreatitis and pancreatic insufficiency, chronic diverticular disease/diverticulitis, chronic pain in back and abdomin. Last Myocardial Infarction Date:: Denies having an PA History of Any Multi-Drug Resistant Organisms: MRSA Date of last positivie culture/infection: summer MDRO Source:: right side of buttuck and right side of chest above nipple Past Surgical History: Bowel Resection, Heart Catheterization, Orthopedic Surgery, Tonsillectomy Additional Past Surgical History / Comment(s): Sigmoid colectomy, right hand surgery for repair of tendons, cardiac catheterization that has been normal, colonoscopy Past Anesthesia/Blood Transfusion Reactions: No Reported Reaction Past Psychological History: Anxiety, Depression Additional Psychological History / Comment(s): Pt resides with his brother. He is currently receiving care thru [facility]. He uses a wheelchair prn. He is on home oxygen at 3L/[place] ATC. He has a nebulizer. He does not drive. Family take him to [facility]. Smoking Status: Current every day smoker Past Alcohol Use History: None Reported Additional Past Alcohol Use History / Comment(s): STARTED SMOKING AT AGE 5 SMOKED 3PPD, USED TO DRINK HEAVILY BUT NONE IN LAST 18 YEARS. Past Drug Use History: Prescription Drug Abuse Additional Drug Use History / Comment(s): SMOKED MARIJUANA 20 YEARS AGO. - Past Family History Mother Family Medical History: Cancer, COPD Additional Family Medical History / Comment(s): unaware of what kind of cancer Father Family Medical History: COPD Additional Family Medical History / Comment(s): Father is . Medications and Allergies Home Medications Medication Instructions Recorded Confirmed Type Gabapentin [Neurontin] 100 mg PO BID 03/05/14 05/15/18 History Omeprazole 40 mg PO DAILY 03/05/14 05/15/18 History Lipase/Protease/Amylase [[place] Dr 1 cap PO TID 07/12/14 05/15/18 History 24,000 Units Capsule] risperiDONE [RisperDAL] 2 mg PO BID 07/12/14 05/15/18 History Atorvastatin Calcium [Lipitor] 10 mg PO DAILY 06/02/17 05/15/18 History Furosemide [Lasix] 40 mg PO DAILY 06/02/17 05/15/18 History Metoprolol Succinate (ER) [Toprol 25 mg PO DAILY 06/02/17 05/15/18 History XL] Roflumilast [Daliresp] 500 mg PO DAILY 06/02/17 05/15/18 History busPIRone HCL [Buspar] 7.5 mg PO BID 06/02/17 05/15/18 History Albuterol Inhaler [Ventolin Hfa 2 puff INHALATION RT-Q4H PRN 02/09/18 05/15/18 History Inhaler] Loratadine [Claritin] 10 mg PO DAILY 02/09/18 05/15/18 History Potassium Chloride [Klor-Con 10] 10 meq PO BID 02/09/18 05/15/18 History SUMAtriptan SUCCINATE [Imitrex] 100 mg PO DAILY PRN 02/09/18 05/15/18 History Escitalopram [Lexapro] 10 mg PO DAILY #30 tab 02/28/18 05/15/18 Rx Zolpidem [Ambien] 5 mg PO HS #3 tab 03/24/18 05/15/18 Rx ALPRAZolam [Xanax] 2 mg PO QID 05/15/18 05/15/18 History Hydrocortisone Cream 1 applic TOPICAL DAILY 05/15/18 05/15/18 History [Hydrocortisone 2.5% Cream] Ibuprofen [Motrin] 800 mg PO TID 05/15/18 05/15/18 History Theophylline 24 Hour [Dionisio-24] 400 mg PO DAILY 05/15/18 05/15/18 History Tiotropium 18 Mcg/Puff [Spiriva] 1 puff INHALATION RT-BID 05/15/18 05/15/18 History Umeclidinium [place] [Incruse 2 puff INHALATION RT-BID 05/15/18 05/15/18 History Ellipta] Allergies Allergy/AdvReac Type Severity Reaction Status Date / Time Penicillins Allergy Rash/Hives Verified 05/15/18 15:07 Physical Exam Vitals: Vital Signs Temp Pulse Pulse Resp BP BP Pulse Ox 05/16/18 12:15 99 05/16/18 09:08 96 05/16/18 08:42 100 05/16/18 07:45 98.5 F 105 H 20 163/90 100 05/16/18 04:00 98 F 95 21 151/90 98 05/16/18 00:00 98.0 F 98 21 154/96 97 05/15/18 19:51 94 18 127/97 97 05/15/18 19:19 18 05/15/18 18:30 92 21 130/99 99 05/15/18 18:00 98 20 143/111 98 05/15/18 17:30 101 H 16 99 05/15/18 17:00 113 H 18 100 05/15/18 16:53 98.5 F 105 H 24 160/108 98 05/15/18 16:30 107 H 15 100 05/15/18 16:00 100 19 100 05/15/18 15:30 105 H 17 100 05/15/18 15:12 104 H 05/15/18 15:00 107 H 19 127/81 100 05/15/18 14:56 106 H 05/15/18 14:30 106 H 17 129/92 99 05/15/18 14:16 98.2 F 107 H 24 129/92 98 05/15/18 14:13 97 Intake and Output 05/15/18 05/16/18 05/16/18 22:59 06:59 14:59 Intake Total 240 Output Total 0 Balance 240 Intake: Oral 240 Output: Urine 0 Other: # Voids 250 Weight 86.1 kg 86 kg GENERAL EXAM: Alert, pleasant, 57-year-old white male on 2 L per nasal cannula, conversational dyspnea is present HEAD: Normocephalic/atraumatic. EYES: Normal reaction of pupils, equal size. Conjunctiva pink, sclera white. NOSE: Clear with pink turbinates. THROAT: No erythema or exudates. NECK: No masses, no JVD, no thyroid enlargement, no adenopathy. CHEST: No chest wall deformity. Symmetrical expansion. LUNGS: Equal air entry with diffuse wheezes, diminished breath sounds overall CVS: Regular rate and rhythm, normal S1 and S2, no gallops, no murmurs, no rubs ABDOMEN: Soft, nontender. No hepatosplenomegaly, normal bowel sounds, no guarding or rigidity. EXTREMITIES: No clubbing, no edema, no cyanosis, 2+ pulses and upper and lower extremities. MUSCULOSKELETAL: Muscle strength and tone normal. SPINE: No scoliosis or deformity SKIN: No rashes CENTRAL NERVOUS SYSTEM: Alert and oriented -3. No focal deficits, tone is normal in all 4 extremities. PSYCHIATRIC: Alert and oriented -3. Appropriate affect. Intact judgment and insight. Results - Laboratory Findings CBC and BMP: 05/15/18 14:50 05/15/18 14:50 PT/INR, D-dimer PT 9.6 sec (9.0-12.0) 05/15/18 14:50 INR 1.0 (<1.2) 05/15/18 14:50 D-Dimer 0.30 mg/L FEU (<0.60) 05/15/18 14:50 Abnormal lab findings: Abnormal Labs 05/15/18 05/15/18 14:50 14:50 Carbon Dioxide 33 H BUN 8 L Creatinine 0.65 L Glucose 109 H ALT 19 L CK-MB (CK-2) 2.8 H
[2018-05-16] MEDS: risperiDONE 2 MG TAB PO SCH ×2 (13:08→21:11)
[2018-05-16] MEDS: methylPREDNISolone SOD SUCCI 125 MG/2 ML VIAL IV SCH ×3 (13:09→23:04)
[2018-05-16] MEDS: DOXYCYCLINE 100 MG CAP PO SCH ×2 (13:10→21:07)
[2018-05-16] MEDS: ALBUTEROL NEBULIZED 2.5 MG/3 ML INHALATION PRN (16:13)
[2018-05-16] MEDS: FORMOTEROL FUMARATE 20 MCG/2 ML NEBU INHALATION SCH (19:24)
[2018-05-16] MEDS: BUDESONIDE 1 MG/2 ML NEBU INHALATION SCH (19:24)
[2018-05-16] MEDS: ALPRAZolam 1 MG TAB PO PRN (21:06)
[2018-05-17] MEDS: methylPREDNISolone SOD SUCCI 125 MG/2 ML VIAL IV SCH ×2 (05:07→12:43)
[2018-05-17 05:53] LABS: Glucose,Whole Blood 173 mg/dL (75-99)
[2018-05-17] MEDS: HYDROmorphone 1 MG/ML 1 ML SYRINGE IVP PRN (06:21)
[2018-05-17 06:59] LABS: Basophils % (A) 0 %; Eosinophils % (A) 0 %; HCT 38.7 % (39.0-53.0); HGB 12.1 gm/dL (13.0-17.5); Hypochromasia Slight; Lymphocytes # (A) 0.5 k/uL (1.0-4.8); Lymphocytes % (A) 8 %; MCH 28.7 pg (25.0-35.0); MCHC 31.2 g/dL (31.0-37.0); Mean Platelet Volume 6.5; Monocytes # (A) 0.4 k/uL (0-1.0); Monocytes % (A) 6 %; Neutrophils # (A) 5.6 k/uL (1.3-7.7); Neutrophils % (A) 85 %; Platelet Count 265 k/uL (150-450); RDW 14.5 % (11.5-15.5); WBC 6.6 k/uL (3.8-10.6)
[2018-05-17 07:12] LABS: ALT 20 U/L (21-72); AST 15 U/L (17-59); Albumin 3.6 g/dL (3.5-5.0); Alkaline Phosphatase 57 U/L (38-126); Anion Gap 4 mmol/L; Blood Urea Nitrogen 22 mg/dL (9-20); Calcium 9.4 mg/dL (8.4-10.2); Carbon Dioxide 33 mmol/L (22-30); Chloride 101 mmol/L (98-107); Glucose 154 mg/dL (74-99); Potassium 4.4 mmol/L (3.5-5.1); Sodium 138 mmol/L (137-145); Total Bilirubin 0.2 mg/dL (0.2-1.3)
[2018-05-17] MEDS ORDERED: PANTOPRAZOLE 40 MG TABLET PO SCH (07:30)
[2018-05-17] MEDS: FORMOTEROL FUMARATE 20 MCG/2 ML NEBU INHALATION SCH (07:52)
[2018-05-17] MEDS: BUDESONIDE 1 MG/2 ML NEBU INHALATION SCH (07:52)
[2018-05-17] MEDS: IPRATROPIUM 0.5 MG/2.5 ML NEBU INHALATION SCH ×2 (07:52→11:29)
[2018-05-17] MEDS: ALBUTEROL NEBULIZED 2.5 MG/3 ML INHALATION PRN ×2 (07:54→11:29)
[2018-05-17] MEDS ORDERED: NICOTINE 14MG/24HR PATCH TRANSDERM SCH (09:00)
[2018-05-17] MEDS ORDERED: ENOXAPARIN 40 MG/0.4 ML SYRINGE SQ SCH (09:00)
[2018-05-17] MEDS: POTASSIUM CHLORIDE ER 10 MEQ TAB.ER.PRT PO SCH (10:07)
[2018-05-17] MEDS: GABAPENTIN 100 MG CAP PO SCH (10:07)
[2018-05-17] MEDS: busPIRone HCl 5 MG TAB PO SCH (10:07)
[2018-05-17] MEDS: METOPROLOL SUCCINATE (ER) 25 MG TAB.ER.24H PO SCH (10:07)
[2018-05-17] MEDS: ESCITALOPRAM 10 MG TAB PO SCH (10:07)
[2018-05-17] MEDS: FUROSEMIDE 40 MG TAB PO SCH (10:08)
[2018-05-17] MEDS: LORATADINE 10 MG TAB PO SCH (10:08)
[2018-05-17] MEDS: PANTOPRAZOLE 40 MG TABLET PO SCH (10:08)
--- NOTE | 2018-05-17 11:04 | P.PN ---
Subjective Progress Note Date: 05/17/18 This is a 58-year-old male patient well-known to receive services who presented to the emergency room with increased shortness of breath. Patient presented with increased shortness of breath that has been progressively getting worse over the past 3 days. Patient says he cannot walk without getting shortness breath. Patient is oxygen dependent at home patient also currently a smoker. Patient states he has cut back on his cigarettes to 5 a day. She has a known past medical history of frequent hospital admissions for tracheobronchitis and COPD exacerbation. Patient is oxygen dependent at home with 3 L. Patient also with BiPAP when necessary at night. Additional medical history includes pancreatitis, heart cath, anxiety, chronic pain, depression and diverticulitis. X-ray completed showing no acute process. EKG completed showing sinus tachycardia. At this time patient states he feels slightly improved with his breathing. Patient is on steroids and updraft breathing treatments per pulmonary services. At this time patient denies chest pain. Patient denies nausea vomiting or diarrhea. Patient denies any urinary burning or frequency. On 05/17/2018 patient is currently resting comfortably in bed. Patient states improvement with shortness of breath. Patient remains on doxycycline and IV steroids at this time. Pulmonary services are following. Patient denies any chest pain. Patient denies nausea vomiting or diarrhea. Patient denies any urinary burning or frequency Objective - Vital Signs Vital signs: Vital Signs Temp 98.4 F 05/17/18 04:00 Pulse 104 H 05/17/18 08:16 Resp 20 05/17/18 04:00 BP 141/88 05/17/18 04:00 Pulse Ox 95 05/17/18 07:57 Intake & Output 05/16/18 05/17/18 05/17/18 18:59 06:59 18:59 Intake Total 1320 360 Output Total 0 300 Balance 1320 60 Intake: Oral 1320 360 Output: Urine 0 300 Other: # Voids 2 - Exam Head normocephalic Neck supple Lungs diminished breath sounds throughout. Expiratory wheezing noted Heart regular rate and rhythm S1-S2, no rub or gallop Abdomen is soft nontender nondistended positive bowel sounds no hepatosplenomegaly Extremities no edema Neuro alert and orientated to 3 - Labs CBC & Chem 7: 05/17/18 06:28 05/17/18 06:28 Labs: Abnormal Lab Results - Last 24 Hours (Table) 05/17/18 05/17/18 05/17/18 Range/Units 05:50 06:28 06:28 RBC 4.20 L (4.30-5.90) m/uL Hgb 12.1 L (13.0-17.5) gm/dL Hct 38.7 L (39.0-53.0) % Lymphocytes # 0.5 L (1.0-4.8) k/uL Carbon Dioxide 33 H (22-30) mmol/L BUN 22 H (9-20) mg/dL Creatinine 0.58 L (0.66-1.25) mg/dL Glucose 154 H (74-99) mg/dL POC Glucose (mg/dL) 173 H (75-99) mg/dL AST 15 L (17-59) U/L ALT 20 L (21-72) U/L Total Protein 6.0 L (6.3-8.2) g/dL Microbiology - Last 24 Hours (Table) 05/15/18 14:50 Blood Culture - Preliminary Blood No Growth after 24 hours Assessment and Plan Assessment: 1. Acute exacerbation of chronic obstructive pulmonary disease. Chest x-ray completed showing no acute process. Patient currently on Solu-Medrol and updraft breathing treatments. Per pulmonary services continue IV steroids and doxycycline 2. Acute on chronic hypoxic and hypercapnic or story failure currently maintained on BiPAP 3. History of essential hypertension 4. History of hyperlipidemia 5. History of migraine headache 6. History of depression 7. History of chronic back pain 8. nicotine dependence. Educated patient greater than 3 minutes on smoking cessation. Patient did state he is down to 5 cigarettes per day. Will order nicotine patch at this time DVT prophylaxis Lovenox. GI prophylaxis Protonix I performed an examination of the patient and discussed their management with the Nurse Practitioner. I have reviewed the Nurse Practitioner's notes and agree with the documented findings and plan of care
[2018-05-17] MEDS ORDERED: IPRATROPIUM-ALBUTEROL 3 ML NEB INHALATION PRN (11:35)
[2018-05-17 11:52] VITALS: TEMP 97.8
[2018-05-17 11:55] LABS: Glucose,Whole Blood 96 mg/dL (75-99)
[2018-05-17] MEDS: IPRATROPIUM-ALBUTEROL 3 ML NEB INHALATION SCH ×2 (12:07→15:45)
[2018-05-17] MEDS: risperiDONE 2 MG TAB PO SCH (12:20)
[2018-05-17] MEDS: DOXYCYCLINE 100 MG CAP PO SCH (12:20)
[2018-05-17] MEDS: THEOPHYLLINE 24 HOUR 200 MG CAP.ER.24H PO SCH (12:20)
[2018-05-17] MEDS: ATORVASTATIN 10 MG TAB PO SCH (12:21)
--- NOTE | 2018-05-17 12:25 | P.PN ---
Subjective Progress Note Date: 05/17/18 Principal diagnosis: Acute exacerbation of COPD This is 58-year-old white male patient of Dr. Sampson, who is known to our service from his previous admissions for complications related to his advanced COPD, presented to the emergency department on 05/15/2018 at 1400 for evaluation of severe dyspnea, cough, low-grade fever, and production, wheezing. She was unable to walk even short distances related to his progressive dyspnea. He took 3 nebulized treatments [id number] without any improvement, then called the ambulance. He denies any sick contacts, denied any chest pain. Denied any nausea vomiting or diarrhea, denied any lightheadedness or dizziness. Patient is oxygen dependent at his baseline, usually on 5 L per nasal cannula. His baseline FEV1 is less than 20% predicted. Other medical history is positive for nicotine dependence, GERD/reflux, hypertension, hyperlipidemia, previous episodes of pneumonia, multiple admissions for pulmonary infections, underlying obstructive sleep apnea and patient is currently on AVAPS at home, history of chronic pancreatitis and pancreatic insufficiency, requiring diverticular disease status post sigmoid colectomy, chronic pain syndrome, anxiety, depression. Chest x-ray was completed showed no acute process. EKG showed sinus tachycardia. Labs did not show leukocytosis , WBC is 9.5, hemoglobin is 13.0, d-dimer was negative 0.30, electrolytes were unremarkable with the exception of CO2 which was at 33, patient has chronic hypercapnic respiratory failure related to his COPD and obstructive sleep apnea , BUN of 8, creatinine 0.65, LFTs were unremarkable, troponin was negative 1, proBNP was 81. Patient was started on IV Solu-Medrol, nebulized bronchodilators , he is on oral Lasix, he is on theophylline 400 mg daily. Patient did require BiPAP support overnight, currently on 2 L per nasal cannula, his bronchospastic and wheezy, but overall feeling slightly better. On 05/17/2018 patient seen in follow-up on selective care unit, is clinically improving, did wear his BiPAP last night, currently on 4 L per nasal cannula, and his pulse ox is 99%, afebrile, hemodynamically stable. Lung sounds reveal diminished breath sounds, no significant wheezing or rhonchi, no rales. Reports significant improvement in terms of dyspnea. Blood culture showed no growth at the 24-hour shagufta. Today's lab work showed WBC of 6.6, hemoglobin of 12.1, sodium is 138, potassium is 4.4, chloride 101, CO2 33, BUN is 22 and creatinine is 0.58. Weaning FiO2, no acute on's overnight, no specific complaints, he is requesting to go home today. From pulmonary perspective patient is able for discharge home today. Objective - Vital Signs Vital signs: Vital Signs Temp 97.8 F 05/17/18 09:40 Pulse 102 H 05/17/18 11:41 Resp 18 05/17/18 09:40 BP 140/80 05/17/18 09:40 Pulse Ox 99 05/17/18 09:40 Intake & Output 05/16/18 05/17/18 05/17/18 18:59 06:59 18:59 Intake Total 1320 360 Output Total 0 300 Balance 1320 60 Intake: Oral 1320 360 Output: Urine 0 300 Other: # Voids 2 - Exam GENERAL EXAM: Alert, pleasant, 57-year-old white male on 2 L per nasal cannula, conversational dyspnea is present HEAD: Normocephalic/atraumatic. EYES: Normal reaction of pupils, equal size. Conjunctiva pink, sclera white. NOSE: Clear with pink turbinates. THROAT: No erythema or exudates. NECK: No masses, no JVD, no thyroid enlargement, no adenopathy. CHEST: No chest wall deformity. Symmetrical expansion. LUNGS: Equal air entry with diminished breath sounds. No wheezes, no rales CVS: Regular rate and rhythm, normal S1 and S2, no gallops, no murmurs, no rubs ABDOMEN: Soft, nontender. No hepatosplenomegaly, normal bowel sounds, no guarding or rigidity. EXTREMITIES: No clubbing, no edema, no cyanosis, 2+ pulses and upper and lower extremities. MUSCULOSKELETAL: Muscle strength and tone normal. SPINE: No scoliosis or deformity SKIN: No rashes CENTRAL NERVOUS SYSTEM: Alert and oriented -3. No focal deficits, tone is normal in all 4 extremities. PSYCHIATRIC: Alert and oriented -3. Appropriate affect. Intact judgment and insight. - Labs CBC & Chem 7: 05/17/18 06:28 05/17/18 06:28 Labs: Abnormal Lab Results - Last 24 Hours (Table) 05/17/18 05/17/18 05/17/18 Range/Units 05:50 06:28 06:28 RBC 4.20 L (4.30-5.90) m/uL Hgb 12.1 L (13.0-17.5) gm/dL Hct 38.7 L (39.0-53.0) % Lymphocytes # 0.5 L (1.0-4.8) k/uL Carbon Dioxide 33 H (22-30) mmol/L BUN 22 H (9-20) mg/dL Creatinine 0.58 L (0.66-1.25) mg/dL Glucose 154 H (74-99) mg/dL POC Glucose (mg/dL) 173 H (75-99) mg/dL AST 15 L (17-59) U/L ALT 20 L (21-72) U/L Total Protein 6.0 L (6.3-8.2) g/dL Microbiology - Last 24 Hours (Table) 05/15/18 14:50 Blood Culture - Preliminary Blood No Growth after 24 hours Assessment and Plan Plan: Assessment: #1. Acute exacerbation of chronic obstructive pulmonary disease , complicated by tracheobronchitis #2. Severe end-stage COPD, GOLD stage IV, with chronic hypoxemic and hypercapnic respiratory failure, with FEV1 of less than 20% of predicted #3. Multiple, and recurrent admissions for pulmonary infections #4. Chronic and ongoing nicotine dependence, currently down to 1 pack a day #5. History of chronic alcoholism with pancreatic insufficiency #6. Chronic pain syndrome #7. Hypertension, hyperlipidemia #8. History of diverticular disease status post sigmoid colectomy #9. Anxiety and depression Plan: Patient is clinically improving, no worsening dyspnea, currently on BiPAP, lung sounds are negative for any wheezing, vital signs remain stable, patient is afebrile. He does have a AVAPS and nebulizer machine at home. From pulmonary perspective patient is stable, and could be considered for discharge home today and follow up with Dr. Cho in the office in 7-10 days I performed a history & physical examination of the patient and discussed their management with my nurse practitioner, [place] Monique. I reviewed the nurse practitioner's note and agree with the documented findings and plan of care. Lung sounds are positive for diminished breath sounds. The findings and the impression was discussed with the patient. I attest to the documentation by the nurse practitioner. Time with Patient: Less than 30
[2018-05-17] MEDS: ALPRAZolam 1 MG TAB PO PRN (14:23)
--- NOTE | 2018-05-17 15:22 | P.DS ---
Providers Date of admission: 05/15/18 16:22 Expected date of discharge: 05/17/18 Attending physician: Shellie Sampson Consults: 05/15/18 16:22 Consult Physician Routine Consulting Provider: Constance Gallagher Consult Reason/Comments: COPD Do you want consulting provider notified?: Yes Primary care physician: Shellie Sampson [facility] Course: Discharge diagnosis 1. Acute exacerbation of chronic obstructive pulmonary disease complicated by tracheobronchitis. Chest x-ray completed showing no acute process. Patient currently on Solu-Medrol and updraft breathing treatments. Per pulmonary services continue IV steroids and doxycycline. She has been cleared for discharge from pulmonary standpoint. Patient will be DC'd home on doxycycline for 10 days and prednisone taper. Patient to follow-up closely with pulmonary and primary care provider 2. Acute on chronic hypoxic and hypercapnic or story failure currently maintained on BiPAP 3. History of essential hypertension 4. History of hyperlipidemia 5. History of migraine headache 6. History of depression 7. History of chronic back pain 8. nicotine dependence. Educated patient greater than 3 minutes on smoking cessation. Patient did state he is down to 5 cigarettes per day. Will order nicotine patch at this time Hospital Course This is a 58-year-old male patient well-known to receive services who presented to the emergency room with increased shortness of breath. Patient presented with increased shortness of breath that has been progressively getting worse over the past 3 days. Patient says he cannot walk without getting shortness breath. Patient is oxygen dependent at home patient also currently a smoker. Patient states he has cut back on his cigarettes to 5 a day. She has a known past medical history of frequent hospital admissions for tracheobronchitis and COPD exacerbation. Patient is oxygen dependent at home with 3 L. Patient also with BiPAP when necessary at night. Additional medical history includes pancreatitis, heart cath, anxiety, chronic pain, depression and diverticulitis. X-ray completed showing no acute process. EKG completed showing sinus tachycardia. At this time patient states he feels slightly improved with his breathing. Patient is on steroids and updraft breathing treatments per pulmonary services. At this time patient denies chest pain. Patient denies nausea vomiting or diarrhea. Patient denies any urinary burning or frequency. On 05/17/2018 patient is currently resting comfortably in bed. Patient states improvement with shortness of breath. Patient remains on doxycycline and IV steroids at this time. Pulmonary services are following. Patient denies any chest pain. Patient denies nausea vomiting or diarrhea. Patient denies any urinary burning or frequency Patient has been cleared for discharge from pulmonary standpoint. Patient is eager to go home. At this time patient denies chest pain or shortness of breath. Patient denies nausea vomiting or diarrhea. Patient denies any urinary burning or frequency. Patient will be DC'd home on doxycycline antibiotic and prednisone taper. Again patient educated on the importance smoking cessation. Patient is to follow-up closely with pulmonary and primary care services I performed an examination of the patient and discussed their management with the Nurse Practitioner. I have reviewed the Nurse Practitioner's notes and agree with the documented findings and plan of care Patient Condition at Discharge: Stable Plan - Discharge Summary Discharge Rx Participant: No New Discharge Prescriptions: New Doxycycline [Vibramycin] 100 mg PO BID 10 Days #20 cap predniSONE 10 mg PO DIRECTED #30 tab Continue Gabapentin [Neurontin] 100 mg PO BID Omeprazole 40 mg PO DAILY risperiDONE [RisperDAL] 2 mg PO BID Lipase/Protease/Amylase [Creon Dr 24,000 Units Capsule] 1 cap PO TID Atorvastatin Calcium [Lipitor] 10 mg PO DAILY busPIRone HCL [Buspar] 7.5 mg PO BID Furosemide [Lasix] 40 mg PO DAILY Metoprolol Succinate (ER) [Toprol XL] 25 mg PO DAILY Roflumilast [Daliresp] 500 mg PO DAILY Albuterol Inhaler [Ventolin Hfa Inhaler] 2 puff INHALATION RT-Q4H PRN PRN Reason: Shortness Of Breath SUMAtriptan SUCCINATE [Imitrex] 100 mg PO DAILY PRN PRN Reason: Migraine Headache Potassium Chloride [Klor-Con 10] 10 meq PO BID Loratadine [Claritin] 10 mg PO DAILY Escitalopram [Lexapro] 10 mg PO DAILY #30 tab Zolpidem [Ambien] 5 mg PO HS #3 tab ALPRAZolam [Xanax] 2 mg PO QID Ibuprofen [Motrin] 800 mg PO TID Theophylline 24 Hour [Dionisio-24] 400 mg PO DAILY Tiotropium 18 Mcg/Puff [Spiriva] 1 puff INHALATION RT-BID Umeclidinium [place] [Incruse Ellipta] 2 puff INHALATION RT-BID Hydrocortisone Cream [Hydrocortisone 2.5% Cream] 1 applic TOPICAL DAILY Discharge Medication List Gabapentin [Neurontin] 100 mg PO BID 03/05/14 [History] Omeprazole 40 mg PO DAILY 03/05/14 [History] Lipase/Protease/Amylase [Shell Dr 24,000 Units Capsule] 1 cap PO TID 07/12/14 [ History] risperiDONE [RisperDAL] 2 mg PO BID 07/12/14 [History] Atorvastatin Calcium [Lipitor] 10 mg PO DAILY 06/02/17 [History] Furosemide [Lasix] 40 mg PO DAILY 06/02/17 [History] Metoprolol Succinate (ER) [Toprol XL] 25 mg PO DAILY 06/02/17 [History] Roflumilast [Daliresp] 500 mg PO DAILY 06/02/17 [History] busPIRone HCL [Buspar] 7.5 mg PO BID 06/02/17 [History] Albuterol Inhaler [Ventolin Hfa Inhaler] 2 puff INHALATION RT-Q4H PRN 02/09/18 [ History] Loratadine [Claritin] 10 mg PO DAILY 02/09/18 [History] Potassium Chloride [Klor-Con 10] 10 meq PO BID 02/09/18 [History] SUMAtriptan SUCCINATE [Imitrex] 100 mg PO DAILY PRN 02/09/18 [History] Escitalopram [Lexapro] 10 mg PO DAILY #30 tab 02/28/18 [Rx] Zolpidem [Ambien] 5 mg PO HS #3 tab 03/24/18 [Rx] ALPRAZolam [Xanax] 2 mg PO QID 05/15/18 [History] Hydrocortisone Cream [Hydrocortisone 2.5% Cream] 1 applic TOPICAL DAILY [History] Ibuprofen [Motrin] 800 mg PO TID 05/15/18 [History] Theophylline 24 Hour [Dionisio-24] 400 mg PO DAILY 05/15/18 [History] Tiotropium 18 Mcg/Puff [Spiriva] 1 puff INHALATION RT-BID 05/15/18 [History] Umeclidinium [place] [Incruse Ellipta] 2 puff INHALATION RT-BID 05/15/18 [ History] Doxycycline [Vibramycin] 100 mg PO BID 10 Days #20 cap 05/17/18 [Rx] predniSONE 10 mg PO DIRECTED #30 tab 05/17/18 [Rx] Follow up Appointment(s)/Referral(s): Constance Gallagher MD [STAFF PHYSICIAN] - 1 [facility], [NON-STAFF] - Shellie Sampson MD [Primary Care Provider] - 05/26/18 11:15 am (Tuesday) Patient Instructions/Handouts: Chronic Lung Disease and Infection Prevention ( [place]) Activity/Diet/Wound Care/Special Instructions: diet heart healthy Activity as tolerated Discharge Disposition: HOME SELF-CARE
[2018-05-17 16:49] LABS: Glucose,Whole Blood 98 mg/dL (75-99)
[2018-05-17 18:34] VITALS: BP 145/65; PULSE 82; RESP 19
== END 2018-05-17 17:47 | disposition home health service (06) | DRG 190 ==
LOC: EC 14:04 → 3SCARD 16:22
PROVIDERS: ADMIT Internal Medicine; ATTEND Internal Medicine
PROC: 5A09457 Assistance with Respiratory Ventilation, 24-96 Consecutive Hours, Continuous Positive Airway Pressure (ICD-10-PCS; principal; 2018-05-15)
DX: J44.0 Chronic obstructive pulmonary disease with (acute) lower respiratory infection (principal); J96.22 Acute and chronic respiratory failure with hypercapnia; J96.21 Acute and chronic respiratory failure with hypoxia; K86.1 Other chronic pancreatitis; F10.288 Alcohol dependence with other alcohol-induced disorder; J20.9 Acute bronchitis, unspecified; J44.1 Chronic obstructive pulmonary disease with (acute) exacerbation; I11.0 Hypertensive heart disease with heart failure; I50.9 Heart failure, unspecified; K86.81 Exocrine pancreatic insufficiency; G89.4 Chronic pain syndrome; E78.5 Hyperlipidemia, unspecified; R32 Unspecified urinary incontinence; F32.9 Major depressive disorder, single episode, unspecified; F41.9 Anxiety disorder, unspecified; G47.33 Obstructive sleep apnea (adult) (pediatric); M54.9 Dorsalgia, unspecified; K21.9 Gastro-esophageal reflux disease without esophagitis; G43.909 Migraine, unspecified, not intractable, without status migrainosus; F10.21 Alcohol dependence, in remission; F17.210 Nicotine dependence, cigarettes, uncomplicated; Z71.6 Tobacco abuse counseling; Z99.81 Dependence on supplemental oxygen; Z79.51 Long term (current) use of inhaled steroids; Z79.1 Long term (current) use of non-steroidal anti-inflammatories (NSAID); Z79.899 Other long term (current) drug therapy; Z87.01 Personal history of pneumonia (recurrent); Z99.89 Dependence on other enabling machines and devices; Z87.19 Personal history of other diseases of the digestive system; Z86.14 Personal history of Methicillin resistant Staphylococcus aureus infection; Z90.49 Acquired absence of other specified parts of digestive tract; Z88.0 Allergy status to penicillin; Z82.5 Family history of asthma and other chronic lower respiratory diseases; Z80.9 Family history of malignant neoplasm, unspecified
CPT/HCPCS: 36415; 71045; 80053; 82550; 82553; 83735; 83880; 84484; 85025; 85379; 85610; 85730; 87040; 93005; 94640; 94660; 94760; 96374; 96375; 99291

== ENCOUNTER 2018-06-08 14:34 | Inpatient (IN) | payer MEDICARE, OTHER ==
[2018-06-08] MEDS ORDERED: methylPREDNISolone SOD SUCCI 125 MG/2 ML VIAL IV STA (14:59)
[2018-06-08] MEDS ORDERED: FUROSEMIDE 10 MG/ML 4 ML VIAL IV STA (14:59)
[2018-06-08] MEDS ORDERED: IPRATROPIUM 0.5 MG/2.5 ML NEBU INHALATION STA (14:59)
[2018-06-08] MEDS ORDERED: ALBUTEROL NEBULIZED 2.5 MG/3 ML INHALATION STA (14:59)
[2018-06-08] MEDS ORDERED: HYDROmorphone 1 MG/ML 1 ML SYRINGE IVP STA (15:00)
--- NOTE | 2018-06-08 15:03 | ED ---
General Adult HPI - General Chief complaint: Shortness of Breath Stated complaint: SOB Time Seen by Provider: 06/08/18 14:35 Source: patient, RN notes reviewed Mode of arrival: EMS Limitations: no limitations - History of Present Illness Initial comments: This is a 58-year-old male who presents emergency department with past medical history significant for congestive heart failure and COPD. Patient states she continues to smoke. Patient states he comes in today because he's had difficulty breathing over the last 2 days. Patient states his legs have also gotten more swollen. Patient states she has not had a fever or chills. Patient denies any increased cough. Patient denies any chest pain or palpitations. Patient states he's been taking breathing to us that they have not helped. Patient denies any lightheadedness or dizziness. Patient denies any nausea vomiting or diarrhea. Patient does state he has been experiencing some diffuse abdominal pain over the last few days. - Related Data Home Medications Medication Instructions Recorded Confirmed Gabapentin [Neurontin] 100 mg PO BID 03/05/14 06/08/18 Omeprazole 40 mg PO DAILY 03/05/14 06/08/18 Lipase/Protease/Amylase [Creon Dr 1 cap PO TID 07/12/14 06/08/18 24,000 Units Capsule] risperiDONE [RisperDAL] 2 mg PO BID 07/12/14 06/08/18 Atorvastatin Calcium [Lipitor] 10 mg PO DAILY 06/02/17 06/08/18 Furosemide [Lasix] 40 mg PO DAILY 06/02/17 06/08/18 Metoprolol Succinate (ER) [Toprol 25 mg PO DAILY 06/02/17 06/08/18 XL] Roflumilast [Daliresp] 500 mg PO DAILY 06/02/17 06/08/18 busPIRone HCL [Buspar] 7.5 mg PO BID 06/02/17 06/08/18 Albuterol Inhaler [Ventolin Hfa 2 puff INHALATION RT-Q4H PRN 02/09/18 06/08/18 Inhaler] Loratadine [Claritin] 10 mg PO DAILY 02/09/18 06/08/18 Potassium Chloride [Klor-Con 10] 10 meq PO BID 02/09/18 06/08/18 SUMAtriptan SUCCINATE [Imitrex] 100 mg PO DAILY PRN 02/09/18 06/08/18 ALPRAZolam [Xanax] 2 mg PO QID 05/15/18 06/08/18 Hydrocortisone Cream 1 applic TOPICAL DAILY 05/15/18 06/08/18 [Hydrocortisone 2.5% Cream] Ibuprofen [Motrin] 800 mg PO TID 05/15/18 06/08/18 Theophylline 24 Hour [Dionisio-24] 400 mg PO DAILY 05/15/18 06/08/18 Tiotropium 18 Mcg/Puff [Spiriva] 1 puff INHALATION RT-BID 05/15/18 06/08/18 Umeclidinium [place] [Incruse 2 puff INHALATION RT-BID 05/15/18 06/08/18 Ellipta] Previous Rx's Medication Instructions Recorded Escitalopram [Lexapro] 10 mg PO DAILY #30 tab 02/28/18 Zolpidem [Ambien] 5 mg PO HS #3 tab 03/24/18 Doxycycline [Vibramycin] 100 mg PO BID 7 Days #14 cap 06/13/18 predniSONE 10 mg PO DIRECTED #70 tab 06/13/18 Allergies Allergy/AdvReac Type Severity Reaction Status Date / Time Penicillins Allergy Rash/Hives Verified 06/08/18 16:23 Review of Systems ROS Statement: Those systems with pertinent positive or pertinent negative responses have been documented in the HPI. ROS Other: All systems not noted in ROS Statement are negative. Past Medical History Past Medical History: Chest Pain / Angina, COPD, GERD/Reflux, Hyperlipidemia, Hypertension, Pneumonia Additional Past Medical History / Comment(s): Other hx: Severe COPD, chronic hypoxic respiratory failure , 3L oxygen at home, VIVEK without device, history of alcoholism-no drinking for 18 yrs, history of chronic pancreatitis and pancreatic insufficiency, chronic diverticular disease/diverticulitis, chronic pain in back and abdomin. Last Myocardial Infarction Date:: Denies having an [place] History of Any Multi-Drug Resistant Organisms: MRSA Date of last positivie culture/infection: summer MDRO Source:: right side of buttuck and right side of chest above nipple Past Surgical History: Bowel Resection, Heart Catheterization, Orthopedic Surgery, Tonsillectomy Additional Past Surgical History / Comment(s): Sigmoid colectomy, right hand surgery for repair of tendons, cardiac catheterization that has been normal, colonoscopy Past Anesthesia/Blood Transfusion Reactions: No Reported Reaction Past Psychological History: Anxiety, Depression Smoking Status: Current every day smoker Past Alcohol Use History: None Reported Past Drug Use History: Prescription Drug Abuse - Past Family History Mother Family Medical History: Cancer, COPD Additional Family Medical History / Comment(s): unaware of what kind of cancer Father Family Medical History: COPD Additional Family Medical History / Comment(s): Father is . General Exam - General Exam Comments Initial Comments: GENERAL: Patient is well-developed and well-nourished. Patient is nontoxic and well- hydrated and is in moderate distress. ENT: Neck is soft and supple. No significant lymphadenopathy is noted. Oropharynx is clear. Moist mucous membranes. Neck has full range of motion without eliciting any pain. EYES: The sclera were anicteric and conjunctiva were pink and moist. Extraocular movements were intact and pupils were equal round and reactive to light. Eyelids were unremarkable. PULMONARY: Respiratory wheezing diffusely CARDIOVASCULAR: There is a regular rate and rhythm without any murmurs gallops or rubs. ABDOMEN: Soft and nontender with normal bowel sounds. No palpable organomegaly was noted. There is no palpable pulsatile mass. SKIN: Skin is clear with no lesions or rashes and otherwise unremarkable. NEUROLOGIC: Patient is alert and oriented x3. Cranial nerves II through XII are grossly intact. Motor and sensory are also intact. Normal speech, volume and content. Symmetrical smile. MUSCULOSKELETAL: Normal extremities with adequate strength and full range of motion. 2+ bilaterally LYMPHATICS: No significant lymphadenopathy is noted PSYCHIATRIC: Normal psychiatric evaluation. Limitations: no limitations Course Vital Signs 06/08/18 06/08/18 06/08/18 14:37 14:47 14:49 Temperature 98.1 F Pulse Rate 80 96 Respiratory 26 H 12 Rate Blood Pressure 127/87 127/87 O2 Sat by Pulse Oximetry 06/08/18 06/08/18 06/08/18 15:00 15:10 15:23 Temperature Pulse Rate 96 94 88 Respiratory 10 L Rate Blood Pressure 127/87 O2 Sat by Pulse 97 Oximetry 06/08/18 06/08/18 06/08/18 15:45 16:00 17:00 Temperature Pulse Rate 96 82 Respiratory 19 20 Rate Blood Pressure 127/90 132/83 O2 Sat by Pulse 94 L 95 Oximetry 06/08/18 06/08/18 19:00 20:36 Temperature 98.0 F Pulse Rate 85 67 Respiratory 17 19 Rate Blood Pressure 109/76 128/82 O2 Sat by Pulse 97 97 Oximetry Medical Decision Making - Medical Decision Making EKG shows normal sinus rhythm at 80 bpm IL interval 126 QRS is 62 QT interval 356 QTC is 456. Patient's EKG shows no ST segment elevation or depression or T wave abnormalities are noted. Spoke with Dr. Sampson he agreed to admit the patient admitted the patient I wrote admitting orders. - Lab Data Result diagrams: 06/13/18 07:33 06/13/18 07:33 Lab Results 06/08/18 06/08/18 06/08/18 Range/Units 14:50 14:50 14:50 WBC 8.9 (3.8-10.6) k/uL RBC 4.17 L (4.30-5.90) m/uL Hgb 12.3 L (13.0-17.5) gm/dL Hct 38.1 L (39.0-53.0) % MCV 91.4 (80.0-100.0) fL MCH 29.4 (25.0-35.0) pg MCHC 32.2 (31.0-37.0) g/dL RDW 14.7 (11.5-15.5) % Plt Count 153 (150-450) k/uL Neutrophils % 90 % Lymphocytes % 5 % Monocytes % 4 % Eosinophils % 1 % Basophils % 0 % Neutrophils # 8.0 H (1.3-7.7) k/uL Lymphocytes # 0.4 L (1.0-4.8) k/uL Monocytes # 0.4 (0-1.0) k/uL Eosinophils # 0.1 (0-0.7) k/uL Basophils # 0.0 (0-0.2) k/uL PT (9.0-12.0) sec INR (<1.2) APTT (22.0-30.0) sec Sodium 138 (137-145) mmol/L Potassium 4.3 (3.5-5.1) mmol/L Chloride 96 L (98-107) mmol/L Carbon Dioxide 35 H (22-30) mmol/L Anion Gap 7 mmol/L BUN 14 (9-20) mg/dL Creatinine 0.63 L (0.66-1.25) mg/dL Est GFR (CKD-EPI)AfAm >90 (>60 ml/min/1.73 sqM) Est GFR (CKD-EPI)NonAf >90 (>60 ml/min/1.73 sqM) Glucose 116 H (74-99) mg/dL Calcium 8.9 (8.4-10.2) mg/dL Magnesium 1.8 (1.6-2.3) mg/dL Total Bilirubin 0.4 (0.2-1.3) mg/dL AST 18 (17-59) U/L ALT 28 (21-72) U/L Alkaline Phosphatase 52 (38-126) U/L Total Creatine Kinase 39 L (55-170) U/L CK-MB (CK-2) 0.9 (0.0-2.4) ng/mL CK-MB (CK-2) Rel Index 2.3 Troponin I <0.012 (0.000-0.034) ng/mL NT-Pro-B Natriuret Pep pg/mL Total Protein 6.1 L (6.3-8.2) g/dL Albumin 3.7 (3.5-5.0) g/dL 06/08/18 06/08/18 Range/Units 14:50 14:50 WBC (3.8-10.6) k/uL RBC (4.30-5.90) m/uL Hgb (13.0-17.5) gm/dL Hct (39.0-53.0) % MCV (80.0-100.0) fL MCH (25.0-35.0) pg MCHC (31.0-37.0) g/dL RDW (11.5-15.5) % Plt Count (150-450) k/uL Neutrophils % % Lymphocytes % % Monocytes % % Eosinophils % % Basophils % % Neutrophils # (1.3-7.7) k/uL Lymphocytes # (1.0-4.8) k/uL Monocytes # (0-1.0) k/uL Eosinophils # (0-0.7) k/uL Basophils # (0-0.2) k/uL PT 9.4 (9.0-12.0) sec INR 0.8 (<1.2) APTT 20.6 L (22.0-30.0) sec Sodium (137-145) mmol/L Potassium (3.5-5.1) mmol/L Chloride (98-107) mmol/L Carbon Dioxide (22-30) mmol/L Anion Gap mmol/L BUN (9-20) mg/dL Creatinine (0.66-1.25) mg/dL Est GFR (CKD-EPI)AfAm (>60 ml/min/1.73 sqM) Est GFR (CKD-EPI)NonAf (>60 ml/min/1.73 sqM) Glucose (74-99) mg/dL Calcium (8.4-10.2) mg/dL Magnesium (1.6-2.3) mg/dL Total Bilirubin (0.2-1.3) mg/dL AST (17-59) U/L ALT (21-72) U/L Alkaline Phosphatase (38-126) U/L Total Creatine Kinase (55-170) U/L CK-MB (CK-2) (0.0-2.4) ng/mL CK-MB (CK-2) Rel Index Troponin I (0.000-0.034) ng/mL NT-Pro-B Natriuret Pep 138 pg/mL Total Protein (6.3-8.2) g/dL Albumin (3.5-5.0) g/dL Disposition Clinical Impression: COPD exacerbation Disposition: ADMITTED IP TO THIS HOSP Condition: Stable
[2018-06-08 15:51] LABS: ALT 28 U/L (21-72); AST 18 U/L (17-59); Albumin 3.7 g/dL (3.5-5.0); Alkaline Phosphatase 52 U/L (38-126); Anion Gap 7 mmol/L; Blood Urea Nitrogen 14 mg/dL (9-20); Calcium 8.9 mg/dL (8.4-10.2); Carbon Dioxide 35 mmol/L (22-30); Chloride 96 mmol/L (98-107); Glucose 116 mg/dL (74-99); Magnesium 1.8 mg/dL (1.6-2.3); Potassium 4.3 mmol/L (3.5-5.1); Sodium 138 mmol/L (137-145); Total Bilirubin 0.4 mg/dL (0.2-1.3); Total Protein 6.1 g/dL (6.3-8.2)
[2018-06-08 15:58] LABS: Creatine Kinase 39 U/L (55-170)
[2018-06-08 16:01] LABS: Basophils % (A) 0 %; Eosinophils # (A) 0.1 k/uL (0-0.7); Eosinophils % (A) 1 %; HCT 38.1 % (39.0-53.0); HGB 12.3 gm/dL (13.0-17.5); Lymphocytes # (A) 0.4 k/uL (1.0-4.8); Lymphocytes % (A) 5 %; MCH 29.4 pg (25.0-35.0); MCHC 32.2 g/dL (31.0-37.0); MCV 91.4 fL (80.0-100.0); Mean Platelet Volume 6.9; Monocytes # (A) 0.4 k/uL (0-1.0); Monocytes % (A) 4 %; Neutrophils % (A) 90 %; Platelet Count 153 k/uL (150-450); RBC 4.17 m/uL (4.30-5.90); RDW 14.7 % (11.5-15.5); WBC 8.9 k/uL (3.8-10.6)
[2018-06-08 16:04] LABS: INR 0.8 (<1.2); Partial Thromboplastin Time 20.6 sec (22.0-30.0); Prothrombin Time 9.4 sec (9.0-12.0)
[2018-06-08 16:11] LABS: Creatine Kinase MB 0.9 ng/mL (0.0-2.4); Troponin I <0.012 ng/mL (0.000-0.034)
--- NOTE | 2018-06-08 16:12 | XR ---
EXAMINATION TYPE: XR chest 2V DATE OF EXAM: 06/08/2018 COMPARISON: Prior chest x-ray 05/15/2018 HISTORY: Difficulty breathing, COPD TECHNIQUE: Frontal and lateral views of the chest are obtained. FINDINGS: Prominent lung lines are compatible with COPD. Strand-like densities at the lung bases may reflect scarring. There are overlying cardiac leads. There is no focal air space opacity, pleural ef fusion, or pneumothorax seen. The cardiac silhouette size is within normal limits. The osseous str uctures are intact. IMPRESSION: No acute cardiopulmonary process.
--- NOTE | 2018-06-08 18:05 | CT ---
EXAMINATION TYPE: CT abdomen pelvis w con DATE OF EXAM: 06/08/2018 COMPARISON: 06/24/2017 HISTORY: Generalized abdominal pain x [address] DLP: 966.5 mGycm Automated exposure control for dose reduction was used. TECHNIQUE: Helical acquisition of images was performed from the lung bases through the pelvis. CONTRAST: Performed without Oral Contrast and with IV Contrast, patient injected with 100 mL of Isovue 300. FINDINGS: Lung bases show subsegmental atelectasis in the lower lobes. There is no pleural effusion. Heart size is normal. There is no pericardial effusion. Liver spleen pancreas gallbladder appear normal. Bile ducts are not dilated. Stomach appears normal. There is no adrenal mass. Kidneys show satisfactory contrast opacification. There is no hydronephrosi s. There is 1 cm cortical cyst lower pole right kidney. There is no retroperitoneal adenopathy. There is broad-based umbilical hernia. There is no evidence of a bowel obstruction. Bladder distends smoothly. There is no inguinal hernia. There is no free fluid in the pelvis. There i s no mesenteric edema or adenopathy. The appendix appears normal. Lumbar spine is intact. I see no yadira ny destructive process. Bony pelvis is intact. IMPRESSION: THERE IS SUBSEGMENTAL ATELECTASIS AT THE LUNG BASES THAT IS NEW COMPARED TO LAST EXAM. THERE IS BROAD -BASED UMBILICAL HERNIA THAT IS NEW COMPARED TO LAST EXAM. NO EVIDENCE OF A BOWEL OBSTRUCTION. THERE IS RESECTION OF SOME OF THE SIGMOID COLON COMPARED TO OLD EXAM. THERE IS CLEARING OF THE PERIDIVERTIC ULAR ABSCESS COMPARED TO OLD EXAM.
[2018-06-08] MEDS: HYDROmorphone 1 MG/ML 1 ML SYRINGE IVP PRN (20:41)
[2018-06-09] MEDS: HYDROmorphone 1 MG/ML 1 ML SYRINGE IVP PRN ×6 (00:36→22:03)
[2018-06-09] MEDS: methylPREDNISolone SOD SUCCI 125 MG/2 ML VIAL IV SCH ×5 (00:36→23:20)
[2018-06-09] MEDS: IPRATROPIUM-ALBUTEROL 3 ML NEB INHALATION PRN ×4 (03:52→19:57)
[2018-06-09 07:21] LABS: Glucose,Whole Blood 103 mg/dL (75-99)
[2018-06-09] MEDS ORDERED: ALBUTEROL INHALER 60 PUFF/8 GM INHALER INHALATION PRN (08:20)
[2018-06-09] MEDS ORDERED: SUMAtriptan SUCCINATE 50 MG TAB PO PRN (08:20)
[2018-06-09] MEDS: ALPRAZolam 1 MG TAB PO SCH ×4 (09:26→21:01)
[2018-06-09] MEDS: POTASSIUM CHLORIDE ER 10 MEQ TAB.ER.PRT PO SCH ×2 (09:27→21:02)
[2018-06-09] MEDS: LORATADINE 10 MG TAB PO SCH (09:27)
[2018-06-09] MEDS: ATORVASTATIN 10 MG TAB PO SCH (09:27)
[2018-06-09] MEDS: FUROSEMIDE 40 MG TAB PO SCH (09:27)
[2018-06-09] MEDS: GABAPENTIN 100 MG CAP PO SCH ×2 (09:27→21:02)
[2018-06-09] MEDS: IBUPROFEN 800 MG TAB PO SCH ×3 (09:27→21:01)
[2018-06-09] MEDS: METOPROLOL SUCCINATE (ER) 25 MG TAB.ER.24H PO SCH (09:29)
[2018-06-09] MEDS: PANTOPRAZOLE 40 MG TABLET PO SCH (09:30)
[2018-06-09] MEDS: ROFLUMILAST 500 MG PO SCH (09:32)
[2018-06-09 09:42] LABS: Basophils % (A) 0 %; Eosinophils % (A) 0 %; HCT 38.5 % (39.0-53.0); HGB 12.4 gm/dL (13.0-17.5); Lymphocytes # (A) 0.9 k/uL (1.0-4.8); Lymphocytes % (A) 11 %; MCH 29.8 pg (25.0-35.0); MCHC 32.1 g/dL (31.0-37.0); MCV 92.6 fL (80.0-100.0); Mean Platelet Volume 6.8; Monocytes # (A) 0.5 k/uL (0-1.0); Monocytes % (A) 6 %; Neutrophils # (A) 6.7 k/uL (1.3-7.7); Neutrophils % (A) 82 %; Platelet Count 166 k/uL (150-450); RBC 4.15 m/uL (4.30-5.90); RDW 14.7 % (11.5-15.5); WBC 8.2 k/uL (3.8-10.6)
[2018-06-09 09:52] LABS: ALT 22 U/L (21-72); AST 18 U/L (17-59); Albumin 3.7 g/dL (3.5-5.0); Alkaline Phosphatase 50 U/L (38-126); Anion Gap 6 mmol/L; Blood Urea Nitrogen 19 mg/dL (9-20); Calcium 9.4 mg/dL (8.4-10.2); Carbon Dioxide 39 mmol/L (22-30); Chloride 93 mmol/L (98-107); Glucose 94 mg/dL (74-99); Potassium 4.1 mmol/L (3.5-5.1); Sodium 138 mmol/L (137-145); Total Bilirubin 0.5 mg/dL (0.2-1.3); Total Protein 5.9 g/dL (6.3-8.2)
--- NOTE | 2018-06-09 10:04 | P.HPIM ---
History of Present Illness H&P Date: 06/09/18 Chief Complaint: Shortness of breath This is a 58-year-old male patient well-known to my service is presenting with complaints of increased shortness of breath. Patient states for the past 2 days he had increase difficulty in breathing along with increased peripheral edema. Patient has a known past medical history of COPD patient also states he is still smoking half pack of cigarettes per day. Patient is home O2 dependent on 3 L. Patient recently admitted to [facility] and DC'd last week for the same issue. Additional medical history includes chest pain, GERD, hyperlipidemia, hypertension and pneumonia. Chest x-ray completed showing no acute cardiopulmonary process. EKG completed showing normal sinus rhythm. Patient also complaining of generalized abdominal pain. CT of abdomen and pelvis completed showing subsegmental atelectasis at the lung bases that is new compared to last exam. There is a broad-based umbilical hernia that is new compared to last exam. No evidence of bowel obstruction. There is resection of some of the sigmoid colon compared to old exam there is clearing of the. Diverticular abscess compared to old exam. Dr. Gallagher has been consulted for pulmonary services. Patient started on Solu-Medrol IV. This time patient remains short of breath with activity. Patient currently on 3 L nasal cannula. Continue breathing treatments at this time. Patient denies chest pain. Patient denies nausea vomiting or diarrhea. Patient denies any urinary burning or frequency Review of Systems Please refer to HPI otherwise unremarkable Past Medical History Past Medical History: Chest Pain / Angina, COPD, GERD/Reflux, Hyperlipidemia, Hypertension, Pneumonia Additional Past Medical History / Comment(s): Other hx: Severe COPD, chronic hypoxic respiratory failure , 3L oxygen at home, VIVEK without device, history of alcoholism-no drinking for 18 yrs, history of chronic pancreatitis and pancreatic insufficiency, chronic diverticular disease/diverticulitis, chronic pain in back and abdomin. Last Myocardial Infarction Date:: Denies having an OR History of Any Multi-Drug Resistant Organisms: MRSA Date of last positivie culture/infection: summer MDRO Source:: right side of buttuck and right side of chest above nipple Past Surgical History: Bowel Resection, Heart Catheterization, Orthopedic Surgery, Tonsillectomy Additional Past Surgical History / Comment(s): Sigmoid colectomy, right hand surgery for repair of tendons, cardiac catheterization that has been normal, colonoscopy Past Anesthesia/Blood Transfusion Reactions: No Reported Reaction Past Psychological History: Anxiety, Depression Additional Psychological History / Comment(s): Pt resides with his brother. He is currently receiving care thru [facility]. He uses a wheelchair prn. He is on home oxygen at 3L/[place] ATC. He has a nebulizer. He does not drive. Family take him to appts. Smoking Status: Current every day smoker Past Alcohol Use History: None Reported Additional Past Alcohol Use History / Comment(s): STARTED SMOKING AT AGE 5 SMOKED 3PPD, USED TO DRINK HEAVILY BUT NONE IN LAST 18 YEARS. Past Drug Use History: Prescription Drug Abuse Additional Drug Use History / Comment(s): SMOKED MARIJUANA 20 YEARS AGO. - Past Family History Mother Family Medical History: Cancer, COPD Additional Family Medical History / Comment(s): unaware of what kind of cancer Father Family Medical History: COPD Additional Family Medical History / Comment(s): Father is . Medications and Allergies Home Medications Medication Instructions Recorded Confirmed Type Gabapentin [Neurontin] 100 mg PO BID 03/05/14 06/08/18 History Omeprazole 40 mg PO DAILY 03/05/14 06/08/18 History Lipase/Protease/Amylase [Creon Dr 1 cap PO TID 07/12/14 06/08/18 History 24,000 Units Capsule] risperiDONE [RisperDAL] 2 mg PO BID 07/12/14 06/08/18 History Atorvastatin Calcium [Lipitor] 10 mg PO DAILY 06/02/17 06/08/18 History Furosemide [Lasix] 40 mg PO DAILY 06/02/17 06/08/18 History Metoprolol Succinate (ER) [Toprol 25 mg PO DAILY 06/02/17 06/08/18 History XL] Roflumilast [Daliresp] 500 mg PO DAILY 06/02/17 06/08/18 History busPIRone HCL [Buspar] 7.5 mg PO BID 06/02/17 06/08/18 History Albuterol Inhaler [Ventolin Hfa 2 puff INHALATION RT-Q4H PRN 02/09/18 06/08/18 History Inhaler] Loratadine [Claritin] 10 mg PO DAILY 02/09/18 06/08/18 History Potassium Chloride [Klor-Con 10] 10 meq PO BID 02/09/18 06/08/18 History SUMAtriptan SUCCINATE [Imitrex] 100 mg PO DAILY PRN 02/09/18 06/08/18 History Escitalopram [Lexapro] 10 mg PO DAILY #30 tab 02/28/18 06/08/18 Rx Zolpidem [Ambien] 5 mg PO HS #3 tab 03/24/18 06/08/18 Rx ALPRAZolam [Xanax] 2 mg PO QID 05/15/18 06/08/18 History Hydrocortisone Cream 1 applic TOPICAL DAILY 05/15/18 06/08/18 History [Hydrocortisone 2.5% Cream] Ibuprofen [Motrin] 800 mg PO TID 05/15/18 06/08/18 History Theophylline 24 Hour [Dionisio-24] 400 mg PO DAILY 05/15/18 06/08/18 History Tiotropium 18 Mcg/Puff [Spiriva] 1 puff INHALATION RT-BID 05/15/18 06/08/18 History Umeclidinium [place] [Incruse 2 puff INHALATION RT-BID 05/15/18 06/08/18 History Ellipta] Allergies Allergy/AdvReac Type Severity Reaction Status Date / Time Penicillins Allergy Rash/Hives Verified 06/08/18 16:23 Physical Exam Vitals: Vital Signs Temp Pulse Pulse Resp BP BP Pulse Ox 06/09/18 06:39 98 F 77 17 124/83 96 06/09/18 04:02 88 06/09/18 03:53 92 06/08/18 23:23 98.1 F 79 16 120/78 95 06/08/18 20:36 98.0 F 67 19 128/82 97 06/08/18 19:00 85 17 109/76 97 06/08/18 17:00 82 20 132/83 95 06/08/18 16:00 19 127/90 94 L 06/08/18 15:45 96 06/08/18 15:23 88 06/08/18 15:10 94 06/08/18 15:00 96 10 L 127/87 97 06/08/18 14:49 98.1 F 06/08/18 14:47 96 12 127/87 06/08/18 14:37 80 26 H 127/87 Intake and Output 06/08/18 06/09/18 06/09/18 22:59 06:59 14:59 Other: Voiding Method Urinal Urinal # Voids 1 2 Weight 82.6 kg Head normocephalic Neck supple Lungs diminished bilaterally with expiratory wheezing Heart regular rate and rhythm S1-S2, no rub or gallop Abdomen is soft nontender nondistended positive bowel sounds no hepatosplenomegaly Extremities +1 lower extremity edema Neuro alert and orientated to 3 Results CBC & Chem 7: 06/09/18 09:09 06/08/18 14:50 Labs: Abnormal Lab Results - Last 24 Hours (Table) 06/08/18 06/08/18 06/08/18 Range/Units 14:50 14:50 14:50 RBC 4.17 L (4.30-5.90) m/uL Hgb 12.3 L (13.0-17.5) gm/dL Hct 38.1 L (39.0-53.0) % Neutrophils # 8.0 H (1.3-7.7) k/uL Lymphocytes # 0.4 L (1.0-4.8) k/uL APTT (22.0-30.0) sec Chloride 96 L (98-107) mmol/L Carbon Dioxide 35 H (22-30) mmol/L Creatinine 0.63 L (0.66-1.25) mg/dL Glucose 116 H (74-99) mg/dL POC Glucose (mg/dL) (75-99) mg/dL Total Creatine Kinase 39 L (55-170) U/L Total Protein 6.1 L (6.3-8.2) g/dL 06/08/18 06/09/18 06/09/18 Range/Units 14:50 07:19 09:09 RBC 4.15 L (4.30-5.90) m/uL Hgb 12.4 L (13.0-17.5) gm/dL Hct 38.5 L (39.0-53.0) % Neutrophils # (1.3-7.7) k/uL Lymphocytes # 0.9 L (1.0-4.8) k/uL APTT 20.6 L (22.0-30.0) sec Chloride (98-107) mmol/L Carbon Dioxide (22-30) mmol/L Creatinine (0.66-1.25) mg/dL Glucose (74-99) mg/dL POC Glucose (mg/dL) 103 H (75-99) mg/dL Total Creatine Kinase (55-170) U/L Total Protein (6.3-8.2) g/dL Thrombosis Risk Factor Assmnt - Choose All That Apply Any of the Below Risk Factors Present?: Yes Each Factor Represents 1 point: Abnormal pulmonary function (COPD), Age 41-60 years, Obesity (BMI >25) Other Risk Factors: No Thrombosis Risk Factor Assessment Total Risk Factor Score: 3 Thrombosis Risk Factor Assessment Level: Moderate Risk Assessment and Plan Assessment: 1. Acute exacerbation of chronic obstructive pulmonary disease. Chest x-ray completed showing no acute process.. Dr. Aileen dubose has been consulted for pulmonary services. Patient started on IV steroids. Continue breathing treatments. 2. Nicotine dependence. Patient educated greater than 3 minutes with patient. Patient did state he smokes half a pack of cigarettes per day. Nicotine patch has been ordered 3. Acute on chronic hypoxic and hypercapnic respiratory failure. Patient maintained on home O2 4. Lower extremity peripheral edema. BNP level 138. Home Lasix resumed 5. History of essential hypertension. Home meds resumed 6. History of migraine headache 7. History of hyperlipidemia 8. History of depression 9. History of chronic back pain. Home meds resumed GI prophylaxis Protonix. DVT prophylaxis Lovenox. Time with Patient: Greater than 30 (Greater than 60% of the total time spent in counseling and coordination of care. I performed an examination of the patient and discussed their management with the Nurse Practitioner. I have reviewed the Nurse Practitioner's notes and agree with the documented findings and plan of care)
--- NOTE | 2018-06-09 10:53 | P.CNPUL ---
History of Present Illness Consult date: 06/09/18 Requesting physician: Shellie Sampson Reason for consult: dyspnea, COPD Chief complaint: Shortness of breath, swelling of the lower extremities History of present illness: This is a very pleasant 58-year-old gentleman who follows with Dr. Sampson as his primary care physician. 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 He also has severe oxygen dependent chronic obstructive pulmonary disease with FEV1 value less than 20% of predicted. He is on chronic oxygen. He is on Incruse, Spiriva, Daliresp, Ventolin. The patient also has chronic and ongoing tobacco dependence. He follows in our office for the same. He's had multiple admissions for COPD exacerbations. He's been counseled on many occasions regarding the importance of complete smoking cessation. Most recently discharged on 05/17/2018. He presented to the emergency room again yesterday with complaints of increasing shortness of breath and increasing lower extremity edema. Chest x-ray shows no acute cardio pulmonary process. Computed tomography scan of the abdomen and pelvis revealed subsegmental atelectasis in the lung bases. Broad based umbilical hernia that was new compared to previous. Evidence of resection of some of the sigmoid colon. He is seen today in consultation on the regular medical floor. He is awake and alert in mild respiratory distress. He is maintaining good O2 saturations in the 90s on 3 L/m per nasal cannula. He's been afebrile. Hemodynamically stable. White count 8.2. Hemoglobin 12.4. Creatinine 0.72. Bicarb 39. Review of Systems Constitutional: Reports daytime sleepiness, Reports weakness Eyes: denies blurred vision, denies decreased vision Ears: deny: decreased hearing Ears, nose, mouth and throat: Denies headache, Denies sore throat Cardiovascular: Reports decreased exercise tolerance, Reports dyspnea on exertion, Reports shortness of breath Respiratory: Reports cough, Reports dyspnea, Reports home oxygen, Reports wheezing Gastrointestinal: Reports bloating Musculoskeletal: Reports limitation of motion, Reports morning stiffness Integumentary: Reports color changes Neurological: Denies numbness, Denies weakness Psychiatric: Reports anxiety Endocrine: Denies fatigue, Denies weight change Hematologic/Lymphatic: Reports as per HPI Allergic/Immunologic: Reports as per HPI Past Medical History Past Medical History: Chest Pain / Angina, COPD, GERD/Reflux, Hyperlipidemia, Hypertension, Pneumonia Additional Past Medical History / Comment(s): Other hx: Severe COPD, chronic hypoxic respiratory failure , 3L oxygen at home, VIVEK without device, history of alcoholism-no drinking for 18 yrs, history of chronic pancreatitis and pancreatic insufficiency, chronic diverticular disease/diverticulitis, chronic pain in back and abdomin. Last Myocardial Infarction Date:: Denies having an [place] History of Any Multi-Drug Resistant Organisms: MRSA Date of last positivie culture/infection: summer MDRO Source:: right side of buttuck and right side of chest above nipple Past Surgical History: Bowel Resection, Heart Catheterization, Orthopedic Surgery, Tonsillectomy Additional Past Surgical History / Comment(s): Sigmoid colectomy, right hand surgery for repair of tendons, cardiac catheterization that has been normal, colonoscopy Past Anesthesia/Blood Transfusion Reactions: No Reported Reaction Past Psychological History: Anxiety, Depression Additional Psychological History / Comment(s): Pt resides with his brother. He is currently receiving care thru [facility]. He uses a wheelchair prn. He is on home oxygen at 3L/[place] ATC. He has a nebulizer. He does not drive. Family take him to [facility], [place], operated by [facility]. Smoking Status: Current every day smoker Past Alcohol Use History: None Reported Additional Past Alcohol Use History / Comment(s): STARTED SMOKING AT AGE 5 SMOKED 3PPD, USED TO DRINK HEAVILY BUT NONE IN LAST 18 YEARS. Past Drug Use History: Prescription Drug Abuse Additional Drug Use History / Comment(s): SMOKED MARIJUANA 20 YEARS AGO. - Past Family History Mother Family Medical History: Cancer, COPD Additional Family Medical History / Comment(s): unaware of what kind of cancer Father Family Medical History: COPD Additional Family Medical History / Comment(s): Father is . Medications and Allergies Home Medications Medication Instructions Recorded Confirmed Type Gabapentin [Neurontin] 100 mg PO BID 03/05/14 06/08/18 History Omeprazole 40 mg PO DAILY 03/05/14 06/08/18 History Lipase/Protease/Amylase [Creon Dr 1 cap PO TID 07/12/14 06/08/18 History 24,000 Units Capsule] risperiDONE [RisperDAL] 2 mg PO BID 07/12/14 06/08/18 History Atorvastatin Calcium [Lipitor] 10 mg PO DAILY 06/02/17 06/08/18 History Furosemide [Lasix] 40 mg PO DAILY 06/02/17 06/08/18 History Metoprolol Succinate (ER) [Toprol 25 mg PO DAILY 06/02/17 06/08/18 History XL] Roflumilast [Daliresp] 500 mg PO DAILY 06/02/17 06/08/18 History busPIRone HCL [Buspar] 7.5 mg PO BID 06/02/17 06/08/18 History Albuterol Inhaler [Ventolin Hfa 2 puff INHALATION RT-Q4H PRN 02/09/18 06/08/18 History Inhaler] Loratadine [Claritin] 10 mg PO DAILY 02/09/18 06/08/18 History Potassium Chloride [Klor-Con 10] 10 meq PO BID 02/09/18 06/08/18 History SUMAtriptan SUCCINATE [Imitrex] 100 mg PO DAILY PRN 02/09/18 06/08/18 History Escitalopram [Lexapro] 10 mg PO DAILY #30 tab 02/28/18 06/08/18 Rx Zolpidem [Ambien] 5 mg PO HS #3 tab 03/24/18 06/08/18 Rx ALPRAZolam [Xanax] 2 mg PO QID 05/15/18 06/08/18 History Hydrocortisone Cream 1 applic TOPICAL DAILY 05/15/18 06/08/18 History [Hydrocortisone 2.5% Cream] Ibuprofen [Motrin] 800 mg PO TID 05/15/18 06/08/18 History Theophylline 24 Hour [Dionisio-24] 400 mg PO DAILY 05/15/18 06/08/18 History Tiotropium 18 Mcg/Puff [Spiriva] 1 puff INHALATION RT-BID 05/15/18 06/08/18 History Umeclidinium [place] [Incruse 2 puff INHALATION RT-BID 05/15/18 06/08/18 History Ellipta] Allergies Allergy/AdvReac Type Severity Reaction Status Date / Time Penicillins Allergy Rash/Hives Verified 06/08/18 16:23 Physical Exam Vitals: Vital Signs Temp Pulse Pulse Resp BP BP Pulse Ox 06/09/18 06:39 98 F 77 17 124/83 96 06/09/18 04:02 88 06/09/18 03:53 92 06/08/18 23:23 98.1 F 79 16 120/78 95 06/08/18 20:36 98.0 F 67 19 128/82 97 06/08/18 19:00 85 17 109/76 97 06/08/18 17:00 82 20 132/83 95 06/08/18 16:00 19 127/90 94 L 06/08/18 15:45 96 06/08/18 15:23 88 06/08/18 15:10 94 06/08/18 15:00 96 10 L 127/87 97 06/08/18 14:49 98.1 F 06/08/18 14:47 96 12 127/87 06/08/18 14:37 80 26 H 127/87 Intake and Output 06/08/18 06/09/18 06/09/18 22:59 06:59 14:59 Other: Voiding Method Urinal Urinal # Voids 1 2 Weight 82.6 kg - Constitutional General appearance: morbidly obese - EENT Eyes: EOMI, PERRLA ENT: hearing grossly normal Ears: bilateral: normal - Neck Neck: normal ROM Carotids: bilateral: upstroke normal Thyroid: bilateral: normal size - Respiratory Respiratory: bilateral: diminished, wheezing, prolonged expiration - Cardiovascular Rhythm: regular Heart sounds: normal: S1, S2 - Gastrointestinal General gastrointestinal: normal bowel sounds - Integumentary Integumentary: normal turgor - Neurologic Neurologic: CNII-XII intact - Musculoskeletal Musculoskeletal: generalized weakness - Psychiatric Psychiatric: A&O x's 3, appropriate affect, intact judgment & insight Results - Laboratory Findings CBC and BMP: 06/09/18 09:09 06/09/18 09:09 PT/INR, D-dimer PT 9.4 sec (9.0-12.0) 06/08/18 14:50 INR 0.8 (<1.2) 06/08/18 14:50 Abnormal lab findings: Abnormal Labs 06/08/18 06/08/18 06/08/18 14:50 14:50 14:50 RBC 4.17 L Hgb 12.3 L Hct 38.1 L Neutrophils # 8.0 H Lymphocytes # 0.4 L APTT Chloride 96 L Carbon Dioxide 35 H Creatinine 0.63 L Glucose 116 H POC Glucose (mg/dL) Total Creatine Kinase 39 L Total Protein 6.1 L 06/08/18 06/09/18 06/09/18 14:50 07:19 09:09 RBC 4.15 L Hgb 12.4 L Hct 38.5 L Neutrophils # Lymphocytes # 0.9 L APTT 20.6 L Chloride Carbon Dioxide Creatinine Glucose POC Glucose (mg/dL) 103 H Total Creatine Kinase Total Protein 06/09/18 09:09 RBC Hgb Hct Neutrophils # Lymphocytes # APTT Chloride 93 L Carbon Dioxide 39 H Creatinine Glucose POC Glucose (mg/dL) Total Creatine Kinase Total Protein 5.9 L - Diagnostic Findings Chest x-ray: image reviewed Assessment and Plan Assessment: Impression: #1 Acute on chronic hypoxic respiratory failure secondary to an acute exacerbation of severe oxygen dependent chronic obstructive pulmonary disease. Gold stage IV, FEV1 value less than 20%. #2 Acute on chronic hypercapnic respiratory failure secondary to an acute exacerbation of chronic obstructive pulmonary disease. #3 Obstructive sleep apnea not on CPAP in the outpatient setting. #4 Obesity. #5 Chronic and ongoing tobacco dependence. #6 Chronic pain syndrome. #7 History of chronic alcoholism with pancreatic insufficiency. #8 Hypertension. #9 Hyperlipidemia. #10 History of diverticular disease status post sigmoid colectomy. #11 History of anxiety/depression. Plan: The patient was seen and evaluated by Dr. Gallagher. Chest x-ray and labs were reviewed. We will continue with his COPD treatment including DuoNeb inhalations 4 times a day and when necessary, Pulmicort and Perforomist inhalations twice a day, IV Solu-Medrol, Daliresp, theophylline. He is again educated regarding the importance of complete smoking cessation. A NicoDerm patch will be applied. Lovenox for DVT prophylaxis. We will increase his activity as tolerated. We'll continue to follow and make further recommendations based on his clinical status. I, the cosigning physician, performed a history & physical examination of the patient. Lungs sounds with bilateral end expiratory wheeze, few scattered rhonchi, diminished. Maintaining good O2 saturations in the 90s on 3 L/m per nasal cannula. I discussed the assessment and plan of care with my nurse practitioner, Paula Demarco. I attest to the above consultation as dictated by her. Time with Patient: Greater than 30
[2018-06-09] MEDS: LIPASE 5,000/PROTEASE 17,000/AMYLASE 24,000 PO SCH ×3 (11:00→21:03)
[2018-06-09] MEDS: ESCITALOPRAM 10 MG TAB PO SCH (11:00)
[2018-06-09] MEDS: THEOPHYLLINE 24 HOUR 400 MG CAP.ER.24H PO SCH (11:00)
[2018-06-09] MEDS: risperiDONE 2 MG TAB PO SCH ×2 (11:00→21:02)
[2018-06-09] MEDS: busPIRone HCl 5 MG TAB PO SCH ×2 (11:01→21:00)
[2018-06-09] MEDS: TRIAMCINOLONE 0.1% CREAM 80 GM TUBE TOPICAL SCH (11:02)
[2018-06-09 11:20] LABS: Glucose,Whole Blood 109 mg/dL (75-99)
[2018-06-09] MEDS: INSULIN ASPART 100 UNIT/ML 1 ML 10 ML VIAL SQ SCH ×3 (12:03→20:59)
[2018-06-09] MEDS: IPRATROPIUM 0.5 MG/2.5 ML NEBU INHALATION SCH ×2 (16:23→20:00)
[2018-06-09 16:50] LABS: Glucose,Whole Blood 138 mg/dL (75-99)
[2018-06-09 18:48] LABS: Hemoglobin A1C 5.8 % (4.0-6.0)
[2018-06-09] MEDS: BUDESONIDE 1 MG/2 ML NEBU INHALATION SCH (19:57)
[2018-06-09] MEDS ORDERED: NON-FORMULARY DRUG (Tiotropium 18 Mcg/Puff 1 PUFF) INHALATION SCH (20:00)
[2018-06-09] MEDS: FORMOTEROL FUMARATE 20 MCG/2 ML NEBU INHALATION SCH (20:16)
[2018-06-09 20:47] LABS: Glucose,Whole Blood 212 mg/dL (75-99)
[2018-06-09] MEDS: ZOLPIDEM 5 MG TAB PO SCH (21:03)
[2018-06-09] MEDS: DOXYCYCLINE 100 MG CAP PO SCH (21:04)
[2018-06-10] MEDS: HYDROmorphone 1 MG/ML 1 ML SYRINGE IVP PRN ×5 (04:19→20:06)
[2018-06-10] MEDS: methylPREDNISolone SOD SUCCI 125 MG/2 ML VIAL IV SCH ×3 (06:02→17:31)
[2018-06-10] MEDS: BUDESONIDE 1 MG/2 ML NEBU INHALATION SCH ×2 (07:19→19:51)
[2018-06-10] MEDS: FORMOTEROL FUMARATE 20 MCG/2 ML NEBU INHALATION SCH ×2 (07:19→19:51)
[2018-06-10] MEDS: IPRATROPIUM 0.5 MG/2.5 ML NEBU INHALATION SCH ×4 (07:19→19:51)
[2018-06-10 07:21] LABS: Glucose,Whole Blood 134 mg/dL (75-99)
[2018-06-10 07:32] LABS: Basophils % (A) 0 %; Eosinophils % (A) 0 %; HCT 36.1 % (39.0-53.0); HGB 11.4 gm/dL (13.0-17.5); Lymphocytes # (A) 0.3 k/uL (1.0-4.8); Lymphocytes % (A) 4 %; MCHC 31.5 g/dL (31.0-37.0); MCV 92.1 fL (80.0-100.0); Mean Platelet Volume 6.6; Monocytes # (A) 0.2 k/uL (0-1.0); Monocytes % (A) 3 %; Neutrophils % (A) 92 %; Platelet Count 167 k/uL (150-450); RBC 3.92 m/uL (4.30-5.90); RDW 14.5 % (11.5-15.5); WBC 6.5 k/uL (3.8-10.6)
[2018-06-10 07:49] LABS: ALT 25 U/L (21-72); AST 10 U/L (17-59); Albumin 3.3 g/dL (3.5-5.0); Alkaline Phosphatase 47 U/L (38-126); Anion Gap 3 mmol/L; Blood Urea Nitrogen 21 mg/dL (9-20); Calcium 8.9 mg/dL (8.4-10.2); Carbon Dioxide 38 mmol/L (22-30); Chloride 95 mmol/L (98-107); Glucose 120 mg/dL (74-99); Potassium 4.1 mmol/L (3.5-5.1); Sodium 136 mmol/L (137-145); Total Bilirubin 0.5 mg/dL (0.2-1.3); Total Protein 5.6 g/dL (6.3-8.2)
[2018-06-10] MEDS: INSULIN ASPART 100 UNIT/ML 1 ML 10 ML VIAL SQ SCH ×4 (08:15→20:52)
[2018-06-10] MEDS: ATORVASTATIN 10 MG TAB PO SCH (08:16)
[2018-06-10] MEDS: PANTOPRAZOLE 40 MG TABLET PO SCH (08:16)
[2018-06-10] MEDS: GABAPENTIN 100 MG CAP PO SCH ×2 (08:16→20:54)
[2018-06-10] MEDS: POTASSIUM CHLORIDE ER 10 MEQ TAB.ER.PRT PO SCH ×2 (08:17→20:56)
[2018-06-10] MEDS: NICOTINE 14MG/24HR PATCH TRANSDERM SCH (08:17)
[2018-06-10] MEDS: METOPROLOL SUCCINATE (ER) 25 MG TAB.ER.24H PO SCH (08:17)
[2018-06-10] MEDS: FUROSEMIDE 40 MG TAB PO SCH (08:17)
[2018-06-10] MEDS: LORATADINE 10 MG TAB PO SCH (08:17)
[2018-06-10] MEDS: ALPRAZolam 1 MG TAB PO SCH ×3 (08:17→20:53)
[2018-06-10] MEDS: IBUPROFEN 800 MG TAB PO SCH ×3 (08:18→20:54)
[2018-06-10] MEDS: LIPASE 5,000/PROTEASE 17,000/AMYLASE 24,000 PO SCH ×3 (08:18→20:53)
[2018-06-10] MEDS: TRIAMCINOLONE 0.1% CREAM 80 GM TUBE TOPICAL SCH (08:19)
[2018-06-10] MEDS: risperiDONE 2 MG TAB PO SCH ×2 (08:19→20:55)
[2018-06-10] MEDS: THEOPHYLLINE 24 HOUR 400 MG CAP.ER.24H PO SCH (08:19)
[2018-06-10] MEDS: busPIRone HCl 5 MG TAB PO SCH ×2 (08:20→20:54)
[2018-06-10] MEDS: DOXYCYCLINE 100 MG CAP PO SCH ×2 (08:20→20:54)
[2018-06-10] MEDS: ENOXAPARIN 40 MG/0.4 ML SYRINGE SQ SCH (08:21)
[2018-06-10] MEDS: ESCITALOPRAM 10 MG TAB PO SCH (08:21)
[2018-06-10] MEDS: ROFLUMILAST 500 MG PO SCH (08:27)
--- NOTE | 2018-06-10 11:05 | P.PN ---
Subjective Progress Note Date: 06/10/18 This is a 58-year-old male patient well-known to my service is presenting with complaints of increased shortness of breath. Patient states for the past 2 days he had increase difficulty in breathing along with increased peripheral edema. Patient has a known past medical history of COPD patient also states he is still smoking half pack of cigarettes per day. Patient is home O2 dependent on 3 L. Patient recently admitted to [facility] and TN'd last week for the same issue. Additional medical history includes chest pain, GERD, hyperlipidemia, hypertension and pneumonia. Chest x-ray completed showing no acute cardiopulmonary process. EKG completed showing normal sinus rhythm. Patient also complaining of generalized abdominal pain. CT of abdomen and pelvis completed showing subsegmental atelectasis at the lung bases that is new compared to last exam. There is a broad-based umbilical hernia that is new compared to last exam. No evidence of bowel obstruction. There is resection of some of the sigmoid colon compared to old exam there is clearing of the. Diverticular abscess compared to old exam. Dr. Gallagher has been consulted for pulmonary services. Patient started on Solu-Medrol IV. This time patient remains short of breath with activity. Patient currently on 3 L nasal cannula. Continue breathing treatments at this time. Patient denies chest pain. Patient denies nausea vomiting or diarrhea. Patient denies any urinary burning or frequency On 06/10/2018 patient was seen and examined he is still complaining of shortness of breath, cough and severe wheezing otherwise he denies any complaints there is no fever or chills no headache or dizziness no chest pain, there is no nausea or vomiting no abdominal pain no diarrhea and no urinary symptoms Objective - Vital Signs Vital signs: Vital Signs Temp 97.5 F L 06/10/18 04:41 Pulse 76 06/10/18 07:40 Resp 18 06/10/18 04:41 BP 146/86 06/10/18 04:41 Pulse Ox 99 06/10/18 04:41 Intake & Output 06/09/18 06/10/18 06/10/18 18:59 06:59 18:59 Intake Total 620 Balance 620 Weight 82.6 kg Intake: Oral 620 Other: Voiding Method Urinal Urinal Urinal # Voids 3 1 # Bowel Movements 1 - Exam Head normocephalic and atraumatic Neck supple no JVD no goiter Lungs diminished bilaterally with expiratory wheezing Heart regular rate and rhythm S1-S2, no rub or gallop Abdomen is soft nontender nondistended positive bowel sounds no hepatosplenomegaly Extremities +1 lower extremity edema Neuro alert and orientated to 3 - Labs CBC & Chem 7: 06/10/18 06:30 06/10/18 06:30 Labs: Abnormal Lab Results - Last 24 Hours (Table) 06/09/18 06/09/18 06/09/18 Range/Units 11:15 16:48 20:46 RBC (4.30-5.90) m/uL Hgb (13.0-17.5) gm/dL Hct (39.0-53.0) % Lymphocytes # (1.0-4.8) k/uL Sodium (137-145) mmol/L Chloride (98-107) mmol/L Carbon Dioxide (22-30) mmol/L BUN (9-20) mg/dL Glucose (74-99) mg/dL POC Glucose (mg/dL) 109 H 138 H 212 H (75-99) mg/dL AST (17-59) U/L Total Protein (6.3-8.2) g/dL Albumin (3.5-5.0) g/dL 06/10/18 06/10/18 06/10/18 Range/Units 06:30 06:30 07:20 RBC 3.92 L (4.30-5.90) m/uL Hgb 11.4 L (13.0-17.5) gm/dL Hct 36.1 L (39.0-53.0) % Lymphocytes # 0.3 L (1.0-4.8) k/uL Sodium 136 L (137-145) mmol/L Chloride 95 L (98-107) mmol/L Carbon Dioxide 38 H (22-30) mmol/L BUN 21 H (9-20) mg/dL Glucose 120 H (74-99) mg/dL POC Glucose (mg/dL) 134 H (75-99) mg/dL AST 10 L (17-59) U/L Total Protein 5.6 L (6.3-8.2) g/dL Albumin 3.3 L (3.5-5.0) g/dL Microbiology - Last 24 Hours (Table) 06/08/18 14:50 Blood Culture - Preliminary Blood No Growth after 24 hours Assessment and Plan Plan: 1. Acute exacerbation of chronic obstructive pulmonary disease. Chest x-ray completed showing no acute process.. Dr. Aileen dubose has been consulted for pulmonary services. Patient started on IV steroids. Continue breathing treatments. 2. Nicotine dependence. Patient educated greater than 3 minutes with patient. Patient did state he smokes half a pack of cigarettes per day. Nicotine patch has been ordered 3. Acute on chronic hypoxic and hypercapnic respiratory failure. Patient maintained on home O2 4. Lower extremity peripheral edema. BNP level 138. Home Lasix resumed 5. History of essential hypertension. Home meds resumed 6. History of migraine headache 7. History of hyperlipidemia 8. History of depression 9. History of chronic back pain. Home meds resumed GI prophylaxis Protonix. DVT prophylaxis Lovenox.
[2018-06-10 12:01] LABS: Glucose,Whole Blood 211 mg/dL (75-99)
--- NOTE | 2018-06-10 12:10 | P.PN ---
Subjective Progress Note Date: 06/10/18 Principal diagnosis: Acute exacerbation of severe oxygen dependent chronic obstructive pulmonary disease This is a very pleasant 58-year-old gentleman who follows with Dr. Sampson as his primary care physician. 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 He also has severe oxygen dependent chronic obstructive pulmonary disease with FEV1 value less than 20% of predicted. He is on chronic oxygen. He is on Incruse, Spiriva, Daliresp, Ventolin. The patient also has chronic and ongoing tobacco dependence. He follows in our office for the same. He's had multiple admissions for COPD exacerbations. He's been counseled on many occasions regarding the importance of complete smoking cessation. Most recently discharged on 05/17/2018. He presented to the emergency room again yesterday with complaints of increasing shortness of breath and increasing lower extremity edema. Chest x-ray shows no acute cardio pulmonary process. Computed tomography scan of the abdomen and pelvis revealed subsegmental atelectasis in the lung bases. Broad based umbilical hernia that was new compared to previous. Evidence of resection of some of the sigmoid colon. He is seen today in consultation on the regular medical floor. He is awake and alert in mild respiratory distress. He is maintaining good O2 saturations in the 90s on 3 L/m per nasal cannula. He's been afebrile. Hemodynamically stable. White count 8.2. Hemoglobin 12.4. Creatinine 0.72. Bicarb 39. Patient seen again today 06/10/2018 in follow-up on the regular medical floor. He is awake and alert in no acute distress. He is breathing a bit better today compared to yesterday. Still quite dyspneic on minimal exertion and conversation. Loose nonproductive cough. Maintaining good O2 saturations in the high 90s on 3 L/m per nasal cannula. He is afebrile. Hemodynamically stable. Blood culture reveals no growth to date. White count 6.5. Hemoglobin 11.4. Bicarb 38. Creatinine 0.67. He remains on DuoNeb inhalations, Pulmicort and Perforomist inhalations, IV Solu-Medrol, Daliresp and theophylline. Antibiotics in the form of doxycycline. NicoDerm patch is in place. Objective - Vital Signs Vital signs: Vital Signs Temp 97.5 F L 06/10/18 04:41 Pulse 80 06/10/18 11:25 Resp 18 06/10/18 04:41 BP 146/86 06/10/18 04:41 Pulse Ox 99 06/10/18 04:41 Intake & Output 06/09/18 06/10/18 06/10/18 18:59 06:59 18:59 Intake Total 620 Balance 620 Weight 82.6 kg Intake: Oral 620 Other: Voiding Method Urinal Urinal Urinal # Voids 3 1 # Bowel Movements 1 - Exam GENERAL EXAM: Obese. Alert, fairly comfortable in no apparent distress. On 3 L /m. HEAD: Normocephalic. EYES: Normal reaction of pupils, equal size. NOSE: Clear with pink turbinates. THROAT: Crowding the posterior pharynx. No erythema or exudates. NECK: No masses, no JVD. CHEST: No chest wall deformity. LUNGS: Equal air entry with bilateral end expiratory wheeze. Diminished throughout.. CVS: S1 and S2 normal with no audible murmur, regular rhythm. ABDOMEN: No hepatosplenomegaly, normal bowel sounds, no guarding or rigidity. SPINE: No scoliosis or deformity SKIN: No rashes CENTRAL NERVOUS SYSTEM: No focal deficits, tone is normal in all 4 extremities. EXTREMITIES: There is no peripheral edema. No clubbing, no cyanosis. Peripheral pulses are intact. - Labs CBC & Chem 7: 06/10/18 06:30 06/10/18 06:30 Labs: Abnormal Lab Results - Last 24 Hours (Table) 06/09/18 06/09/18 06/10/18 Range/Units 16:48 20:46 06:30 RBC 3.92 L (4.30-5.90) m/uL Hgb 11.4 L (13.0-17.5) gm/dL Hct 36.1 L (39.0-53.0) % Lymphocytes # 0.3 L (1.0-4.8) k/uL Sodium (137-145) mmol/L Chloride (98-107) mmol/L Carbon Dioxide (22-30) mmol/L BUN (9-20) mg/dL Glucose (74-99) mg/dL POC Glucose (mg/dL) 138 H 212 H (75-99) mg/dL AST (17-59) U/L Total Protein (6.3-8.2) g/dL Albumin (3.5-5.0) g/dL 06/10/18 06/10/18 06/10/18 Range/Units 06:30 07:20 11:59 RBC (4.30-5.90) m/uL Hgb (13.0-17.5) gm/dL Hct (39.0-53.0) % Lymphocytes # (1.0-4.8) k/uL Sodium 136 L (137-145) mmol/L Chloride 95 L (98-107) mmol/L Carbon Dioxide 38 H (22-30) mmol/L BUN 21 H (9-20) mg/dL Glucose 120 H (74-99) mg/dL POC Glucose (mg/dL) 134 H 211 H (75-99) mg/dL AST 10 L (17-59) U/L Total Protein 5.6 L (6.3-8.2) g/dL Albumin 3.3 L (3.5-5.0) g/dL Microbiology - Last 24 Hours (Table) 06/08/18 14:50 Blood Culture - Preliminary Blood No Growth after 24 hours Assessment and Plan Assessment: Impression: #1 Acute on chronic hypoxic respiratory failure secondary to an acute exacerbation of severe oxygen dependent chronic obstructive pulmonary disease. Gold stage IV, FEV1 value less than 20%. #2 Acute on chronic hypercapnic respiratory failure secondary to an acute exacerbation of chronic obstructive pulmonary disease. #3 Obstructive sleep apnea not on CPAP in the outpatient setting. #4 Obesity. #5 Chronic and ongoing tobacco dependence. #6 Chronic pain syndrome. #7 History of chronic alcoholism with pancreatic insufficiency. #8 Hypertension. #9 Hyperlipidemia. #10 History of diverticular disease status post sigmoid colectomy. #11 History of anxiety/depression. Plan: The patient was seen and evaluated by Dr. Gallagher. We will continue with his current treatment plan. Hospice consult has been placed. We will increase his activity as tolerated. We'll continue to follow and make further recommendations based on his clinical status. I, the cosigning physician, performed a history & physical examination of the patient. Lungs sounds with bilateral end expiratory wheeze, few scattered rhonchi, diminished. Maintaining good O2 saturations in the 90s on 3 L/m per nasal cannula. I discussed the assessment and plan of care with my nurse practitioner, Paula Demarco. I attest to the above note as dictated by her.
--- NOTE | 2018-06-10 13:18 | P.GSCN ---
History of Present Illness Consult date: 06/10/18 History of present illness: CHIEF COMPLAINT: Abdominal pain HISTORY OF PRESENT ILLNESS: The patient is a 58-year-old male who presents with acute onset COPD exacerbation. On workup, CT of the abdomen and pelvis was obtained for abdominal pain. He reports the abdominal pain is now chronic more than a month ago. Findings include incisional hernia without obstruction. His history is significant for recent exploratory laparotomy with sigmoid colectomy and reexploration almost 1 year ago in May 2017 and June [address] Hua and Dr. Sorensen. He reports not following up with his surgeons. Separately, he has gained almost 15-20 pounds in less than 6 months which also placed him at risk for incisional hernia. He is a daily smoker. He has moderate to severe COPD with steroid exposure. Secondary to his abdominal pain and computed tomography scan findings, Gen. surgery is consulted PAST MEDICAL HISTORY: See list. PAST SURGICAL HISTORY: See list. MEDICATIONS: See list. ALLERGIES: See list. SOCIAL HISTORY: Chronic tobacco use FAMILY HISTORY: No reports of Crohn's disease or inflammatory bowel disease REVIEW OF ORGAN SYSTEMS: CONSTITUTIONAL: No fevers or chills HEENT: No troubles with vision or hearing. No reports of dysphagia. ENDOCRINE: No reports of thyroid disorders. No diabetes. Chronic steroid exposure. CARDIOVASCULAR: Past history of myocardial infarction. RESPIRATORY: Has acute on chronic COPD. GASTROINTESTINAL: History of diverticulitis with colon resection. NEURO: No reports of stroke or seizure disorders. PSYCH: Has depression. No suicidal ideation. No anxiety. HEMATOLOGIC: No easy bruising or bleeding LYMPHATIC: The patient denies any lumps and bumps around the neck. GENITOURINARY: Denies any blood in urine or increased urinary frequency. MUSCULOSKELETAL: Has back pain, stiffness or joint arthritis. SKIN: No skin cancer or rash. PHYSICAL EXAM: VITAL SIGNS: GENERAL: Well-developed in no acute distress. HEENT: No sclera icterus. Extraocular movements grossly intact. Moist buccal mucosa. Head is atraumatic, normocephalic. Hears conversational speech. No nasal drainage. NECK: Supple without lymphadenopathy. CHEST: Non-labored respirations and equal bilateral excursions. Oxygen present. CARDIOVASCULAR: Regular rate with regular rhythm. Palpable 2+ radial pulses. ABDOMEN: Soft. Nondistended. No peritonitis. Small bulge less than 3-4 cm above umbilicus, reducible. Well-healed lower midline incision without skin changes or strangulation. MUSCULOSKELETAL: No clubbing, cyanosis or edema. NEUROLOGIC: No focal or lateralizing signs. Cranial nerves II through XII grossly intact. PSYCH: Appropriate affect. Alert and oriented to person, place and time. SKIN: Well perfused. Good skin turgor. LABS: Reviewed STUDIES: Reviewed ASSESSMENT: 1. Incisional hernia with prior history of fascial wound dehiscence 2. COPD exacerbation 3. Steroid-dependent PLAN: 1. No surgical intervention needed at this time. 2. Patient reports not following up with his index surgeon which can be done as an outpatient, Dr. Hua or Franchesca 3. Weight loss advised to decrease risk for worsening hernia. 4. Abdominal binder as needed. 5. Diet as tolerated Thank you for this kind consultation. Past Medical History Past Medical History: Chest Pain / Angina, COPD, GERD/Reflux, Hyperlipidemia, Hypertension, Pneumonia Additional Past Medical History / Comment(s): Other hx: Severe COPD, chronic hypoxic respiratory failure , 3L oxygen at home, VIVEK without device, history of alcoholism-no drinking for 18 yrs, history of chronic pancreatitis and pancreatic insufficiency, chronic diverticular disease/diverticulitis, chronic pain in back and abdomin. Last Myocardial Infarction Date:: Denies having an ME History of Any Multi-Drug Resistant Organisms: MRSA Year Discovered:: summer MDRO Source:: right side of buttuck and right side of chest above nipple Past Surgical History: Bowel Resection, Heart Catheterization, Orthopedic Surgery, Tonsillectomy Additional Past Surgical History / Comment(s): Sigmoid colectomy, right hand surgery for repair of tendons, cardiac catheterization that has been normal, colonoscopy Past Anesthesia/Blood Transfusion Reactions: No Reported Reaction Past Psychological History: Anxiety, Depression Additional Psychological History / Comment(s): Pt resides with his brother. He is currently receiving care thru [facility]. He uses a wheelchair prn. He is on home oxygen at 3L/[place] ATC. He has a nebulizer. He does not drive. Family take him to appts. Smoking Status: Current every day smoker Past Alcohol Use History: None Reported Additional Past Alcohol Use History / Comment(s): STARTED SMOKING AT AGE 5 SMOKED 3PPD, USED TO DRINK HEAVILY BUT NONE IN LAST 18 YEARS. Past Drug Use History: Prescription Drug Abuse Additional Drug Use History / Comment(s): SMOKED MARIJUANA 20 YEARS AGO. - Past Family History Mother Family Medical History: Cancer, COPD Additional Family Medical History / Comment(s): unaware of what kind of cancer Father Family Medical History: COPD Additional Family Medical History / Comment(s): Father is . Medications and Allergies Home Medications Medication Instructions Recorded Confirmed Type Gabapentin [Neurontin] 100 mg PO BID 03/05/14 06/08/18 History Omeprazole 40 mg PO DAILY 03/05/14 06/08/18 History Lipase/Protease/Amylase [Creon Dr 1 cap PO TID 07/12/14 06/08/18 History 24,000 Units Capsule] risperiDONE [RisperDAL] 2 mg PO BID 07/12/14 06/08/18 History Atorvastatin Calcium [Lipitor] 10 mg PO DAILY 06/02/17 06/08/18 History Furosemide [Lasix] 40 mg PO DAILY 06/02/17 06/08/18 History Metoprolol Succinate (ER) [Toprol 25 mg PO DAILY 06/02/17 06/08/18 History XL] Roflumilast [Daliresp] 500 mg PO DAILY 06/02/17 06/08/18 History busPIRone HCL [Buspar] 7.5 mg PO BID 06/02/17 06/08/18 History Albuterol Inhaler [Ventolin Hfa 2 puff INHALATION RT-Q4H PRN 02/09/18 06/08/18 History Inhaler] Loratadine [Claritin] 10 mg PO DAILY 02/09/18 06/08/18 History Potassium Chloride [Klor-Con 10] 10 meq PO BID 02/09/18 06/08/18 History SUMAtriptan SUCCINATE [Imitrex] 100 mg PO DAILY PRN 02/09/18 06/08/18 History Escitalopram [Lexapro] 10 mg PO DAILY #30 tab 02/28/18 06/08/18 Rx Zolpidem [Ambien] 5 mg PO HS #3 tab 03/24/18 06/08/18 Rx ALPRAZolam [Xanax] 2 mg PO QID 05/15/18 06/08/18 History Hydrocortisone Cream 1 applic TOPICAL DAILY 05/15/18 06/08/18 History [Hydrocortisone 2.5% Cream] Ibuprofen [Motrin] 800 mg PO TID 05/15/18 06/08/18 History Theophylline 24 Hour [Dionisio-24] 400 mg PO DAILY 05/15/18 06/08/18 History Tiotropium 18 Mcg/Puff [Spiriva] 1 puff INHALATION RT-BID 05/15/18 06/08/18 History Umeclidinium Oracle [Incruse 2 puff INHALATION RT-BID 05/15/18 06/08/18 History Ellipta] Allergies Allergy/AdvReac Type Severity Reaction Status Date / Time Penicillins Allergy Rash/Hives Verified 06/08/18 16:23 Surgical - Exam Vital Signs Pulse Resp BP 80 26 H 127/87 06/08/18 14:37 06/08/18 14:37 06/08/18 14:37 Results - Labs 06/10/18 06:30 06/10/18 06:30 Abnormal Lab Results - Last 24 Hours (Table) 06/09/18 06/09/18 06/10/18 Range/Units 16:48 20:46 06:30 RBC 3.92 L (4.30-5.90) m/uL Hgb 11.4 L (13.0-17.5) gm/dL Hct 36.1 L (39.0-53.0) % Lymphocytes # 0.3 L (1.0-4.8) k/uL Sodium (137-145) mmol/L Chloride (98-107) mmol/L Carbon Dioxide (22-30) mmol/L BUN (9-20) mg/dL Glucose (74-99) mg/dL POC Glucose (mg/dL) 138 H 212 H (75-99) mg/dL AST (17-59) U/L Total Protein (6.3-8.2) g/dL Albumin (3.5-5.0) g/dL 06/10/18 06/10/18 06/10/18 Range/Units 06:30 07:20 11:59 RBC (4.30-5.90) m/uL Hgb (13.0-17.5) gm/dL Hct (39.0-53.0) % Lymphocytes # (1.0-4.8) k/uL Sodium 136 L (137-145) mmol/L Chloride 95 L (98-107) mmol/L Carbon Dioxide 38 H (22-30) mmol/L BUN 21 H (9-20) mg/dL Glucose 120 H (74-99) mg/dL POC Glucose (mg/dL) 134 H 211 H (75-99) mg/dL AST 10 L (17-59) U/L Total Protein 5.6 L (6.3-8.2) g/dL Albumin 3.3 L (3.5-5.0) g/dL Microbiology - Last 24 Hours (Table) 06/08/18 14:50 Blood Culture - Preliminary Blood No Growth after 24 hours Diabetes panel 06/09/18 06/10/18 Range/Units 09:09 06:30 Sodium 136 L (137-145) mmol/L Potassium 4.1 (3.5-5.1) mmol/L Chloride 95 L (98-107) mmol/L Carbon Dioxide 38 H (22-30) mmol/L BUN 21 H (9-20) mg/dL Creatinine 0.67 (0.66-1.25) mg/dL Glucose 120 H (74-99) mg/dL Hemoglobin A1c 5.8 (4.0-6.0) % Calcium 8.9 (8.4-10.2) mg/dL AST 10 L (17-59) U/L ALT 25 (21-72) U/L Alkaline Phosphatase 47 (38-126) U/L Total Protein 5.6 L (6.3-8.2) g/dL Albumin 3.3 L (3.5-5.0) g/dL Calcium panel 06/10/18 Range/Units 06:30 Calcium 8.9 (8.4-10.2) mg/dL Albumin 3.3 L (3.5-5.0) g/dL Pituitary panel 06/10/18 Range/Units 06:30 Sodium 136 L (137-145) mmol/L Potassium 4.1 (3.5-5.1) mmol/L Chloride 95 L (98-107) mmol/L Carbon Dioxide 38 H (22-30) mmol/L BUN 21 H (9-20) mg/dL Creatinine 0.67 (0.66-1.25) mg/dL Glucose 120 H (74-99) mg/dL Calcium 8.9 (8.4-10.2) mg/dL Adrenal panel 06/10/18 Range/Units 06:30 Sodium 136 L (137-145) mmol/L Potassium 4.1 (3.5-5.1) mmol/L Chloride 95 L (98-107) mmol/L Carbon Dioxide 38 H (22-30) mmol/L BUN 21 H (9-20) mg/dL Creatinine 0.67 (0.66-1.25) mg/dL Glucose 120 H (74-99) mg/dL Calcium 8.9 (8.4-10.2) mg/dL Total Bilirubin 0.5 (0.2-1.3) mg/dL AST 10 L (17-59) U/L ALT 25 (21-72) U/L Alkaline Phosphatase 47 (38-126) U/L Total Protein 5.6 L (6.3-8.2) g/dL Albumin 3.3 L (3.5-5.0) g/dL - Imaging CT scan - abdomen: report reviewed, image reviewed CT scan - pelvis: report reviewed, image reviewed (Incisional hernia without obstruction) Assessment and Plan (1) Incisional hernia without mention of obstruction or gangrene Current Visit: Yes Status: Acute Code(s): K43.2 - INCISIONAL HERNIA WITHOUT OBSTRUCTION OR GANGRENE SNOMED Code(s): 671840339 (2) COPD (chronic obstructive pulmonary disease) Current Visit: Yes Status: Chronic Code(s): J44.9 - CHRONIC OBSTRUCTIVE PULMONARY DISEASE, UNSPECIFIED SNOMED Code(s): 06884858 (3) Acute exacerbation of chronic obstructive airways disease Current Visit: No Status: Acute Code(s): J44.1 - CHRONIC OBSTRUCTIVE PULMONARY DISEASE W (ACUTE) EXACERBATION SNOMED Code(s): 305815056 (4) Dehiscence of surgical wound Current Visit: No Status: Acute Code(s): T81.31XA - DISRUPTION OF EXTERNAL OPERATION (SURGICAL) WOUND, NEC, INIT SNOMED Code(s): 331863891 (5) Diverticulitis Current Visit: No Status: Acute Code(s): K57.92 - DVTRCLI OF INTEST, PART UNSP, W/O PERF OR ABSCESS W/O BLEED SNOMED Code(s): 083966262 (6) O2 dependent Current Visit: No Status: Acute Code(s): Z99.81 - DEPENDENCE ON SUPPLEMENTAL OXYGEN SNOMED Code(s): 476693567521 (7) Smoker Current Visit: No Status: Acute Code(s): F17.200 - NICOTINE DEPENDENCE, UNSPECIFIED, UNCOMPLICATED SNOMED Code(s): 19421560
[2018-06-10] MEDS: IPRATROPIUM-ALBUTEROL 3 ML NEB INHALATION PRN ×3 (15:29→23:18)
[2018-06-10 17:02] LABS: Glucose,Whole Blood 214 mg/dL (75-99)
[2018-06-10 20:22] LABS: Glucose,Whole Blood 147 mg/dL (75-99)
[2018-06-10] MEDS: ZOLPIDEM 5 MG TAB PO SCH (20:55)
[2018-06-11] MEDS: methylPREDNISolone SOD SUCCI 125 MG/2 ML VIAL IV SCH ×5 (00:06→23:52)
[2018-06-11] MEDS: HYDROmorphone 1 MG/ML 1 ML SYRINGE IVP PRN ×7 (00:06→23:52)
[2018-06-11] MEDS: IPRATROPIUM-ALBUTEROL 3 ML NEB INHALATION PRN ×6 (03:25→23:24)
[2018-06-11 07:12] LABS: Glucose,Whole Blood 136 mg/dL (75-99)
[2018-06-11] MEDS: METOPROLOL SUCCINATE (ER) 25 MG TAB.ER.24H PO SCH (07:41)
[2018-06-11] MEDS: PANTOPRAZOLE 40 MG TABLET PO SCH (07:41)
[2018-06-11] MEDS: ALPRAZolam 1 MG TAB PO SCH ×3 (07:41→21:58)
[2018-06-11] MEDS: DOXYCYCLINE 100 MG CAP PO SCH ×2 (07:41→20:07)
[2018-06-11] MEDS: busPIRone HCl 5 MG TAB PO SCH ×2 (07:41→20:07)
[2018-06-11] MEDS: ESCITALOPRAM 10 MG TAB PO SCH (07:43)
[2018-06-11] MEDS: POTASSIUM CHLORIDE ER 10 MEQ TAB.ER.PRT PO SCH ×2 (07:43→20:08)
[2018-06-11] MEDS: ENOXAPARIN 40 MG/0.4 ML SYRINGE SQ SCH (07:43)
[2018-06-11] MEDS: risperiDONE 2 MG TAB PO SCH ×2 (07:43→20:07)
[2018-06-11] MEDS: THEOPHYLLINE 24 HOUR 400 MG CAP.ER.24H PO SCH (07:43)
[2018-06-11] MEDS: LORATADINE 10 MG TAB PO SCH (07:43)
[2018-06-11] MEDS: FUROSEMIDE 40 MG TAB PO SCH (07:43)
[2018-06-11] MEDS: GABAPENTIN 100 MG CAP PO SCH ×2 (07:43→20:07)
[2018-06-11] MEDS: ATORVASTATIN 10 MG TAB PO SCH (07:43)
[2018-06-11] MEDS: INSULIN ASPART 100 UNIT/ML 1 ML 10 ML VIAL SQ SCH ×4 (07:44→20:07)
[2018-06-11] MEDS: LIPASE 5,000/PROTEASE 17,000/AMYLASE 24,000 PO SCH ×3 (07:44→21:59)
[2018-06-11] MEDS: NICOTINE 14MG/24HR PATCH TRANSDERM SCH (07:44)
[2018-06-11] MEDS: IBUPROFEN 800 MG TAB PO SCH ×3 (07:45→21:58)
[2018-06-11] MEDS: ROFLUMILAST 500 MG PO SCH (07:46)
[2018-06-11] MEDS: TRIAMCINOLONE 0.1% CREAM 80 GM TUBE TOPICAL SCH (07:46)
[2018-06-11 07:54] LABS: Basophils % (A) 0 %; Eosinophils # (A) 0.1 k/uL (0-0.7); Eosinophils % (A) 1 %; HCT 36.5 % (39.0-53.0); HGB 11.3 gm/dL (13.0-17.5); Lymphocytes # (A) 0.2 k/uL (1.0-4.8); Lymphocytes % (A) 3 %; MCH 28.9 pg (25.0-35.0); MCHC 30.9 g/dL (31.0-37.0); MCV 93.6 fL (80.0-100.0); Mean Platelet Volume 6.9; Monocytes # (A) 0.2 k/uL (0-1.0); Monocytes % (A) 3 %; Neutrophils # (A) 6.5 k/uL (1.3-7.7); Neutrophils % (A) 93 %; Platelet Count 152 k/uL (150-450); RDW 14.4 % (11.5-15.5)
[2018-06-11] MEDS: FORMOTEROL FUMARATE 20 MCG/2 ML NEBU INHALATION SCH ×2 (08:20→20:20)
[2018-06-11] MEDS: BUDESONIDE 1 MG/2 ML NEBU INHALATION SCH ×2 (08:20→20:20)
[2018-06-11] MEDS: IPRATROPIUM 0.5 MG/2.5 ML NEBU INHALATION SCH ×4 (08:21→20:21)
[2018-06-11 08:24] LABS: ALT 20 U/L (21-72); AST 9 U/L (17-59); Albumin 3.2 g/dL (3.5-5.0); Alkaline Phosphatase 36 U/L (38-126); Anion Gap 5 mmol/L; Blood Urea Nitrogen 22 mg/dL (9-20); Calcium 8.8 mg/dL (8.4-10.2); Carbon Dioxide 35 mmol/L (22-30); Chloride 96 mmol/L (98-107); Glucose 124 mg/dL (74-99); Potassium 4.1 mmol/L (3.5-5.1); Sodium 136 mmol/L (137-145); Total Bilirubin 0.3 mg/dL (0.2-1.3); Total Protein 5.4 g/dL (6.3-8.2)
[2018-06-11 11:59] LABS: Glucose,Whole Blood 147 mg/dL (75-99)
--- NOTE | 2018-06-11 12:00 | P.PN ---
Subjective Progress Note Date: 06/11/18 This is a 58-year-old male patient well-known to my service is presenting with complaints of increased shortness of breath. Patient states for the past 2 days he had increase difficulty in breathing along with increased peripheral edema. Patient has a known past medical history of COPD patient also states he is still smoking half pack of cigarettes per day. Patient is home O2 dependent on 3 L. Patient recently admitted to [facility] and IA'd last week for the same issue. Additional medical history includes chest pain, GERD, hyperlipidemia, hypertension and pneumonia. Chest x-ray completed showing no acute cardiopulmonary process. EKG completed showing normal sinus rhythm. Patient also complaining of generalized abdominal pain. CT of abdomen and pelvis completed showing subsegmental atelectasis at the lung bases that is new compared to last exam. There is a broad-based umbilical hernia that is new compared to last exam. No evidence of bowel obstruction. There is resection of some of the sigmoid colon compared to old exam there is clearing of the. Diverticular abscess compared to old exam. Dr. Gallagher has been consulted for pulmonary services. Patient started on Solu-Medrol IV. This time patient remains short of breath with activity. Patient currently on 3 L nasal cannula. Continue breathing treatments at this time. Patient denies chest pain. Patient denies nausea vomiting or diarrhea. Patient denies any urinary burning or frequency On 06/10/2018 patient was seen and examined he is still complaining of shortness of breath, cough and severe wheezing otherwise he denies any complaints there is no fever or chills no headache or dizziness no chest pain, there is no nausea or vomiting no abdominal pain no diarrhea and no urinary symptoms On 06/11/2018 patient was seen and examined on medical floor, he is still complaining of severe shortness of breath complaining of cough and severe wheezing otherwise he denies any complaints there is no fever or chills no headache or dizziness no chest pain no nausea or vomiting no abdominal pain no diarrhea and no urinary symptoms Objective - Vital Signs Vital signs: Vital Signs Temp 97.1 F L 06/11/18 04:33 Pulse 88 06/11/18 08:44 Resp 18 06/11/18 04:33 BP 139/82 06/11/18 04:33 Pulse Ox 97 06/11/18 04:33 Intake & Output 06/10/18 06/11/18 06/11/18 18:59 06:59 18:59 Intake Total 1500 Output Total 500 425 Balance -500 1075 Intake: Oral 1500 Output: Urine 500 425 Other: Voiding Method Urinal Urinal # Voids 1 - Exam Head normocephalic and atraumatic Neck supple no JVD no goiter Lungs diminished bilaterally with expiratory wheezing Heart regular rate and rhythm S1-S2, no rub or gallop Abdomen is soft nontender nondistended positive bowel sounds no hepatosplenomegaly Extremities +1 lower extremity edema Neuro alert and orientated to 3 - Labs CBC & Chem 7: 06/11/18 07:20 06/11/18 07:20 Labs: Abnormal Lab Results - Last 24 Hours (Table) 06/10/18 06/10/18 06/10/18 Range/Units 11:59 17:00 20:20 RBC (4.30-5.90) m/uL Hgb (13.0-17.5) gm/dL Hct (39.0-53.0) % MCHC (31.0-37.0) g/dL Lymphocytes # (1.0-4.8) k/uL Sodium (137-145) mmol/L Chloride (98-107) mmol/L Carbon Dioxide (22-30) mmol/L BUN (9-20) mg/dL Glucose (74-99) mg/dL POC Glucose (mg/dL) 211 H 214 H 147 H (75-99) mg/dL AST (17-59) U/L ALT (21-72) U/L Alkaline Phosphatase (38-126) U/L Total Protein (6.3-8.2) g/dL Albumin (3.5-5.0) g/dL 06/11/18 06/11/18 06/11/18 Range/Units 07:06 07:20 07:20 RBC 3.90 L (4.30-5.90) m/uL Hgb 11.3 L (13.0-17.5) gm/dL Hct 36.5 L (39.0-53.0) % MCHC 30.9 L (31.0-37.0) g/dL Lymphocytes # 0.2 L (1.0-4.8) k/uL Sodium 136 L (137-145) mmol/L Chloride 96 L (98-107) mmol/L Carbon Dioxide 35 H (22-30) mmol/L BUN 22 H (9-20) mg/dL Glucose 124 H (74-99) mg/dL POC Glucose (mg/dL) 136 H (75-99) mg/dL AST 9 L (17-59) U/L ALT 20 L (21-72) U/L Alkaline Phosphatase 36 L (38-126) U/L Total Protein 5.4 L (6.3-8.2) g/dL Albumin 3.2 L (3.5-5.0) g/dL Microbiology - Last 24 Hours (Table) 06/08/18 14:50 Blood Culture - Preliminary Blood No Growth after 48 hours Assessment and Plan Plan: 1. Acute exacerbation of chronic obstructive pulmonary disease. Chest x-ray completed showing no acute process.. Dr. Aileen dubose has been consulted for pulmonary services. Patient started on IV steroids. Continue breathing treatments. 2. Nicotine dependence. Patient educated greater than 3 minutes with patient. Patient did state he smokes half a pack of cigarettes per day. Nicotine patch has been ordered 3. Acute on chronic hypoxic and hypercapnic respiratory failure. Patient maintained on home O2 4. Lower extremity peripheral edema. BNP level 138. Home Lasix resumed 5. History of essential hypertension. Home meds resumed 6. History of migraine headache 7. History of hyperlipidemia 8. History of depression 9. History of chronic back pain. Home meds resumed GI prophylaxis Protonix. DVT prophylaxis Lovenox.
[2018-06-11] MEDS ORDERED: methylPREDNISolone SOD SUCCI 125 MG/2 ML VIAL IV STA (12:04)
--- NOTE | 2018-06-11 14:53 | P.PN ---
Subjective Progress Note Date: 06/11/18 Principal diagnosis: Acute on chronic hypoxic and hypercapnic respiratory failure secondary to COPD exacerbation. This is a very pleasant 58-year-old gentleman who follows with Dr. Sampson as his primary care physician. 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 He also has severe oxygen dependent chronic obstructive pulmonary disease with FEV1 value less than 20% of predicted. He is on chronic oxygen. He is on Incruse, Spiriva, Daliresp, Ventolin. The patient also has chronic and ongoing tobacco dependence. He follows in our office for the same. He's had multiple admissions for COPD exacerbations. He's been counseled on many occasions regarding the importance of complete smoking cessation. Most recently discharged on 05/17/2018. He presented to the emergency room again yesterday with complaints of increasing shortness of breath and increasing lower extremity edema. Chest x-ray shows no acute cardio pulmonary process. Computed tomography scan of the abdomen and pelvis revealed subsegmental atelectasis in the lung bases. Broad based umbilical hernia that was new compared to previous. Evidence of resection of some of the sigmoid colon. He is seen today in consultation on the regular medical floor. He is awake and alert in mild respiratory distress. He is maintaining good O2 saturations in the 90s on 3 L/m per nasal cannula. He's been afebrile. Hemodynamically stable. White count 8.2. Hemoglobin 12.4. Creatinine 0.72. Bicarb 39. Patient seen again today 06/10/2018 in follow-up on the regular medical floor. He is awake and alert in no acute distress. He is breathing a bit better today compared to yesterday. Still quite dyspneic on minimal exertion and conversation. Loose nonproductive cough. Maintaining good O2 saturations in the high 90s on 3 L/m per nasal cannula. He is afebrile. Hemodynamically stable. Blood culture reveals no growth to date. White count 6.5. Hemoglobin 11.4. Bicarb 38. Creatinine 0.67. He remains on DuoNeb inhalations, Pulmicort and Perforomist inhalations, IV Solu-Medrol, Daliresp and theophylline. Antibiotics in the form of doxycycline. NicoDerm patch is in place. Reevaluated on 06/11/2018, remains on the medical floor, on few liters nasal cannula, looks comfortable, but continues to have diffuse rhonchi and wheezes bilaterally. Patient has dyspnea with any activity. Has BiPAP at bedside, but he is not using it at present. Remains maximized on his multiple bronchodilators, steroids, and antibiotics. Hospice is being considered by him and his family. I believe it is appropriate. Objective - Vital Signs Vital signs: Vital Signs Temp 98.1 F 06/11/18 13:00 Pulse 99 06/11/18 13:00 Resp 16 06/11/18 13:00 BP 127/62 06/11/18 13:00 Pulse Ox 95 06/11/18 13:00 Intake & Output 06/10/18 06/11/18 06/11/18 18:59 06:59 18:59 Intake Total 1500 Output Total 672 776 0089 Balance -500 1075 -1200 Intake: Oral 1500 Output: Urine 954 056 9003 Other: Voiding Method Urinal Urinal # Voids 1 # Bowel Movements 1 - Exam GENERAL EXAM: Obese. Resting in bed, on few liters nasal cannula. HEAD: Normocephalic. EYES: Normal reaction of pupils, equal size. NOSE: Clear with pink turbinates. THROAT: Crowding the posterior pharynx. No erythema or exudates. NECK: No masses, no JVD. CHEST: No chest wall deformity. LUNGS: Diffuse rhonchi and wheezes bilaterally. CVS: S1 and S2 normal with no audible murmur, regular rhythm. ABDOMEN: No hepatosplenomegaly, normal bowel sounds, no guarding or rigidity. SPINE: No scoliosis or deformity SKIN: No rashes CENTRAL NERVOUS SYSTEM: No focal deficits, tone is normal in all 4 extremities. EXTREMITIES: There is no peripheral edema. No clubbing, no cyanosis. Peripheral pulses are intact. - Labs CBC & Chem 7: 06/11/18 07:20 06/11/18 07:20 Labs: Abnormal Lab Results - Last 24 Hours (Table) 06/10/18 06/10/18 06/11/18 Range/Units 17:00 20:20 07:06 RBC (4.30-5.90) m/uL Hgb (13.0-17.5) gm/dL Hct (39.0-53.0) % MCHC (31.0-37.0) g/dL Lymphocytes # (1.0-4.8) k/uL Sodium (137-145) mmol/L Chloride (98-107) mmol/L Carbon Dioxide (22-30) mmol/L BUN (9-20) mg/dL Glucose (74-99) mg/dL POC Glucose (mg/dL) 214 H 147 H 136 H (75-99) mg/dL AST (17-59) U/L ALT (21-72) U/L Alkaline Phosphatase (38-126) U/L Total Protein (6.3-8.2) g/dL Albumin (3.5-5.0) g/dL 06/11/18 06/11/18 06/11/18 Range/Units 07:20 07:20 11:53 RBC 3.90 L (4.30-5.90) m/uL Hgb 11.3 L (13.0-17.5) gm/dL Hct 36.5 L (39.0-53.0) % MCHC 30.9 L (31.0-37.0) g/dL Lymphocytes # 0.2 L (1.0-4.8) k/uL Sodium 136 L (137-145) mmol/L Chloride 96 L (98-107) mmol/L Carbon Dioxide 35 H (22-30) mmol/L BUN 22 H (9-20) mg/dL Glucose 124 H (74-99) mg/dL POC Glucose (mg/dL) 147 H (75-99) mg/dL AST 9 L (17-59) U/L ALT 20 L (21-72) U/L Alkaline Phosphatase 36 L (38-126) U/L Total Protein 5.4 L (6.3-8.2) g/dL Albumin 3.2 L (3.5-5.0) g/dL Microbiology - Last 24 Hours (Table) 06/08/18 14:50 Blood Culture - Preliminary Blood No Growth after 48 hours Assessment and Plan Assessment: #1 Acute on chronic hypoxic and hypercapnic respiratory failure secondary to an acute exacerbation of severe oxygen dependent chronic obstructive pulmonary disease. Gold stage IV, FEV1 value less than 20%. #2 Acute on chronic hypercapnic respiratory failure secondary to an acute exacerbation of chronic obstructive pulmonary disease. #3 Obstructive sleep apnea not on CPAP in the outpatient setting. #4 Obesity. #5 Chronic and ongoing tobacco dependence. #6 Chronic pain syndrome. #7 History of chronic alcoholism with pancreatic insufficiency. #8 Hypertension. #9 Hyperlipidemia. #10 History of diverticular disease status post sigmoid colectomy. #11 History of anxiety/depression. Recommendation: Continue present course of bronchodilators, antibiotics, steroids, however no matter what we do, the patient clearly has severe end- stage COPD, prognosis is extremely poor and guarded, hospice if considered by him and by his family is not a bad idea. Prognosis is extremely poor. We'll continue to follow. Time with Patient: Less than 30
[2018-06-11 17:20] LABS: Glucose,Whole Blood 163 mg/dL (75-99)
[2018-06-11 20:00] LABS: Glucose,Whole Blood 200 mg/dL (75-99)
[2018-06-11] MEDS: ZOLPIDEM 5 MG TAB PO SCH (21:58)
[2018-06-12] MEDS: IPRATROPIUM-ALBUTEROL 3 ML NEB INHALATION PRN ×3 (03:14→20:03)
[2018-06-12] MEDS: HYDROmorphone 1 MG/ML 1 ML SYRINGE IVP PRN ×3 (03:52→12:30)
[2018-06-12] MEDS: methylPREDNISolone SOD SUCCI 125 MG/2 ML VIAL IV SCH ×3 (05:56→17:46)
[2018-06-12 07:11] VITALS: RESP 20
[2018-06-12 07:22] LABS: Glucose,Whole Blood 186 mg/dL (75-99)
[2018-06-12 07:51] LABS: Basophils % (A) 0 %; Eosinophils % (A) 0 %; HCT 37.9 % (39.0-53.0); HGB 11.8 gm/dL (13.0-17.5); Hypochromasia Slight; Lymphocytes # (A) 0.2 k/uL (1.0-4.8); Lymphocytes % (A) 2 %; MCH 29.5 pg (25.0-35.0); MCHC 31.2 g/dL (31.0-37.0); MCV 94.7 fL (80.0-100.0); Mean Platelet Volume 6.9; Monocytes # (A) 0.2 k/uL (0-1.0); Monocytes % (A) 3 %; Neutrophils # (A) 7.3 k/uL (1.3-7.7); Neutrophils % (A) 95 %; Platelet Count 155 k/uL (150-450); RDW 14.4 % (11.5-15.5); WBC 7.7 k/uL (3.8-10.6)
[2018-06-12 08:02] LABS: ALT 19 U/L (21-72); AST 10 U/L (17-59); Albumin 3.4 g/dL (3.5-5.0); Alkaline Phosphatase 48 U/L (38-126); Anion Gap 5 mmol/L; Blood Urea Nitrogen 31 mg/dL (9-20); Carbon Dioxide 36 mmol/L (22-30); Chloride 97 mmol/L (98-107); Glucose 203 mg/dL (74-99); Potassium 3.9 mmol/L (3.5-5.1); Sodium 138 mmol/L (137-145); Total Bilirubin 0.3 mg/dL (0.2-1.3); Total Protein 5.6 g/dL (6.3-8.2)
[2018-06-12] MEDS: BUDESONIDE 1 MG/2 ML NEBU INHALATION SCH ×2 (08:10→20:04)
[2018-06-12] MEDS: IPRATROPIUM 0.5 MG/2.5 ML NEBU INHALATION SCH ×4 (08:10→20:04)
[2018-06-12] MEDS: FORMOTEROL FUMARATE 20 MCG/2 ML NEBU INHALATION SCH ×2 (08:10→20:04)
[2018-06-12] MEDS: FUROSEMIDE 40 MG TAB PO SCH (08:13)
[2018-06-12] MEDS: METOPROLOL SUCCINATE (ER) 25 MG TAB.ER.24H PO SCH (08:13)
[2018-06-12] MEDS: ATORVASTATIN 10 MG TAB PO SCH (08:13)
[2018-06-12] MEDS: PANTOPRAZOLE 40 MG TABLET PO SCH (08:13)
[2018-06-12] MEDS: ALPRAZolam 1 MG TAB PO SCH ×3 (08:13→21:45)
[2018-06-12] MEDS: NICOTINE 14MG/24HR PATCH TRANSDERM SCH (08:13)
[2018-06-12] MEDS: POTASSIUM CHLORIDE ER 10 MEQ TAB.ER.PRT PO SCH ×2 (08:13→20:19)
[2018-06-12] MEDS: LORATADINE 10 MG TAB PO SCH (08:13)
[2018-06-12] MEDS: GABAPENTIN 100 MG CAP PO SCH ×2 (08:13→20:20)
[2018-06-12] MEDS: INSULIN ASPART 100 UNIT/ML 1 ML 10 ML VIAL SQ SCH ×4 (08:14→20:19)
[2018-06-12] MEDS: IBUPROFEN 800 MG TAB PO SCH ×3 (08:14→21:45)
[2018-06-12] MEDS: ENOXAPARIN 40 MG/0.4 ML SYRINGE SQ SCH (08:15)
[2018-06-12] MEDS: ROFLUMILAST 500 MG PO SCH (08:16)
[2018-06-12] MEDS: busPIRone HCl 5 MG TAB PO SCH ×2 (08:16→20:20)
[2018-06-12] MEDS: DOXYCYCLINE 100 MG CAP PO SCH ×2 (08:17→20:20)
[2018-06-12] MEDS: LIPASE 5,000/PROTEASE 17,000/AMYLASE 24,000 PO SCH ×3 (08:17→21:46)
[2018-06-12] MEDS: THEOPHYLLINE 24 HOUR 400 MG CAP.ER.24H PO SCH (08:18)
[2018-06-12] MEDS: risperiDONE 2 MG TAB PO SCH ×2 (08:18→20:20)
[2018-06-12] MEDS: TRIAMCINOLONE 0.1% CREAM 80 GM TUBE TOPICAL SCH (08:19)
[2018-06-12] MEDS: ESCITALOPRAM 10 MG TAB PO SCH (08:27)
--- NOTE | 2018-06-12 10:36 | P.PN ---
Subjective Progress Note Date: 06/12/18 This is a 58-year-old male patient well-known to my service is presenting with complaints of increased shortness of breath. Patient states for the past 2 days he had increase difficulty in breathing along with increased peripheral edema. Patient has a known past medical history of COPD patient also states he is still smoking half pack of cigarettes per day. Patient is home O2 dependent on 3 L. Patient recently admitted to [facility] and ME'd last week for the same issue. Additional medical history includes chest pain, GERD, hyperlipidemia, hypertension and pneumonia. Chest x-ray completed showing no acute cardiopulmonary process. EKG completed showing normal sinus rhythm. Patient also complaining of generalized abdominal pain. CT of abdomen and pelvis completed showing subsegmental atelectasis at the lung bases that is new compared to last exam. There is a broad-based umbilical hernia that is new compared to last exam. No evidence of bowel obstruction. There is resection of some of the sigmoid colon compared to old exam there is clearing of the. Diverticular abscess compared to old exam. Dr. Gallagher has been consulted for pulmonary services. Patient started on Solu-Medrol IV. This time patient remains short of breath with activity. Patient currently on 3 L nasal cannula. Continue breathing treatments at this time. Patient denies chest pain. Patient denies nausea vomiting or diarrhea. Patient denies any urinary burning or frequency On 06/10/2018 patient was seen and examined he is still complaining of shortness of breath, cough and severe wheezing otherwise he denies any complaints there is no fever or chills no headache or dizziness no chest pain, there is no nausea or vomiting no abdominal pain no diarrhea and no urinary symptoms On 06/11/2018 patient was seen and examined on medical floor, he is still complaining of severe shortness of breath complaining of cough and severe wheezing otherwise he denies any complaints there is no fever or chills no headache or dizziness no chest pain no nausea or vomiting no abdominal pain no diarrhea and no urinary symptoms On 06/12/2018 patient is alert and oriented 3. Patient is still complaining of severe shortness of breath. Patient denies chest pain. Patient denies nausea vomiting or diarrhea. Patient denies any urinary burning or frequency Objective - Vital Signs Vital signs: Vital Signs Temp 98 F 06/12/18 07:08 Pulse 92 06/12/18 08:32 Resp 20 06/12/18 07:08 BP 135/87 06/12/18 07:08 Pulse Ox 97 06/12/18 08:12 Intake & Output 06/11/18 06/12/18 06/12/18 18:59 06:59 18:59 Intake Total 1380 Output Total 1200 Balance -1200 1380 Weight 82.6 kg Intake: Oral 1380 Output: Urine 1200 Other: Voiding Method Urinal # Voids 1 # Bowel Movements 1 - Exam Head normocephalic and atraumatic Neck supple no JVD no goiter Lungs diminished bilaterally with expiratory wheezing Heart regular rate and rhythm S1-S2, no rub or gallop Abdomen is soft nontender nondistended positive bowel sounds no hepatosplenomegaly Extremities +1 lower extremity edema Neuro alert and orientated to 3 - Labs CBC & Chem 7: 06/12/18 07:33 06/12/18 07:33 Labs: Abnormal Lab Results - Last 24 Hours (Table) 06/11/18 06/11/18 06/11/18 Range/Units 11:53 17:18 19:59 RBC (4.30-5.90) m/uL Hgb (13.0-17.5) gm/dL Hct (39.0-53.0) % Lymphocytes # (1.0-4.8) k/uL Chloride (98-107) mmol/L Carbon Dioxide (22-30) mmol/L BUN (9-20) mg/dL Glucose (74-99) mg/dL POC Glucose (mg/dL) 147 H 163 H 200 H (75-99) mg/dL AST (17-59) U/L ALT (21-72) U/L Total Protein (6.3-8.2) g/dL Albumin (3.5-5.0) g/dL 06/12/1818 06/12/18 Range/Units 07:20 07:33 07:33 RBC 4.00 L (4.30-5.90) m/uL Hgb 11.8 L (13.0-17.5) gm/dL Hct 37.9 L (39.0-53.0) % Lymphocytes # 0.2 L (1.0-4.8) k/uL Chloride 97 L (98-107) mmol/L Carbon Dioxide 36 H (22-30) mmol/L BUN 31 H (9-20) mg/dL Glucose 203 H (74-99) mg/dL POC Glucose (mg/dL) 186 H (75-99) mg/dL AST 10 L (17-59) U/L ALT 19 L (21-72) U/L Total Protein 5.6 L (6.3-8.2) g/dL Albumin 3.4 L (3.5-5.0) g/dL Microbiology - Last 24 Hours (Table) 06/08/18 14:50 Blood Culture - Preliminary Blood No Growth after 72 hours Assessment and Plan Assessment: 1. Acute exacerbation of chronic obstructive pulmonary disease. Chest x-ray completed showing no acute process.. Dr. Aileen dubose has been consulted for pulmonary services. Patient started on IV steroids. Continue breathing treatments. Patient currently on doxycycline. 2. Nicotine dependence. Patient educated greater than 3 minutes with patient. Patient did state he smokes half a pack of cigarettes per day. Nicotine patch has been ordered 3. Acute on chronic hypoxic and hypercapnic respiratory failure. Patient maintained on home O2 4. Lower extremity peripheral edema. BNP level 138. Home Lasix resumed 5. History of essential hypertension. Home meds resumed 6. History of migraine headache 7. History of hyperlipidemia 8. History of depression 9. History of chronic back pain. Home meds resumed GI prophylaxis Protonix. DVT prophylaxis Lovenox. I performed an examination of the patient and discussed their management with the Nurse Practitioner. I have reviewed the Nurse Practitioner's notes and agree with the documented findings and plan of care
[2018-06-12 10:52] LABS: Glucose,Whole Blood 165 mg/dL (75-99)
[2018-06-12] MEDS: HYDROmorphone 0.5 MG/0.5 ML SYRINGE IVP PRN ×2 (16:18→20:19)
--- NOTE | 2018-06-12 17:01 | PN ---
PROGRESS NOTE This is a 58-year-old male, well known to us. He has multiple admissions to this hospital for acute on chronic hypoxemic and hypercapnic respiratory failure secondary to COPD exacerbations. His FEV1 is less than 20%. He has GOLD stage IV disease. Despite this, he comes into the hospital and he gets steroids, antibiotics, breathing treatments, etc., and gets better and then goes home and starts to smoke again. He admits it freely. Apparently the primary service talked to him about hospice, and he has agreed to home hospice. The patient is doing reasonably well. He has been in the hospital on this admission for about 4, 4-1/2 days. In addition, he has a history of sleep apnea syndrome, obesity, ongoing tobacco use with nicotine dependence, chronic pain syndrome, chronic alcohol abuse with pancreatic insufficiency, hypertension, hyperlipidemia, diverticular disease, status post sigmoid colectomy, and anxiety with depression. When confronted about his ongoing destructive behavior, he just laughs. Anyway, I think hospice is a good option for this patient, since he is never going to get better and since he does not really take care of himself. Currently he is still having shortness of breath, difficulty breathing, coughing, wheezing and chest congestion. Current vital signs are reviewed. His temperature is 98, heart rate 83, respiratory rate 20, blood pressure 135/87, 3-L saturation 97%. Appears in no acute distress. Mildly tachypneic, not using any accessory muscles. No conversational dyspnea. No audible wheezing. HEENT examination is grossly unremarkable. Mucous membranes are moist. Neck is supple. Cardiovascular examination reveals regular rhythm and rate. Heart rate in the mid 80s. S1, S2 normal. Lungs reveal some coarse expiratory rhonchi. There is prolongation on forced maneuver. There is wheezing on forced maneuver. No crackles. Breath sounds are diminished throughout. Abdomen soft but obese. Extremities are intact. No cyanosis, clubbing or edema. Skin without rash. Neurologic examination is brief but nonfocal. Microbiologic studies thus far are all negative. Current lab include a white count of 7.7, hemoglobin 11.8, hematocrit 37.9, platelet count 155,000. Sodium, potassium normal, chloride 97, CO2 36. BUN and creatinine were 31 and 0.69. The rest of the labs look reasonable. Medications are reviewed. From the pulmonary standpoint, he is on Pulmicort 1 mg twice a day, doxycycline 100 mg twice a day, formoterol 20 mcg twice a day, updrafts with DuoNeb q.i.d. and p.r.n., Solu-Medrol 60 mg q.6 and nicotine patch, roflumilast or Daliresp 500 mg every day, theophylline 24-hour daily. ASSESSMENT: 1. Acute on chronic hypoxemic and hypercapnic respiratory failure secondary to a patient with severe oxygen-dependent chronic obstructive pulmonary disease and an FEV1 that is less than 20% of predicted. 2. Chronic obstructive pulmonary disease exacerbation with multiple admissions to this hospital. 3. Chronic hypoxemia and hypercapnia. 4. Obstructive sleep apnea syndrome, not on CPAP. 5. Obesity. 6. Chronic and ongoing tobacco dependence. 7. Chronic pain syndrome. 8. History of chronic alcohol abuse with pancreatic insufficiency. 9. Hypertension by history. 10.Hyperlipidemia. 11.History of diverticular disease, status post sigmoid colectomy. 12.History of anxiety/depression. PLAN: The patient continues to practice very destructive behaviors. When confronted about his ongoing tobacco use, he sort of just laughs about it. He has had multiple admissions to the hospital. The patient gets admitted, receives steroids and antibiotics, bronchodilators, etc. The patient despite that continues to smoke once he gets home. Apparently the primary service has talked to the patient. He is agreeable to hospice. I think that is a good solution. No additional recommendations are made. His prognosis is very poor and I do not expect him to live a long time, should he continue with this sort of behavior. JOSE / MIROSLAVAN: [id number] /
[2018-06-12 17:11] LABS: Glucose,Whole Blood 162 mg/dL (75-99)
[2018-06-12 20:17] LABS: Glucose,Whole Blood 160 mg/dL (75-99)
[2018-06-12] MEDS: ZOLPIDEM 5 MG TAB PO SCH (21:45)
[2018-06-13] MEDS: methylPREDNISolone SOD SUCCI 125 MG/2 ML VIAL IV SCH ×3 (00:21→12:39)
[2018-06-13] MEDS: HYDROmorphone 0.5 MG/0.5 ML SYRINGE IVP PRN ×4 (00:21→12:26)
[2018-06-13 05:41] VITALS: BP 135/88; TEMP 97.7
[2018-06-13 07:06] LABS: Glucose,Whole Blood 132 mg/dL (75-99)
[2018-06-13] MEDS: INSULIN ASPART 100 UNIT/ML 1 ML 10 ML VIAL SQ SCH ×2 (07:34→12:40)
[2018-06-13 07:56] LABS: Basophils % (A) 0 %; Eosinophils # (A) 0.1 k/uL (0-0.7); Eosinophils % (A) 1 %; HCT 36.6 % (39.0-53.0); HGB 11.4 gm/dL (13.0-17.5); Lymphocytes # (A) 0.2 k/uL (1.0-4.8); Lymphocytes % (A) 3 %; MCH 29.5 pg (25.0-35.0); MCHC 31.2 g/dL (31.0-37.0); MCV 94.4 fL (80.0-100.0); Mean Platelet Volume 7.3; Monocytes # (A) 0.4 k/uL (0-1.0); Monocytes % (A) 4 %; Neutrophils % (A) 92 %; Platelet Count 189 k/uL (150-450); RBC 3.88 m/uL (4.30-5.90); RDW 14.2 % (11.5-15.5); WBC 8.6 k/uL (3.8-10.6)
[2018-06-13 08:10] LABS: ALT 25 U/L (21-72); AST 10 U/L (17-59); Albumin 3.1 g/dL (3.5-5.0); Alkaline Phosphatase 37 U/L (38-126); Anion Gap 3 mmol/L; Blood Urea Nitrogen 30 mg/dL (9-20); Calcium 8.7 mg/dL (8.4-10.2); Carbon Dioxide 37 mmol/L (22-30); Chloride 97 mmol/L (98-107); Glucose 116 mg/dL (74-99); Potassium 4.3 mmol/L (3.5-5.1); Sodium 137 mmol/L (137-145); Total Bilirubin 0.4 mg/dL (0.2-1.3); Total Protein 5.3 g/dL (6.3-8.2)
[2018-06-13] MEDS: ALPRAZolam 1 MG TAB PO SCH (08:15)
[2018-06-13] MEDS: POTASSIUM CHLORIDE ER 10 MEQ TAB.ER.PRT PO SCH (08:15)
[2018-06-13] MEDS: ENOXAPARIN 40 MG/0.4 ML SYRINGE SQ SCH (08:15)
[2018-06-13] MEDS: FUROSEMIDE 40 MG TAB PO SCH (08:15)
[2018-06-13] MEDS: GABAPENTIN 100 MG CAP PO SCH (08:15)
[2018-06-13] MEDS: PANTOPRAZOLE 40 MG TABLET PO SCH (08:15)
[2018-06-13] MEDS: LORATADINE 10 MG TAB PO SCH (08:15)
[2018-06-13] MEDS: METOPROLOL SUCCINATE (ER) 25 MG TAB.ER.24H PO SCH (08:15)
[2018-06-13] MEDS: ATORVASTATIN 10 MG TAB PO SCH (08:15)
[2018-06-13] MEDS: IBUPROFEN 800 MG TAB PO SCH (08:15)
[2018-06-13] MEDS: NICOTINE 14MG/24HR PATCH TRANSDERM SCH (08:15)
[2018-06-13] MEDS: busPIRone HCl 5 MG TAB PO SCH (08:16)
[2018-06-13] MEDS: LIPASE 5,000/PROTEASE 17,000/AMYLASE 24,000 PO SCH (08:17)
[2018-06-13] MEDS: ESCITALOPRAM 10 MG TAB PO SCH (08:17)
[2018-06-13] MEDS: DOXYCYCLINE 100 MG CAP PO SCH (08:17)
[2018-06-13] MEDS: BUDESONIDE 1 MG/2 ML NEBU INHALATION SCH (08:31)
[2018-06-13] MEDS: FORMOTEROL FUMARATE 20 MCG/2 ML NEBU INHALATION SCH (08:31)
[2018-06-13] MEDS: IPRATROPIUM 0.5 MG/2.5 ML NEBU INHALATION SCH ×2 (08:32→12:38)
[2018-06-13 08:54] VITALS: PULSE 92
--- NOTE | 2018-06-13 10:35 | P.DS ---
Providers Date of admission: 06/08/18 18:17 Expected date of discharge: 06/13/18 Attending physician: Shellie Sampson Consults: 06/09/18 08:19 Consult Physician Routine Consulting Provider: Constance Gallagher Consult Reason/Comments: COPD Do you want consulting provider notified?: Yes 06/09/18 12:59 Consult Physician Routine Consulting Provider: Nataliia Shaw Consult Reason/Comments: umbilical hernia Do you want consulting provider notified?: Already Contacted Primary care physician: Shellie Sampson [facility] Course: Discharge diagnosis Terminal diagnosis end-stage COPD with multiple readmissions to the hospital 1. Acute exacerbation of chronic obstructive pulmonary disease. Chest x-ray completed showing no acute process.. Dr. Aileen dubose has been consulted for pulmonary services. Patient started on IV steroids. Continue breathing treatments. Patient currently on doxycycline. 2. Nicotine dependence. Patient educated greater than 3 minutes with patient. Patient did state he smokes half a pack of cigarettes per day. Nicotine patch has been ordered 3. Acute on chronic hypoxic and hypercapnic respiratory failure. Patient maintained on home O2 4. Lower extremity peripheral edema. BNP level 138. Home Lasix resumed 5. History of essential hypertension. Home meds resumed 6. History of migraine headache 7. History of hyperlipidemia 8. History of depression 9. History of chronic back pain. Home meds resumed Patient will be DC'd home with [facility] course This is a 58-year-old male patient well-known to my service is presenting with complaints of increased shortness of breath. Patient states for the past 2 days he had increase difficulty in breathing along with increased peripheral edema. Patient has a known past medical history of COPD patient also states he is still smoking half pack of cigarettes per day. Patient is home O2 dependent on 3 L. Patient recently admitted to [facility] and DC'd last week for the same issue. Additional medical history includes chest pain, GERD, hyperlipidemia, hypertension and pneumonia. Chest x-ray completed showing no acute cardiopulmonary process. EKG completed showing normal sinus rhythm. Patient also complaining of generalized abdominal pain. CT of abdomen and pelvis completed showing subsegmental atelectasis at the lung bases that is new compared to last exam. There is a broad-based umbilical hernia that is new compared to last exam. No evidence of bowel obstruction. There is resection of some of the sigmoid colon compared to old exam there is clearing of the. Diverticular abscess compared to old exam. Dr. Gallagher has been consulted for pulmonary services. Patient started on Solu-Medrol IV. This time patient remains short of breath with activity. Patient currently on 3 L nasal cannula. Continue breathing treatments at this time. Patient denies chest pain. Patient denies nausea vomiting or diarrhea. Patient denies any urinary burning or frequency On 06/10/2018 patient was seen and examined he is still complaining of shortness of breath, cough and severe wheezing otherwise he denies any complaints there is no fever or chills no headache or dizziness no chest pain, there is no nausea or vomiting no abdominal pain no diarrhea and no urinary symptoms On 06/11/2018 patient was seen and examined on medical floor, he is still complaining of severe shortness of breath complaining of cough and severe wheezing otherwise he denies any complaints there is no fever or chills no headache or dizziness no chest pain no nausea or vomiting no abdominal pain no diarrhea and no urinary symptoms On 06/12/2018 patient is alert and oriented 3. Patient is still complaining of severe shortness of breath. Patient denies chest pain. Patient denies nausea vomiting or diarrhea. Patient denies any urinary burning or frequency On 06/13/2018 patient remains alert and oriented. Patient has been the decision to move forward with the [facility] care. Patient is planning to go home. All home medical equipment has been delivered. I performed an examination of the patient and discussed their management with the Nurse Practitioner. I have reviewed the Nurse Practitioner's notes and agree with the documented findings and plan of care Patient Condition at Discharge: Stable Plan - Discharge Summary New Discharge Prescriptions: No Action Gabapentin [Neurontin] 100 mg PO BID Omeprazole 40 mg PO DAILY risperiDONE [RisperDAL] 2 mg PO BID Lipase/Protease/Amylase [Creon Dr 24,000 Units Capsule] 1 cap PO TID Atorvastatin Calcium [Lipitor] 10 mg PO DAILY busPIRone HCL [Buspar] 7.5 mg PO BID Furosemide [Lasix] 40 mg PO DAILY Metoprolol Succinate (ER) [Toprol XL] 25 mg PO DAILY Roflumilast [Daliresp] 500 mg PO DAILY Albuterol Inhaler [Ventolin Hfa Inhaler] 2 puff INHALATION RT-Q4H PRN PRN Reason: Shortness Of Breath SUMAtriptan SUCCINATE [Imitrex] 100 mg PO DAILY PRN PRN Reason: Migraine Headache Potassium Chloride [Klor-Con 10] 10 meq PO BID Loratadine [Claritin] 10 mg PO DAILY Escitalopram [Lexapro] 10 mg PO DAILY #30 tab Zolpidem [Ambien] 5 mg PO HS #3 tab ALPRAZolam [Xanax] 2 mg PO QID Ibuprofen [Motrin] 800 mg PO TID Theophylline 24 Hour [Dionisio-24] 400 mg PO DAILY Tiotropium 18 Mcg/Puff [Spiriva] 1 puff INHALATION RT-BID Umeclidinium [place] [Incruse Ellipta] 2 puff INHALATION RT-BID Hydrocortisone Cream [Hydrocortisone 2.5% Cream] 1 applic TOPICAL DAILY Discharge Medication List Gabapentin [Neurontin] 100 mg PO BID 03/05/14 [History] Omeprazole 40 mg PO DAILY 03/05/14 [History] Lipase/Protease/Amylase [Creon Dr 24,000 Units Capsule] 1 cap PO TID 07/12/14 [ History] risperiDONE [RisperDAL] 2 mg PO BID 07/12/14 [History] Atorvastatin Calcium [Lipitor] 10 mg PO DAILY 06/02/17 [History] Furosemide [Lasix] 40 mg PO DAILY 06/02/17 [History] Metoprolol Succinate (ER) [Toprol XL] 25 mg PO DAILY 06/02/17 [History] Roflumilast [Daliresp] 500 mg PO DAILY 06/02/17 [History] busPIRone HCL [Buspar] 7.5 mg PO BID 06/02/17 [History] Albuterol Inhaler [Ventolin Hfa Inhaler] 2 puff INHALATION RT-Q4H PRN 02/09/18 [ History] Loratadine [Claritin] 10 mg PO DAILY 02/09/18 [History] Potassium Chloride [Klor-Con 10] 10 meq PO BID 02/09/18 [History] SUMAtriptan SUCCINATE [Imitrex] 100 mg PO DAILY PRN 02/09/18 [History] Escitalopram [Lexapro] 10 mg PO DAILY #30 tab 02/28/18 [Rx] Zolpidem [Ambien] 5 mg PO HS #3 tab 03/24/18 [Rx] ALPRAZolam [Xanax] 2 mg PO QID 05/15/18 [History] Hydrocortisone Cream [Hydrocortisone 2.5% Cream] 1 applic TOPICAL DAILY [History] Ibuprofen [Motrin] 800 mg PO TID 05/15/18 [History] Theophylline 24 Hour [Dionisio-24] 400 mg PO DAILY 05/15/18 [History] Tiotropium 18 Mcg/Puff [Spiriva] 1 puff INHALATION RT-BID 05/15/18 [History] Umeclidinium [place] [Incruse Ellipta] 2 puff INHALATION RT-BID 05/15/18 [ History] Follow up Appointment(s)/Referral(s): [facility], [NON-STAFF] - 1 Week Shellie Sampson MD [Primary Care Provider] - 1-2 days
[2018-06-13] MEDS: ROFLUMILAST 500 MG PO SCH (10:44)
[2018-06-13 11:35] LABS: Glucose,Whole Blood 136 mg/dL (75-99)
[2018-06-13] MEDS: risperiDONE 2 MG TAB PO SCH (12:24)
[2018-06-13] MEDS: THEOPHYLLINE 24 HOUR 400 MG CAP.ER.24H PO SCH (12:24)
[2018-06-13] MEDS: TRIAMCINOLONE 0.1% CREAM 80 GM TUBE TOPICAL SCH (12:25)
--- NOTE | 2018-06-13 13:29 | P.PN ---
Subjective Progress Note Date: 06/13/18 Principal diagnosis: Acute exacerbation of severe oxygen dependent chronic obstructive pulmonary disease This is a very pleasant 58-year-old gentleman who follows with Dr. Sampson as his primary care physician. 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 He also has severe oxygen dependent chronic obstructive pulmonary disease with FEV1 value less than 20% of predicted. He is on chronic oxygen. He is on Incruse, Spiriva, Daliresp, Ventolin. The patient also has chronic and ongoing tobacco dependence. He follows in our office for the same. He's had multiple admissions for COPD exacerbations. He's been counseled on many occasions regarding the importance of complete smoking cessation. Most recently discharged on 05/17/2018. He presented to the emergency room again yesterday with complaints of increasing shortness of breath and increasing lower extremity edema. Chest x-ray shows no acute cardio pulmonary process. Computed tomography scan of the abdomen and pelvis revealed subsegmental atelectasis in the lung bases. Broad based umbilical hernia that was new compared to previous. Evidence of resection of some of the sigmoid colon. He is seen today in consultation on the regular medical floor. He is awake and alert in mild respiratory distress. He is maintaining good O2 saturations in the 90s on 3 L/m per nasal cannula. He's been afebrile. Hemodynamically stable. White count 8.2. Hemoglobin 12.4. Creatinine 0.72. Bicarb 39. The patient is seen again today 06/13/2018 in follow-up on the regular medical floor. He remains awake and alert in no acute distress. He is actually breathing quite a bit better then his initial presentation. Probably at his best. Still with end expiratory wheeze bilaterally. Still dyspneic with minimal exertion. He is maintaining good O2 saturations in the 90s on 3 L/m per nasal cannula. He's been afebrile. Hemodynamically stable. Blood culture reveals no growth. White count 8.6. Hemoglobin 11.4. Creatinine 0.65. Objective - Vital Signs Vital signs: Vital Signs Temp 97.7 F 06/13/18 05:00 Pulse 92 06/13/18 08:50 Resp 20 06/13/18 05:00 BP 135/88 06/13/18 05:00 Pulse Ox 97 06/13/18 05:00 Intake & Output 06/12/18 06/13/18 06/13/18 18:59 06:59 18:59 Intake Total 830 Output Total 700 Balance 130 Weight 82.6 kg Intake: Oral 830 Output: Urine 700 Other: Voiding Method Urinal Urinal Urinal # Voids 3 - Exam GENERAL EXAM: Obese. Alert, fairly comfortable, no acute distress. On 3 L/m. per nasal cannula. HEAD: Normocephalic. EYES: Normal reaction of pupils, equal size. NOSE: Clear with pink turbinates. THROAT: Crowding the posterior pharynx. No erythema or exudates. NECK: No masses, no JVD. CHEST: No chest wall deformity. LUNGS: Equal air entry with bilateral end expiratory wheeze. Diminished throughout. CVS: S1 and S2 normal with no audible murmur, regular rhythm. ABDOMEN: No hepatosplenomegaly, normal bowel sounds, no guarding or rigidity. SPINE: No scoliosis or deformity SKIN: No rashes CENTRAL NERVOUS SYSTEM: No focal deficits, tone is normal in all 4 extremities. EXTREMITIES: There is no peripheral edema. No clubbing, no cyanosis. Peripheral pulses are intact. - Labs CBC & Chem 7: 06/13/18 07:33 06/13/18 07:33 Labs: Abnormal Lab Results - Last 24 Hours (Table) 06/12/18 06/12/18 06/13/18 Range/Units 17:00 20:15 07:02 RBC (4.30-5.90) m/uL Hgb (13.0-17.5) gm/dL Hct (39.0-53.0) % Neutrophils # (1.3-7.7) k/uL Lymphocytes # (1.0-4.8) k/uL Chloride (98-107) mmol/L Carbon Dioxide (22-30) mmol/L BUN (9-20) mg/dL Creatinine (0.66-1.25) mg/dL Glucose (74-99) mg/dL POC Glucose (mg/dL) 162 H 160 H 132 H (75-99) mg/dL AST (17-59) U/L Alkaline Phosphatase (38-126) U/L Total Protein (6.3-8.2) g/dL Albumin (3.5-5.0) g/dL 06/13/18 06/13/18 06/13/18 Range/Units 07:33 07:33 11:23 RBC 3.88 L (4.30-5.90) m/uL Hgb 11.4 L (13.0-17.5) gm/dL Hct 36.6 L (39.0-53.0) % Neutrophils # 8.0 H (1.3-7.7) k/uL Lymphocytes # 0.2 L (1.0-4.8) k/uL Chloride 97 L (98-107) mmol/L Carbon Dioxide 37 H (22-30) mmol/L BUN 30 H (9-20) mg/dL Creatinine 0.65 L (0.66-1.25) mg/dL Glucose 116 H (74-99) mg/dL POC Glucose (mg/dL) 136 H (75-99) mg/dL AST 10 L (17-59) U/L Alkaline Phosphatase 37 L (38-126) U/L Total Protein 5.3 L (6.3-8.2) g/dL Albumin 3.1 L (3.5-5.0) g/dL Microbiology - Last 24 Hours (Table) 06/08/18 14:50 Blood Culture - Preliminary Blood No Growth after 96 hours Assessment and Plan Assessment: Impression: #1 Acute on chronic hypoxic respiratory failure secondary to an acute exacerbation of severe oxygen dependent chronic obstructive pulmonary disease. Gold stage IV, FEV1 value less than 20%. #2 Acute on chronic hypercapnic respiratory failure secondary to an acute exacerbation of chronic obstructive pulmonary disease. #3 Obstructive sleep apnea not on CPAP in the outpatient setting. #4 Obesity. #5 Chronic and ongoing tobacco dependence. #6 Chronic pain syndrome. #7 History of chronic alcoholism with pancreatic insufficiency. #8 Hypertension. #9 Hyperlipidemia. #10 History of diverticular disease status post sigmoid colectomy. #11 History of anxiety/depression. Plan: The patient was seen and evaluated by Dr. Paniagua. The patient is hoping to go home with hospice today. I, the cosigning physician, performed a history & physical examination of the patient. Lungs sounds with bilateral end expiratory wheeze, few scattered rhonchi, diminished. Maintaining good O2 saturations in the 90s on 3 L/m per nasal cannula. I discussed the assessment and plan of care with my nurse practitioner, Paula Demarco. I attest to the above note as dictated by her.
== END 2018-06-13 13:05 | disposition hospice, home (50) | DRG 190 ==
LOC: EC 14:34 → 3NMEDONC 18:17
PROVIDERS: ADMIT Internal Medicine; ATTEND Internal Medicine
DX: J44.1 Chronic obstructive pulmonary disease with (acute) exacerbation (principal); J96.21 Acute and chronic respiratory failure with hypoxia; J96.22 Acute and chronic respiratory failure with hypercapnia; J98.11 Atelectasis; K86.1 Other chronic pancreatitis; Z51.5 Encounter for palliative care; Z66 Do not resuscitate; I11.0 Hypertensive heart disease with heart failure; I50.9 Heart failure, unspecified; G43.909 Migraine, unspecified, not intractable, without status migrainosus; K21.9 Gastro-esophageal reflux disease without esophagitis; K42.9 Umbilical hernia without obstruction or gangrene; K57.90 Diverticulosis of intestine, part unspecified, without perforation or abscess without bleeding; G47.33 Obstructive sleep apnea (adult) (pediatric); G89.4 Chronic pain syndrome; F32.9 Major depressive disorder, single episode, unspecified; F41.9 Anxiety disorder, unspecified; F91.9 Conduct disorder, unspecified; K43.2 Incisional hernia without obstruction or gangrene; I25.2 Old myocardial infarction; E78.5 Hyperlipidemia, unspecified; K86.81 Exocrine pancreatic insufficiency; E66.9 Obesity, unspecified; Z68.29 Body mass index [BMI] 29.0-29.9, adult; F10.21 Alcohol dependence, in remission; F17.210 Nicotine dependence, cigarettes, uncomplicated; Z71.6 Tobacco abuse counseling; Z79.1 Long term (current) use of non-steroidal anti-inflammatories (NSAID); Z79.51 Long term (current) use of inhaled steroids; Z79.899 Other long term (current) drug therapy; Z99.81 Dependence on supplemental oxygen; Z87.01 Personal history of pneumonia (recurrent); Z86.14 Personal history of Methicillin resistant Staphylococcus aureus infection; Z90.49 Acquired absence of other specified parts of digestive tract; Z82.5 Family history of asthma and other chronic lower respiratory diseases; Z80.9 Family history of malignant neoplasm, unspecified
CPT/HCPCS: 36415; 71046; 74177; 80053; 82550; 82553; 83036; 83735; 83880; 84484; 85025; 85610; 85730; 87040; 94640; 94760; 96374; 96375; 96376; 99285

== ENCOUNTER 2018-07-01 05:52 | Emergency (ER) | payer MEDICARE, OTHER ==
--- NOTE | 2018-07-01 05:54 | ED ---
General Adult HPI - General Stated complaint: ABIMBOLA Time Seen by Provider: 07/01/18 05:54 - History of Present Illness Initial comments: Mychal is a 58-year-old male who presents to the emergency department today via EMS in acute respiratory failure. Patient has end-stage COPD he is enrolled in hospice his brother became distressed over his respiratory effort this morning called 911. Upon arrival to the emergency department the patient is in respiratory distress on CPAP. He is nonverbal he has altered mental status. - Related Data Home Medications Medication Instructions Recorded Confirmed Gabapentin [Neurontin] 100 mg PO BID 03/05/14 07/01/18 Omeprazole 40 mg PO DAILY 03/05/14 07/01/18 Lipase/Protease/Amylase [Creon Dr 1 cap PO TID 07/12/14 07/01/18 24,000 Units Capsule] risperiDONE [RisperDAL] 2 mg PO BID 07/12/14 07/01/18 Atorvastatin Calcium [Lipitor] 10 mg PO DAILY 06/02/17 07/01/18 Furosemide [Lasix] 40 mg PO DAILY 06/02/17 07/01/18 Metoprolol Succinate (ER) [Toprol 25 mg PO DAILY 06/02/17 07/01/18 XL] Roflumilast [Daliresp] 500 mg PO DAILY 06/02/17 07/01/18 busPIRone HCL [Buspar] 7.5 mg PO BID 06/02/17 07/01/18 Albuterol Inhaler [Ventolin Hfa 2 puff INHALATION RT-Q4H PRN 02/09/18 07/01/18 Inhaler] Loratadine [Claritin] 10 mg PO DAILY 02/09/18 07/01/18 Potassium Chloride [Klor-Con 10] 10 meq PO BID 02/09/18 07/01/18 SUMAtriptan SUCCINATE [Imitrex] 100 mg PO DAILY PRN 02/09/18 07/01/18 ALPRAZolam [Xanax] 2 mg PO QID 05/15/18 07/01/18 Hydrocortisone Cream 1 applic TOPICAL DAILY 05/15/18 07/01/18 [Hydrocortisone 2.5% Cream] Ibuprofen [Motrin] 800 mg PO TID 05/15/18 07/01/18 Theophylline 24 Hour [Dionisio-24] 400 mg PO DAILY 05/15/18 07/01/18 Tiotropium 18 Mcg/Puff [Spiriva] 1 puff INHALATION RT-BID 05/15/18 07/01/18 Umeclidinium [place] [Incruse 2 puff INHALATION RT-BID 05/15/18 07/01/18 Ellipta] Previous Rx's Medication Instructions Recorded Escitalopram [Lexapro] 10 mg PO DAILY #30 tab 02/28/18 Zolpidem [Ambien] 5 mg PO HS #3 tab 03/24/18 Doxycycline [Vibramycin] 100 mg PO BID 7 Days #14 cap 06/13/18 predniSONE 10 mg PO DIRECTED #70 tab 06/13/18 Allergies Allergy/AdvReac Type Severity Reaction Status Date / Time Penicillins Allergy Rash/Hives Verified 07/01/18 05:57 Review of Systems ROS Statement: Those systems with pertinent positive or pertinent negative responses have been documented in the HPI. Limitations: ROS unobtainable due to patients medical condition (Respiratory distress) Past Medical History Past Medical History: Chest Pain / Angina, COPD, GERD/Reflux, Hyperlipidemia, Hypertension, Pneumonia Additional Past Medical History / Comment(s): Other hx: Severe COPD, chronic hypoxic respiratory failure , 3L oxygen at home, VIVEK without device, history of alcoholism-no drinking for 18 yrs, history of chronic pancreatitis and pancreatic insufficiency, chronic diverticular disease/diverticulitis, chronic pain in back and abdomin. Last Myocardial Infarction Date:: Denies having an DC History of Any Multi-Drug Resistant Organisms: MRSA Date of last positivie culture/infection: summer MDRO Source:: right side of buttuck and right side of chest above nipple Past Surgical History: Bowel Resection, Heart Catheterization, Orthopedic Surgery, Tonsillectomy Additional Past Surgical History / Comment(s): Sigmoid colectomy, right hand surgery for repair of tendons, cardiac catheterization that has been normal, colonoscopy Past Anesthesia/Blood Transfusion Reactions: No Reported Reaction Past Psychological History: Anxiety, Depression Smoking Status: Current every day smoker Past Alcohol Use History: None Reported Past Drug Use History: Prescription Drug Abuse - Past Family History Mother Family Medical History: Cancer, COPD Additional Family Medical History / Comment(s): unaware of what kind of cancer Father Family Medical History: COPD Additional Family Medical History / Comment(s): Father is . General Exam - General Exam Comments Initial Comments: GENERAL: In acute respiratory distress HENT: Normocephalic, Atraumatic. EYES: Anicteric PULMONARY: Tachypnea, wheezing in all lung parikh increased work of breathing CARDIOVASCULAR: Tachycardic, regular extremities are cool and clamped down ABDOMEN: Soft and nontender with normal bowel sounds. SKIN: skin is mottled and diaphoretic NEUROLOGIC: nonverbal due to respiratory failure MUSCULOSKELETAL 3+ pitting edema bilateral lower extremities Lymphatics No significant lymphadenopathy is noted PSYCHIATRIC: unable to assess due to respiratory distress Limitations: no limitations Course Vital Signs 07/01/18 07/01/18 07/01/18 05:53 06:03 07:23 Temperature 98.3 F 97.8 F Pulse Rate 122 H 129 H 111 H Respiratory 38 H 28 H 26 H Rate Blood Pressure 131/109 101/75 126/87 O2 Sat by Pulse 84 L 100 99 Oximetry EKG Findings - EKG Comments: EKG Findings:: EKG obtained at 6:24 AM, rate is 116 rhythm is sinus tachycardia there is no acute ST elevations or depressions no evidence of acute ischemia or infarction Medical Decision Making - Medical Decision Making Patient called in to the emergency department by EMS as a priority 1 respiratory distress The patient arrived on CPAP and respiratory failure The patient's son was in the emergency department he can identify the patient and confirmed the patient is in fact hospice, no code would not want aggressive interventions. At this time is agreeable to continuing BiPAP IV access for medications, no aggressive interventions requests that we contact his sister Dione who is the patient's POWER of insurance attorney I discussed patient care with Dione over the phone she is in route to the hospital. She states the patient is hospice. They expected the patient to at home. There are aware that he has a terminal condition. She expresses upset that his brother has contacted EMS. She requests that we continue the BiPAP until she arrives. The patients respiratory distress and mental status improved with BiPAP. Patient again confirmed that he wants to be hospice he is aware that he will Patient's daughter has contacted [facility] they can meet the patient at home again to make sure he is comfortable. If the patient is expected to live greater than 24 hours he will be transferred to a hospice facility in [place]. Patient is discharged home. His condition is guarded I expect the patient will - Lab Data Result diagrams: 07/01/18 06:00 07/01/18 06:00 Lab Results 07/01/18 07/01/18 07/01/18 Range/Units 06:00 06:00 06:00 WBC 9.3 (3.8-10.6) k/uL RBC 4.53 (4.30-5.90) m/uL Hgb 13.4 (13.0-17.5) gm/dL Hct 42.1 (39.0-53.0) % MCV 93.0 (80.0-100.0) fL MCH 29.7 (25.0-35.0) pg MCHC 31.9 (31.0-37.0) g/dL RDW 14.1 (11.5-15.5) % Plt Count 140 L (150-450) k/uL Neutrophils % 88 % Lymphocytes % 4 % Monocytes % 6 % Eosinophils % 2 % Basophils % 0 % Neutrophils # 8.2 H (1.3-7.7) k/uL Lymphocytes # 0.4 L (1.0-4.8) k/uL Monocytes # 0.5 (0-1.0) k/uL Eosinophils # 0.1 (0-0.7) k/uL Basophils # 0.0 (0-0.2) k/uL Hypochromasia Slight PT (9.0-12.0) sec INR (<1.2) APTT (22.0-30.0) sec Sodium 135 L (137-145) mmol/L Potassium 5.1 (3.5-5.1) mmol/L Chloride 100 (98-107) mmol/L Carbon Dioxide 29 (22-30) mmol/L Anion Gap 6 mmol/L BUN 9 (9-20) mg/dL Creatinine 0.51 L (0.66-1.25) mg/dL Est GFR (CKD-EPI)AfAm >90 (>60 ml/min/1.73 sqM) Est GFR (CKD-EPI)NonAf >90 (>60 ml/min/1.73 sqM) Glucose 147 H (74-99) mg/dL Calcium 8.9 (8.4-10.2) mg/dL Magnesium 1.8 (1.6-2.3) mg/dL Total Bilirubin 0.4 (0.2-1.3) mg/dL AST 28 (17-59) U/L ALT 29 (21-72) U/L Alkaline Phosphatase 73 (38-126) U/L Total Creatine Kinase 87 (55-170) U/L CK-MB (CK-2) 3.2 H (0.0-2.4) ng/mL CK-MB (CK-2) Rel Index 3.7 Troponin I <0.012 (0.000-0.034) ng/mL NT-Pro-B Natriuret Pep pg/mL Total Protein 6.0 L (6.3-8.2) g/dL Albumin 3.6 (3.5-5.0) g/dL 07/01/18 07/01/18 Range/Units 06:00 06:00 WBC (3.8-10.6) k/uL RBC (4.30-5.90) m/uL Hgb (13.0-17.5) gm/dL Hct (39.0-53.0) % MCV (80.0-100.0) fL MCH (25.0-35.0) pg MCHC (31.0-37.0) g/dL RDW (11.5-15.5) % Plt Count (150-450) k/uL Neutrophils % % Lymphocytes % % Monocytes % % Eosinophils % % Basophils % % Neutrophils # (1.3-7.7) k/uL Lymphocytes # (1.0-4.8) k/uL Monocytes # (0-1.0) k/uL Eosinophils # (0-0.7) k/uL Basophils # (0-0.2) k/uL Hypochromasia PT 9.3 (9.0-12.0) sec INR 0.8 (<1.2) APTT 22.0 (22.0-30.0) sec Sodium (137-145) mmol/L Potassium (3.5-5.1) mmol/L Chloride (98-107) mmol/L Carbon Dioxide (22-30) mmol/L Anion Gap mmol/L BUN (9-20) mg/dL Creatinine (0.66-1.25) mg/dL Est GFR (CKD-EPI)AfAm (>60 ml/min/1.73 sqM) Est GFR (CKD-EPI)NonAf (>60 ml/min/1.73 sqM) Glucose (74-99) mg/dL Calcium (8.4-10.2) mg/dL Magnesium (1.6-2.3) mg/dL Total Bilirubin (0.2-1.3) mg/dL AST (17-59) U/L ALT (21-72) U/L Alkaline Phosphatase (38-126) U/L Total Creatine Kinase (55-170) U/L CK-MB (CK-2) (0.0-2.4) ng/mL CK-MB (CK-2) Rel Index Troponin I (0.000-0.034) ng/mL NT-Pro-B Natriuret Pep 75 pg/mL Total Protein (6.3-8.2) g/dL Albumin (3.5-5.0) g/dL Disposition Clinical Impression: COPD exacerbation, Respiratory failure Disposition: HOME SELF-CARE Condition: Critical Instructions: Chronic Cough (ED) Is patient prescribed a controlled substance at d/c from ED?: No Referrals: None,Stated [Primary Care Provider] - 1-2 days
[2018-07-01 06:30] LABS: Basophils % (A) 0 %; Eosinophils # (A) 0.1 k/uL (0-0.7); Eosinophils % (A) 2 %; HCT 42.1 % (39.0-53.0); HGB 13.4 gm/dL (13.0-17.5); Hypochromasia Slight; Lymphocytes # (A) 0.4 k/uL (1.0-4.8); Lymphocytes % (A) 4 %; MCH 29.7 pg (25.0-35.0); MCHC 31.9 g/dL (31.0-37.0); Mean Platelet Volume 7.2; Monocytes # (A) 0.5 k/uL (0-1.0); Monocytes % (A) 6 %; Neutrophils # (A) 8.2 k/uL (1.3-7.7); Neutrophils % (A) 88 %; Platelet Count 140 k/uL (150-450); RBC 4.53 m/uL (4.30-5.90); RDW 14.1 % (11.5-15.5); WBC 9.3 k/uL (3.8-10.6)
[2018-07-01 06:35] LABS: ALT 29 U/L (21-72); AST 28 U/L (17-59); Albumin 3.6 g/dL (3.5-5.0); Alkaline Phosphatase 73 U/L (38-126); Anion Gap 6 mmol/L; Blood Urea Nitrogen 9 mg/dL (9-20); Calcium 8.9 mg/dL (8.4-10.2); Carbon Dioxide 29 mmol/L (22-30); Chloride 100 mmol/L (98-107); Glucose 147 mg/dL (74-99); Magnesium 1.8 mg/dL (1.6-2.3); Potassium 5.1 mmol/L (3.5-5.1); Sodium 135 mmol/L (137-145); Total Bilirubin 0.4 mg/dL (0.2-1.3)
[2018-07-01 06:37] LABS: INR 0.8 (<1.2); Prothrombin Time 9.3 sec (9.0-12.0)
[2018-07-01 06:45] LABS: Creatine Kinase 87 U/L (55-170)
[2018-07-01 06:58] LABS: Creatine Kinase MB 3.2 ng/mL (0.0-2.4); Troponin I <0.012 ng/mL (0.000-0.034)
[2018-07-01 07:24] VITALS: BP 126/87; PULSE 111; RESP 26; TEMP 97.8
[2018-07-01] MEDS ORDERED: LORazepam 2 MG/ML INJ IV STA (07:32)
[2018-07-01] MEDS ORDERED: MORPHINE SULFATE 4 MG/ML SYRINGE IVP STA (07:32)
== END 2018-07-01 08:05 | disposition home or self-care (01) ==
LOC: EC 05:52
DX: J44.1 Chronic obstructive pulmonary disease with (acute) exacerbation (principal); J96.21 Acute and chronic respiratory failure with hypoxia; K21.9 Gastro-esophageal reflux disease without esophagitis; E78.5 Hyperlipidemia, unspecified; I10 Essential (primary) hypertension; G47.33 Obstructive sleep apnea (adult) (pediatric); F41.9 Anxiety disorder, unspecified; F17.200 Nicotine dependence, unspecified, uncomplicated; Z99.81 Dependence on supplemental oxygen; Z79.899 Other long term (current) drug therapy; Z88.0 Allergy status to penicillin; Z95.5 Presence of coronary angioplasty implant and graft
CPT/HCPCS: 99285; 96374; 96375; 36415; 94660; 93005; 83880; 80053; 82550; 82553; 83735; 84484; 85025; 85610; 85730; J2060; J2270